=== PATIENT | female | born 1945 | race Caucasian/White ===

== ENCOUNTER → 2017-06-25 | Outpatient (CLI) | payer MEDICARE, OTHER | LOC: CARD 11:43 | PROVIDERS: ATTEND Internal Medicine Cardiovascular Disease | DX: I25.10 Atherosclerotic heart disease of native coronary artery without angina pectoris (principal); I65.29 Occlusion and stenosis of unspecified carotid artery; R07.89 Other chest pain; E13.9 Other specified diabetes mellitus without complications; I51.7 Cardiomegaly; G47.33 Obstructive sleep apnea (adult) (pediatric); I34.0 Nonrheumatic mitral (valve) insufficiency | CPT/HCPCS: 93306 ==

== ENCOUNTER → 2017-06-28 | Outpatient (CLI) | payer MEDICARE, OTHER ==
[2017-06-25 12:56] LABS: ALANINE AMINOTRANSFERASE 15 U/L (0-55); ALBUMIN 4.1 GM/DL (3.2-4.5); ALKALINE PHOSPHATASE 96 U/L (40-136); BILIRUBIN,TOTAL 0.4 MG/DL (0.1-1.0); BUN/CREATININE RATIO 24; CALCIUM 10.2 MG/DL (8.5-10.1); CARBON DIOXIDE 25 MMOL/L (21-32); CHLORIDE 104 MMOL/L (98-107); CHOLESTEROL 203 MG/DL (< 200); CREATININE SERUM 0.85 MG/DL (0.60-1.30); GFR ESTIMATED > 60; GLUCOSE 136 MG/DL (70-105); HDL CHOLESTEROL 58 MG/DL (40-60); POTASSIUM 4.6 MMOL/L (3.6-5.0); SODIUM 137 MMOL/L (135-145); TOTAL PROTEIN 7.3 GM/DL (6.4-8.2); TRIGLYCERIDES 81 MG/DL (<150); VLDL CHOLESTEROL 16 MG/DL (5-40)
[~2017-06-28] VITALS: Ht 172.7 cm; Wt 147.9 kg
[~2017-06-28] MED LIST: AMIT100T2 PO; ASPI-983 PO; ATEN25TA PO; ATOR10TA PO; CATHETER FLUSH 10 ML SYR IV PRN; CELE100C84 PO; FLUT1AER IH; METF500T4 PO; REGADENOSON 0.4 MG/5 ML SYR (LEXISCAN) IV ONE; RT-ALBUINH IH; VALS160T28 PO; ZOLP12.546 PO
[2017-06-28 08:56] VITALS: BP 182/96
[2017-06-28 09:05] VITALS: BP 191/83
--- NOTE | 2017-06-28 13:58 | STRESS TEST ---
DATE OF SERVICE: 06/28/2017 LEXISCAN STRESS TEST REPORT REFERRING PHYSICIAN: Cyrus Corado M.D. Baseline heart rate is 90. Baseline blood pressure 170/80. Baseline EKG is sinus rhythm with no ischemic changes. In summary, the patient was injected with 10.58 mCi of technetium-99 Myoview and the resting images were obtained. Then, the patient received 0.4 mg of Lexiscan followed by 31.2 mCi of technetium-99 Myoview. Throughout the test, there were no EKG changes. The resting and stress images were reviewed and compared in the short axis, horizontal long axis, and vertical long axis views. Review of the images showed breast attenuation, there is decreased uptake involving the mid to apical anterior wall and anterolateral wall and anterior septum with mild reversibility. SSS is 6, SDS 4, TID value 0.91. On the gated images, the left ventricle appeared to be normal size with normal contractility. Calculated ejection fraction 54%. CONCLUSION: 1. The patient tolerated Lexiscan well. 2. Breast attenuation with mild reversible ischemia involving the anterior wall , anterior septum and anterolateral wall. 3. Normal left ventricular size with normal contractility, calculated ejection fraction 54%. Job ID: [id number] DocumentID: [id number] Dictated Date: 06/28/2017 11:12:02 Loader Operator Date: 06/28/2017 13:57:42 Dictated By: EFRAIN HARRINGTON MD [facility]
== END ==
LOC: CARD 07:11
PROVIDERS: ATTEND Internal Medicine Cardiovascular Disease
DX: I25.10 Atherosclerotic heart disease of native coronary artery without angina pectoris (principal); R07.9 Chest pain, unspecified; I51.7 Cardiomegaly; E11.9 Type 2 diabetes mellitus without complications; G47.33 Obstructive sleep apnea (adult) (pediatric)
CPT/HCPCS: 36415; 78452; 80053; 80061; 83036; 93017

== ENCOUNTER 2017-06-30 09:14 | Day surgery (SDC) | payer MEDICARE, OTHER ==
[~2017-06-30] VITALS: Ht 172.7 cm; Wt 147.9 kg
[2017-06-30] VITALS (9 sets, daily range): BP systolic 133–165; BP diastolic 65–93
--- OUTSIDE RECORDS SUMMARY | 2017-06-30 09:18 | XMS REPORT | Continuity of Care Document ---
Author Author [facility] Organization [facility] Address Unknown Phone Unavailable Allergies Active Description Code Type Severity Reaction Onset Reported/Identified Relationship to Patient Clinical Status Yes Penicillins [id number] Drug Allergy Unknown N/A 09/24/2006 Medications There is no data. Problems Date Dx Coded Attending Type Code Diagnosis Diagnosed By 01/27/2015 KAUR KOCH DO Ot 327.23 OBSTRUCTIVE SLEEP APNEA (ADULT) (PEDIATR 02/13/2015 KAUR KOHC DO Ot 278.01 02/13/2015 KAUR KOCH DO Ot 493.90 02/21/2015 ANNELISE ZAVALA, JOHNNY Rutledge Ot Z12.31 02/26/2015 KAUR KOCH DO Ot 278.01 02/26/2015 KAUR KOCH DO Ot 493.90 02/28/2015 WILFRID WILSON SQL DATA ARCHITECT Ot E66.01 02/28/2015 WILFRID WILSON SQL DATA ARCHITECT Ot G47.33 02/28/2015 WILFRID WILSON SQL DATA ARCHITECT Ot J45.909 03/13/2015 WILFRID WILSON SQL DATA ARCHITECT Ot G47.33 OBSTRUCTIVE SLEEP APNEA (ADULT) (PEDIATR 03/13/2015 WILFRID WILSON SQL DATA ARCHITECT Ot E66.01 03/13/2015 WILFRID WILSON SQL DATA ARCHITECT Ot G47.33 03/13/2015 WILFRID WILSON SQL DATA ARCHITECT Ot J45.909 05/02/2015 WILFRID WILSON SQL DATA ARCHITECT Ot E66.01 05/02/2015 WILFRID WILSON SQL DATA ARCHITECT Ot J18.9 05/02/2015 WILFRID WILSON SQL DATA ARCHITECT Ot J45.909 05/02/2015 WILFRID WILSON SQL DATA ARCHITECT Ot R06.81 05/02/2015 WILFRID WILSON SQL DATA ARCHITECT Ot Z12.31 05/02/2015 WILFRID WILSON SQL DATA ARCHITECT Ot E66.01 05/02/2015 ABHINAV WILSONINE E SQL DATA ARCHITECT Ot J18.9 05/02/2015 ABHINAV WILSONINE E SQL DATA ARCHITECT Ot J45.909 05/02/2015 ABHINAV WILSONINE E SQL DATA ARCHITECT Ot R06.81 05/02/2015 ABHINAV WILSONINE E SQL DATA ARCHITECT Ot Z12.31 07/05/2015 ABHINAV WILSONINE Senait SQL DATA ARCHITECT Ot J45.909 07/11/2015 ABHINAV WILSONINE E SQL DATA ARCHITECT Ot J45.909 08/13/2015 Ot V76.12 08/13/2015 Ot 496 08/13/2015 Ot 782.3 08/13/2015 Ot 786.05 08/13/2015 Ot V76.12 08/13/2015 Ot 496 08/13/2015 Ot 782.3 08/13/2015 Ot 786.50 08/13/2015 ANNELISE ZAVALA, JOHNNY Rutledge Ot V76.12 08/13/2015 KAUR KOCH DO Ot 278.01 08/13/2015 KAUR KOCH DO Ot 493.90 08/13/2015 ANNELISE ZAVALA, JOHNNY Rutledge Ot Z12.31 08/13/2015 ABHINAV WILSONINE Senait SQL DATA ARCHITECT Ot E66.01 08/13/2015 WILFRID WILSON SQL DATA ARCHITECT Ot G47.33 08/13/2015 WILFRID WILSON SQL DATA ARCHITECT Ot J45.909 08/13/2015 ABHINAV WILSONINE E SQL DATA ARCHITECT Ot E66.01 08/13/2015 ABHINAV WILSONINE Senait SQL DATA ARCHITECT Ot J18.9 08/13/2015 ABHINAV WILSONINE Senait SQL DATA ARCHITECT Ot J45.909 08/13/2015 ABHINAV WILSONINE Senait SQL DATA ARCHITECT Ot R06.81 08/13/2015 ABHINAV WILSONINE E SQL DATA ARCHITECT Ot Z12.31 08/13/2015 WILFRID WILSON SQL DATA ARCHITECT Ot J45.909 08/13/2015 ABHINAV WILSONINE Senait SQL DATA ARCHITECT Ot J45.909 09/04/2015 ABHINAV WILSONINE E SQL DATA ARCHITECT Ot J45.909 UNSPECIFIED ASTHMA, UNCOMPLICATED 09/11/2015 WILFRID WILSON E SQL DATA ARCHITECT Ot J45.909 UNSPECIFIED ASTHMA, UNCOMPLICATED 06/23/2017 ANNELISE ZAVALA, JOHNNY Rutledge Ot V76.12 OTH SCREEN MAMMO-MALIGN NEOPLASM OF RICHARD 06/23/2017 KAUR KOCH DO Ot 278.01 MORBID OBESITY 06/23/2017 KAUR KOCH DO Ot 493.90 ASTHMA, UNSPECIFIED 06/23/2017 ANNELISE ZAVALA, JOHNNY Rutledge Ot Z12.31 ENCNTR SCREEN MAMMOGRAM FOR MALIGNANT NE 06/23/2017 ABHINAV WILSONINE Senait SQL DATA ARCHITECT Ot E66.01 MORBID (SEVERE) OBESITY DUE TO EXCESS CA 06/23/2017 KATIEABHINAV HARDENINE E SQL DATA ARCHITECT Ot G47.33 OBSTRUCTIVE SLEEP APNEA (ADULT) (PEDIATR 06/23/2017 KATIEABHINAV HARDENINE E SQL DATA ARCHITECT Ot J45.909 UNSPECIFIED ASTHMA, UNCOMPLICATED 06/23/2017 ABHINAV WILSONINE Senait SQL DATA ARCHITECT Ot E66.01 MORBID (SEVERE) OBESITY DUE TO EXCESS CA 06/23/2017 ABHINAV WILSONINE E SQL DATA ARCHITECT Ot J18.9 PNEUMONIA, UNSPECIFIED ORGANISM 06/23/2017 WILFRID WILSON SQL DATA ARCHITECT Ot J45.909 UNSPECIFIED ASTHMA, UNCOMPLICATED 06/23/2017 ABHINAV WILSONINE Senait SQL DATA ARCHITECT Ot R06.81 APNEA, NOT ELSEWHERE CLASSIFIED 06/23/2017 KATIEABHINAV HARDENINE E SQL DATA ARCHITECT Ot Z12.31 ENCNTR SCREEN MAMMOGRAM FOR MALIGNANT NE 06/23/2017 ABHINAV WILSONINE Senait SQL DATA ARCHITECT Ot J45.909 UNSPECIFIED ASTHMA, UNCOMPLICATED 06/23/2017 KATIEABHINAV HARDENINE E SQL DATA ARCHITECT Ot J45.909 UNSPECIFIED ASTHMA, UNCOMPLICATED Procedures There is no data. Results There is no data. Encounters ACCT No. Visit Date/Time Discharge Status Pt. Type Provider Facility Loc./Unit Complaint [id number] 06/25/2017 11:43:00 06/25/2017 23:59:59 CLS Outpatient JUANY ZAVALA, EFRAIN Nieto [facility] CARD I25.10 [id number] 08/13/2015 08:14:00 08/13/2015 23:59:59 CLS Outpatient WILFRID WILSON SQL DATA ARCHITECT [facility] RAD BRONCHITIS,ASTHMA [id number] 06/14/2015 10:45:00 06/14/2015 23:59:59 CLS Outpatient WILFRID WILSON SQL DATA ARCHITECT [facility] RAD PNEUMONIA SYMPTOMS, BRONCHITIS,ASTHMA [id number] 03/12/2015 19:49:00 03/13/2015 06:15:00 DIS Outpatient WILFRID WILSON APRN [facility] SLEEP SNORING,HTN, MOOD DISORDER [id number] 02/18/2015 11:21:00 02/18/2015 23:59:59 CLS Outpatient WILFRID WILSON APRN [facility] RAD PNEUMONIA,ASTHMA, DYSPNEA [id number] 02/18/2015 09:57:00 02/18/2015 23:59:59 CLS Outpatient JOHNNY CASTELAN MD [facility] RAD SCREENING [id number] 02/08/2015 10:41:00 02/08/2015 23:59:59 CLS Outpatient WILFRID WILSON APRN [facility] RAD OBSTRUCTIVE SLEEP APNA,MORBID OBESITY,BRONCHITIS,A [id number] 01/26/2015 20:49:00 01/27/2015 06:50:00 DIS Outpatient KAUR KOCH DO [facility] SLEEP SNORING,CHOKING [id number] 01/23/2015 08:02:00 01/23/2015 23:59:59 CLS Outpatient KAUR KOCH DO [facility] RT BRONCHITIS ASTHMA [id number] 02/15/2014 13:23:00 02/15/2014 23:59:59 CLS Outpatient JOHNNY CASTELAN MD [facility] RAD SCREENING [id number] 06/28/2017 07:45:00 PEN Preadmit EFRAIN HARRINGTON MD [facility] CARD CAD [id number] 10/07/2011 13:01:00 Document Registration [id number] 10/06/2011 11:13:00 Document Registration [id number] 08/11/2010 10:26:00 Document Registration
[2017-06-30] MEDS ORDERED: NS IV 1000 ML 1,000 ML IV SCH ×3 (10:30→14:34)
[2017-06-30] MEDS ORDERED: HEParin (CATH LAB) 2,000 ML IV ONE (11:07)
[2017-06-30] MEDS ORDERED: LIDOCAINE 1% INJ 50 ML (XYLOCAINE) VIAL ONE (11:07)
[2017-06-30] MEDS ORDERED: NS IV 1000 ML 1,000 ML ONE (11:07)
[2017-06-30 11:37] LABS: HEMOGLOBIN 13.8 G/DL (11.5-16.0); MEAN PLATELET VOLUME 9.8 FL (7.4-10.4); RED BLOOD COUNT 4.83 10^6/uL (4.35-5.85); RED CELL DISTRIBUTION WIDTH 13.9 % (10.0-14.5); WHITE BLOOD COUNT 9.9 10^3/uL (4.3-11.0)
[2017-06-30 11:37] LABS: BILIRUBIN,URINE NEGATIVE (NEGATIVE); CLARITY,URINE CLEAR; COLOR,URINE YELLOW; GLUCOSE, URINE (UA) NEGATIVE (NEGATIVE); KETONES,URINE NEGATIVE (NEGATIVE); LEUKOCYTE ESTERASE ,URINE 1+ (NEGATIVE); NITRITE,URINE NEGATIVE (NEGATIVE); PH,URINE 6.5 (5-9); PROTEIN,URINE 1+ (NEGATIVE); UROBILINOGEN,URINE NORMAL (NORMAL)
[2017-06-30 11:48] LABS: INR 0.9 (0.8-1.4); PROTHROMBIN TIME PATIENT 12.2 SEC (12.2-14.7)
[2017-06-30 11:48] LABS: BACTERIA,URINE TRACE /HPF; WBC,URINE 0-2 /HPF
--- NOTE | 2017-06-30 11:54 | Diagnostic Imaging Report ---
INDICATION: Preop for heart catheterization. TIME OF EXAM: 11:40 a.m. Correlation is made with prior study from 06/14/2015. FINDINGS: The heart size is stable. The lungs are clear. The pulmonary vascularity is normal. No infiltrate, effusion, or pneumothorax is seen. IMPRESSION: No acute cardiopulmonary process is detected. Dictated by: Dictated on workstation # [id number]
[2017-06-30 11:56] LABS: ALANINE AMINOTRANSFERASE 15 U/L (0-55); ALBUMIN 4.2 GM/DL (3.2-4.5); ALKALINE PHOSPHATASE 88 U/L (40-136); BILIRUBIN,TOTAL 0.4 MG/DL (0.1-1.0); BUN/CREATININE RATIO 31; CALCIUM 9.5 MG/DL (8.5-10.1); CARBON DIOXIDE 21 MMOL/L (21-32); CHLORIDE 104 MMOL/L (98-107); CHOLESTEROL 227 MG/DL (< 200); CREATININE SERUM 0.85 MG/DL (0.60-1.30); GFR ESTIMATED > 60; GLUCOSE 141 MG/DL (70-105); HDL CHOLESTEROL 61 MG/DL (40-60); POTASSIUM 4.4 MMOL/L (3.6-5.0); SODIUM 136 MMOL/L (135-145); TOTAL PROTEIN 7.6 GM/DL (6.4-8.2); TRIGLYCERIDES 104 MG/DL (<150); VLDL CHOLESTEROL 21 MG/DL (5-40)
[2017-06-30] MEDS ORDERED: AMIT100T2 PO (12:00)
[2017-06-30] MEDS ORDERED: CELE100C84 PO (12:00)
[2017-06-30] MEDS ORDERED: ZOLP12.546 PO (12:00)
[2017-06-30] MEDS ORDERED: FLUT1AER IH (12:00)
[2017-06-30] MEDS ORDERED: ATEN25TA PO (12:00)
[2017-06-30] MEDS ORDERED: RT-ALBUINH IH (12:00)
[2017-06-30] MEDS ORDERED: VALS160T28 PO (12:00)
[2017-06-30] MEDS ORDERED: METF500T4 PO (12:00)
[2017-06-30] MEDS ORDERED: MIDAZOLAM 5 MG/5 ML (VERSED) VIAL ONE (13:44)
[2017-06-30] MEDS ORDERED: HEParin 1000 UNIT/ML (10ML VIAL) FOR BOLUS ONE (13:45)
[2017-06-30] MEDS ORDERED: VERAPAMIL 5 MG/2 ML (CALAN) VIAL IV ONE (13:45)
[2017-06-30] MEDS ORDERED: NITRO DRIP 25000 MCG/D5W 250 ML IV ONE (13:45)
[2017-06-30] MEDS ORDERED: fentaNYL INJECTION 100 MCG/2 ML AMP ONE (13:45)
--- NOTE | 2017-06-30 13:49 | Cardiac Procedure Note-CS/ASA ---
Pre-Procedure Note Pre-Op Procedure Note H&P Reviewed The H&P was reviewed, patient examined and no changes noted. Date H&P Reviewed: Jun 30, 2017 Time H&P Reviewed: 13:49 Conscious Sedation Pre-Proced Time Reviewed: 13:49 ASA Class: 3 Airway Mallampati Classification: (marshall appropriate class) I. II. III, IV Lungs Heart ASA score ASA 1: a normal healthy patient ASA 2: a patient with a mild systemic disease (mid diabetes, controlled hypertension, obesity x ASA 3: a patient with a severe systemic disease that limits activity (angina , COPD, prior Myocardial infarction) ASA 4: a patient with an incapacitating disease that is a constant threat to life (CHF, renal failure) ASA 5: a moribund patient not expected to survive 24 hrs. (ruptured aneurysm) ASA 6: a declared brain patient whose organs are being harvested. For emergent operations, add the letter E after the classification Grade 3 Sedation Plan: Analgesia, Amnesia, Plan communicated to team members, Discussed options with patient/fam, Discussed risks with patient/fam Note The patient is an appropriate candidate to undergo the planned procedure, sedation, and anesthesia. The patient immediately re-assessed prior to indication. EFRAIN HARRINGTON MD Jun 30, 2017 13:49
--- NOTE | 2017-06-30 14:38 | Cardiac Cath Report ---
Cardiac Cath Report Physician (s)/Recording Clerk (s) Physician EFRAIN HARRINGTON MD Pre-Procedure Diagnosis Pre-Procedure Diagnosis: Coronary artery disease Post-Procedure Note Procedure Start Date: Jun 30, 2017 Name of Procedure: Left heart catheterization Findings/Procedure Note PROCEDURE NOTE: After explaining the procedure to the patient, all pros and cons were explained, all questions were answered. The patient signed the consent and then she was placed on the cardiac catheterization laboratory. The patient was placed on the cardiac catheterization laboratory. Groin was prepped SL fashion local anesthesia was used. Sheath placed in the right radial artery Titer catheter was used to access the left ventricular cavity, left ventricular gram was done The lesion of the right and left carotid system was done At the end of the procedure the sheath was removed. Closure device was used FINDINGS: Hemodynamics LV 114/11, end-diastolic pressure of 11 Aorta 100/55 mean of 73 ANATOMY: Left Main has 60-70 percent stenosis distally, 30 percent stenosis at the ostium Left Anterior Descending has mild disease nonobstructive disease Left Circumflex has severe disease at the ostium extending from the left main Right Coronory Artery is dominant with mild disease at the midportion nonobstructive disease LV Gram was done showing normal left ventricle size and systolic function estimated ejection fraction 60 percent CONCLUSION: 1. Severe left main coronary artery stenosis extending to the left circumflex artery 2. Mild disease in the LAD and right coronary artery 3. Normal left ventricular size and systolic function estimated ejection fraction 60 percent DISCUSSION AND RECOMMENDATION: I will refer the patient for evaluation for possible CABG Anesthesia Type: Conscious Sedation Estimated blood loss (mL): 10 ml Contrast Amount: 80 ml Total Radiation Dose: 917 mGy Post-Procedure Diagnosis Post-operative diagnosis: Coronary artery disease Hypertension Hyperlipidemia Family history of heart disease EFRAIN HARRINGTON MD Jun 30, 2017 14:38
[2017-06-30] MEDS ORDERED: ATOR10TA PO (14:40)
[2017-06-30] MEDS ORDERED: ASPI-983 PO (14:40)
--- NOTE | 2017-06-30 14:54 | Discharge Inst-Post CATH ---
Discharge Inst-CATH Post Cardiac Cath D/C Inst Follow Up/Plan Hold metformin for [address] Aranda next week Appointment with Dr. Lovell's office in 4 weeks CARDIAC CATH DISCHARGE INSTRUCTIONS *Hold Metformin for 48 hours post heart cath. ACTIVITY * Go Home directly and rest. * Limit activity of the leg (or wrist if it was used) for 7 days including aerobics, swimming, jogging, bicycling, etc. * Restrict stair-climbing for 7 days if possible, if not, climb up with your non -cath leg, then bring together on the same step. * Avoid lifting, pushing, pulling or excessive movement of the affected extremity for 7 days. * Customary sexual activity may be resumed after 2 days-use caution not to use a position that strains or causes pain to the affected extremity. * No driving for 24 hours. * NO SMOKING. * Avoid straining for bowel movements for 7 days. * Gentle walking on level ground is allowed. * Returning to work will depend on the type of procedure and the results. Your doctor will discuss this with you. CALL YOUR DOCTOR FOR ANY OF THE FOLLOWING: *If bleeding from the puncture site occurs- Apply gentle pressure to site with clean cloth and call your doctor or EMS. * If a knot or lump forms under the skin, increases in size, or causes pain. * If bruising appears to be worsening or moving further down your leg instead of disappearing. * Temperature above 101 F. CARE OF YOUR GROIN INCISION; * Bruising or purple discoloration of the skin near the puncture site is common. * You may shower only, no bathtub bathing for 5 days. Be careful to avoid slipping as your leg may feel stiff. * If a closure device was used on your femoral artery, please see the attached guide regarding care of the device and your leg. * REMOVE the dressing from your groin the next day after your procedure in the shower. CARE OF YOUR WRIST INCISION; * Bruising or purple discoloration of the skin near the puncture site is common. * You may shower. * DO NOT submerge wrist. * Remove dressing in 24 hours. EFRAIN LOVELL MD Jun 30, 2017 14:54
== END 2017-06-30 17:15 | disposition home or self-care (01) ==
LOC: CATH 09:14
PROVIDERS: ATTEND Internal Medicine Cardiovascular Disease
DX: I25.10 Atherosclerotic heart disease of native coronary artery without angina pectoris (principal); I10 Essential (primary) hypertension; E78.5 Hyperlipidemia, unspecified; E11.9 Type 2 diabetes mellitus without complications; I65.29 Occlusion and stenosis of unspecified carotid artery; Z82.49 Family history of ischemic heart disease and other diseases of the circulatory system; Z88.0 Allergy status to penicillin; Z79.84 Long term (current) use of oral hypoglycemic drugs; Z79.899 Other long term (current) drug therapy
CPT/HCPCS: 36415; 71045; 80053; 80061; 81000; 85027; 85610; 85730; 87081; 93458

== ENCOUNTER 2017-09-28 15:46 | Inpatient (IN) | payer MEDICARE, OTHER ==
[~2017-09-28] VITALS: Ht 170.2 cm; Wt 143.3 kg
[~2017-09-28 15:46] MED LIST changes: -CATHETER FLUSH 10 ML SYR IV PRN; -METF500T4 PO; +METF500T5 PO; -REGADENOSON 0.4 MG/5 ML SYR (LEXISCAN) IV ONE
[2017-09-28 19:29] VITALS: BP 107/58
--- OUTSIDE RECORDS SUMMARY | 2017-09-28 20:48 | XMS REPORT | Continuity of Care Document ---
Author Author [facility] Organization [facility] Address Unknown Phone Unavailable Allergies Active Description Code Type Severity Reaction Onset Reported/Identified Relationship to Patient Clinical Status Yes Penicillins [id number] Drug Allergy Unknown N/A 09/24/2006 Medications There is no data. Problems Date Dx Coded Attending Type Code Diagnosis Diagnosed By 01/27/2015 KAUR KOCH DO Ot 327.23 OBSTRUCTIVE SLEEP APNEA (ADULT) (PEDIATR 02/13/2015 KAUR KOCH DO Ot 278.01 02/13/2015 KAUR KOCH DO Ot 493.90 02/21/2015 ANNELISE ZAVALA, JOHNNY Rutledge Ot Z12.31 02/26/2015 KAUR KOCH DO Ot 278.01 02/26/2015 KAUR KOCH DO Ot 493.90 02/28/2015 WILFRID WILSON CHIEF DESIGN DRAFTER Ot E66.01 02/28/2015 WILFRID WILSON CHIEF DESIGN DRAFTER Ot G47.33 02/28/2015 WILFRID WILSON CHIEF DESIGN DRAFTER Ot J45.909 03/13/2015 WILFRID WILSON CHIEF DESIGN DRAFTER Ot G47.33 OBSTRUCTIVE SLEEP APNEA (ADULT) (PEDIATR 03/13/2015 WILFRID WILSON CHIEF DESIGN DRAFTER Ot E66.01 03/13/2015 WILFRID WILSON CHIEF DESIGN DRAFTER Ot G47.33 03/13/2015 WILFRID WILSON CHIEF DESIGN DRAFTER Ot J45.909 05/02/2015 WILFRID WILSON CHIEF DESIGN DRAFTER Ot E66.01 05/02/2015 WILFRID WILSON CHIEF DESIGN DRAFTER Ot J18.9 05/02/2015 WILFRID WILSON CHIEF DESIGN DRAFTER Ot J45.909 05/02/2015 WILFRID WILSON CHIEF DESIGN DRAFTER Ot R06.81 05/02/2015 WILFRID WILSON CHIEF DESIGN DRAFTER Ot Z12.31 05/02/2015 WILFRID WILSON CHIEF DESIGN DRAFTER Ot E66.01 05/02/2015 ABHINAV WILSONINE E CHIEF DESIGN DRAFTER Ot J18.9 05/02/2015 ABHINAV WILSONINE E CHIEF DESIGN DRAFTER Ot J45.909 05/02/2015 ABHINAV WILSONINE E CHIEF DESIGN DRAFTER Ot R06.81 05/02/2015 ABHINAV WILSONINE E CHIEF DESIGN DRAFTER Ot Z12.31 07/05/2015 ABHINAV WILSONINE Senait CHIEF DESIGN DRAFTER Ot J45.909 07/11/2015 ABHINAV WILSONINE E CHIEF DESIGN DRAFTER Ot J45.909 08/13/2015 Ot V76.12 08/13/2015 Ot 496 08/13/2015 Ot 782.3 08/13/2015 Ot 786.05 08/13/2015 Ot V76.12 08/13/2015 Ot 496 08/13/2015 Ot 782.3 08/13/2015 Ot 786.50 08/13/2015 ANNELISE ZAVALA, JOHNNY Rutledge Ot V76.12 08/13/2015 KAUR KOCH DO Ot 278.01 08/13/2015 KAUR KOCH DO Ot 493.90 08/13/2015 ANNELISE ZAVALA, JOHNNY Rutledge Ot Z12.31 08/13/2015 ABHINAV WILSONINE Senait CHIEF DESIGN DRAFTER Ot E66.01 08/13/2015 WILFRID WILSON CHIEF DESIGN DRAFTER Ot G47.33 08/13/2015 WILFRID WILSON CHIEF DESIGN DRAFTER Ot J45.909 08/13/2015 ABHINAV WILSONINE E CHIEF DESIGN DRAFTER Ot E66.01 08/13/2015 ABHINAV WILSONINE Senait CHIEF DESIGN DRAFTER Ot J18.9 08/13/2015 ABHINAV WILSONINE Senait CHIEF DESIGN DRAFTER Ot J45.909 08/13/2015 ABHINAV WILSONINE Senait CHIEF DESIGN DRAFTER Ot R06.81 08/13/2015 ABHINAV WILSONINE E CHIEF DESIGN DRAFTER Ot Z12.31 08/13/2015 WILFRID WILSON CHIEF DESIGN DRAFTER Ot J45.909 08/13/2015 ABHINAV WILSONINE Senait CHIEF DESIGN DRAFTER Ot J45.909 09/04/2015 ABHINAV WILSONINE E CHIEF DESIGN DRAFTER Ot J45.909 UNSPECIFIED ASTHMA, UNCOMPLICATED 09/11/2015 WILFRID WILSON E CHIEF DESIGN DRAFTER Ot J45.909 UNSPECIFIED ASTHMA, UNCOMPLICATED 06/23/2017 ANNELISE ZAVALA, JOHNNY Rutledge Ot V76.12 OT SCREEN MAMMO-MALIGN NEOPLASM OF [place] 06/23/2017 KAUR KOCH DO Ot 278.01 MORBID OBESITY 06/23/2017 KAUR KOCH DO Ot 493.90 ASTHMA, UNSPECIFIED 06/23/2017 ANNELISE ZAVALA, JOHNNY Rutledge Ot Z12.31 ENCNTR SCREEN MAMMOGRAM FOR MALIGNANT NE 06/23/2017 KATIEWILFRID HARDEN E CHIEF DESIGN DRAFTER Ot E66.01 MORBID (SEVERE) OBESITY DUE TO EXCESS CA 06/23/2017 KATIEABHINAV HARDENINE E CHIEF DESIGN DRAFTER Ot G47.33 OBSTRUCTIVE SLEEP APNEA (ADULT) (PEDIATR 06/23/2017 KATIE, WILFRID E CHIEF DESIGN DRAFTER Ot J45.909 UNSPECIFIED ASTHMA, UNCOMPLICATED 06/23/2017 ABHINAV WILSONINE Senait CHIEF DESIGN DRAFTER Ot E66.01 MORBID (SEVERE) OBESITY DUE TO EXCESS CA 06/23/2017 ABHINAV WILSONINE E CHIEF DESIGN DRAFTER Ot J18.9 PNEUMONIA, UNSPECIFIED ORGANISM 06/23/2017 WILFRID WILSON CHIEF DESIGN DRAFTER Ot J45.909 UNSPECIFIED ASTHMA, UNCOMPLICATED 06/23/2017 WILFRID WILSON E CHIEF DESIGN DRAFTER Ot R06.81 APNEA, NOT ELSEWHERE CLASSIFIED 06/23/2017 KATIEABHINAV HARDENINE E CHIEF DESIGN DRAFTER Ot Z12.31 ENCNTR SCREEN MAMMOGRAM FOR MALIGNANT NE 06/23/2017 WILFRID WILSON CHIEF DESIGN DRAFTER Ot J45.909 UNSPECIFIED ASTHMA, UNCOMPLICATED 06/23/2017 WILFRID WILSON CHIEF DESIGN DRAFTER Ot J45.909 UNSPECIFIED ASTHMA, UNCOMPLICATED 06/28/2017 EFRAIN HARRINGTON MD Ot E13.9 OTHER SPECIFIED DIABETES MELLITUS WITHOU 06/28/2017 EFRAIN HARRINGTON MD Ot I25.10 ATHSCL HEART DISEASE OF [place] CORONARY 06/28/2017 EFRAIN HARRINGTON MD Ot E13.9 OTHER SPECIFIED DIABETES MELLITUS WITHOU 06/28/2017 EFRAIN HARRINGTON MD Ot G47.33 OBSTRUCTIVE SLEEP APNEA (ADULT) (PEDIATR 06/28/2017 EFRAIN HARRINGTON MD Ot I25.10 ATHSCL HEART DISEASE OF [place] CORONARY 06/28/2017 EFRAIN HARRINGTON MD Ot I34.0 NONRHEUMATIC MITRAL (VALVE) INSUFFICIENC 06/28/2017 EFRAIN HARRINGTON MD Ot I51.7 CARDIOMEGALY 06/28/2017 EFRAIN HARRINGTON MD Ot I65.29 OCCLUSION AND STENOSIS OF UNSPECIFIED CA 06/28/2017 EFRAIN HARRINGTON MD Ot R07.89 OTHER CHEST PAIN 06/29/2017 EFRAIN HARRINGTON MD Ot E11.9 TYPE 2 DIABETES MELLITUS WITHOUT COMPLIC 06/29/2017 EFRAIN HARRINGTON MD Ot G47.33 OBSTRUCTIVE SLEEP APNEA (ADULT) (PEDIATR 06/29/2017 EFRAIN HARRINGTON MD Ot I25.10 ATHSCL HEART DISEASE OF [place] CORONARY 06/29/2017 EFRAIN HARRINGTON MD Ot I51.7 CARDIOMEGALY 06/29/2017 EFRAIN HARRINGTON MD Ot R07.9 CHEST PAIN, UNSPECIFIED 06/30/2017 ANNELISE ZAVALA, JOHNNY Rutledge Ot V76.12 OTH SCREEN MAMMO-MALIGN NEOPLASM OF [place] 06/30/2017 KAUR KOCH DO Ot 278.01 MORBID OBESITY 06/30/2017 KAUR KOCH DO Ot 493.90 ASTHMA, UNSPECIFIED 06/30/2017 JOHNNY CASTELAN MD Ot Z12.31 ENCNTR SCREEN MAMMOGRAM FOR MALIGNANT NE 06/30/2017 WILFRID WILSON CHIEF DESIGN DRAFTER Ot E66.01 MORBID (SEVERE) OBESITY DUE TO EXCESS CA 06/30/2017 WILFRID WILSON CHIEF DESIGN DRAFTER Ot G47.33 OBSTRUCTIVE SLEEP APNEA (ADULT) (PEDIATR 06/30/2017 WILFRID WILSON CHIEF DESIGN DRAFTER Ot J45.909 UNSPECIFIED ASTHMA, UNCOMPLICATED 06/30/2017 WILFRID WILSON CHIEF DESIGN DRAFTER Ot E66.01 MORBID (SEVERE) OBESITY DUE TO EXCESS CA 06/30/2017 WILFRID WILSON CHIEF DESIGN DRAFTER Ot J18.9 PNEUMONIA, UNSPECIFIED ORGANISM 06/30/2017 WILFRID WILSON CHIEF DESIGN DRAFTER Ot J45.909 UNSPECIFIED ASTHMA, UNCOMPLICATED 06/30/2017 WILFRID WILSON CHIEF DESIGN DRAFTER Ot R06.81 APNEA, NOT ELSEWHERE CLASSIFIED 06/30/2017 WILFRID WILSON CHIEF DESIGN DRAFTER Ot Z12.31 ENCNTR SCREEN MAMMOGRAM FOR MALIGNANT NE 06/30/2017 WILFRID WILSON CHIEF DESIGN DRAFTER Ot J45.909 UNSPECIFIED ASTHMA, UNCOMPLICATED 06/30/2017 WILFRID WILSON CHIEF DESIGN DRAFTER Ot J45.909 UNSPECIFIED ASTHMA, UNCOMPLICATED 06/30/2017 EFRAIN HARRINGTON MD Ot E13.9 OTHER SPECIFIED DIABETES MELLITUS WITHOU 06/30/2017 EFRAIN HARRINGTON MD Ot G47.33 OBSTRUCTIVE SLEEP APNEA (ADULT) (PEDIATR 06/30/2017 EFRAIN HARRINGTON MD Ot I25.10 ATHSCL HEART DISEASE OF [place] CORONARY 06/30/2017 EFRAIN HARRINGTON MD Ot I34.0 NONRHEUMATIC MITRAL (VALVE) INSUFFICIENC 06/30/2017 EFRAIN HARRINGTON MD Ot I51.7 CARDIOMEGALY 06/30/2017 EFRAIN HARRINGTON MD Ot I65.29 OCCLUSION AND STENOSIS OF UNSPECIFIED CA 06/30/2017 EFRAIN HARRINGTON MD Ot R07.89 OTHER CHEST PAIN 06/30/2017 EFRAIN HARRINGTON MD Ot E11.9 TYPE 2 DIABETES MELLITUS WITHOUT COMPLIC 06/30/2017 EFRAIN HARRINGTON MD Ot G47.33 OBSTRUCTIVE SLEEP APNEA (ADULT) (PEDIATR 06/30/2017 EFRAIN HARRINGTON MD Ot I25.10 ATHSCL HEART DISEASE OF [place] CORONARY 06/30/2017 EFRAIN HARRINGTON MD Ot I51.7 CARDIOMEGALY 06/30/2017 EFRAIN HARRINGTON MD Ot R07.9 CHEST PAIN, UNSPECIFIED 06/30/2017 EFRAIN HARRINGTON MD Ot E11.9 TYPE 2 DIABETES MELLITUS WITHOUT COMPLIC 06/30/2017 EFRAIN HARRINGTON MD Ot E78.5 HYPERLIPIDEMIA, UNSPECIFIED 06/30/2017 EFRAIN HARRINGTON MD Ot I10 ESSENTIAL (PRIMARY) HYPERTENSION 06/30/2017 EFRAIN HARRINGTON MD Ot I25.10 ATHSCL HEART DISEASE OF [place] CORONARY 06/30/2017 EFRAIN HARRINGTON MD Ot I65.29 OCCLUSION AND STENOSIS OF UNSPECIFIED CA 06/30/2017 EFRAIN HARRINGTON MD Ot Z79.84 CUSTODIAL (CURRENT) USE OF ORAL HYPOGLYC 06/30/2017 EFRAIN HARRINGTON MD Ot Z79.899 OTHER CUSTODIAL (CURRENT) DRUG THERAPY 06/30/2017 EFRAIN HARRINGTON MD Ot Z82.49 FAMILY HX OF I[place]HE[place] HEART DIS AND OTH DI 06/30/2017 EFRAIN HARRINGTON MD Ot Z88.0 ALLERGY STATUS TO PENICILLIN 07/02/2017 EFRAIN HARRINGTON MD Ot E11.9 TYPE 2 DIABETES MELLITUS WITHOUT COMPLIC 07/02/2017 EFRAIN HARRINGTON MD Ot E78.5 HYPERLIPIDEMIA, UNSPECIFIED 07/02/2017 EFRAIN HARRINGTON MD Ot I10 ESSENTIAL (PRIMARY) HYPERTENSION 07/02/2017 EFRAIN HARRINGTON MD Ot I25.10 ATHSCL HEART DISEASE OF [place] CORONARY 07/02/2017 EFRAIN HARRINGTON MD Ot I65.29 OCCLUSION AND STENOSIS OF UNSPECIFIED CA 07/02/2017 EFRAIN HARRINGTON MD Ot Z79.84 CUSTODIAL (CURRENT) USE OF ORAL HYPOGLYC 07/02/2017 EFRAIN HARRINGTON MD Ot Z79.899 OTHER CUSTODIAL (CURRENT) DRUG THERAPY 07/02/2017 EFRAIN HARRINGTON MD Ot Z82.49 FAMILY HX OF ISCHE[place] HEART DIS AND OTH DI 07/02/2017 EFRAIN HARRINGTON MD Ot Z88.0 ALLERGY STATUS TO PENICILLIN 07/02/2017 EFRAIN HARRINGTON MD Ot E11.9 TYPE 2 DIABETES MELLITUS WITHOUT COMPLIC 07/02/2017 EFRAIN HARRINGTON MD Ot E78.5 HYPERLIPIDEMIA, UNSPECIFIED 07/02/2017 EFRAIN HARRINGTON MD Ot I10 ESSENTIAL (PRIMARY) HYPERTENSION 07/02/2017 EFRAIN HARRINGTON MD Ot I25.10 ATHSCL HEART DISEASE OF [place] CORONARY 07/02/2017 EFRAIN HARRINGTON MD Ot I65.29 OCCLUSION AND STENOSIS OF UNSPECIFIED CA 07/02/2017 EFRAIN HARRINGTON MD Ot Z79.84 METAL WELDER (CURRENT) USE OF ORAL HYPOGLYC 07/02/2017 EFRAIN HARRINGTON MD Ot Z79.899 OTHER CUSTODIAL (CURRENT) DRUG THERAPY 07/02/2017 EFRAIN HARRINGTON MD Ot Z82.49 FAMILY HX OF I[place]HE[place] HEART DIS AND OTH DI 07/02/2017 EFRAIN HARRINGTON MD Ot Z88.0 ALLERGY STATUS TO PENICILLIN 07/04/2017 EFRAIN HARRINGTON MD Ot E11.9 TYPE 2 DIABETES MELLITUS WITHOUT COMPLIC 07/04/2017 EFRAIN HARRINGTON MD Ot G47.33 OBSTRUCTIVE SLEEP APNEA (ADULT) (PEDIATR 07/04/2017 EFRAIN HARRINGTON MD Ot I25.10 ATHSCL HEART DISEASE OF [place] CORONARY 07/04/2017 EFRAIN HARRINGTON MD Ot I51.7 CARDIOMEGALY 07/04/2017 EFRAIN HARRINGTON MD Ot R07.9 CHEST PAIN, UNSPECIFIED 07/23/2017 EFRAIN HARRINGTON MD Ot E13.9 OTHER SPECIFIED DIABETES MELLITUS WITHOU 07/23/2017 EFRAIN HARRINGTON MD Ot G47.33 OBSTRUCTIVE SLEEP APNEA (ADULT) (PEDIATR 07/23/2017 EFRAIN HARRINGTON MD Ot I25.10 ATHSCL HEART DISEASE OF [place] CORONARY 07/23/2017 EFRAIN HARRINGTON MD Ot I34.0 NONRHEUMATIC MITRAL (VALVE) INSUFFICIENC 07/23/2017 EFRAIN HARRINGTON MD Ot I51.7 CARDIOMEGALY 07/23/2017 EFRAIN HARRINGTON MD Ot I65.29 OCCLUSION AND STENOSIS OF UNSPECIFIED CA 07/23/2017 EFRAIN HARRINGTON MD Ot R07.89 OTHER CHEST PAIN 08/09/2017 EFRAIN HARRINGTON MD Ot E11.9 TYPE 2 DIABETES MELLITUS WITHOUT COMPLIC 08/09/2017 EFRAIN HARRINGTON MD Ot G47.33 OBSTRUCTIVE SLEEP APNEA (ADULT) (PEDIATR 08/09/2017 EFRAIN HARRINGTON MD Ot I51.7 CARDIOMEGALY 08/09/2017 EFRAIN HARRINGTON MD Ot R07.9 CHEST PAIN, UNSPECIFIED Procedures There is no data. Results Test Result Range Complete urinalysis with reflex to culture - 06/30/17 11:15 Urine color determination YELLOW NRG Urine clarity determination CLEAR NRG Urine pH measurement by test strip 6.5 5-9 Specific gravity of urine by test strip 1.015 1.016- 1.022 Urine protein assay by test strip, semi-quantitative 1+ NEGATIVE Urine glucose detection by automated test strip NEGATIVE NEGATIVE Erythrocytes detection in urine sediment by light microscopy NEGATIVE NEGATIVE Urine ketones detection by automated test strip NEGATIVE NEGATIVE Urine nitrite detection by test strip NEGATIVE NEGATIVE Urine total bilirubin detection by test strip NEGATIVE NEGATIVE Urine urobilinogen measurement by automated test strip (mass/volume) NORMAL NORMAL Urine leukocyte esterase detection by dipstick 1+ NEGATIVE Automated urine sediment erythrocyte count by microscopy (number/high power field) NONE NRG Automated urine sediment leukocyte count by microscopy (number/high power field ) [HPF] NRG Bacteria detection in urine sediment by light microscopy TRACE NRG Squamous epithelial cells detection in urine sediment by light microscopy 5-10 NRG Crystals detection in urine sediment by light microscopy NONE NRG Casts detection in urine sediment by light microscopy NONE NRG Mucus detection in urine sediment by light microscopy NEGATIVE NRG Complete urinalysis with reflex to culture NO NRG Automated blood complete blood count (hemogram) panel - 06/30/17 11:30 Blood leukocytes automated count (number/volume) 9.9 10*3/uL 4.3-11.0 Blood erythrocytes automated count (number/volume) 4.83 10*6/uL 4.35-5.85 Venous blood hemoglobin measurement (mass/volume) 13.8 g/dL 11.5-16.0 Blood hematocrit (volume fraction) 42 % 35-52 Automated erythrocyte mean corpuscular volume 86 [foz_us] 80-99 Automated erythrocyte mean corpuscular hemoglobin (mass per erythrocyte) 29 pg 25-34 Automated erythrocyte mean corpuscular hemoglobin concentration measurement ( mass/volume) 33 g/dL 32-36 Automated erythrocyte distribution width ratio 13.9 % 10.0-14.5 Automated blood platelet count (count/volume) 317 10*3/uL 130-400 Automated blood platelet mean volume measurement 9.8 [foz_us] 7.4-10.4 PT panel in platelet poor plasma by coagulation assay - 06/30/17 11:30 Prothrombin time (PT) in platelet poor plasma by coagulation assay 12.2 s 12.2-14.7 INR in platelet poor plasma or blood by coagulation assay 0.9 0.8-1.4 Activated partial thromboplastin time (aPTT) in platelet poor plasma bycoagulation assay - 06/30/17 11:30 Activated partial thromboplastin time (aPTT) in platelet poor plasma bycoagulation assay 29 s 24-35 Comprehensive metabolic panel - 06/30/17 11:30 Serum or plasma sodium measurement (moles/volume) 136 mmol/L 135-145 Serum or plasma potassium measurement (moles/volume) 4.4 mmol/L 3.6-5.0 Serum or plasma chloride measurement (moles/volume) 104 mmol/L 98-107 Carbon dioxide 21 mmol/L 21-32 Serum or plasma anion gap determination (moles/volume) 11 mmol/L 5-14 Serum or plasma urea nitrogen measurement (mass/volume) 26 mg/dL 7-18 Serum or plasma creatinine measurement (mass/volume) 0.85 mg/dL 0.60-1.30 Serum or plasma urea nitrogen/creatinine mass ratio 31 NRG Serum or plasma creatinine measurement with calculation of estimated glomerular filtration rate > NRG Serum or plasma glucose measurement (mass/volume) 141 mg/dL 70-105 Serum or plasma calcium measurement (mass/volume) 9.5 mg/dL 8.5-10.1 Serum or plasma total bilirubin measurement (mass/volume) 0.4 mg/dL 0.1-1.0 Serum or plasma alkaline phosphatase measurement (enzymatic activity/volume) 88 U/L 40-136 Serum or plasma aspartate aminotransferase measurement (enzymatic activity/ volume) 16 U/L 5-34 Serum or plasma alanine aminotransferase measurement (enzymatic activity/volume ) 15 U/L 0-55 Serum or plasma protein measurement (mass/volume) 7.6 g/dL 6.4-8.2 Serum or plasma albumin measurement (mass/volume) 4.2 g/dL 3.2-4.5 Lipid 1996 panel - 06/30/17 11:30 Serum or plasma triglyceride measurement (mass/volume) 104 mg/dL <150 Serum or plasma cholesterol measurement (mass/volume) 227 mg/dL < 200 Serum or plasma cholesterol in HDL measurement (mass/volume) 61 mg/ dL 40-60 Cholesterol in LDL [mass/volume] in serum or plasma by direct assay 151 mg/dL 1-129 Serum or plasma cholesterol in VLDL measurement (mass/volume) 21 mg/ dL 5-40 Methicillin resistant Staphylococcus aureus (MRSA) screening culture - 11:31 Methicillin resistant Staphylococcus aureus (MRSA) screening culture NEG NRG Encounters ACCT No. Visit Date/Time Discharge Status Pt. Type Provider Facility Loc./Unit Complaint [id number] 06/30/2017 09:14:00 06/30/2017 17:15:00 DIS Outpatient EFRAIN HARRINGTON MD [facility] CATH LEFT HEART CATH [id number] 06/28/2017 07:11:00 06/28/2017 23:59:59 CLS Outpatient EFRAIN HARRINGTON MD [facility] CARD CAD [id number] 06/25/2017 11:43:00 06/25/2017 23:59:59 CLS Outpatient EFRAIN HARRINGTON MD [facility] CARD I25.10 [id number] 08/13/2015 08:14:00 08/13/2015 23:59:59 CLS Outpatient WILFRID WILSON CHIEF DESIGN DRAFTER [facility] RAD BRONCHITIS,ASTHMA [id number] 06/14/2015 10:45:00 06/14/2015 23:59:59 CLS Outpatient WILFRID WILSON E CHIEF DESIGN DRAFTER [facility] RAD PNEUMONIA SYMPTOMS, BRONCHITIS,ASTHMA [id number] 03/12/2015 19:49:00 03/13/2015 06:15:00 DIS Outpatient WILFRID WILSON CHIEF DESIGN DRAFTER [facility] SLEEP SNORING,HTN, MOOD DISORDER [id number] 02/18/2015 11:21:00 02/18/2015 23:59:59 CLS Outpatient WILFRID WILSON CHIEF DESIGN DRAFTER [facility] RAD PNEUMONIA,ASTHMA, DYSPNEA [id number] 02/18/2015 09:57:00 02/18/2015 23:59:59 CLS Outpatient JOHNNY CASTELAN MD [facility] RAD SCREENING [id number] 02/08/2015 10:41:00 02/08/2015 23:59:59 CLS Outpatient WILFRID WILSON CHIEF DESIGN DRAFTER [facility] RAD OBSTRUCTIVE SLEEP APNA,MORBID OBESITY,BRONCHITIS,A [id number] 01/26/2015 20:49:00 01/27/2015 06:50:00 DIS Outpatient KAUR KOCH DO [facility] SLEEP SNORING,CHOKING [id number] 01/23/2015 08:02:00 01/23/2015 23:59:59 CLS Outpatient KAUR KOCH DO [facility] RT BRONCHITIS ASTHMA [id number] 02/15/2014 13:23:00 02/15/2014 23:59:59 CLS Outpatient JOHNNY CASTELAN MD [facility] RAD SCREENING [id number] 10/07/2011 13:01:00 Document Registration [id number] 10/06/2011 11:13:00 Document Registration [id number] 08/11/2010 10:26:00 Document Registration [email or web address] 02/08/2015 10:43:33 ACT Document Registration
[2017-09-28] MEDS ORDERED: HYDROcodone/APAP 5 MG/325 MG (LORTAB) TAB ONE (21:31)
[2017-09-28] MEDS: HYDROcodone/APAP 5 MG/325 MG (LORTAB) TAB PO PRN (21:41)
[2017-09-28] MEDS ORDERED: ENOXAPARIN 60 MG/0.6 ML (LOVENOX) SYR SC SCH (21:45)
--- NOTE | 2017-09-28 21:51 | History & Physical ---
History of Present Illness History of Present Illness Reason for visit/HPI 72 yo Female admitted on 09/28/17 to [facility] inpatient rehab from [facility] [place] status post CABG on 09/13/17. She had a 2 vessel bypass those being: a SILVA (in situ) to LAD and a left saphenous vein graft from aorta to OMB. Patient prior to this medical situation was living alone and was completely independent-- she wants to return home and continue to live alone. She will use this to motivate herself. She reports she met all goals that were set for her at [facility] in regards to therapies. Her stay at [facility] spanned from 09/13/17 to 09/28/17 due to respiratory issues and a repeat heart cath for abnormal EKGs that revealed patent grafts- No new cardiac findings. Of note is her morbid obesity which was attributed to prolonging her stay at [facility]- She requires 2-4L oxygen supplemental with her CPAP. Her weight also will making other tasks bigger barriers as well as prolong healing process of her incisions. -Patient's pain is controlled on hydrocodone 5/325mg. Patient reports she is doing well overall and is ready to start rehab. She also will be enrolling in 12 weeks of cardiac rehab after she is discharged from inpatient rehab. Given patient's motivation she is a good candidate for inpatient rehab- she is expected to tolerate 3hours of therapy per rehab guidelines. Date of Admission September 28, 2017 at 18:59 Date Seen by Provider: September 28, 2017 Time Seen by Provider: 21:00 I consulted on this patient on 09/28/17 21:46 Attending Physician Vladimir Carmona MD Admitting Physician Garrison Guevara MD Consult Allergies and Home Medications Allergies Coded Allergies: Penicillins (Verified Allergy, Unknown, 09/24/06) Home Medications Albuterol Sulfate 1 Puff Puff, 2 PUFF IH Q4H, (Reported) 1 PUFF = 90 MCG Amitriptyline HCl 100 Mg Tablet, 100 MG PO HS, (Reported) Aspirin 81 Mg Tablet.dr, 81 MG PO DAILY Prescribed by: EFRAIN HARRINGTON on 06/30/17 1440 Atenolol 25 Mg Tablet, 25 MG PO HS, (Reported) Atorvastatin Calcium 10 Mg Tablet, 10 MG PO DAILY Prescribed by: EFRAIN HARRINGTON on 06/30/17 1440 Celecoxib 100 Mg Capsule, 100 MG PO DAILY, (Reported) Fluticasone/Vilanterol 1 Each Blst.w.dev, 1 EACH IH DAILY, (Reported) Valsartan 160 Mg Tablet, 160 MG PO DAILY, (Reported) Zolpidem Tartrate 12.5 Mg Tab.mphase, 12.5 MG PO HS, (Reported) Patient Home Medication List Home Medication List Reviewed: Yes Past Ugjaria-Wtfaeo-Refhxm Hx Patient Social History Alcohol Use: Denies Use Recreational Drug Use: No Smoking Status: Never a Smoker Physical Abuse Screen: No Sexual Abuse: No Recent Foreign Travel: No Contact w/other who traveled: No Recent Hopitalizations: Yes Immunizations Up To Date Date of Pneumonia Vaccine: Jan 01, 2015 Date of Influenza Vaccine: Jan 06, 2017 Seasonal Allergies Seasonal Allergies: Yes Surgeries Yes (carpel tunnel) Respiratory Yes (CPAP) COPD Currently Using CPAP: Yes Currently Using BIPAP: No Cardiovascular Yes Coronary Artery Disease, High Cholesterol, Hypertension Neurological No Genitourinary No Gastrointestinal No Musculoskeletal Yes Arthritis, Fibromyalgia, Rheumatoid Arthritis, Chronic Back Pain HEENT History of HEENT Disorders: No Cancer No Psychosocial History of Psychiatric Problem: No Integumentary History of Skin or Integumenta: No Blood Transfusions History of Blood Disorders: No Family Medical History Significant Family History: Cancer Family Hx: Colon cancer G8 SISTER (leaking bowel, from choking on piece of food & never regained conscuiosness) Fibrocystic disease of breast 19 MOTHER (breast ca) Kidney disease G8 BROTHER (bladder ca) Myocardial infarction 19 FATHER Neoplasm Review of Systems Review of Systems General: No Chills, No Night Sweats HEENT: No Head Aches Pulmonary: No Dyspnea, No Cough Cardiovascular: No: Chest Pain (only where her incision is.) Gastrointestinal: No: Nausea, Vomiting Genitourinary: No Dysuria Musculoskeletal: No: neck pain Neurological: Weakness Physical Exam Vital Signs Vital Signs - First Documented 09/28/17 19:29 Temp 98.8 Pulse 95 Resp 20 B/P (MAP) 107/58 (74) Pulse Ox 95 O2 Delivery Room Air Capillary Refill : General Appearance: No Apparent Distress, WD/WN HEENT: PERRL/EOMI Neck: Non Tender, Supple Respiratory: Chest Non Tender, Lungs Clear, Normal Breath Sounds, No Accessory Muscle Use Cardiovascular: Regular Rate, Rhythm Gastrointestinal: Normal Bowel Sounds, No Organomegaly, Non Tender, Soft Rectal: Deferred Extremity: Normal Capillary Refill, Normal Inspection, Non Tender Neurologic/Psychiatric: Alert, Oriented x3, No Motor/Sensory Deficits Skin: Normal Color, Warm/Dry, Other (redness left lower leg at saphenous vein harvest and chest-) Assessment/Plan Assessment/Plan Admission Dx disuse myopathy/debility morbid obesity Diabetes mellitus II coronary artery disease. Admission Status: Inpatient Order (span 2 midnights) Reason for Inpatient Admission: debility disuse myopathy status post CABG CAD Assessment and Plan debility/disuse myopathy- rehab therapy- rigorous intervention 3hours of participating in therapies atherosclerosis of [place] coronary artery of [place] heart s/p CABG 09/13/17- doing well. Diabetes melllitus II - continue metformin, SSI morbid obesity-BMI 50 lifestyle modifications. Hypertension- continue current regimens Hyperlipidemia- continue statin Obstructive sleep apnea- CPAP [id number] with 4L oxygen- RT to titrate down to 2L oxygen. Pt is highly motivated to participate in therapy- She has the goal of returning home from [facility]; she lives alone so she is aware she will have to become independent again. Risks for this patient include: 1. Fall 2. Fracture 3. DVT 4. Pulmonary embolism 5. Wound infection specifically her chest and left saphenous vein region. 6. Skin breakdown 7. Contractures 8. Poorly controlled pain 9. Urinary retention 10. UTI 11. Respiratory infection 12. Aspiration Clinical Quality Measures DVT/VTE Risk/Contraindication: Risk Factor Score Per Nursin RFS Level Per Nursing on Admit: 4+=Very High GARRISON GUEVARA MD September 28, 2017 21:51
[2017-09-28] MEDS ORDERED: PANTOPRAZOLE 40 MG (PROTONIX) TAB PO PRN (22:00)
[2017-09-28] MEDS ORDERED: RT-ALBUTEROL/IPRATROPIUM 3 ML (DUONEB) VIAL INH PRN (22:00)
[2017-09-28] MEDS ORDERED: PATIENT MAY USE OWN MED,SINGLE MED PO SCH (22:15)
[2017-09-28] MEDS ORDERED: ENOXAPARIN 60 MG/0.6 ML (LOVENOX) SYR ONE (23:12)
[2017-09-29] MEDS ORDERED: metFORMIN 500 MG (GLUCOPHAGE) TAB ONE (04:38)
[2017-09-29 06:00] VITALS: BP 127/72
[2017-09-29] MEDS: inSUlin ASPART (NovoLOG) 1 UNIT/0.01 ML (CHARGE PER UNIT) SC SCH ×4 (06:00→21:00)
[2017-09-29] MEDS: metFORMIN 500 MG (GLUCOPHAGE) TAB PO SCH (07:11)
[2017-09-29 07:26] LABS: BASOPHILS % (AUTO) 0 % (0-10); EOSINOPHILS # (AUTO) 0.6 10^3/uL (0.0-0.3); EOSINOPHILS % (AUTO) 7 % (0-10); HEMATOCRIT 27 % (35-52); HEMOGLOBIN 8.4 G/DL (11.5-16.0); LYMPHOCYTES # (AUTO) 1.8 X 10^3 (1.0-4.0); LYMPHOCYTES % (AUTO) 22 % (12-44); MEAN CORPUSCULAR HEMOGLOBIN 28 PG (25-34); MEAN CORPUSCULAR HGB CONC 32 G/DL (32-36); MEAN CORPUSCULAR VOLUME 90 FL (80-99); MEAN PLATELET VOLUME 8.9 FL (7.4-10.4); MONOCYTES % (AUTO) 12 % (0-12); NEUTROPHILS # (AUTO) 4.9 X 10^3 (1.8-7.8); NEUTROPHILS % (AUTO) 59 % (42-75); PLATELET COUNT 472 10^3/uL (130-400); RED BLOOD COUNT 2.97 10^6/uL (4.35-5.85); RED CELL DISTRIBUTION WIDTH 14.8 % (10.0-14.5); WHITE BLOOD COUNT 8.2 10^3/uL (4.3-11.0)
[2017-09-29 07:47] LABS: ALBUMIN 3.1 GM/DL (3.2-4.5); BUN/CREATININE RATIO 15; CALCIUM 8.7 MG/DL (8.5-10.1); CARBON DIOXIDE 23 MMOL/L (21-32); CHLORIDE 104 MMOL/L (98-107); CREATININE SERUM 0.72 MG/DL (0.60-1.30); GFR ESTIMATED > 60; GLUCOSE 129 MG/DL (70-105); POTASSIUM 3.9 MMOL/L (3.6-5.0); SODIUM 137 MMOL/L (135-145)
--- NOTE | 2017-09-29 08:54 | Physical Therapy Evaluation ---
PT Evaluation-General Medical Diagnosis Admission Date September 28, 2017 at 18:59 Medical Diagnosis: CABG x2 Onset Date: September 13, 2017 Therapy Diagnosis Therapy Diagnosis: impaired mobility, strength, endurance Height/Weight Height (Feet): 5 Height (Inches): 7.00 Weight (Pounds): 329 Weight (Ounces): 8.0 Precautions Precautions/Isolations: Fall Prevention, Standard Precautions Referral Physician: Mathew Reason for Referral: Evaluation/Treatment Medical History Pertinent Medical History: Arthritis, CABG, CAD, COPD, DM, HTN, Rheumatoid Arthritis Additional Medical History asthma, bronchitis, fibromyalgia, hyperlipidemia, obstructive sleep apnea, pneumonia Reviewed History: Yes Social History Home: Single Level Current Living Status: Alone Entry Into Home: Stairs Without Railing PT Steps Into Home: 3 Patient states she will have people dropping by to check on her. Prior/Core FIM Prior Level of Function Functional [place] Measure 0=Not Assessed/NA 4=Minimal Assistance 1=Total Assistance 5=Supervision or Setup 2=Maximal Assistance 6=Modified [place] 3=Moderate Assistance 7=Complete [place] Bed Mobility: 7 Transfers (B,C,W/C) (FIM): 7 Gait: 7 Patient states she used a walking stick when ambulating in her yard. PT Evaluation-Current Subjective Patient in bathroom pre tx, agrees to PT, has 3/10 pain in her chest and back. Pt/Family Goals to be independent at home Objective Patient Orientation: Person, Place, Situation Patient has a heart pillow and has sternal precautions. ROM/Strength ROM Lower Extremities limited generally in lower extremities due to obesity and left TKA Strenght Lower Extremities NT in left due to incision/surgery, right lower extremity 4/5 gross Neuromuscular (Tone, Coordination, Reflexes) NT Sensory Vision: Functional Hearing: Functional Sensation Right Lower Extremit: Intact Sensation Left Lower Extremity: Intact Sensation Lower Extremities Patient has intact light touch sensation in bilateral lower extremities but states that she has some numbness/tingling in her toes left side. Transfers Functional [place] Measure 0=Not Assessed/NA 4=Minimal Assistance 1=Total Assistance 5=Supervision or Setup 2=Maximal Assistance 6=Modified [place] 3=Moderate Assistance 7=Complete IndependenceIRFPAI Quality Coding Scale 6 Independent with activity with or without an assistive device 5 Patient requires set up or clean up by helper. Patient completes activity by themselves 4 Supervision or touching assist (CGA). [place] provide cues , steadying assist 3 The helper provides less than half the effort to complete the activity 2 The helper provides more than half the effort to complete the activity 1 Dependent. The helper does all the effort to complete an activity 7 Patient refused to complete or attempt activity 9 The patient did not perform the activity before the current illness or injury 88 Not attempted due to Medical conditions or safety concerns Transfers (B, C, W/C) (FIM): 2 Scootin Rollin Roll Left to Right (QC): 4 Supine to/from Sit: 3 Sit to/from Stand: 4 bed t/f WC(FIM only if WC use): 4 Sit to Lying (QC): 2 Lying to Sitting/Side of Bed(Q: 2 Sit to Stand (QC): 4 Chair/Mje-zt-Ghhpn Xfer(QC): 4 Car Transfer (QC): 3 Patient needs mod assist for supine <-> sit, CGA for sit to stand and stand pivot transfers, min assist for car transfer. Gait Does the Patient Walk?: Yes Mode of Locomotion: Walk Anticipated Mode of Locomotion: Walk Gait (FIM): 2 Walk 10 feet (QC): 4 Walk 50 ft with 2 Turns(QC): 4 Walk 150 ft (QC): 88 Walking 10ft/uneven surface-QC: 4 Distance: 50'x2 Gait Level of Assist: 4 Gait Persons Needed: 1 Gait Assistive Device: FWW Comments/Gait Description Patient can ambulate 50' with a rolling walker with CGA, including 50' with at least 2 turns of 90 degrees and 10' over an uneven surface. Patient ambulates slowly and gets very SOB very easily. Patient's O2 sat was 91% after first walk and 88% after second. Patient is not wearing any O2 at this time. She needs long recovery periods to catch her breath. Wheelchair Training Does the Pt Use a Wheelchair?: No Stairs Stairs (FIM): 1 #of Steps: 1 Level of Assist: 4 1 Step (curb) (QC): 4 4 Steps (QC): 88 Assistive Device: Walker 12 Steps (QC): 88 Patient can go up and down 1 step using a rolling walker with CGA. Balance Sitting Static: Normal Sitting Dynamic: Normal Standing Static: Good Standing Dynamic: Good Picking up an Object (QC): 88 Treatment supine LE exercises x15 (AP, QS, GS, HS) Assessment/Needs Patient has impaired mobility, strength, endurance post CABGx2. She gets SOB easily and needs long recovery periods. Rehab Potential: Fair PT Short Term Goals Short Term Goals Time Frame: Oct 06, 2017 Transfers (B,C,W/C) (FIM): 4 Gait (FIM): 4 Gait Distance Comment: 150' Gait Level of Assist: 4 Gait Assistive Device: FWW PT Hammer Operator Goals Fpc Goals PT Hammer Operator Goals Time Frame: Oct 20, 2017 Transfers (B,C,W/C) (FIM): 5 Sit to Lying (QC): 4 Lying-Sitting on Side/Bed(QC): 4 Sit to Stand (QC): 4 Rollin Roll Left to Right (QC): 4 Chair/Sll-ga-Pppmd Xfer(QC): 4 Car Transfer (QC): 4 Gait (FIM): 5 Distance: 200' Walk 10 feet (QC): 4 Walk 10ft-Uneven Surface(QC): 4 Walk 50ft with 2 Turns (QC): 4 Walk 150 ft (QC): 4 Gait Level of Assist: 5 Gait Assistive Device: FWW Stairs (FIM): 2 # of Steps: 4 1 Step (curb) (QC): 4 4 Steps (QC): 4 Stairs Level Of Assist: 4 PT Plan Problem List Problem List: Activity Tolerance, Functional Strength, Safety, Balance, Gait, Transfer, Bed Mobility, ROM Treatment/Plan Treatment Plan: Continue Plan of Care Treatment Plan: Bed Mobility, Education, Functional Activity Alice, Functional Strength, Group Therapy, Gait, Safety, Therapeutic Exercise, Transfers Treatment Duration: Oct 20, 2017 Frequency: At least 5 of 7 days/Wk (IRF) Estimated Hrs Per Day: 1.5 hours per day Patient and/or Family Agrees t: Yes Safety Risks/Education Patient Education: Gait Training, Transfer Techniques, Steps, Reviewed Precautions, Correct Positioning, Safety Issues Teaching Recipient: Patient Teaching Methods: Demonstration, Discussion Response to Teaching: Reinforcement Needed Discharge Recommendations Plan Patient will perform bed mobility and transfer training, balance and endurance training, functional strengthening, stair training, gait training, and education , to improve functional moblility and independence at home. Therapy D/C Recommendations: Home w/ Family Support Time/GCodes Time In: 0800 Time Out: 0900 Total Billed Treatment Time: 60 Total Billed Treatment 1 visit EVM 30' EX 10' GT 20' KRTEK,FLORECITA PT September 29, 2017 08:54
[2017-09-29] MEDS ORDERED: VALSARTAN 80 MG (DIOVAN) TAB PO SCH (09:00)
[2017-09-29] MEDS ORDERED: CELECOXIB 100 MG (CeleBREX) CAP PO ONE (09:00)
[2017-09-29] MEDS ORDERED: ENOXAPARIN 40 MG/0.4 ML (LOVENOX) SYR SC SCH (09:00)
[2017-09-29 09:08] VITALS: BP 132/72
[2017-09-29] MEDS: VALSARTAN 160 MG (DIOVAN) TABLET PO SCH (09:12)
[2017-09-29] MEDS: ENOXAPARIN 60 MG/0.6 ML (LOVENOX) SYR SC SCH ×2 (09:14→21:08)
[2017-09-29] MEDS: AMIODARONE 200 MG (CORDARONE) TAB PO SCH (10:04)
[2017-09-29] MEDS: HYDROcodone/APAP 5 MG/325 MG (LORTAB) TAB PO PRN ×3 (10:05→21:08)
[2017-09-29] MEDS: ASPIRIN 81 MG CHEW (CHILDREN'S ASA) PO SCH (10:05)
[2017-09-29] MEDS: CLOPIDOGREL 75 MG (PLAVIX) TABLET PO SCH (10:05)
[2017-09-29] MEDS: DILTIAZEM 120 MG (CARDIZEM CD) CAP PO SCH (10:05)
--- NOTE | 2017-09-29 10:28 | Occupational Therapy Eval ---
OT Evaluation-General/PLF Medical Diagnosis Admission Date September 28, 2017 at 18:59 Medical Diagnosis: CABG x2 Onset Date: September 13, 2017 Therapy Diagnosis Therapy Diagnosis: decr act tolerance, decr self care, weakness, decr funct mob Height/Weight Height (Feet): 5 Height (Inches): 7.00 Weight (Pounds): 329 Weight (Ounces): 8.0 Precautions Precautions/Isolations: Fall Prevention, Standard Precautions Safety Interventions: Reorient-PRN Comments Sternal precautions - no push, pull, lift Referral Physician: Garrison Ring Referral Reason: Evaluation/Treatment Medical History Pertinent Medical History: Arthritis, CABG, CAD, COPD, DM, HTN, Rheumatoid Arthritis Additional Medical History Asthma. Morbid obesity. CPAP for STEVEN. Bronchitis. Fibromyalgia. Carpal tunnel release. L TKA Current History Admitted on 09-13-17 for CABG x 2, then with acute respiratory failure with hypoxia. Reviewed History: Yes Social History Home: Single Level Current Living Status: Alone Entry Into Home: Stairs Without Railing Steps Into Home: 3 Family live nearby ADL-Prior Level of Function ADL PLOF Comments Pt reported that she has been able to manage her basic self care skills and care for her home. 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 She cares for her 2.5 year old great grandson. DME/Equipment: Shower Hose Tomography Technologist OT Current Status Subjective Pt seen in room, up in bed, agreeable to OT. Pain reported 0/10 Appearance Alert, cooperative Mental Status/Objective Patient Orientation: Person, Place, Time, Situation Current Glasses/Contacts: No Hearing Aids: No Dentures/Partials: No Hand Dominance: Right Upper Extremity ROM Grossly WFL by observation during ADLs Upper Extremity Sensation No problems, per patient report Upper Extremity Strength Grossly WFL by observation during ADLs. No tested due to sternal precautions. ADL-Treatment ADL-Current Pt moved from supine to sit with min assist and sit to stand with min assist, with bed raised up. Followed sternal precautions during transfers although did use grab bars during shower. Pt walked with CGA, FWW to bathroom, toileted, completed shower, returned to toilet to dress, stood at sink to brush teeth and hair and returned to room to recliner with CGA, FWW. Pt education modified techniques for ADLs, use of equipment, following sternal precautions. Pt left up in recliner, all needs met. May benefit from electric recliner to maintain sternal precautions when elevating and lowering legs Functional [place] Measure 0=Not Assessed/NA 4=Minimal Assistance 1=Total Assistance 5=Supervision or Setup 2=Maximal Assistance 6=Modified [place] 3=Moderate Assistance 7=Complete IndependenceIRFPAI Quality Coding Scale 6 Independent with activity with or without an assistive device 5 Patient requires set up or clean up by helper. Patient completes activity by themselves 4 Supervision or touching assist (CGA). [place] provide cues , steadying assist 3 The helper provides less than half the effort to complete the activity 2 The helper provides more than half the effort to complete the activity 1 Dependent. The helper does all the effort to complete an activity 7 Patient refused to complete or attempt activity 9 The patient did not perform the activity before the current illness or injury 88 Not attempted due to Medical conditions or safety concerns Eating (FIM): 7 (Pt report, No dentures) Eating (QC): 6 Grooming (FIM): 5 (SBA, standing at sink to brush teeth and comb hair. Washed face and hands in shower) Oral Hygiene (QC): 4 (SBA) Bathing (FIM): 5 (SBA when standing. Washed and dried all parts, leaning over to wash bottom. Shower bench, grab bars, hand held shower) Bathing Location: L Arm, R Arm, L Upper Leg, R Upper Leg, L Lower Leg ( including foot), R Lower Leg (including foot), Chest, Abdomen, Buttocks, Perineal Area Shower/Bathe Self (QC): 4 Upper Body Dressing (FIM): 5 (setup for top, no bra) Upper Body Dressing (QC): 5 Lower Body Dressing (FIM): 4 (SBA. Help to get socks on but not off and takes much effort for socks and putting pants on over feet) Lower Body Dressing (QC): 5 (SBA Difficulty bending over) On/Off Footwear (QC): 3 Toileting (FIM): 5 (SBA to manage clothing and hygiene. Tall toilet, FWW) Toileting Hygiene (QC): 4 (SBA) Toilet/Commode Transfer (FIM): 5 (SBA, tall toilet, FWW) Toilet Transfer (QC): 4 (SBA) Shower Transfer (FIM): 4 (CGA, shower bench, grab bars, FWW) Education OT Patient Education: Energy conservation, Modified ADL techniques, Purpose of tx/functional activities, Rehab process, Transfer techniques, Use of adapted equipment Teaching Recipient: Patient Teaching Methods: Demonstration, Discussion Response to Teaching: Verbalize Understanding, Return Demonstration, Reinforcement Needed OT Short Term Goals Short Term Goals Time Frame: Oct 08, 2017 Lower Body Dressing(FIM): 5 Additional Short Term Goals: 1-Demonstrate ADL Tasks, 2-Verbalize Understanding , 3-ImproveStrength/Alice 1=Demonstrate adherence to instructed precautions during ADL tasks. 2=Patient will verbalize/demonstrate understanding of assistive devices/ modifications for ADL. 3=Patient will improve strength/tolerance for activity to enable patient to perform ADL's. OT Care Home Goals Technician Automated Equipment Goals Time Frame: Oct 20, 2017 Eating (FIM): 7 Eating (QC): 6 Groomin Oral Hygiene (QC): 6 Bathing(FIM): 6 Shower/Bathe Self (QC): 6 Upper Body Dressing(FIM): 6 Upper Body Dressing (QC): 6 Lower Body Dressing(FIM): 6 Lower Body Dressing (QC): 6 On/Off Footwear (QC): 6 Toileting(FIM): 6 Toileting Hygiene (QC): 6 Toilet/Commode Transfer(FIM): 6 Toilet/Commode Transfer (QC): 6 Shower Transfer(FIM): 6 Additional Goals: 1-Demonstrate ADL Tasks, 2-Verbalize Understanding, 3- ImproveStrength/Alice 1=Demonstrate adherence to instructed precautions during ADL tasks. 2=Patient will verbalize/demonstrate understanding of assistive devices/ modifications for ADL. 3=Patient will improve strength/tolerance for activity to enable patient to perform ADL's. OT Education/Plan Problem List/Assessment Assessment: Decreased Activ Tolerance, Decreased UE Strength, Dependent Transfers, Impaired Self-Care Skills, Restricted Funct UE ROM Pt would benefit from skilled OT to increase her independence in basic self care to allow her to safely return to her home to live independently with family support. Discharge Recommendations Plan/Recommendations: Continue POC Treatment Plan/Plan of Care Treatment,Training & Education: Yes Patient would benefit from OT for education, treatment and training to promote independence in ADL's, mobility, safety and/or upper extremity function for ADL' s. Plan of Care: ADL Retraining, Functional Mobility, Group Exercise/Act as Ind ( education, exercise, activity tolerance, socialization, funct activities), UE Funct Exercise/Act, UE Neuromus Re-Ed/Coord, OTHER (energy conservation educaiton) Treatment Duration: Oct 20, 2017 Frequency: At least 5 of 7 days/Wk (IRF) Estimated Hrs Per Day: 1.5 hours per day Agreement: Yes Rehab Potential: Fair Time/GCodes Start Time: 10:30 Stop Time: 11:30 Total Time Billed (hr/min): 60 Billed Treatment Time visit, 15 minutes evaluation moderate intensity, 45 minutes ADL RODRI JASSO OT September 29, 2017 10:28
[2017-09-29] MEDS ORDERED: ATOR10TA66 PO (10:30)
[2017-09-29] MEDS ORDERED: CELE-63 PO (10:30)
[2017-09-29] MEDS ORDERED: ASPI-999 PO (10:30)
[2017-09-29] MEDS ORDERED: METF500T5 PO (10:30)
[2017-09-29] MEDS ORDERED: IPRA3AMP NEB (10:30)
[2017-09-29] MEDS ORDERED: PANT40TA2 PO (10:33)
--- NOTE | 2017-09-29 11:17 | PM & R (SOAP) Progress Note ---
Subjective This was a face to face visit with the patient. Date Seen by Provider: September 29, 2017 Time Seen by Provider: 11:30 Subjective/Events-last exam Patient was seen in her exam room She reports she worked hard earlier in the AM with PT/OT No complaints right now except she is still working on catching her breath Pain is controlled. Review of Systems General: No Chills, No Night Sweats HEENT: No Head Aches Pulmonary: No Dyspnea Cardiovascular: Chest Pain (incision site) Gastrointestinal: No: Nausea, Vomiting, Abdominal Pain Genitourinary: No Dysuria Neurological: Weakness Objective Physician Exam Last Set of Vital Signs Vital Signs Date Time Temp Pulse Resp B/P (MAP) Pulse Ox O2 Delivery O2 Flow Rate FiO2 09/29/17 09:08 99.1 99 20 132/72 (92) Room Air 09/29/17 06:00 97 4.00 Capillary Refill : I&O Intake and Output 09/29/17 00:00 Daily Weight Change No General: Alert, Oriented X3, Mild Distress (breathing heavy) Neck: Supple Lungs: Clear to Auscultation Heart: Regular Rate Abdomen: Normal Bowel Sounds Neuro: Normal Speech Psych/Mental Status: Mental Status NL Results Lab Data Laboratory Tests 09/29/17 05:56: Glucometer 115H 09/29/17 07:09: White Blood Count 8.2, Red Blood Count 2.97L, Hemoglobin 8.4L, Hematocrit 27L, Mean Corpuscular Volume 90, Mean Corpuscular Hemoglobin 28, Mean Corpuscular Hemoglobin Concent 32, Red Cell Distribution Width 14.8H, Platelet Count 472H, Mean Platelet Volume 8.9, Neutrophils (%) (Auto) 59, Lymphocytes (%) (Auto) 22, Monocytes (%) (Auto) 12, Eosinophils (%) (Auto) 7, Basophils (%) (Auto) 0, Neutrophils # (Auto) 4.9, Lymphocytes # (Auto) 1.8, Monocytes # (Auto) 1.0, Eosinophils # (Auto) 0.6H, Basophils # (Auto) 0.0, Sodium Level 137, Potassium Level 3.9, Chloride Level 104, Carbon Dioxide Level 23, Anion Gap 10, Blood Urea Nitrogen 11, Creatinine 0.72, Estimat Glomerular Filtration Rate > 60, BUN/ Creatinine Ratio 15, Glucose Level 129H, Calcium Level 8.7, Phosphorus Level 3.0 , Albumin 3.1L Current Funtional Status Ambulates with a walker- see PT/OT reports Progress Toward Rehab Goals to return to home independent. rehab potential: fair Assessment/Plan Assessment and Plan debility/disuse myopathy- rehab therapy- participating in therapies atherosclerosis of [place] coronary artery of [place] heart s/p CABG 09/13/17- doing well. Diabetes melllitus II - continue metformin, SSI morbid obesity-BMI 50 lifestyle modifications. Hypertension- continue current regimens Hyperlipidemia- continue statin Obstructive sleep apnea- CPAP [id number] with 4L oxygen- RT to titrate down to 2L oxygen. Pt is highly motivated to participate in therapy- She has the goal of returning home from [facility]; she lives alone so she is aware she will have to become independent again. Dispo: lovenox dvt ppx -reviewed labs from [facility] and pt hgb was 14 on September 13. She has been 8.6 for the last couple days and I spoke with Dr. Aranda who advised not to transfuse for hgb less than 7. I am Considering transfusing 1unit pRBC given her CAD, weakness- I suspect her energy and work of breathing would improve as well. Co-Morbidities that are continuing to impact the rehab process: obesity, anemia. KATHARINA GUEVARA MD September 29, 2017 11:17
--- NOTE | 2017-09-29 11:26 | ST Cognitive Linguistic Eval ---
Speech Evaluation-General Medical Diagnosis CABG x2 Onset Date: September 13, 2017 Therapy Diagnosis Therapy Diagnosis: Cognitive Linguistic Skills WNL Precautions Precautions/Isolations: Fall Prevention, Standard Precautions Referral Referring Physician: Dr. Vladimir Carmona Reason for Referral: Evaluation/Treatment Cognitive Evaluation Medical History Pertinent Medical History: Arthritis, CABG, CAD, COPD, DM, HTN, Rheumatoid Arthritis Current History The patient was recently admitted to [facility] following a CABG x2. Reviewed History: Yes Social History Current Living Status: Alone Speech PLF-Current Status Prior Level of Function The patient denied prior challenges with speech, language, or cognition. Subjective The patient was laying in bed upon entrance. The patient greeted the clinician appropriately and was agreeable to participation in the cognitive evaluation. Language Eval: Auditory Comprehends Simple Yes/No Ques: Functional Indent/Objects Multiple [place]: Functional Ident/Pics in Multiple [place]: Functional Follows 1-Step Commands: Functional Follows Complex Directions: Functional Follows General Conversations: Functional Language Eval: Verbal Language Completes Spontaneous Greeting: Functional Produces Auto, Serial Info: Functional Imitates Simple Words/Phrases: Functional Word Finding: Functional Requests Basic Needs: Functional States Basic Personal Info: Functional Expresses Complex Ideas: Functional Cognitive Patient Orientation The patient was oriented to self, location, month, day of week, date, and year. Objective Cognitive Domain Attention: WNL Memory: WNL Problem Solving: Functional Executive Functions: WNL Visuospatial Skills: WNL Objective Impression The patient demonstrated cognitive linguistic skills within normal limits. Communication/Social Cognition Comprehension: 6 Expression: 7 Social Interaction: 6 (Anti-depressants.) Problem Solvin Memory: 7 Speech Patient Assess Expression of Ideas/Wants: Expression (4) Understanding Verbal Content: Understands (4) Brief Interview-Mental Status: Yes Repetition of Three Words: Three (3) Temporal Orientation: Year: Correct (3) Temporal Orientation: Month: Accurate within 5 days(2) Temporal Orientation: Day: Correct (1) Recall : Wear to say "Sock": Yes,after cueing (1) Recall : Color: Yes, no cue required (2) Recall : Bed: Yes, no cue required (2) Speech-Plan Treatment Plan Speech Therapy Treatment Plan: Discontinue ST Evaluation, only. Frequency: Modified Program (IRF) (No ST warranted.) Estimated Hrs Per Day: Other (No ST warranted.) Rehab Potential: Fair Safety Risks/Education Teaching Recipient: Patient Teaching Methods: Discussion Response to Teaching: Verbalize Understanding Education Topics Provided: Results, Recommendations, Plan of Care Time Speech Therapy Time In: 09:45 Speech Therapy Time Out: 10:00 Total Billed Time: 15 Billed Treatment Time 1, MAAME KAUR September 29, 2017 11:26
--- NOTE | 2017-09-29 15:17 | Therapy Group Daily Note ---
Therapy Daily Group Note Exercises LE Seated Exercise, UE Exercise Other/Notes Pt ambulated using FWW to OT/PT group in [facility]. Group consisted of introductions (name, place, pt to pt questions), socialization, UE/LE seated exercises (pt led), education on car transfers and walker safety. Pt was able to introduce self appropriately and rolled dice for a question to ask peer. Pt able to chose and ask peer question. Pt was able to lead a seated exercises and complete others without difficulty. Pt was attentive through education. Pt contributed to conversations throughout group. Pt ambulated back to room using FWW and sat in recliner after group. Call light/phone in reach. All needs met in room. Start Time: 13:00 Stop Time: 14:15 Total Billed Treatment Time: 75 Total Billed Treatment 1-GRP CAMILA MARRUFO September 29, 2017 15:17
[2017-09-29 16:52] VITALS: BP 106/81
[2017-09-29] MEDS: ATORVASTATIN 40 MG (LIPITOR) TABLET PO SCH (21:07)
[2017-09-29] MEDS: AMITRIPTYLINE 50 MG (ELAVIL) TAB PO SCH (21:07)
[2017-09-29] MEDS: ATENOLOL 25 MG (TENORMIN) TAB PO SCH (21:07)
[2017-09-30 06:00] VITALS: BP 127/57
[2017-09-30] MEDS: inSUlin ASPART (NovoLOG) 1 UNIT/0.01 ML (CHARGE PER UNIT) SC SCH ×4 (06:00→20:47)
[2017-09-30] MEDS: metFORMIN 500 MG (GLUCOPHAGE) TAB PO SCH (06:54)
--- NOTE | 2017-09-30 09:55 | Physical Therapy Daily Note ---
PT Daily Note-Current Subjective Patient in bathroom pre tx, agrees to PT, no complaints of pain. Appearance Patient in recliner post tx with nurse call, phone, tray, all needs met. Mental Status Patient Orientation: Normal For Age Transfers Functional [place] Measure 0=Not Assessed/NA 4=Minimal Assistance 1=Total Assistance 5=Supervision or Setup 2=Maximal Assistance 6=Modified [place] 3=Moderate Assistance 7=Complete IndependenceIRFPAI Quality Coding Scale 6 Independent with activity with or without an assistive device 5 Patient requires set up or clean up by helper. Patient completes activity by themselves 4 Supervision or touching assist (CGA). [place] provide cues , steadying assist 3 The helper provides less than half the effort to complete the activity 2 The helper provides more than half the effort to complete the activity 1 Dependent. The helper does all the effort to complete an activity 7 Patient refused to complete or attempt activity 9 The patient did not perform the activity before the current illness or injury 88 Not attempted due to Medical conditions or safety concerns Transfers (B, C, W/C) (FIM): 5 Sit to/from Stand: 5 Bed to/from Chair: 5 Patient has much improved with sit to stand, she can stand without even using her arms and she does it smoothly and safely. Gait Training Gait (FIM): 2 Distance: 50'x4, 25'x2 Gait Level of Assist: 5 Gait Persons Needed: 1 Gait Assistive Device: FWW Patient ambulates well, she is limited by SOB. However, her O2 stayed at 93% after ambulation. Exercises Seated Therapy Exercises: Ankle pumps, Long arc quads, Hip flexion Seated Reps: 20 NuStep Minutes: 15 NuStep Workload: 4 (Patient wanted to use her arms on the last few minutes so she did it without resistance during that time.) Treatments transfers, ambulation, functional strengthening Assessment Current Status: Fair Progress improving transfers, gets SOB very easily and needs frequent rest breaks PT Short Term Goals Short Term Goals Time Frame: Oct 06, 2017 Gait (FIM): 4 Gait Distance Comment: 150' Gait Level of Assist: 4 Gait Assistive Device: FWW PT Piece Hand Goals Piece Hand Goals PT Piece Hand Goals Time Frame: Oct 20, 2017 Transfers (B,C,W/C) (FIM): 5 Sit to Lying (QC): 4 Lying-Sitting on Side/Bed(QC): 4 Sit to Stand (QC): 4 Rollin Roll Left to Right (QC): 4 Chair/Jly-az-Uqiog Xfer(QC): 4 Car Transfer (QC): 4 Gait (FIM): 5 Distance: 200' Walk 10 feet (QC): 4 Walk 10ft-Uneven Surface(QC): 4 Walk 50ft with 2 Turns (QC): 4 Walk 150 ft (QC): 4 Gait Level of Assist: 5 Gait Assistive Device: FWW Stairs (FIM): 2 # of Steps: 4 1 Step (curb) (QC): 4 4 Steps (QC): 4 Stairs Level Of Assist: 4 PT Plan Problem List Problem List: Activity Tolerance, Functional Strength, Safety, Balance, Gait, Transfer Treatment/Plan Treatment Plan: Continue Plan of Care Treatment Plan: Bed Mobility, Education, Functional Activity Alice, Functional Strength, Group Therapy, Gait, Safety, Therapeutic Exercise, Transfers Treatment Duration: Oct 20, 2017 Frequency: At least 5 of 7 days/Wk (IRF) Estimated Hrs Per Day: 1.5 hours per day Patient and/or Family Agrees t: Yes Safety Risks/Education Patient Education: Gait Training, Transfer Techniques, Reviewed Precautions, Correct Positioning, Safety Issues Teaching Recipient: Patient Teaching Methods: Demonstration, Discussion Response to Teaching: Reinforcement Needed Time/GCodes Time In: 0900 Time Out: 1000 Total Billed Treatment Time: 60 Total Billed Treatment 1 visit EX 25' GT 35' FLORECITA COKER PT September 30, 2017 09:55
[2017-09-30] MEDS: DILTIAZEM 120 MG (CARDIZEM CD) CAP PO SCH (09:59)
[2017-09-30] MEDS: CLOPIDOGREL 75 MG (PLAVIX) TABLET PO SCH (09:59)
[2017-09-30] MEDS: ASPIRIN 81 MG CHEW (CHILDREN'S ASA) PO SCH (09:59)
[2017-09-30] MEDS: AMIODARONE 200 MG (CORDARONE) TAB PO SCH (09:59)
[2017-09-30] MEDS: VALSARTAN 160 MG (DIOVAN) TABLET PO SCH (09:59)
[2017-09-30] MEDS: ENOXAPARIN 60 MG/0.6 ML (LOVENOX) SYR SC SCH ×2 (10:01→21:00)
--- NOTE | 2017-09-30 10:56 | Occupational Ther Daily Note ---
OT Current Status-Daily Note Subjective Pt awake and agreeable to OT services this date. Pt with no complaints of pain , however pt reports feeling fatigue and shortness of breath. Mental Status/Objective Functional [place] Measure 0=Not Assessed/NA 4=Minimal Assistance 1=Total Assistance 5=Supervision or Setup 2=Maximal Assistance 6=Modified [place] 3=Moderate Assistance 7=Complete [place] ADL-Treatment Functional [place] Measure 0=Not Assessed/NA 4=Minimal Assistance 1=Total Assistance 5=Supervision or Setup 2=Maximal Assistance 6=Modified [place] 3=Moderate Assistance 7=Complete IndependenceIRFPAI Quality Coding Scale 6 Independent with activity with or without an assistive device 5 Patient requires set up or clean up by helper. Patient completes activity by themselves 4 Supervision or touching assist (CGA). [place] provide cues , steadying assist 3 The helper provides less than half the effort to complete the activity 2 The helper provides more than half the effort to complete the activity 1 Dependent. The helper does all the effort to complete an activity 7 Patient refused to complete or attempt activity 9 The patient did not perform the activity before the current illness or injury 88 Not attempted due to Medical conditions or safety concerns Grooming (FIM): 4 (Pt completes grooming/hygiene while standing at FWW with CGA. Pt presents with shortness of breath and quickly fatigues. ) Bathing (FIM): 4 (Pt completed bathing tasks with CGA for showering transfer and CGA while standing to wash perineal region. ) Bathing Location: L Arm, R Arm, L Upper Leg, R Upper Leg, L Lower Leg ( including foot), R Lower Leg (including foot), Chest, Abdomen, Buttocks, Perineal Area Upper Body (FIM): 5 (Pt completed UBD with setup and verbal cues for maintaining sternal precautions.) Lower Body Dressing (FIM): 4 (Pt completed LBD with CGA and verbal cues for compensatory techniques for sternal precautions. ) Toileting (FIM): 4 (Pt required CGA for toileting tasks due to sternal precautions. ) Transfers (B, C, W/C) (FIM): 4 (Pt requires CGA for all functional transfers. ) Shower Transfer(FIM): 4 (Pt received CGA for shower transfer. ) Education OT Patient Education: Modified ADL techniques, Reviewed precautions, Rehab process, Safety issues, Transfer techniques Teaching Recipient: Patient Teaching Methods: Demonstration OT Short Term Goals Short Term Goals Time Frame: Oct 08, 2017 Lower Body Dressing(FIM): 5 Additional Short Term Goals: 1-Demonstrate ADL Tasks, 2-Verbalize Understanding , 3-ImproveStrength/[place] 1=Demonstrate adherence to instructed precautions during ADL tasks. 2=Patient will verbalize/demonstrate understanding of assistive devices/ modifications for ADL. 3=Patient will improve strength/tolerance for activity to enable patient to perform ADL's. OT Correction Goals Enrollment Nurse Goals Time Frame: Oct 20, 2017 Eating (FIM): 7 Eating (QC): 6 Groomin Oral Hygiene (QC): 6 Bathing(FIM): 6 Shower/Bathe Self (QC): 6 Upper Body Dressing(FIM): 6 Upper Body Dressing (QC): 6 Lower Body Dressing(FIM): 6 Lower Body Dressing (QC): 6 On/Off Footwear (QC): 6 Toileting(FIM): 6 Toileting Hygiene (QC): 6 Toilet/Commode Transfer(FIM): 6 Toilet/Commode Transfer (QC): 6 Shower Transfer(FIM): 6 Additional Goals: 1-Demonstrate ADL Tasks, 2-Verbalize Understanding, 3- ImproveStrength/[place] 1=Demonstrate adherence to instructed precautions during ADL tasks. 2=Patient will verbalize/demonstrate understanding of assistive devices/ modifications for ADL. 3=Patient will improve strength/tolerance for activity to enable patient to perform ADL's. OT Education/Plan Problem List/Assessment Assessment: Decreased Activ Tolerance, Decreased UE Strength, Impaired Funct Balance, Impaired Self-Care Skills Pt would benefit from skilled OT to increase her independence in basic self care to allow her to safely return to her home to live independently with family support. Discharge Recommendations Plan/Recommendations: Continue POC Treatment Plan/Plan of Care Patient would benefit from OT for education, treatment and training to promote independence in ADL's, mobility, safety and/or upper extremity function for ADL' s. Plan of Care: ADL Retraining, Functional Mobility, Group Exercise/Act as Ind ( education, exercise, activity tolerance, socialization, funct activities), UE Funct Exercise/Act, UE Neuromus Re-Ed/Coord, OTHER (energy conservation educaiton) Treatment Duration: Oct 20, 2017 Frequency: At least 5 of 7 days/Wk (IRF) Estimated Hrs Per Day: 1.5 hours per day Agreement: Yes Rehab Potential: Fair Time/GCodes Start Time: 10:00 Stop Time: 11:00 Total Time Billed (hr/min): 60 Billed Treatment Time visit, ADL4 COLLETTE GLEZ OT September 30, 2017 10:56
--- NOTE | 2017-09-30 14:01 | Occupational Ther Daily Note ---
OT Current Status-Daily Note Subjective Pt asleep in chair upon therapist arrival. Pt able to rouse easily, and was agreeable to therapy. Pain Numeric Pain Scale: 0-No Pain Mental Status/Objective Functional [place] Measure 0=Not Assessed/NA 4=Minimal Assistance 1=Total Assistance 5=Supervision or Setup 2=Maximal Assistance 6=Modified [place] 3=Moderate Assistance 7=Complete [place] ADL-Treatment Pt performed toileting and grooming with FWW with CGA and verbal cues for sternal precautions. Functional [place] Measure 0=Not Assessed/NA 4=Minimal Assistance 1=Total Assistance 5=Supervision or Setup 2=Maximal Assistance 6=Modified [place] 3=Moderate Assistance 7=Complete IndependenceIRFPAI Quality Coding Scale 6 Independent with activity with or without an assistive device 5 Patient requires set up or clean up by helper. Patient completes activity by themselves 4 Supervision or touching assist (CGA). [place] provide cues , steadying assist 3 The helper provides less than half the effort to complete the activity 2 The helper provides more than half the effort to complete the activity 1 Dependent. The helper does all the effort to complete an activity 7 Patient refused to complete or attempt activity 9 The patient did not perform the activity before the current illness or injury 88 Not attempted due to Medical conditions or safety concerns Other Treatment Pt participated in functional activity tolerance training with use of FWW and verbal cues for diaphragmatic breathing techniques. Pt required frequent seated rest breaks due to fatigue and shortness of breath. Pt able to maintain standing balance with Fair balance and required rest breaks following 45 seconds of dynamic standing activities. Education OT Patient Education: Energy conservation, Transfer techniques OT Short Term Goals Short Term Goals Time Frame: Oct 08, 2017 Lower Body Dressing(FIM): 5 Additional Short Term Goals: 1-Demonstrate ADL Tasks, 2-Verbalize Understanding , 3-ImproveStrength/[place] 1=Demonstrate adherence to instructed precautions during ADL tasks. 2=Patient will verbalize/demonstrate understanding of assistive devices/ modifications for ADL. 3=Patient will improve strength/tolerance for activity to enable patient to perform ADL's. OT Otolaryngologist Goals Otolaryngologist Goals Time Frame: Oct 20, 2017 Eating (FIM): 7 Eating (QC): 6 Groomin Oral Hygiene (QC): 6 Bathing(FIM): 6 Shower/Bathe Self (QC): 6 Upper Body Dressing(FIM): 6 Upper Body Dressing (QC): 6 Lower Body Dressing(FIM): 6 Lower Body Dressing (QC): 6 On/Off Footwear (QC): 6 Toileting(FIM): 6 Toileting Hygiene (QC): 6 Toilet/Commode Transfer(FIM): 6 Toilet/Commode Transfer (QC): 6 Shower Transfer(FIM): 6 Additional Goals: 1-Demonstrate ADL Tasks, 2-Verbalize Understanding, 3- ImproveStrength/[place] 1=Demonstrate adherence to instructed precautions during ADL tasks. 2=Patient will verbalize/demonstrate understanding of assistive devices/ modifications for ADL. 3=Patient will improve strength/tolerance for activity to enable patient to perform ADL's. OT Education/Plan Problem List/Assessment Pt would benefit from skilled OT to increase her independence in basic self care to allow her to safely return to her home to live independently with family support. Discharge Recommendations Plan/Recommendations: Continue POC Treatment Plan/Plan of Care Patient would benefit from OT for education, treatment and training to promote independence in ADL's, mobility, safety and/or upper extremity function for ADL' s. Plan of Care: ADL Retraining, Functional Mobility, Group Exercise/Act as Ind ( education, exercise, activity tolerance, socialization, funct activities), UE Funct Exercise/Act, UE Neuromus Re-Ed/Coord, OTHER (energy conservation educaiton) Treatment Duration: Oct 20, 2017 Frequency: At least 5 of 7 days/Wk (IRF) Estimated Hrs Per Day: 1.5 hours per day Agreement: Yes Rehab Potential: Fair Time/GCodes Start Time: 13:30 Stop Time: 14:05 Total Time Billed (hr/min): 35 Billed Treatment Time visit, FA2 35 minutes COLLETTE GLEZ OT September 30, 2017 14:01
--- NOTE | 2017-09-30 14:58 | Physical Therapy Daily Note ---
PT Daily Note-Current Subjective Agreeable to PT. Post treatment, pt reported that she felt walking short bouts was beneficial. Transfers Functional [place] Measure 0=Not Assessed/NA 4=Minimal Assistance 1=Total Assistance 5=Supervision or Setup 2=Maximal Assistance 6=Modified [place] 3=Moderate Assistance 7=Complete IndependenceIRFPAI Quality Coding Scale 6 Independent with activity with or without an assistive device 5 Patient requires set up or clean up by helper. Patient completes activity by themselves 4 Supervision or touching assist (CGA). [place] provide cues , steadying assist 3 The helper provides less than half the effort to complete the activity 2 The helper provides more than half the effort to complete the activity 1 Dependent. The helper does all the effort to complete an activity 7 Patient refused to complete or attempt activity 9 The patient did not perform the activity before the current illness or injury 88 Not attempted due to Medical conditions or safety concerns Sit to/from Stand: 5 sit to stand multiple attempts throughout treatment Toilet transfer with SBA. Gait Training Does the Patient Walk?: Yes Gait (FIM): 2 Distance (FIM): 7=653-13 ft Distance: 50 ft x 5 reps Gait Assistive Device: FWW O2sats remained >90% throughout treatment. Assessment Current Status: Good Progress Tolerated walking well. Oxygen sats stayed up. PT Short Term Goals Short Term Goals Time Frame: Oct 06, 2017 Gait (FIM): 4 Gait Distance Comment: 150' Gait Level of Assist: 4 Gait Assistive Device: FWW PT Mcc Goals Boiler Shop Mechanic Goals PT Mcc Goals Time Frame: Oct 20, 2017 Transfers (B,C,W/C) (FIM): 5 Sit to Lying (QC): 4 Lying-Sitting on Side/Bed(QC): 4 Sit to Stand (QC): 4 Rollin Roll Left to Right (QC): 4 Chair/Mkg-gp-Wvehr Xfer(QC): 4 Car Transfer (QC): 4 Gait (FIM): 5 Distance: 200' Walk 10 feet (QC): 4 Walk 10ft-Uneven Surface(QC): 4 Walk 50ft with 2 Turns (QC): 4 Walk 150 ft (QC): 4 Gait Level of Assist: 5 Gait Assistive Device: FWW Stairs (FIM): 2 # of Steps: 4 1 Step (curb) (QC): 4 4 Steps (QC): 4 Stairs Level Of Assist: 4 PT Plan Problem List Problem List: Activity Tolerance, Functional Strength, Safety Treatment/Plan Treatment Plan: Continue Plan of Care Treatment Plan: Bed Mobility, Education, Functional Activity [place], Functional Strength, Group Therapy, Gait, Safety, Therapeutic Exercise, Transfers Treatment Duration: Oct 20, 2017 Frequency: At least 5 of 7 days/Wk (IRF) Estimated Hrs Per Day: 1.5 hours per day Patient and/or Family Agrees t: Yes Safety Risks/Education Patient Education: Safety Issues Teaching Recipient: Patient Teaching Methods: Discussion Response to Teaching: Reinforcement Needed Time/GCodes Time In: 1425 Time Out: 1456 Total Billed Treatment Time: 31 Total Billed Treatment visit GT 31 CAMILA ROGER PT September 30, 2017 14:58
[2017-09-30 16:37] VITALS: BP 132/73
[2017-09-30] MEDS: HYDROcodone/APAP 5 MG/325 MG (LORTAB) TAB PO PRN (19:44)
[2017-09-30] MEDS: ATORVASTATIN 40 MG (LIPITOR) TABLET PO SCH (21:00)
[2017-09-30] MEDS: ATENOLOL 25 MG (TENORMIN) TAB PO SCH (21:00)
[2017-09-30] MEDS: AMITRIPTYLINE 50 MG (ELAVIL) TAB PO SCH (21:01)
[2017-10-01] MEDS: inSUlin ASPART (NovoLOG) 1 UNIT/0.01 ML (CHARGE PER UNIT) SC SCH ×4 (05:41→20:24)
[2017-10-01] MEDS: metFORMIN 500 MG (GLUCOPHAGE) TAB PO SCH (06:11)
[2017-10-01 06:30] VITALS: BP 101/68
[2017-10-01] MEDS: CLOPIDOGREL 75 MG (PLAVIX) TABLET PO SCH (09:16)
[2017-10-01] MEDS: VALSARTAN 160 MG (DIOVAN) TABLET PO SCH (09:16)
[2017-10-01] MEDS: AMIODARONE 200 MG (CORDARONE) TAB PO SCH (09:16)
[2017-10-01] MEDS: ASPIRIN 81 MG CHEW (CHILDREN'S ASA) PO SCH (09:16)
[2017-10-01] MEDS: DILTIAZEM 120 MG (CARDIZEM CD) CAP PO SCH (09:16)
[2017-10-01] MEDS: ENOXAPARIN 40 MG/0.4 ML (LOVENOX) SYR SC SCH ×2 (09:20→20:21)
--- NOTE | 2017-10-01 11:06 | Physical Therapy Daily Note ---
PT Daily Note-Current Subjective Pt sitting in recliner upon arrival. Pt reports discomfrot in R inner calf along incision, Nurse aware. Pt agrees to PT. Pain Numeric Pain Scale: 5-Moderate Pain Location: Right, Medial Location Body Site: Calf Pain Description: Ache, Tightness Comment: Pt reports pain at 3/10 with occasional increases to 5/10. Mental Status Patient Orientation: Person, Place, Time, Situation Transfers Functional [place] Measure 0=Not Assessed/NA 4=Minimal Assistance 1=Total Assistance 5=Supervision or Setup 2=Maximal Assistance 6=Modified [place] 3=Moderate Assistance 7=Complete IndependenceIRFPAI Quality Coding Scale 6 Independent with activity with or without an assistive device 5 Patient requires set up or clean up by helper. Patient completes activity by themselves 4 Supervision or touching assist (CGA). [place] provide cues , steadying assist 3 The helper provides less than half the effort to complete the activity 2 The helper provides more than half the effort to complete the activity 1 Dependent. The helper does all the effort to complete an activity 7 Patient refused to complete or attempt activity 9 The patient did not perform the activity before the current illness or injury 88 Not attempted due to Medical conditions or safety concerns [place] Sit to/from Stand: 5 Sit to Stand (QC): 5 Weight Bearing Right Lower Extremity: Right Full Weight Bearing Full Weight Bearing Gait Training Does the Patient Walk?: Yes Distance (FIM): 3=150 ft Distance: 50', 75', 50', 75', 100' Walk 10 feet (QC): 5 Walk 50 ft with 2 Turns(QC): 5 Walk 150 ft (QC): 5 Gait Level of Assist: 5 Gait Persons Needed: 1 Gait Assistive Device: FWW Pt walks with slow antalgic sarah. Pt fatigues/SOA quickly so needs short rest breaks. Wheelchair Training Does the Pt Use a Wheelchair?: No Exercises Seated Therapy Exercises: Ankle pumps, Long arc quads, Hip flexion, Kicking activity Seated Reps: 15 Treatments Pt transfers from recliner to standing at SBA using FWW. Pt ambulates to restroom before walking. Pt ambulates in [facility] using FWW at SBA,with short rests breaks every 50-75'. Pt completes Seated Ex in chair. Pt returns to new room (226) to use restroom at end of tx. Pt returns to rest in recliner in room with all needs met, including call light in hand. Assessment Current Status: Good Progress Pt fatigues & gets SOA during ambulation. Pt has noticed that if she takes short distance walks followed by short rest break, she has better endurance/ activity tolerance than if she walks whole distance at once. PT Short Term Goals Short Term Goals Time Frame: Oct 06, 2017 Gait (FIM): 4 Gait Distance Comment: 150' Gait Level of Assist: 4 Gait Assistive Device: FWW PT Ceramic Capacitor Processor Goals Residential Goals PT Ceramic Capacitor Processor Goals Time Frame: Oct 20, 2017 Transfers (B,C,W/C) (FIM): 5 Sit to Lying (QC): 4 Lying-Sitting on Side/Bed(QC): 4 Sit to Stand (QC): 4 Rollin Roll Left to Right (QC): 4 Chair/Lmf-bb-[place] Xfer(QC): 4 Car Transfer (QC): 4 Gait (FIM): 5 Distance: 200' Walk 10 feet (QC): 4 Walk 10ft-Uneven Surface(QC): 4 Walk 50ft with 2 Turns (QC): 4 Walk 150 ft (QC): 4 Gait Level of Assist: 5 Gait Assistive Device: FWW Stairs (FIM): 2 # of Steps: 4 1 Step (curb) (QC): 4 4 Steps (QC): 4 Stairs Level Of Assist: 4 PT Plan Problem List Problem List: Activity Tolerance, Functional Strength, Gait Treatment/Plan Treatment Plan: Continue Plan of Care Treatment Plan: Bed Mobility, Education, Functional Activity [place], Functional Strength, Group Therapy, Gait, Safety, Therapeutic Exercise, Transfers Treatment Duration: Oct 20, 2017 Frequency: At least 5 of 7 days/Wk (IRF) Estimated Hrs Per Day: 1.5 hours per day Patient and/or Family Agrees t: Yes Safety Risks/Education Patient Education: Gait Training, Transfer Techniques, Correct Positioning, Disease Process, Safety Issues Teaching Recipient: Patient Teaching Methods: Discussion Response to Teaching: Verbalize Understanding Time/GCodes Time In: 900 Time Out: 1000 Total Billed Treatment Time: 60 Total Billed Treatment 1, FA x2 (30m), EX (10m) & GT (20m) G Codes Necessary: TYRESE Camacho EXCHANGE CLERK Oct 01, 2017 11:06
--- NOTE | 2017-10-01 11:51 | PM & R (SOAP) Progress Note ---
Subjective This was a face to face visit with the patient. Date Seen by Provider: Oct 01, 2017 Time Seen by Provider: 11:45 Subjective/Events-last exam Patient was seen in her room this AM Patient moved to Apartment today as she is progressing well Asked about pain left leg Incision sites healing welll vania in place no drainage noted.Patient SBA for transfers Review of Systems Musculoskeletal: leg pain Objective Physician Exam Last Set of Vital Signs Vital Signs Date Time Temp Pulse Resp B/P (MAP) Pulse Ox O2 Delivery O2 Flow Rate FiO2 10/01/17 07:22 98 Room Air 10/01/17 06:30 97.9 82 18 101/68 (79) 09/29/17 06:00 4.00 Capillary Refill : I&O Intake and Output 10/01/17 00:00 Intake Total 1420 ml Balance 1420 ml Intake Oral 1420 ml # Voids 7 # Bowel Movements 1 General: Alert, Oriented X3, Mild Distress (breathing heavy) Neck: Supple Lungs: Clear to Auscultation Heart: Regular Rate Abdomen: Normal Bowel Sounds Neuro: Normal Speech Psych/Mental Status: Mental Status NL Results Lab Data Laboratory Tests 09/29/17 05:56: Glucometer 115H 09/29/17 07:09: White Blood Count 8.2, Red Blood Count 2.97L, Hemoglobin 8.4L, Hematocrit 27L, Mean Corpuscular Volume 90, Mean Corpuscular Hemoglobin 28, Mean Corpuscular Hemoglobin Concent 32, Red Cell Distribution Width 14.8H, Platelet Count 472H, Mean Platelet Volume 8.9, Neutrophils (%) (Auto) 59, Lymphocytes (%) (Auto) 22, Monocytes (%) (Auto) 12, Eosinophils (%) (Auto) 7, Basophils (%) (Auto) 0, Neutrophils # (Auto) 4.9, Lymphocytes # (Auto) 1.8, Monocytes # (Auto) 1.0, Eosinophils # (Auto) 0.6H, Basophils # (Auto) 0.0, Sodium Level 137, Potassium Level 3.9, Chloride Level 104, Carbon Dioxide Level 23, Anion Gap 10, Blood Urea Nitrogen 11, Creatinine 0.72, Estimat Glomerular Filtration Rate > 60, BUN/ Creatinine Ratio 15, Glucose Level 129H, Mean Blood Glucose 143H, Hemoglobin A1c 6.6H, Calcium Level 8.7, Phosphorus Level 3.0, Albumin 3.1L 09/29/17 12:07: Glucometer 142H 09/29/17 16:45: Glucometer 121H 09/29/17 20:33: Glucometer 158H 09/30/17 05:45: Glucometer 126H 09/30/17 08:02: Glucometer 150H 09/30/17 11:10: Glucometer 123H 09/30/17 16:34: Glucometer 128H 09/30/17 20:36: Glucometer 143H 10/01/17 05:39: Glucometer 145H 10/01/17 11:13: Glucometer 126H Assessment/Plan Assessment and Plan dDisuse myopaty s/p Cabg improving Morbid obesity DM2 CAD Plan Continue PT/OT/Pain management Discharge tentatively set for next Wednesday10/06/17 Co-Morbidities that are continuing to impact the rehab process: (include details ) TONY GAN MD Oct 01, 2017 11:51
--- NOTE | 2017-10-01 11:57 | Individualized Plan of Care ---
Individualized Plan of Care Rehab Nursing IPOC Order Admission Date September 28, 2017 at 18:59 Current Orders Orders Admission Order(Inpt,Obs,Sdc) (09/28/17 19:22) Code/Resuscitation (09/28/17 19:22) Initiate Admission Nursing Pro .admission (09/28/17 19:22) Isolation Central Supply Req (09/28/17 19:22) Cho 60g/M 0snack (16-2000 Kyaw) (09/28/17 Dinner) Ambulate TID (09/28/17 20:56) Sequential Compression Device 08,20 (09/28/17 20:56) Dvt/Vte Risk - Notifiy Physici 08 (09/28/17 20:56) Hydrocodone/Apap 5/325 Tablet (Lortab 5 (09/28/17 21:45) Cpap (Set Up) (09/28/17 21:34) Hydrocodone/Apap 5/325 Tablet (Lortab 5 (09/28/17 21:31) Enoxaparin Injection (Lovenox Injection) (09/28/17 21:45) Amiodarone Tablet (Cordarone Tablet) (09/29/17 09:00) Amitriptyline Tablet (Elavil Tablet) (09/29/17 21:00) Aspirin Chewable Tablet (Baby Aspirin Ch (09/29/17 09:00) Atenolol Tablet (Tenormin Tablet) (09/29/17 21:00) Atorvastatin Tablet (Lipitor) (09/29/17 21:00) Celecoxib Capsule (Celebrex Capsule) (09/29/17 09:00) Clopidogrel Tablet (Plavix Tablet) (09/29/17 09:00) Diltiazem Cd 24 Hr Capsule (Cardizem Cd (09/29/17 09:00) Metformin Tablet (Glucophage Tablet) (09/29/17 07:00) Albuterol/Ipra Inhalation Soln (Duoneb I (09/28/17 22:00) Svn Small Volume Nebulizer (09/28/17 21:52) Pantoprazole Tablet (Protonix Tablet) (09/28/17 22:00) Valsartan Tablet (Diovan Tablet) (09/29/17 09:00) Zolpidem Tablet (Ambien Tablet) (09/28/17 22:00) Patient May Use Own Med,Single (Patient (09/28/17 22:15) Physical Therapy Rehab Orders (09/28/17 22:02) Speech Therapy Rehab Orders (09/28/17 22:02) Occupational Therapy Rehab Ord (09/28/17 22:02) Hemoglobin A1c (09/28/17 22:02) Renal Profile (09/29/17 05:00) Cbc With Automated Diff (09/29/17 05:00) Accucheck Achs ACHS (09/28/17 23:21) Insulin Aspart (Novolog) (Novolog (Charg (09/29/17 06:00) Metformin Tablet (Glucophage Tablet) (09/29/17 04:38) Enoxaparin Injection (Lovenox Injection) (09/28/17 23:12) Enoxaparin Injection (Lovenox Injection) (09/29/17 09:00) Valsartan Tablet (Diovan Tablet) (09/29/17 09:00) Patient Visit (09/29/17 ) Speech Sound Lang Comp (09/29/17 ) Patient Visit (09/29/17 ) Pt Eval Moderate Complexity (09/29/17 ) Gait Training, Ea 15 Min (09/29/17 ) Exercise Therap, Ea 15 Min (09/29/17 ) Patient Visit (09/29/17 ) Patient Visit (09/30/17 ) Exercise Therap, Ea 15 Min (09/30/17 ) Gait Training, Ea 15 Min (09/30/17 ) Patient Visit (09/30/17 ) Gait Training, Ea 15 Min (09/30/17 ) Enoxaparin Injection (Lovenox Injection) (10/01/17 09:00) Rehab Nursing Orders: Ongoing Assess. of Function Status, Disease Management & Educaiton, DVT Prophylaxis, Fall Prevention, Infection Prevention, Medication Management & Education, Management of Skin Intergrity, Nutrition Management, Pain Management, Patient/Family Support, Wound Management Other Nursing Orders: Monitor for postop constipation and urinary retention PT IPOC Problem List: Activity Tolerance, Functional Strength, Safety Treatment Plan: Continue Plan of Care Bed Mobility, Education, Functional Activity Alice, Functional Strength, Group Therapy, Gait, Safety, Therapeutic Exercise, Transfers Treatment Duration: Oct 20, 2017 Frequency: At least 5 of 7 days/Wk (IRF) Estimated Hrs Per Day: 1.5 hours per day OT IPOC Problems: Decreased Activ Tolerance, Decreased UE Strength, Impaired Funct Balance, Impaired Self-Care Skills OT Treatment, Training and Edu: Yes OT Problems Pt would benefit from skilled OT to increase her independence in basic self care to allow her to safely return to her home to live independently with family support. Plan of Care: ADL Retraining, Functional Mobility, Group Exercise/Act as Ind ( education, exercise, activity tolerance, socialization, funct activities), UE Funct Exercise/Act, UE Neuromus Re-Ed/Coord, OTHER (energy conservation educaiton) Treatment Duration: Oct 20, 2017 Frequency: At least 5 of 7 days/Wk (IRF) Estimated Hrs Per Day: 1.[address] IPOC Speech Therapy Treatment Plan: Discontinue ST Treatment Duration: Oct 01, 2017 Frequency: Modified Program (IRF) (No ST warranted.) Estimated Hrs Per Day: Other (No ST warranted.) Blood Tester Fowl/Case Mgmt Blood Tester Fowl/Case Managemen: Discharge Planning, Patient/Family Counseling Dietitian/Air Moving Technician Dietitian/Air Moving Technician to monitor nutritional status and make changes and/or recommendations as needed and work with speech pathology on dietary upgrades as the occur. Physician IPOC Medical Issues being managed closely and that require the 24 hour availability of a physician: Wound care Pain management DM Morbid obesity STEVEN on cpap Medical Issues: Bowel/Bladder Function, DVT Prophylaxis, Falls Precautions, Infection Protection, Pain Management, Wound Care, Other (List) (as per above) Brief Synthesis of Preadmission Screen, Post-Admission Evaluation, and Therapy Evaluations: 72 yo female who had been Independent and living alone who Underwent CABG at OSH for CAD referred here for ongoing care and therapies Has supprotive family nearby.Lives in [facility].PCP DR Corado.H STEVEN on CPAP Morbid obesity Type 2 DM Medical Prognosis: Good Anticipated Length of Stay: 6-6-18 Modified Independent for adls and mobility skills Anticipated d/c Destination: Home with [facility] TONY GAN MD Oct 01, 2017 11:57
--- NOTE | 2017-10-01 11:57 | Occupational Ther Daily Note ---
OT Current Status-Daily Note Subjective Pt alert and willing to participate in OT services this date. Pt does not report any pain, just fatigue from not resting well the previous night. Mental Status/Objective Functional [place] Measure 0=Not Assessed/NA 4=Minimal Assistance 1=Total Assistance 5=Supervision or Setup 2=Maximal Assistance 6=Modified [place] 3=Moderate Assistance 7=Complete [place] ADL-Treatment Functional [place] Measure 0=Not Assessed/NA 4=Minimal Assistance 1=Total Assistance 5=Supervision or Setup 2=Maximal Assistance 6=Modified [place] 3=Moderate Assistance 7=Complete IndependenceIRFPAI Quality Coding Scale 6 Independent with activity with or without an assistive device 5 Patient requires set up or clean up by helper. Patient completes activity by themselves 4 Supervision or touching assist (CGA). [place] provide cues , steadying assist 3 The helper provides less than half the effort to complete the activity 2 The helper provides more than half the effort to complete the activity 1 Dependent. The helper does all the effort to complete an activity 7 Patient refused to complete or attempt activity 9 The patient did not perform the activity before the current illness or injury 88 Not attempted due to Medical conditions or safety concerns Grooming (FIM): 4 (Pt required CGA to perform grooming/hygiene while standing at sink with FWW) Bathing (FIM): 4 (Pt performed bathing tasks in tub this date with use of transfer tub bench. Pt required CGA when standing to bathe perineal region. ) Bathing Location: L Arm, R Arm, L Upper Leg, R Upper Leg, L Lower Leg ( including foot), R Lower Leg (including foot), Chest, Abdomen, Buttocks, Perineal Area Upper Body (FIM): 5 (UBD with setup) Lower Body Dressing (FIM): 4 (LBD with CGA with FWW) Toileting (FIM): 4 (clothing management with CGA with FWW) Transfers (B, C, W/C) (FIM): 4 (CGA for all transfers) Toilet/Commode Transfer (FIM): 4 (CGA for transfer) Tub Transfer(FIM): 4 (CGA and verbal cues for tub transfer utilizing transfer tub bench. Pt able to use transfer tub bench and reported that she will benefit from one when she returns home. ) Other Treatment Pt educated on diaphragmatic breathing techniques as she becomes very short of breath with activity. Pt educated on use of transfer tub bench, and fall precautions while in bathtub with bench. Pt required increased time and frequent rest breaks for self cares due to shortness of breath and fatigue. Education OT Patient Education: Correct positioning, Energy conservation, Modified ADL techniques, Reviewed precautions, Safety issues, Transfer techniques, Use of adapted equipment Teaching Recipient: Patient Teaching Methods: Demonstration, Discussion Response to Teaching: Verbalize Understanding, Return Demonstration OT Short Term Goals Short Term Goals Time Frame: Oct 08, 2017 Lower Body Dressing(FIM): 5 Additional Short Term Goals: 1-Demonstrate ADL Tasks, 2-Verbalize Understanding , 3-ImproveStrength/Alice 1=Demonstrate adherence to instructed precautions during ADL tasks. 2=Patient will verbalize/demonstrate understanding of assistive devices/ modifications for ADL. 3=Patient will improve strength/tolerance for activity to enable patient to perform ADL's. OT Chcf Goals Chcf Goals Time Frame: Oct 20, 2017 Eating (FIM): 7 Eating (QC): 6 Groomin Oral Hygiene (QC): 6 Bathing(FIM): 6 Shower/Bathe Self (QC): 6 Upper Body Dressing(FIM): 6 Upper Body Dressing (QC): 6 Lower Body Dressing(FIM): 6 Lower Body Dressing (QC): 6 On/Off Footwear (QC): 6 Toileting(FIM): 6 Toileting Hygiene (QC): 6 Toilet/Commode Transfer(FIM): 6 Toilet/Commode Transfer (QC): 6 Shower Transfer(FIM): 6 Additional Goals: 1-Demonstrate ADL Tasks, 2-Verbalize Understanding, 3- ImproveStrength/Alice 1=Demonstrate adherence to instructed precautions during ADL tasks. 2=Patient will verbalize/demonstrate understanding of assistive devices/ modifications for ADL. 3=Patient will improve strength/tolerance for activity to enable patient to perform ADL's. OT Education/Plan Problem List/Assessment Pt would benefit from skilled OT to increase her independence in basic self care to allow her to safely return to her home to live independently with family support. Discharge Recommendations Plan/Recommendations: Continue POC Treatment Plan/Plan of Care Patient would benefit from OT for education, treatment and training to promote independence in ADL's, mobility, safety and/or upper extremity function for ADL' s. Plan of Care: ADL Retraining, Functional Mobility, Group Exercise/Act as Ind ( education, exercise, activity tolerance, socialization, funct activities), UE Funct Exercise/Act, UE Neuromus Re-Ed/Coord, OTHER (energy conservation educaiton) Treatment Duration: Oct 20, 2017 Frequency: At least 5 of 7 days/Wk (IRF) Estimated Hrs Per Day: 1.5 hours per day Agreement: Yes Rehab Potential: Fair Time/GCodes Start Time: 10:00 Stop Time: 11:00 Total Time Billed (hr/min): 60 Billed Treatment Time visit, ADL4 60 min COLLETTE GLEZ OT Oct 01, 2017 11:57
[2017-10-01] MEDS: HYDROcodone/APAP 5 MG/325 MG (LORTAB) TAB PO PRN ×2 (12:13→20:20)
--- NOTE | 2017-10-01 14:39 | Therapy Group Daily Note ---
Therapy Daily Group Note Patient Education Topic Home Safety, Fall Prevention, Exercises, ADL Exercises Balance, ROM, Fine Motor, UE Exercise Other/Notes Pt participated in group therapy session with focus on functional reaching, UE ther ex, social skills, safety awareness, fall prevention, problem solving, sitting balance/sitting tolerance, and fine motor dexterity tasks with focus on improving pt's overall safety and independence with ADLs and IADLs Start Time: 13:00 Stop Time: 14:15 Total Billed Treatment Time: 75 Total Billed Treatment 1, GRP COLLETTE GLEZ OT Oct 01, 2017 14:39
[2017-10-01 18:29] VITALS: BP 139/82
[2017-10-01] MEDS: ATENOLOL 25 MG (TENORMIN) TAB PO SCH (20:20)
[2017-10-01] MEDS: AMITRIPTYLINE 50 MG (ELAVIL) TAB PO SCH (20:20)
[2017-10-01] MEDS: ATORVASTATIN 40 MG (LIPITOR) TABLET PO SCH (20:21)
[2017-10-01] MEDS: ZOLPIDEM 5 MG (AMBIEN) TAB PO PRN (20:23)
[2017-10-02 06:07] VITALS: BP 112/62
[2017-10-02] MEDS: inSUlin ASPART (NovoLOG) 1 UNIT/0.01 ML (CHARGE PER UNIT) SC SCH ×4 (06:26→21:05)
[2017-10-02] MEDS: metFORMIN 500 MG (GLUCOPHAGE) TAB PO SCH (06:28)
[2017-10-02] MEDS: ASPIRIN 81 MG CHEW (CHILDREN'S ASA) PO SCH (08:24)
[2017-10-02] MEDS: DILTIAZEM 120 MG (CARDIZEM CD) CAP PO SCH (08:24)
[2017-10-02] MEDS: CLOPIDOGREL 75 MG (PLAVIX) TABLET PO SCH (08:24)
[2017-10-02] MEDS: AMIODARONE 200 MG (CORDARONE) TAB PO SCH (08:24)
[2017-10-02] MEDS: ENOXAPARIN 40 MG/0.4 ML (LOVENOX) SYR SC SCH ×2 (08:25→20:59)
[2017-10-02] MEDS: VALSARTAN 160 MG (DIOVAN) TABLET PO SCH (08:25)
--- NOTE | 2017-10-02 09:27 | Physical Therapy Daily Note ---
PT Daily Note-Current Subjective Patient agrees to PT. No c/o. Pain Numeric Pain Scale: 0-No Pain Location: No Pain Reported Mental Status Patient Orientation: Normal For Age Transfers Functional [place] Measure 0=Not Assessed/NA 4=Minimal Assistance 1=Total Assistance 5=Supervision or Setup 2=Maximal Assistance 6=Modified [place] 3=Moderate Assistance 7=Complete IndependenceIRFPAI Quality Coding Scale 6 Independent with activity with or without an assistive device 5 Patient requires set up or clean up by helper. Patient completes activity by themselves 4 Supervision or touching assist (CGA). [place] provide cues , steadying assist 3 The helper provides less than half the effort to complete the activity 2 The helper provides more than half the effort to complete the activity 1 Dependent. The helper does all the effort to complete an activity 7 Patient refused to complete or attempt activity 9 The patient did not perform the activity before the current illness or injury 88 Not attempted due to Medical conditions or safety concerns Transfers (B, C, W/C) (FIM): 6 Scootin Sit to/from Stand: 6 Sit to Stand (QC): 6 Patient has been instructed to be up ad theodore in room and lobby during day. RN notified. Weight Bearing Right Lower Extremity: Right Full Weight Bearing Full Weight Bearing Gait Training Does the Patient Walk?: Yes Gait (FIM): 6 Distance (FIM): 3=150 ft Distance: 150' x 6 Walk 10 feet (QC): 5 Walk 50 ft with 2 Turns(QC): 5 Walk 150 ft (QC): 5 Gait Level of Assist: 6 Gait Assistive Device: FWW Increasing mobility to improve cardiopulmonary function. Patient demonstrated increase SOA with increase in activity. Exercises Seated Therapy Exercises: Ankle pumps, Long arc quads, Hip flexion Seated Reps: 15 (4 sets with recovery periods due to SOA) Standing: Marching Standing Reps: 15 (2 sets) NuStep Minutes: 15 NuStep Workload: 5 (to improve cardiopulmonary function) Assessment Patient improving with cardiopulmonary function with increase in tolerance in activity. PT Short Term Goals Short Term Goals Time Frame: Oct 06, 2017 Gait (FIM): 4 Gait Distance Comment: 150' Gait Level of Assist: 4 Gait Assistive Device: FWW PT Assistant Customer Service Manager Goals Assistant Customer Service Manager Goals PT Residential Goals Time Frame: Oct 20, 2017 Transfers (B,C,W/C) (FIM): 5 Sit to Lying (QC): 4 Lying-Sitting on Side/Bed(QC): 4 Sit to Stand (QC): 4 Rollin Roll Left to Right (QC): 4 Chair/Bzr-aa-Itsew Xfer(QC): 4 Car Transfer (QC): 4 Gait (FIM): 5 Distance: 200' Walk 10 feet (QC): 4 Walk 10ft-Uneven Surface(QC): 4 Walk 50ft with 2 Turns (QC): 4 Walk 150 ft (QC): 4 Gait Level of Assist: 5 Gait Assistive Device: FWW Stairs (FIM): 2 # of Steps: 4 1 Step (curb) (QC): 4 4 Steps (QC): 4 Stairs Level Of Assist: 4 PT Plan Treatment/Plan Treatment Plan: Continue Plan of Care Treatment Plan: Bed Mobility, Education, Functional Activity Alice, Functional Strength, Group Therapy, Gait, Safety, Therapeutic Exercise, Transfers Treatment Duration: Oct 20, 2017 Frequency: At least 5 of 7 days/Wk (IRF) Estimated Hrs Per Day: 1.5 hours per day Patient and/or Family Agrees t: Yes Time/GCodes Time In: 650 Time Out: 820 Total Billed Treatment Time: 90 Total Billed Treatment 1 visit EX x 3 45 min FA x 2 45 min TUNG ORR PT Oct 02, 2017 09:27
--- NOTE | 2017-10-02 09:51 | Occupational Ther Daily Note ---
OT Current Status-Daily Note Subjective Pt alert, sitting in recliner. Nrsg present in room. Agrees to therapy. Mental Status/Objective Patient Orientation: Person, Place, Time, Situation Functional [place] Measure 0=Not Assessed/NA 4=Minimal Assistance 1=Total Assistance 5=Supervision or Setup 2=Maximal Assistance 6=Modified [place] 3=Moderate Assistance 7=Complete [place] ADL-Treatment Functional [place] Measure 0=Not Assessed/NA 4=Minimal Assistance 1=Total Assistance 5=Supervision or Setup 2=Maximal Assistance 6=Modified [place] 3=Moderate Assistance 7=Complete IndependenceIRFPAI Quality Coding Scale 6 Independent with activity with or without an assistive device 5 Patient requires set up or clean up by helper. Patient completes activity by themselves 4 Supervision or touching assist (CGA). [place] provide cues , steadying assist 3 The helper provides less than half the effort to complete the activity 2 The helper provides more than half the effort to complete the activity 1 Dependent. The helper does all the effort to complete an activity 7 Patient refused to complete or attempt activity 9 The patient did not perform the activity before the current illness or injury 88 Not attempted due to Medical conditions or safety concerns Bathing (FIM): 6 (Using grabbar, hand held shower and tub transfer bench pt is able to complete own shower.) Bathing Location: L Arm, R Arm, L Upper Leg, R Upper Leg, L Lower Leg ( including foot), R Lower Leg (including foot), Chest, Abdomen, Buttocks, Perineal Area Shower/Bathe Self (QC): 6 Upper Body (FIM): 6 (Using FWW, pt is able to retrieve own clothing and dons/ doffs by self.) Upper Body Dressing (QC): 6 Lower Body Dressing (FIM): 6 (Using FWW, pt is able to retrieve own clothing and dons/doffs by self.) Lower Body Dressing (QC): 6 On/Off Footwear (QC): 6 Toileting (FIM): 6 (Using FWW and grabbar pt is able to manipulate clothing and cleanse self.) Toileting Hygiene (QC): 6 Toilet/Commode Transfer (FIM): 6 (Using grabbar and FWW, pt is able to complete by self.) Toilet Transfer (QC): 6 Tub Transfer(FIM): 5 (Supervision for safety, pt is able to complete transfer using grabbar, FWW and tub transfer bench by self.) Pt takes increased time to complete ADLs and transfers due to decreased activity tolerance and SOA, requires lengthy recovery breaks throughout session. Other Treatment Pt ambulated to therapy gym with FWW and required recovery breaks going and coming to room. Pt complete arm bike 12 min duration without resistance at a slow rotation pace with 1 recovery break to increase activity tolerance for daily functional tasks. Pt took recovery break after completing arm bike prior to ambulating back to room. After therapy, pt sitting in recliner with LE's elevated. Call light/phone in reach. All needs met in room. OT Short Term Goals Short Term Goals Time Frame: Oct 08, 2017 Lower Body Dressing(FIM): 5 Additional Short Term Goals: 1-Demonstrate ADL Tasks, 2-Verbalize Understanding , 3-ImproveStrength/Alice 1=Demonstrate adherence to instructed precautions during ADL tasks. 2=Patient will verbalize/demonstrate understanding of assistive devices/ modifications for ADL. 3=Patient will improve strength/tolerance for activity to enable patient to perform ADL's. OT Senior Marketing Associate Goals Senior Marketing Associate Goals Time Frame: Oct 20, 2017 Eating (FIM): 7 Eating (QC): 6 Groomin Oral Hygiene (QC): 6 Bathing(FIM): 6 Shower/Bathe Self (QC): 6 Upper Body Dressing(FIM): 6 Upper Body Dressing (QC): 6 Lower Body Dressing(FIM): 6 Lower Body Dressing (QC): 6 On/Off Footwear (QC): 6 Toileting(FIM): 6 Toileting Hygiene (QC): 6 Toilet/Commode Transfer(FIM): 6 Toilet/Commode Transfer (QC): 6 Shower Transfer(FIM): 6 Additional Goals: 1-Demonstrate ADL Tasks, 2-Verbalize Understanding, 3- ImproveStrength/Alice 1=Demonstrate adherence to instructed precautions during ADL tasks. 2=Patient will verbalize/demonstrate understanding of assistive devices/ modifications for ADL. 3=Patient will improve strength/tolerance for activity to enable patient to perform ADL's. OT Education/Plan Problem List/Assessment Pt would benefit from skilled OT to increase her independence in basic self care to allow her to safely return to her home to live independently with family support. Discharge Recommendations Plan/Recommendations: Continue POC Treatment Plan/Plan of Care Patient would benefit from OT for education, treatment and training to promote independence in ADL's, mobility, safety and/or upper extremity function for ADL' s. Plan of Care: ADL Retraining, Functional Mobility, Group Exercise/Act as Ind ( education, exercise, activity tolerance, socialization, funct activities), UE Funct Exercise/Act, UE Neuromus Re-Ed/Coord, OTHER (energy conservation educaiton) Treatment Duration: Oct 20, 2017 Frequency: At least 5 of 7 days/Wk (IRF) Estimated Hrs Per Day: 1.5 hours per day Agreement: Yes Rehab Potential: Fair Time/GCodes Start Time: 08:30 Stop Time: 10:00 Total Time Billed (hr/min): 90 Billed Treatment Time 1 visit-FA 2 (30 min), EX 1 (20 min) ADL 3 (40 min) CAMILA MARRUFO Oct 02, 2017 09:51
[2017-10-02 17:01] VITALS: BP 113/61
[2017-10-02] MEDS: ATORVASTATIN 40 MG (LIPITOR) TABLET PO SCH (20:58)
[2017-10-02] MEDS: AMITRIPTYLINE 50 MG (ELAVIL) TAB PO SCH (20:58)
[2017-10-02] MEDS: ATENOLOL 25 MG (TENORMIN) TAB PO SCH (20:58)
[2017-10-02] MEDS: ZOLPIDEM 5 MG (AMBIEN) TAB PO PRN (21:00)
[2017-10-03] MEDS: HYDROcodone/APAP 5 MG/325 MG (LORTAB) TAB PO PRN (01:58)
[2017-10-03 05:41] VITALS: BP 137/70
[2017-10-03] MEDS: metFORMIN 500 MG (GLUCOPHAGE) TAB PO SCH (06:20)
[2017-10-03] MEDS: inSUlin ASPART (NovoLOG) 1 UNIT/0.01 ML (CHARGE PER UNIT) SC SCH ×4 (06:24→21:00)
[2017-10-03] MEDS: CLOPIDOGREL 75 MG (PLAVIX) TABLET PO SCH (08:29)
[2017-10-03] MEDS: ASPIRIN 81 MG CHEW (CHILDREN'S ASA) PO SCH (08:30)
[2017-10-03] MEDS: VALSARTAN 160 MG (DIOVAN) TABLET PO SCH (08:30)
[2017-10-03] MEDS: ENOXAPARIN 40 MG/0.4 ML (LOVENOX) SYR SC SCH ×2 (08:30→21:24)
[2017-10-03] MEDS: DILTIAZEM 120 MG (CARDIZEM CD) CAP PO SCH (08:30)
[2017-10-03] MEDS: AMIODARONE 200 MG (CORDARONE) TAB PO SCH (08:30)
[2017-10-03 17:11] VITALS: BP 133/82
[2017-10-03] MEDS: ATENOLOL 25 MG (TENORMIN) TAB PO SCH (21:24)
[2017-10-03] MEDS: ATORVASTATIN 40 MG (LIPITOR) TABLET PO SCH (21:24)
[2017-10-03] MEDS: ZOLPIDEM 5 MG (AMBIEN) TAB PO PRN (21:24)
[2017-10-03] MEDS: AMITRIPTYLINE 50 MG (ELAVIL) TAB PO SCH (21:24)
[2017-10-04 05:52] VITALS: BP 132/60
[2017-10-04] MEDS: inSUlin ASPART (NovoLOG) 1 UNIT/0.01 ML (CHARGE PER UNIT) SC SCH ×4 (06:00→21:06)
[2017-10-04] MEDS: metFORMIN 500 MG (GLUCOPHAGE) TAB PO SCH (06:51)
[2017-10-04] MEDS: AMIODARONE 200 MG (CORDARONE) TAB PO SCH (08:29)
[2017-10-04] MEDS: CLOPIDOGREL 75 MG (PLAVIX) TABLET PO SCH (08:29)
[2017-10-04] MEDS: VALSARTAN 160 MG (DIOVAN) TABLET PO SCH (08:29)
[2017-10-04] MEDS: DILTIAZEM 120 MG (CARDIZEM CD) CAP PO SCH (08:29)
[2017-10-04] MEDS: ASPIRIN 81 MG CHEW (CHILDREN'S ASA) PO SCH (08:29)
[2017-10-04] MEDS: ENOXAPARIN 40 MG/0.4 ML (LOVENOX) SYR SC SCH ×2 (08:30→20:56)
[2017-10-04] MEDS: HYDROcodone/APAP 5 MG/325 MG (LORTAB) TAB PO PRN ×2 (08:30→16:57)
--- NOTE | 2017-10-04 09:39 | Physical Therapy Daily Note ---
PT Daily Note-Current Subjective Agreeable to PT. Reports she walked to and from [facility] a few times this weekend. Reports she feels she will probably be ready to go by the end of the week. Reports she would like to see where Cardiac Rehab is tomorrow. Pain Numeric Pain Scale: 3 Location: Posterior Location Body Site: Back (mid back) Pain Description: Ache (dull) Comment: Pt took pain meds during treatment Mental Status Patient Orientation: Person, Place, Time, Situation Transfers Functional [place] Measure 0=Not Assessed/NA 4=Minimal Assistance 1=Total Assistance 5=Supervision or Setup 2=Maximal Assistance 6=Modified [place] 3=Moderate Assistance 7=Complete IndependenceIRFPAI Quality Coding Scale 6 Independent with activity with or without an assistive device 5 Patient requires set up or clean up by helper. Patient completes activity by themselves 4 Supervision or touching assist (CGA). [place] provide cues , steadying assist 3 The helper provides less than half the effort to complete the activity 2 The helper provides more than half the effort to complete the activity 1 Dependent. The helper does all the effort to complete an activity 7 Patient refused to complete or attempt activity 9 The patient did not perform the activity before the current illness or injury 88 Not attempted due to Medical conditions or safety concerns Supine to/from Sit: 6 sit to stand mulitple reps throughout treatment ; pt able to perform without assist. Toilet transfer mod indep as well; toileted twice. Weight Bearing Right Lower Extremity: Right Full Weight Bearing Full Weight Bearing Gait Training Does the Patient Walk?: Yes Distance (FIM): 6=832-89 ft Distance: 50 ft x 8; 125 ft x 1 Walk 10 feet (QC): 6 Walk 50 ft with 2 Turns(QC): 6 Gait Assistive Device: FWW MOd indep with gait; limited due to SOA; oxygen sats >90% throughout treatment; needs frequent rest breaks. Exercises NuStep Minutes: 15 (to work on increasing functional actitivy tolerance. ) NuStep Workload: 2 Assessment Current Status: Good Progress Safe steady gait and transfers; primary limitation is SOA. PT Short Term Goals Short Term Goals Time Frame: Oct 06, 2017 Gait (FIM): 4 (met) Gait Distance Comment: 150' Gait Level of Assist: 4 (met) Gait Assistive Device: FWW PT Poultry Inseminator Goals Poultry Inseminator Goals PT Care Home Goals Time Frame: Oct 20, 2017 Transfers (B,C,W/C) (FIM): 5 Sit to Lying (QC): 4 Lying-Sitting on Side/Bed(QC): 4 Sit to Stand (QC): 4 Rollin Roll Left to Right (QC): 4 Chair/Zsj-li-Hnynp Xfer(QC): 4 Car Transfer (QC): 4 Gait (FIM): 5 Distance: 200' Walk 10 feet (QC): 4 Walk 10ft-Uneven Surface(QC): 4 Walk 50ft with 2 Turns (QC): 4 Walk 150 ft (QC): 4 Gait Level of Assist: 5 Gait Assistive Device: FWW Stairs (FIM): 2 # of Steps: 4 1 Step (curb) (QC): 4 4 Steps (QC): 4 Stairs Level Of Assist: 4 PT Plan Problem List Problem List: Activity Tolerance, Functional Strength, Safety, Balance, Gait, Transfer Treatment/Plan Treatment Plan: Continue Plan of Care Treatment Plan: Bed Mobility, Education, Functional Activity [place], Functional Strength, Group Therapy, Gait, Safety, Therapeutic Exercise, Transfers Treatment Duration: Oct 20, 2017 Frequency: At least 5 of 7 days/Wk (IRF) Estimated Hrs Per Day: 1.5 hours per day Patient and/or Family Agrees t: Yes Safety Risks/Education Patient Education: Transfer Techniques, Safety Issues Teaching Recipient: Patient Teaching Methods: Discussion Response to Teaching: Verbalize Understanding Time/GCodes Time In: 820 Time Out: 928 Total Billed Treatment Time: 68 Total Billed Treatment visit EX 15 GT 53 CAMILA ROGER PT Oct 04, 2017 09:39
--- NOTE | 2017-10-04 10:53 | Occupational Ther Daily Note ---
OT Current Status-Daily Note Subjective Pt alert, sitting in recliner. Pt agrees to therapy. No c/o pain at this time. Mental Status/Objective Patient Orientation: Person, Place, Time, Situation Functional [place] Measure 0=Not Assessed/NA 4=Minimal Assistance 1=Total Assistance 5=Supervision or Setup 2=Maximal Assistance 6=Modified [place] 3=Moderate Assistance 7=Complete [place] ADL-Treatment Using FWW pt is able to retrieve clothing by self. Ambulated to bathroom, mod I. Transferred to toilet using FWW and grabbar. Completed toileting mod I. Transferred to shower using FWW, tub transfer bench and grabbar by self. Completed bathing, mod I. Completed dressing mod I. Grooming holding onto counter, independent. Pt did take multiple recovery breaks throughout ADLs, decreased recovery time. Functional [place] Measure 0=Not Assessed/NA 4=Minimal Assistance 1=Total Assistance 5=Supervision or Setup 2=Maximal Assistance 6=Modified [place] 3=Moderate Assistance 7=Complete IndependenceIRFPAI Quality Coding Scale 6 Independent with activity with or without an assistive device 5 Patient requires set up or clean up by helper. Patient completes activity by themselves 4 Supervision or touching assist (CGA). [place] provide cues , steadying assist 3 The helper provides less than half the effort to complete the activity 2 The helper provides more than half the effort to complete the activity 1 Dependent. The helper does all the effort to complete an activity 7 Patient refused to complete or attempt activity 9 The patient did not perform the activity before the current illness or injury 88 Not attempted due to Medical conditions or safety concerns Grooming (FIM): 6 Oral Hygiene (QC): 6 Bathing (FIM): 6 Shower/Bathe Self (QC): 6 Upper Body (FIM): 6 Upper Body Dressing (QC): 6 Lower Body Dressing (FIM): 6 Lower Body Dressing (QC): 6 On/Off Footwear (QC): 6 Toileting (FIM): 6 Toileting Hygiene (QC): 6 Toilet/Commode Transfer (FIM): 6 Toilet Transfer (QC): 6 Tub Transfer(FIM): 6 Other Treatment Pt completed UE strengthening isometric exercises against gravity. Pt was able to complete 2 exercises for shldrs 2 sets 10 reps with recovery breaks between each set. After therapy, pt sitting in recliner with call light/phone in reach. All needs met in room. OT Short Term Goals Short Term Goals Time Frame: Oct 08, 2017 Lower Body Dressing(FIM): 5 Additional Short Term Goals: 1-Demonstrate ADL Tasks, 2-Verbalize Understanding , 3-ImproveStrength/Alice 1=Demonstrate adherence to instructed precautions during ADL tasks. 2=Patient will verbalize/demonstrate understanding of assistive devices/ modifications for ADL. 3=Patient will improve strength/tolerance for activity to enable patient to perform ADL's. OT Longterm Goals Sand Screener Goals Time Frame: Oct 20, 2017 Eating (FIM): 7 Eating (QC): 6 Groomin Oral Hygiene (QC): 6 Bathing(FIM): 6 Shower/Bathe Self (QC): 6 Upper Body Dressing(FIM): 6 Upper Body Dressing (QC): 6 Lower Body Dressing(FIM): 6 Lower Body Dressing (QC): 6 On/Off Footwear (QC): 6 Toileting(FIM): 6 Toileting Hygiene (QC): 6 Toilet/Commode Transfer(FIM): 6 Toilet/Commode Transfer (QC): 6 Shower Transfer(FIM): 6 Additional Goals: 1-Demonstrate ADL Tasks, 2-Verbalize Understanding, 3- ImproveStrength/Alice 1=Demonstrate adherence to instructed precautions during ADL tasks. 2=Patient will verbalize/demonstrate understanding of assistive devices/ modifications for ADL. 3=Patient will improve strength/tolerance for activity to enable patient to perform ADL's. OT Education/Plan Problem List/Assessment Pt would benefit from skilled OT to increase her independence in basic self care to allow her to safely return to her home to live independently with family support. Discharge Recommendations Plan/Recommendations: Continue POC Treatment Plan/Plan of Care Patient would benefit from OT for education, treatment and training to promote independence in ADL's, mobility, safety and/or upper extremity function for ADL' s. Plan of Care: ADL Retraining, Functional Mobility, Group Exercise/Act as Ind ( education, exercise, activity tolerance, socialization, funct activities), UE Funct Exercise/Act, UE Neuromus Re-Ed/Coord, OTHER (energy conservation educaiton) Treatment Duration: Oct 20, 2017 Frequency: At least 5 of 7 days/Wk (IRF) Estimated Hrs Per Day: 1.5 hours per day Agreement: Yes Rehab Potential: Fair Time/GCodes Start Time: 09:55 Stop Time: 10:55 Total Time Billed (hr/min): 60 Billed Treatment Time 1 visit-ADL 3 (50 min) EX 1 (10 min) CAMILA MARRUFO Oct 04, 2017 10:53
--- NOTE | 2017-10-04 14:45 | Therapy Group Daily Note ---
Therapy Daily Group Note Patient Education Topic Other List Below (definition of , signs and symptoms of CVA and ID) Exercises UE Exercise (balloon volley ball) Other/Notes Pt. participated in group PT session. Pt. came went ambulating with FWW SBA. Pts introduced themselves and shared their familial heritage and background. Pts were educated in definition of ID and CVA as well as the signs and symptoms etc. Pts all shared their personal experiences and knowledge. Pts played balloon volley ball assisting each other as a team and commented on how they enjoyed this activity. Pt. in bed after Rx with call javed at hand Start Time: 13:00 Stop Time: 14:15 Total Billed Treatment Time: 75 Total Billed Treatment 1,GRP NOLBERTO MIRAMONTES TRANSONIC ENGINEER Oct 04, 2017 14:45
[2017-10-04 16:57] VITALS: BP 134/74
--- NOTE | 2017-10-04 18:09 | PM & R (SOAP) Progress Note ---
Subjective This was a face to face visit with the patient. Date Seen by Provider: Oct 04, 2017 Time Seen by Provider: 17:40 Subjective/Events-last exam Patient was seen in her room this Afternoon.Patient Modified Independent for transfers.Called earlier by RN re Dark tarry stools Stool for OB ordered Will recheck CBC see orders. Current labs reviewed Will consult DR Grissom to see this Out of town patient.as well. Objective Physician Exam Last Set of Vital Signs Vital Signs Date Time Temp Pulse Resp B/P (MAP) Pulse Ox O2 Delivery O2 Flow Rate FiO2 10/04/17 16:57 97.2 88 20 134/74 (94) 98 Room Air 10/04/17 05:52 4.00 Capillary Refill : I&O Intake and Output 10/03/17 23:59 Intake Total 1872 ml Balance 1872 ml Intake Oral 1872 ml # Voids 11 # Bowel Movements 3 General: Alert, Oriented X3, Mild Distress (breathing heavy) Neck: Supple Lungs: Clear to Auscultation Heart: Regular Rate Abdomen: Normal Bowel Sounds Neuro: Normal Speech Psych/Mental Status: Mental Status NL Results Lab Data Laboratory Tests 10/01/17 20:19: Glucometer 137H 10/02/17 05:53: Glucometer 137H 10/02/17 11:23: Glucometer 126H 10/02/17 16:21: Glucometer 142H 10/02/17 21:02: Glucometer 169H 10/03/17 06:19: Glucometer 120H 10/03/17 11:25: Glucometer 105 10/03/17 15:57: Glucometer 132H 10/03/17 20:31: Glucometer 173H 10/04/17 06:13: Glucometer 131H 10/04/17 11:37: Glucometer 121H 10/04/17 16:50: Glucometer 102 Assessment/Plan Assessment and Plan Disuse myopathy s/p Cabg Morbid obesity DM2 CAD Post op anemia Black tarry stools Hypoalbuminemia Plan Continue PT/OT Recheck CBC Check stool for OB Consult Dr grissom See orders Co-Morbidities that are continuing to impact the rehab process: (include details ) TONY GAN MD Oct 04, 2017 18:09
[2017-10-04] MEDS: AMITRIPTYLINE 50 MG (ELAVIL) TAB PO SCH (20:55)
[2017-10-04] MEDS: ATORVASTATIN 40 MG (LIPITOR) TABLET PO SCH (20:55)
[2017-10-04] MEDS: ZOLPIDEM 5 MG (AMBIEN) TAB PO PRN (20:56)
[2017-10-04] MEDS: ATENOLOL 25 MG (TENORMIN) TAB PO SCH (20:56)
[2017-10-05] MEDS: metFORMIN 500 MG (GLUCOPHAGE) TAB PO SCH (06:14)
[2017-10-05] MEDS: inSUlin ASPART (NovoLOG) 1 UNIT/0.01 ML (CHARGE PER UNIT) SC SCH ×4 (06:25→20:41)
[2017-10-05 06:26] VITALS: BP 105/44
[2017-10-05 08:02] LABS: BASOPHILS % (AUTO) 1 % (0-10); EOSINOPHILS # (AUTO) 0.7 10^3/uL (0.0-0.3); EOSINOPHILS % (AUTO) 11 % (0-10); HEMATOCRIT 29 % (35-52); LYMPHOCYTES # (AUTO) 1.4 X 10^3 (1.0-4.0); LYMPHOCYTES % (AUTO) 21 % (12-44); MEAN CORPUSCULAR HEMOGLOBIN 28 PG (25-34); MEAN CORPUSCULAR HGB CONC 31 G/DL (32-36); MEAN CORPUSCULAR VOLUME 91 FL (80-99); MEAN PLATELET VOLUME 8.5 FL (7.4-10.4); MONOCYTES # (AUTO) 0.6 X 10^3 (0.0-1.0); MONOCYTES % (AUTO) 10 % (0-12); NEUTROPHILS # (AUTO) 3.7 X 10^3 (1.8-7.8); NEUTROPHILS % (AUTO) 58 % (42-75); PLATELET COUNT 441 10^3/uL (130-400); RED BLOOD COUNT 3.16 10^6/uL (4.35-5.85); RED CELL DISTRIBUTION WIDTH 15.4 % (10.0-14.5); WHITE BLOOD COUNT 6.4 10^3/uL (4.3-11.0)
[2017-10-05] MEDS: CLOPIDOGREL 75 MG (PLAVIX) TABLET PO SCH (08:02)
[2017-10-05] MEDS: ASPIRIN 81 MG CHEW (CHILDREN'S ASA) PO SCH (08:02)
[2017-10-05] MEDS: AMIODARONE 200 MG (CORDARONE) TAB PO SCH (08:05)
[2017-10-05] MEDS: DILTIAZEM 120 MG (CARDIZEM CD) CAP PO SCH (08:06)
[2017-10-05] MEDS: VALSARTAN 160 MG (DIOVAN) TABLET PO SCH (08:06)
[2017-10-05] MEDS: ENOXAPARIN 40 MG/0.4 ML (LOVENOX) SYR SC SCH ×2 (08:08→21:26)
--- NOTE | 2017-10-05 08:28 | Progress Note (SOAP) ---
Subjective Time Seen by Provider: 08:25 Subjective/Events-last exam Patient worried about blood thinness. Patient son after having a stent coronary 3 days later. Patient to consult with horticulture superintendent. Objective Exam Vital Signs Date Time Temp Pulse Resp B/P (MAP) Pulse Ox O2 Delivery O2 Flow Rate FiO2 10/05/17 06:26 98.2 91 20 105/44 (64) 98 Room Air 10/04/17 20:45 NIV CPAP 4.00 10/04/17 19:08 92 Room Air 10/04/17 16:57 97.2 88 20 134/74 (94) 98 Room Air 10/04/17 08:44 Room Air I & O 10/05/17 07:00 Intake Total 1610 ml Balance 1610 ml Capillary Refill : General Appearance: No Apparent Distress, WD/WN Results Lab Laboratory Tests 10/04/17 11:37: Glucometer 121H 10/04/17 16:50: Glucometer 102 10/04/17 20:55: Glucometer 135H 10/05/17 06:13: Glucometer 130H 10/05/17 07:49: White Blood Count 6.4, Red Blood Count 3.16L, Hemoglobin 9.0L, Hematocrit 29L, Mean Corpuscular Volume 91, Mean Corpuscular Hemoglobin 28, Mean Corpuscular Hemoglobin Concent 31L, Red Cell Distribution Width 15.4H, Platelet Count 441H, Mean Platelet Volume 8.5, Neutrophils (%) (Auto) 58, Lymphocytes (%) (Auto) 21, Monocytes (%) (Auto) 10, Eosinophils (%) (Auto) 11H, Basophils (%) (Auto) 1, Neutrophils # (Auto) 3.7, Lymphocytes # (Auto) 1.4, Monocytes # (Auto) 0.6, Eosinophils # (Auto) 0.7H, Basophils # (Auto) 0.0 Assessment/Plan Assessment/Plan Assess & Plan/Chief Complaint Disuse myopathy. Coronary artery disease. Recent CABG Clinical Quality Measures DVT/VTE Risk/Contraindication: Risk Factor Score Per Nursin RFS Level Per Nursing on Admit: 4+=Very High NEELIMA PAULINO DO Oct 05, 2017 08:28
--- NOTE | 2017-10-05 10:05 | Physical Therapy Daily Note ---
PT Daily Note-Current Subjective Pt sitting in recliner upon arrival. Pt agrees to walking for PT tx to see where Cardiac Rehab is and find out more information for after discharge. Pain Location: No Pain Reported Mental Status Patient Orientation: Person, Place, Time, Situation Transfers Functional [place] Measure 0=Not Assessed/NA 4=Minimal Assistance 1=Total Assistance 5=Supervision or Setup 2=Maximal Assistance 6=Modified [place] 3=Moderate Assistance 7=Complete IndependenceIRFPAI Quality Coding Scale 6 Independent with activity with or without an assistive device 5 Patient requires set up or clean up by helper. Patient completes activity by themselves 4 Supervision or touching assist (CGA). [place] provide cues , steadying assist 3 The helper provides less than half the effort to complete the activity 2 The helper provides more than half the effort to complete the activity 1 Dependent. The helper does all the effort to complete an activity 7 Patient refused to complete or attempt activity 9 The patient did not perform the activity before the current illness or injury 88 Not attempted due to Medical conditions or safety concerns Scootin Sit to/from Stand: 6 Sit to Stand (QC): 6 Weight Bearing Right Lower Extremity: Right Full Weight Bearing Full Weight Bearing Gait Training Does the Patient Walk?: Yes Distance (FIM): 3=150 ft Distance: 1000+' (50' each then rest break) Walk 10 feet (QC): 5 Walk 50 ft with 2 Turns(QC): 5 Walk 150 ft (QC): 5 Walking 10ft/uneven surface-QC: 5 Gait Level of Assist: 5 Gait Persons Needed: 1 Gait Assistive Device: FWW Wheelchair Training Does the Pt Use a Wheelchair?: Yes Wheelchair Distance: 5=558-53 ft Distance: 125' Wheelchair Level of Assist: 5 Wheel 50 ft with 2 turns (QC): 5 Type of Wheelchair: Manual Treatments Pt transfers from recliner to standing using FWW at Mod I. Pt ambulates in hallway using FWW at SBA. Pt takes rest breaks every approx. 50'. Pt takes short time to recover before ambulating again. Pt rests in [facility] as needed. Pt ambulating to Cardiac Rehab for more information and to see location for after discharge. Pt returns to room to use restroom and rest. Pt resting in recliner at end of tx with all needs met, including call light in hand. Assessment Current Status: Good Progress Pt is able to ambulate longer/build endurance although still only able to ambulate 50' per walk before feeling SOA and resting. Pt also has shorter recovery times before continuing ambulation. PT Short Term Goals Short Term Goals Time Frame: Oct 06, 2017 Gait (FIM): 4 (met) Gait Distance Comment: 150' Gait Level of Assist: 4 (met) Gait Assistive Device: FWW PT [facility] Goals Rubber Vulcanizing Machine Operator Goals PT Rubber Vulcanizing Machine Operator Goals Time Frame: Oct 20, 2017 Transfers (B,C,W/C) (FIM): 5 Sit to Lying (QC): 4 Lying-Sitting on Side/Bed(QC): 4 Sit to Stand (QC): 4 Rollin Roll Left to Right (QC): 4 Chair/Tso-nu-Ukmwx Xfer(QC): 4 Car Transfer (QC): 4 Gait (FIM): 5 Distance: 200' Walk 10 feet (QC): 4 Walk 10ft-Uneven Surface(QC): 4 Walk 50ft with 2 Turns (QC): 4 Walk 150 ft (QC): 4 Gait Level of Assist: 5 Gait Assistive Device: FWW Stairs (FIM): 2 # of Steps: 4 1 Step (curb) (QC): 4 4 Steps (QC): 4 Stairs Level Of Assist: 4 PT Plan Problem List Problem List: Activity Tolerance, Functional Strength, Gait Treatment/Plan Treatment Plan: Continue Plan of Care Treatment Plan: Bed Mobility, Education, Functional Activity [place], Functional Strength, Group Therapy, Gait, Safety, Therapeutic Exercise, Transfers Treatment Duration: Oct 20, 2017 Frequency: At least 5 of 7 days/Wk (IRF) Estimated Hrs Per Day: 1.5 hours per day Patient and/or Family Agrees t: Yes Safety Risks/Education Patient Education: Gait Training, Correct Positioning, Safety Issues Teaching Recipient: Patient Teaching Methods: Discussion Response to Teaching: Verbalize Understanding Time/GCodes Time In: 900 Time Out: 1000 Total Billed Treatment Time: 60 Total Billed Treatment 1, FA (15m), GT x2 (35m) & WCH (10m) G Codes Necessary: TYRESE Camacho GETTERER Oct 05, 2017 10:05
--- NOTE | 2017-10-05 10:23 | Occupational Ther Daily Note ---
OT Current Status-Daily Note Subjective Pt alert, sitting in recliner. Nrsg present in room. Agrees to therapy. No c/ o pain. Mental Status/Objective Patient Orientation: Person, Place, Time, Situation Functional [place] Measure 0=Not Assessed/NA 4=Minimal Assistance 1=Total Assistance 5=Supervision or Setup 2=Maximal Assistance 6=Modified [place] 3=Moderate Assistance 7=Complete [place] ADL-Treatment Functional [place] Measure 0=Not Assessed/NA 4=Minimal Assistance 1=Total Assistance 5=Supervision or Setup 2=Maximal Assistance 6=Modified [place] 3=Moderate Assistance 7=Complete IndependenceIRFPAI Quality Coding Scale 6 Independent with activity with or without an assistive device 5 Patient requires set up or clean up by helper. Patient completes activity by themselves 4 Supervision or touching assist (CGA). [place] provide cues , steadying assist 3 The helper provides less than half the effort to complete the activity 2 The helper provides more than half the effort to complete the activity 1 Dependent. The helper does all the effort to complete an activity 7 Patient refused to complete or attempt activity 9 The patient did not perform the activity before the current illness or injury 88 Not attempted due to Medical conditions or safety concerns Grooming (FIM): 6 (Using FWW, pt able to complete own grooming at sink.) Oral Hygiene (QC): 6 Bathing (FIM): 6 (Using grabbar, long handle sponge, tub transfer bench and hand held shower pt is able to complete by self.) Bathing Location: L Arm, R Arm, L Upper Leg, R Upper Leg, L Lower Leg ( including foot), R Lower Leg (including foot), Chest, Abdomen, Buttocks, Perineal Area Shower/Bathe Self (QC): 6 Upper Body (FIM): 6 (Pt retrieves clothing using FWW, dons/doffs by self.) Upper Body Dressing (QC): 6 Lower Body Dressing (FIM): 6 (Retrieves clothing using FWW, dons/doffs by self. Pt is able to dress without AE though fatigues pt quickly. AE demonstrated and pt able to return demonstration.) Lower Body Dressing (QC): 6 On/Off Footwear (QC): 6 Toileting (FIM): 6 (Using FWW and grabbars, pt able to complete by self.) Toileting Hygiene (QC): 6 Toilet/Commode Transfer (FIM): 6 (Using grabbar and FWW, able to complete by self.) Toilet Transfer (QC): 6 Tub Transfer(FIM): 6 (Using FWW, grabbar and tub transfer bench, completes by self.) Pt is demonstrating increased activity tolerance, shorter recovery breaks taken throughout therapy. After therapy, pt sitting in recliner with call light/ phone in reach. All needs met in room. OT Short Term Goals Short Term Goals Time Frame: Oct 08, 2017 Lower Body Dressing(FIM): 5 Additional Short Term Goals: 1-Demonstrate ADL Tasks, 2-Verbalize Understanding , 3-ImproveStrength/[place]ice 1=Demonstrate adherence to instructed precautions during ADL tasks. 2=Patient will verbalize/demonstrate understanding of assistive devices/ modifications for ADL. 3=Patient will improve strength/tolerance for activity to enable patient to perform ADL's. OT Half-Way Goals Half-Way Goals Time Frame: Oct 20, 2017 Eating (FIM): 7 Eating (QC): 6 Groomin Oral Hygiene (QC): 6 Bathing(FIM): 6 Shower/Bathe Self (QC): 6 Upper Body Dressing(FIM): 6 Upper Body Dressing (QC): 6 Lower Body Dressing(FIM): 6 Lower Body Dressing (QC): 6 On/Off Footwear (QC): 6 Toileting(FIM): 6 Toileting Hygiene (QC): 6 Toilet/Commode Transfer(FIM): 6 Toilet/Commode Transfer (QC): 6 Shower Transfer(FIM): 6 Additional Goals: 1-Demonstrate ADL Tasks, 2-Verbalize Understanding, 3- ImproveStrength/Alice 1=Demonstrate adherence to instructed precautions during ADL tasks. 2=Patient will verbalize/demonstrate understanding of assistive devices/ modifications for ADL. 3=Patient will improve strength/tolerance for activity to enable patient to perform ADL's. OT Education/Plan Problem List/Assessment Pt would benefit from skilled OT to increase her independence in basic self care to allow her to safely return to her home to live independently with family support. Discharge Recommendations Plan/Recommendations: Continue POC Treatment Plan/Plan of Care Patient would benefit from OT for education, treatment and training to promote independence in ADL's, mobility, safety and/or upper extremity function for ADL' s. Plan of Care: ADL Retraining, Functional Mobility, Group Exercise/Act as Ind ( education, exercise, activity tolerance, socialization, funct activities), UE Funct Exercise/Act, UE Neuromus Re-Ed/Coord, OTHER (energy conservation educaiton) Treatment Duration: Oct 20, 2017 Frequency: At least 5 of 7 days/Wk (IRF) Estimated Hrs Per Day: 1.5 hours per day Agreement: Yes Rehab Potential: Fair Time/GCodes Start Time: 08:00 Stop Time: 09:00 Total Time Billed (hr/min): 60 Billed Treatment Time 1 visit-ADL 4 (60 min) CAMILA MARRUFO Oct 05, 2017 10:23
--- NOTE | 2017-10-05 11:08 | PM & R (SOAP) Progress Note ---
Subjective This was a face to face visit with the patient. Date Seen by Provider: Oct 05, 2017 Time Seen by Provider: 07:55 Subjective/Events-last exam Patient was seen in her room this AM Patient SBA for transfers H&H improved Objective Physician Exam Last Set of Vital Signs Vital Signs Date Time Temp Pulse Resp B/P (MAP) Pulse Ox O2 Delivery O2 Flow Rate FiO2 10/05/17 09:53 94 Room Air 10/05/17 06:26 98.2 91 20 105/44 (64) 10/04/17 20:45 4.00 Capillary Refill : I&O Intake and Output 10/05/17 00:00 Intake Total 1553 ml Balance 1553 ml Intake Oral 1553 ml # Voids 11 # Bowel Movements 1 General: Alert, Oriented X3, Mild Distress (breathing heavy) Neck: Supple Lungs: Clear to Auscultation Heart: Regular Rate Abdomen: Normal Bowel Sounds Neuro: Normal Speech Psych/Mental Status: Mental Status NL Results Lab Data Laboratory Tests 10/02/17 11:23: Glucometer 126H 10/02/17 16:21: Glucometer 142H 10/02/17 21:02: Glucometer 169H 10/03/17 06:19: Glucometer 120H 10/03/17 11:25: Glucometer 105 10/03/17 15:57: Glucometer 132H 10/03/17 20:31: Glucometer 173H 10/04/17 06:13: Glucometer 131H 10/04/17 11:37: Glucometer 121H 10/04/17 16:50: Glucometer 102 10/04/17 20:55: Glucometer 135H 10/05/17 06:13: Glucometer 130H 10/05/17 07:49: White Blood Count 6.4, Red Blood Count 3.16L, Hemoglobin 9.0L, Hematocrit 29L, Mean Corpuscular Volume 91, Mean Corpuscular Hemoglobin 28, Mean Corpuscular Hemoglobin Concent 31L, Red Cell Distribution Width 15.4H, Platelet Count 441H, Mean Platelet Volume 8.5, Neutrophils (%) (Auto) 58, Lymphocytes (%) (Auto) 21, Monocytes (%) (Auto) 10, Eosinophils (%) (Auto) 11H, Basophils (%) (Auto) 1, Neutrophils # (Auto) 3.7, Lymphocytes # (Auto) 1.4, Monocytes # (Auto) 0.6, Eosinophils # (Auto) 0.7H, Basophils # (Auto) 0.0 Assessment/Plan Assessment and Plan Disuse myopathy s/p CABG Morbid obesity DM 2 CAD Postop anemia improving One episode of black tarry stools Stool for OB pending Hypoalbuminemia trend Plan Continue PT/OT Team Conference tomorrow Co-Morbidities that are continuing to impact the rehab process: (include details ) TONY GAN MD Oct 05, 2017 11:08
--- NOTE | 2017-10-05 11:45 | Occupational Ther Daily Note ---
OT Current Status-Daily Note Subjective Pt sitting in recliner, alert. Agrees to therapy. No c/o pain. Mental Status/Objective Patient Orientation: Person, Place, Time, Situation Functional [place] Measure 0=Not Assessed/NA 4=Minimal Assistance 1=Total Assistance 5=Supervision or Setup 2=Maximal Assistance 6=Modified [place] 3=Moderate Assistance 7=Complete [place] Attachments: Oxygen ADL-Treatment Functional [place] Measure 0=Not Assessed/NA 4=Minimal Assistance 1=Total Assistance 5=Supervision or Setup 2=Maximal Assistance 6=Modified [place] 3=Moderate Assistance 7=Complete IndependenceIRFPAI Quality Coding Scale 6 Independent with activity with or without an assistive device 5 Patient requires set up or clean up by helper. Patient completes activity by themselves 4 Supervision or touching assist (CGA). [place] provide cues , steadying assist 3 The helper provides less than half the effort to complete the activity 2 The helper provides more than half the effort to complete the activity 1 Dependent. The helper does all the effort to complete an activity 7 Patient refused to complete or attempt activity 9 The patient did not perform the activity before the current illness or injury 88 Not attempted due to Medical conditions or safety concerns Toileting (FIM): 6 (Using FWW and grabbars, pt able to complete by self.) Toileting Hygiene (QC): 6 Toilet/Commode Transfer (FIM): 6 (Pt completed transfer with FWW and grabbars.) Toilet Transfer (QC): 6 Other Treatment Pt requested to stay in room for therapy due to fatigue. 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 1# wt attached to wrists throughout activities for strengthening and activity tolerance. Pt tolerated well, completed movements slowly to conserve energy. After therapy, pt sitting in recliner with call light/phone in reach. All needs met in room. OT Short Term Goals Short Term Goals Time Frame: Oct 08, 2017 Lower Body Dressing(FIM): 5 Additional Short Term Goals: 1-Demonstrate ADL Tasks, 2-Verbalize Understanding , 3-ImproveStrength/Alice 1=Demonstrate adherence to instructed precautions during ADL tasks. 2=Patient will verbalize/demonstrate understanding of assistive devices/ modifications for ADL. 3=Patient will improve strength/tolerance for activity to enable patient to perform ADL's. OT Prison Goals Brassiere Cup Mold Cutter Goals Time Frame: Oct 20, 2017 Eating (FIM): 7 Eating (QC): 6 Groomin Oral Hygiene (QC): 6 Bathing(FIM): 6 Shower/Bathe Self (QC): 6 Upper Body Dressing(FIM): 6 Upper Body Dressing (QC): 6 Lower Body Dressing(FIM): 6 Lower Body Dressing (QC): 6 On/Off Footwear (QC): 6 Toileting(FIM): 6 Toileting Hygiene (QC): 6 Toilet/Commode Transfer(FIM): 6 Toilet/Commode Transfer (QC): 6 Shower Transfer(FIM): 6 Additional Goals: 1-Demonstrate ADL Tasks, 2-Verbalize Understanding, 3- ImproveStrength/Alice 1=Demonstrate adherence to instructed precautions during ADL tasks. 2=Patient will verbalize/demonstrate understanding of assistive devices/ modifications for ADL. 3=Patient will improve strength/tolerance for activity to enable patient to perform ADL's. OT Education/Plan Problem List/Assessment Pt would benefit from skilled OT to increase her independence in basic self care to allow her to safely return to her home to live independently with family support. Discharge Recommendations Plan/Recommendations: Continue POC Treatment Plan/Plan of Care Patient would benefit from OT for education, treatment and training to promote independence in ADL's, mobility, safety and/or upper extremity function for ADL' s. Plan of Care: ADL Retraining, Functional Mobility, Group Exercise/Act as Ind ( education, exercise, activity tolerance, socialization, funct activities), UE Funct Exercise/Act, UE Neuromus Re-Ed/Coord, OTHER (energy conservation educaiton) Treatment Duration: Oct 20, 2017 Frequency: At least 5 of 7 days/Wk (IRF) Estimated Hrs Per Day: 1.5 hours per day Agreement: Yes Rehab Potential: Fair Time/GCodes Start Time: 11:00 Stop Time: 11:30 Total Time Billed (hr/min): 30 Billed Treatment Time 1 visit-ADL 1 (10 min) EX 1 (20 min) CAMILA MARRUFO Oct 05, 2017 11:45
--- NOTE | 2017-10-05 14:56 | Physical Therapy Daily Note ---
PT Daily Note-Current Subjective Pt sitting in recliner asleep upon arrival. Pt agrees to walking with PT to work on transitioning to less restrictive AD. Pain Numeric Pain Scale: 5-Moderate Pain Location: Left Location Body Site: Knee Pain Description: Sharp Comment: Pt explains this is from knee being bone on bone & needing Steriod shot. Mental Status Patient Orientation: Person, Place, Time, Situation Transfers Functional [place] Measure 0=Not Assessed/NA 4=Minimal Assistance 1=Total Assistance 5=Supervision or Setup 2=Maximal Assistance 6=Modified [place] 3=Moderate Assistance 7=Complete IndependenceIRFPAI Quality Coding Scale 6 Independent with activity with or without an assistive device 5 Patient requires set up or clean up by helper. Patient completes activity by themselves 4 Supervision or touching assist (CGA). [place] provide cues , steadying assist 3 The helper provides less than half the effort to complete the activity 2 The helper provides more than half the effort to complete the activity 1 Dependent. The helper does all the effort to complete an activity 7 Patient refused to complete or attempt activity 9 The patient did not perform the activity before the current illness or injury 88 Not attempted due to Medical conditions or safety concerns Scootin Sit to/from Stand: 6 Sit to Stand (QC): 6 Weight Bearing Right Lower Extremity: Right Full Weight Bearing Full Weight Bearing Gait Training Does the Patient Walk?: Yes Distance (FIM): 3=150 ft Distance: 150' Walk 10 feet (QC): 5 Walk 50 ft with 2 Turns(QC): 5 Walk 150 ft (QC): 5 Gait Level of Assist: 5 Gait Persons Needed: 1 Gait Assistive Device: Cane Large Base Quad Pt attempted Small Base QC but this proved to wear the pt out quickly so switched to LG Base QC and pt ambulated better. Pt still took rest break after every approx. 50', the same as when pt used FWW. Treatments Pt transferred from recliner to standing w/o AD at [facility]. Pt ambulated in [facility]. Pt attempted Small Base QC but this proved to wear the pt out quickly so switched to LG Base QC and pt ambulated better. Pt still took rest break after every approx. 50', the same as when pt used FWW. Pt returned to room at end of walk to rest in recliner. Pt had all needs met at end of tx, including call light in hand. Assessment Current Status: Good Progress Pt is getting stronger and progressing with transfers and using a less restrictive AD. Pt still gets SOA and has pain in L knee with bone on bone ( needing a Steroid Shot). PT Short Term Goals Short Term Goals Time Frame: Oct 06, 2017 Gait (FIM): 4 (met) Gait Distance Comment: 150' Gait Level of Assist: 4 (met) Gait Assistive Device: FWW Wheelchair Distance: 125' PT Care Home Goals Care Home Goals PT Wheel Loader Operator Goals Time Frame: Oct 20, 2017 Transfers (B,C,W/C) (FIM): 5 Sit to Lying (QC): 4 Lying-Sitting on Side/Bed(QC): 4 Sit to Stand (QC): 4 Rollin Roll Left to Right (QC): 4 Chair/Vyi-fo-Iwbjr Xfer(QC): 4 Car Transfer (QC): 4 Gait (FIM): 5 Distance: 200' Walk 10 feet (QC): 4 Walk 10ft-Uneven Surface(QC): 4 Walk 50ft with 2 Turns (QC): 4 Walk 150 ft (QC): 4 Gait Level of Assist: 5 Gait Assistive Device: FWW Stairs (FIM): 2 # of Steps: 4 1 Step (curb) (QC): 4 4 Steps (QC): 4 Stairs Level Of Assist: 4 PT Plan Problem List Problem List: Activity Tolerance, Functional Strength, Safety, Balance, Gait Treatment/Plan Treatment Plan: Continue Plan of Care Treatment Plan: Bed Mobility, Education, Functional Activity [place], Functional Strength, Group Therapy, Gait, Safety, Therapeutic Exercise, Transfers Treatment Duration: Oct 20, 2017 Frequency: At least 5 of 7 days/Wk (IRF) Estimated Hrs Per Day: 1.5 hours per day Patient and/or Family Agrees t: Yes Safety Risks/Education Patient Education: Gait Training, Correct Positioning, Safety Issues Teaching Recipient: Patient Teaching Methods: Discussion Response to Teaching: Verbalize Understanding Time/GCodes Time In: 1300 Time Out: 1330 Total Billed Treatment Time: 30 Total Billed Treatment 1, GT (20m) & FA (10m) G Codes Necessary: TYRESE Camacho CUT OFF TENDER GLASS Oct 05, 2017 14:56
[2017-10-05 18:00] VITALS: BP 119/52
--- NOTE | 2017-10-05 18:02 | Consultation-Cardiology ---
HPI-Cardiology Cardiology Consultation Date of Consultation 10/05/17 Date of Admission Time Seen by Provider: 17:59 Indication: Coronary artery disease HPI 72 years old lady with history of CABG 2 done on September 13, 2017, came for physical therapy with generalized weakness. Reporting improvement. Still having pedal edema and discomfort. Chest wound is healing well. No palpitation , no syncope or near syncopal episodes. No claudications. She has multiple questions regarding the recovery from surgery and anticoagulation and exercise level. Home Medications & Allergies Allergies: Coded Allergies: Penicillins (Verified Allergy, Unknown, 09/24/06) Home Medication List Reviewed: Yes INY-Iercob-Wwvysg Hx Patient Social History Alcohol Use: Denies Use Recreational Drug Use: No Smoking Status: Never a Smoker Recent Foreign Travel: No Recent Infectious Disease Expo: No Recent Hopitalizations: Yes Physical Abuse Screen: No Sexual Abuse: No Immunizations Up To Date Date of Pneumonia Vaccine: Jan 01, 2015 Date of Influenza Vaccine: Jan 06, 2017 Past Medical History Past medical history as described below Family Medical History Significant Family History: Cancer Family History: Colon cancer G8 SISTER (leaking bowel, from choking on piece of food & never regained conscuiosness) Fibrocystic disease of breast 19 MOTHER (breast ca) Kidney disease G8 BROTHER (bladder ca) Myocardial infarction 19 FATHER Neoplasm Constitutional: see HPI, malaise EENTM: see HPI, no symptoms reported Respiratory: see HPI; No cough; dyspnea on exertion; No hemoptysis, No orthopnea, No phlegm, No short of breath, No stridor, No wheezing, No other Cardiovascular: see HPI; No chest pain; edema; No Hx of Intervention, No palpitations, No syncope, No vascular heart diseas, No other Gastrointestinal: no symptoms reported, see HPI Genitourinary: no symptoms reported, see HPI Musculoskeletal: see HPI, joint pain, muscle pain Skin: no symptoms reported, see HPI Psychiatric/Neurological: No Symptoms Reported, See HPI Reviewed Test Results Reviewed Test Results Lab Laboratory Tests Test 10/04/17 20:55 10/05/17 06:13 10/05/17 07:49 10/05/17 11:13 Range/Units Glucometer 135 H 130 H 115 H 70-110 MG/DL White Blood Count 6.4 4.3-11.0 10^3/uL Red Blood Count 3.16 L 4.35-5.85 10^6/uL Hemoglobin 9.0 L 11.5-16.0 G/DL Hematocrit 29 L 35-52 % Mean Corpuscular Volume 91 80-99 FL Mean Corpuscular Hemoglobin 28 25-34 PG Mean Corpuscular Hemoglobin Concent 31 L 32-36 G/DL Red Cell Distribution Width 15.4 H 10.0-14.5 % Platelet Count 441 H 130-400 10^3/uL Mean Platelet Volume 8.5 7.4-10.4 FL Neutrophils (%) (Auto) 58 42-75 % Lymphocytes (%) (Auto) 21 12-44 % Monocytes (%) (Auto) 10 0-12 % Eosinophils (%) (Auto) 11 H 0-10 % Basophils (%) (Auto) 1 0-10 % Neutrophils # (Auto) 3.7 1.8-7.8 X 10^3 Lymphocytes # (Auto) 1.4 1.0-4.0 X 10^3 Monocytes # (Auto) 0.6 0.0-1.0 X 10^3 Eosinophils # (Auto) 0.7 H 0.0-0.3 10^3/uL Basophils # (Auto) 0.0 0.0-0.1 10^3/uL Test 10/05/17 16:01 Range/Units Glucometer 96 70-110 MG/DL Physical Exam Vital Signs Vital Signs - First Documented 09/29/17 06:00 Temp 96.3 Pulse 97 Resp 18 B/P (MAP) 127/72 (90) Pulse Ox 97 O2 Delivery NIV CPAP O2 Flow Rate 4.00 Capillary Refill : General Appearance: No Apparent Distress, WD/WN Eyes: Bilateral Eye Normal Inspection, Bilateral Eye PERRL, Bilateral Eye EOMI HEENT: PERRL/EOMI, TMs Normal, Normal ENT Inspection, Pharynx Normal Neck: Full Range of Motion, Normal Inspection, Non Tender, Supple, Carotid Bruit Respiratory: Chest Non Tender, Lungs Clear, Normal Breath Sounds, No Accessory Muscle Use, No Respiratory Distress Cardiovascular: Regular Rate, Rhythm, No Edema, No Gallop, No JVD, No Murmur, Normal Peripheral Pulses Gastrointestinal: Normal Bowel Sounds, No Organomegaly, No Pulsatile Mass, Non Tender, Soft Back: Normal Inspection, No CVA Tenderness, No Vertebral Tenderness Extremity: Normal Capillary Refill, Normal Inspection, Normal Range of Motion, Non Tender, No Calf Tenderness, Pedal Edema Neurologic/Psychiatric: Alert, Oriented x3, No Motor/Sensory Deficits, Normal Mood/Affect Skin: Normal Color, Warm/Dry Lymphatic: No Adenopathy A/P-Cardiology Admission Diagnosis Coronary artery disease Hypertension Hyperlipidemia Diabetes mellitus Assessment/Plan Coronary artery disease status post CABG 2 using SILVA to LAD and vein graft to the obtuse marginal branch done on September 13, 2017, recovering slowly, undergoing physical therapy. Continue current medication, continue aspirin and Plavix Hypertension, controlled on current medication, continue to monitor Hyperlipidemia, continue to monitor lipids. Osteoarthritis. Generalized myopathy and generalized weakness, receiving physical therapy. Next Diabetes mellitus, followed and managed by primary care physician BMI 50, we discussed weight loss and exercise Clinical Quality Measures DVT/VTE Risk/Contraindication: Risk Factor Score Per Nursin RFS Level Per Nursing on Admit: 4+=Very High EFRAIN HARRINGTON MD Oct 05, 2017 18:02
[2017-10-05] MEDS: AMITRIPTYLINE 50 MG (ELAVIL) TAB PO SCH (21:26)
[2017-10-05] MEDS: ATENOLOL 25 MG (TENORMIN) TAB PO SCH (21:26)
[2017-10-05] MEDS: ATORVASTATIN 40 MG (LIPITOR) TABLET PO SCH (21:26)
[2017-10-05] MEDS: ZOLPIDEM 5 MG (AMBIEN) TAB PO PRN (21:26)
[2017-10-06 05:12] VITALS: BP 103/65
[2017-10-06] MEDS: inSUlin ASPART (NovoLOG) 1 UNIT/0.01 ML (CHARGE PER UNIT) SC SCH ×4 (05:14→20:02)
[2017-10-06] MEDS: metFORMIN 500 MG (GLUCOPHAGE) TAB PO SCH (05:57)
--- NOTE | 2017-10-06 08:02 | Progress Note (SOAP) ---
Subjective Time Seen by Provider: 08:00 Subjective/Events-last exam Disuse myopathy. CAD. Recent CAD. Hypertension. Hyperlipidemia. Diabetes. Patient appears nervous. Talked about cardiac rehabilitation Objective Exam Vital Signs Date Time Temp Pulse Resp B/P (MAP) Pulse Ox O2 Delivery O2 Flow Rate FiO2 10/06/17 05:12 97.4 83 18 103/65 (78) 94 Room Air 10/05/17 21:51 NIV CPAP 10/05/17 18:00 97.4 93 20 119/52 (74) 94 Room Air 10/05/17 11:34 Room Air 10/05/17 09:53 94 Room Air 10/05/17 09:00 Room Air I & O 10/06/17 07:00 Intake Total 1780 ml Balance 1780 ml Capillary Refill : General Appearance: No Apparent Distress, WD/WN HEENT: Normal ENT Inspection Neck: Full Range of Motion, Normal Inspection Respiratory: No Accessory Muscle Use, No Respiratory Distress Cardiovascular: Regular Rate, Rhythm, No Murmur Gastrointestinal: non tender, soft Results Lab Laboratory Tests 10/05/17 11:13: Glucometer 115H 10/05/17 16:01: Glucometer 96 10/05/17 18:30: Stool Occult Blood Immunoassay NEGATIVE 10/05/17 20:03: Glucometer 146H 10/06/17 04:33: Glucometer 125H Assessment/Plan Assessment/Plan Assess & Plan/Chief Complaint Disuse myopathy. Coronary artery disease. Recent CABG. . 6 L 6 L 18. Disuse myopathy. Coronary artery disease. Recent habits. Hypertension. Hyperlipidemia. Patient worried with doing okay Clinical Quality Measures DVT/VTE Risk/Contraindication: Risk Factor Score Per Nursin RFS Level Per Nursing on Admit: 4+=Very High NEELIMA PAULINO DO Oct 06, 2017 08:02
[2017-10-06] MEDS: DILTIAZEM 120 MG (CARDIZEM CD) CAP PO SCH (08:13)
[2017-10-06] MEDS: ENOXAPARIN 40 MG/0.4 ML (LOVENOX) SYR SC SCH ×2 (08:13→20:43)
[2017-10-06] MEDS: ASPIRIN 81 MG CHEW (CHILDREN'S ASA) PO SCH (08:13)
[2017-10-06] MEDS: CLOPIDOGREL 75 MG (PLAVIX) TABLET PO SCH (08:13)
[2017-10-06] MEDS: AMIODARONE 200 MG (CORDARONE) TAB PO SCH (08:13)
[2017-10-06] MEDS: VALSARTAN 160 MG (DIOVAN) TABLET PO SCH (08:13)
--- NOTE | 2017-10-06 08:20 | Occupational Ther Daily Note ---
OT Current Status-Daily Note Subjective Pt alert, sitting in recliner. Pt asking about Dr. Munoz, if nrsg had gotten a hold of him. Pt stated that her family will be with her at her home at discharge. Agrees to therapy. No c/o pain. Mental Status/Objective Patient Orientation: Person, Place, Time, Situation Functional [place] Measure 0=Not Assessed/NA 4=Minimal Assistance 1=Total Assistance 5=Supervision or Setup 2=Maximal Assistance 6=Modified [place] 3=Moderate Assistance 7=Complete [place] ADL-Treatment Functional [place] Measure 0=Not Assessed/NA 4=Minimal Assistance 1=Total Assistance 5=Supervision or Setup 2=Maximal Assistance 6=Modified [place] 3=Moderate Assistance 7=Complete IndependenceIRFPAI Quality Coding Scale 6 Independent with activity with or without an assistive device 5 Patient requires set up or clean up by helper. Patient completes activity by themselves 4 Supervision or touching assist (CGA). [place] provide cues , steadying assist 3 The helper provides less than half the effort to complete the activity 2 The helper provides more than half the effort to complete the activity 1 Dependent. The helper does all the effort to complete an activity 7 Patient refused to complete or attempt activity 9 The patient did not perform the activity before the current illness or injury 88 Not attempted due to Medical conditions or safety concerns Eating (FIM): 7 (Completes own set up and uses regular utensils to eat with.) Eating (QC): 6 Grooming (FIM): 7 (Standing at sink and holding onto counter, pt is able to complete by self.) Oral Hygiene (QC): 6 Bathing (FIM): 6 (Using tub bench, grabbar, hand held shower and long handle sponge pt is able to complete on own.) Bathing Location: L Arm, R Arm, L Upper Leg, R Upper Leg, L Lower Leg ( including foot), R Lower Leg (including foot), Chest, Abdomen, Buttocks, Perineal Area Shower/Bathe Self (QC): 6 Upper Body (FIM): 6 (Using FWW to retrieve then don/doff by self.) Upper Body Dressing (QC): 6 Lower Body Dressing (FIM): 6 (Using FWW to retrieve then don/doff by self.) Lower Body Dressing (QC): 6 On/Off Footwear (QC): 6 Toileting (FIM): 6 (Using FWW and grabbar, pt able to complete by self.) Toileting Hygiene (QC): 6 Transfers (B, C, W/C) (FIM): 6 (Using FWW pt mod I.) Toilet/Commode Transfer (FIM): 6 (Using grabbar and FWW, pt is able to complete.) Toilet Transfer (QC): 6 Tub Transfer(FIM): 6 (Using tub bench, grabbar and FWW pt able to complete. Pt has tub shower at home.) Other Treatment Pt ambulated to [facility] kitchen area and was able to retrieve cup and fill with ice with mod I using FWW. After therapy, pt sitting at [facility] table in commons area. All needs met in room. OT Short Term Goals Short Term Goals Time Frame: Oct 08, 2017 Lower Body Dressing(FIM): 5 Additional Short Term Goals: 1-Demonstrate ADL Tasks, 2-Verbalize Understanding , 3-ImproveStrength/Alice 1=Demonstrate adherence to instructed precautions during ADL tasks. 2=Patient will verbalize/demonstrate understanding of assistive devices/ modifications for ADL. 3=Patient will improve strength/tolerance for activity to enable patient to perform ADL's. OT Prison Goals Prison Goals Time Frame: Oct 20, 2017 Eating (FIM): 7 (met-10/06/2017) Eating (QC): 6 (met-10/06/2017) Groomin (met-10/06/2017) Oral Hygiene (QC): 6 (met-10/06/2017) Bathing(FIM): 6 (met-10/06/2017) Shower/Bathe Self (QC): 6 (met-10/06/2017) Upper Body Dressing(FIM): 6 (met-10/06/2017) Upper Body Dressing (QC): 6 (met-10/06/2017) Lower Body Dressing(FIM): 6 (met-10/06/2017) Lower Body Dressing (QC): 6 (met-10/06/2017) On/Off Footwear (QC): 6 (met-10/06/2017) Toileting(FIM): 6 (met-10/06/2017) Toileting Hygiene (QC): 6 (met-10/06/2017) Toilet/Commode Transfer(FIM): 6 (met-10/06/2017) Toilet/Commode Transfer (QC): 6 (met-10/06/2017) Shower Transfer(FIM): 6 (met-10/06/2017) Additional Goals: 1-Demonstrate ADL Tasks, 2-Verbalize Understanding, 3- ImproveStrength/Alice 1=Demonstrate adherence to instructed precautions during ADL tasks. 2=Patient will verbalize/demonstrate understanding of assistive devices/ modifications for ADL. 3=Patient will improve strength/tolerance for activity to enable patient to perform ADL's. OT Education/Plan Problem List/Assessment Pt would benefit from skilled OT to increase her independence in basic self care to allow her to safely return to her home to live independently with family support. Discharge Recommendations Plan/Recommendations: Continue POC Treatment Plan/Plan of Care Patient would benefit from OT for education, treatment and training to promote independence in ADL's, mobility, safety and/or upper extremity function for ADL' s. Plan of Care: ADL Retraining, Functional Mobility, Group Exercise/Act as Ind ( education, exercise, activity tolerance, socialization, funct activities), UE Funct Exercise/Act, UE Neuromus Re-Ed/Coord, OTHER (energy conservation educaiton) Treatment Duration: Oct 20, 2017 Frequency: At least 5 of 7 days/Wk (IRF) Estimated Hrs Per Day: 1.5 hours per day Agreement: Yes Rehab Potential: Fair Time/GCodes Start Time: 07:55 Stop Time: 08:55 Total Time Billed (hr/min): 60 Billed Treatment Time 1 visit-ADL 3 (50 min) FA 1 (10 min) CAMILA MARRUFO Oct 06, 2017 08:20
--- NOTE | 2017-10-06 10:00 | PM & R (SOAP) Progress Note ---
Subjective This was a face to face visit with the patient. Date Seen by Provider: Oct 06, 2017 Time Seen by Provider: 08:10 Subjective/Events-last exam Patient was seen in her room this AM Asks about Her CBC Will relay to her Patient request that her celebrex be resumed discussed with RN Will resume and make Protonix scheduled for GI prophylaxis .Stool for OB negative DR slaughter has asked cardiology to review patients home meds for discharge with respect to ASA and Plavix Loveneox should be dcd as patient mobile Patient Modified Independent for transfers and Modified Independent for Gait with Quad cane. Objective Physician Exam Last Set of Vital Signs Vital Signs Date Time Temp Pulse Resp B/P (MAP) Pulse Ox O2 Delivery O2 Flow Rate FiO2 10/06/17 09:41 Room Air 10/06/17 05:12 97.4 83 18 103/65 (78) 94 10/04/17 20:45 4.00 Capillary Refill : I&O Intake and Output 10/06/17 00:00 Intake Total 1620 ml Balance 1620 ml Intake Oral 1620 ml # Voids 8 General: Alert, Oriented X3, Mild Distress (breathing heavy) Neck: Supple Lungs: Clear to Auscultation Heart: Regular Rate Abdomen: Normal Bowel Sounds Neuro: Normal Speech Psych/Mental Status: Mental Status NL Results Lab Data Laboratory Tests 10/03/17 11:25: Glucometer 105 10/03/17 15:57: Glucometer 132H 10/03/17 20:31: Glucometer 173H 10/04/17 06:13: Glucometer 131H 10/04/17 11:37: Glucometer 121H 10/04/17 16:50: Glucometer 102 10/04/17 20:55: Glucometer 135H 10/05/17 06:13: Glucometer 130H 10/05/17 07:49: White Blood Count 6.4, Red Blood Count 3.16L, Hemoglobin 9.0L, Hematocrit 29L, Mean Corpuscular Volume 91, Mean Corpuscular Hemoglobin 28, Mean Corpuscular Hemoglobin Concent 31L, Red Cell Distribution Width 15.4H, Platelet Count 441H, Mean Platelet Volume 8.5, Neutrophils (%) (Auto) 58, Lymphocytes (%) (Auto) 21, Monocytes (%) (Auto) 10, Eosinophils (%) (Auto) 11H, Basophils (%) (Auto) 1, Neutrophils # (Auto) 3.7, Lymphocytes # (Auto) 1.4, Monocytes # (Auto) 0.6, Eosinophils # (Auto) 0.7H, Basophils # (Auto) 0.0 10/05/17 11:13: Glucometer 115H 10/05/17 16:01: Glucometer 96 10/05/17 18:30: Stool Occult Blood Immunoassay NEGATIVE 10/05/17 20:03: Glucometer 146H 10/06/17 04:33: Glucometer 125H Assessment/Plan Assessment and Plan Disuse myopathy s/p Cabg Morbid obesity DM 2 CAD Postop anemia improving One episode of black tarry stools Stool for OB negative Hypoalbuminemia OA resume home celebrex and make Protonix scheduled for GI Prophylaxis Plan Continue Pt/OT Team Conference later today see report for full functional update and POC and ELOS Cardiology to see re home meds Shouid be able to d/c Lovenox soon Co-Morbidities that are continuing to impact the rehab process: (include details ) TONY GAN MD Oct 06, 2017 10:00
--- NOTE | 2017-10-06 12:34 | Physical Therapy Daily Note ---
PT Daily Note-Current Subjective Pt sitting in chair in Therapy [facility] upon arrival. Pt agrees to PT tx for FIM scoring for anticipated upcoming discharge. Pain Numeric Pain Scale: 7 Location: Left Location Body Site: Knee Pain Description: Ache Mental Status Patient Orientation: Person, Place, Time, Situation Transfers Functional [place] Measure 0=Not Assessed/NA 4=Minimal Assistance 1=Total Assistance 5=Supervision or Setup 2=Maximal Assistance 6=Modified [place] 3=Moderate Assistance 7=Complete IndependenceIRFPAI Quality Coding Scale 6 Independent with activity with or without an assistive device 5 Patient requires set up or clean up by helper. Patient completes activity by themselves 4 Supervision or touching assist (CGA). [place] provide cues , steadying assist 3 The helper provides less than half the effort to complete the activity 2 The helper provides more than half the effort to complete the activity 1 Dependent. The helper does all the effort to complete an activity 7 Patient refused to complete or attempt activity 9 The patient did not perform the activity before the current illness or injury 88 Not attempted due to Medical conditions or safety concerns Transfers (B, C, W/C) (FIM): 6 Scootin Rollin Roll Left to Right (QC): 6 Supine to/from Sit: 6 Sit to/from Stand: 6 Sit to Lying (QC): 6 Sit to Stand (QC): 6 Chair/Xhb-kn-Cwovb Xfer(QC): 6 Bed to/from Chair: 6 Weight Bearing Right Lower Extremity: Right Full Weight Bearing Full Weight Bearing Gait Training Does the Patient Walk?: Yes Gait (FIM): 6 Distance (FIM): 3=150 ft Distance: 175' Walk 10 feet (QC): 6 Walk 50 ft with 2 Turns(QC): 6 Walk 150 ft (QC): 6 Walking 10ft/uneven surface-QC: 6 Gait Level of Assist: 6 Gait Persons Needed: 1 Gait Assistive Device: FWW Pt first attempted ambulation using [facility] although quickly used FWW instead due to quicker fatigue and pain/discomfort in back. Wheelchair Training Does the Pt Use a Wheelchair?: No Stair Training Stair Training: Handrails/: 2 handrails Stairs (FIM): 2 #of Steps: 4 1 Step (curb) (QC): 6 4 Steps (QC): 6 Stairs: Pattern: Step to Balance Picking up an Object (QC): 6 Treatments Pt transfers from chair to standing using FWW at Mod I. Pt ambulates in Therapy Commons using FWW. Pt rests after approx. 50' ambulation. Pt completes 4 steps, ambulating across varying surface for at least 10', picking up object from floor, and car transfer all at Mod I. Pt ambulates back to room with rest breaks approx. every 50' due to fatigue/SOA and pain in L knee. Pt uses restroom at Mod I. Pt completes bed mobility in room at [facility].-Mod I before transferring back to recliner at end of tx. Pt has all needs met at end of tx, including call light in hand. Assessment Current Status: Good Progress Pt has improved with strength & endurance in transfers and mobility. Pt continues to demonstrate pain in L knee that needs Steroid shot as well as SOA which will improve as pt heals. PT Short Term Goals Short Term Goals Time Frame: Oct 06, 2017 Gait (FIM): 4 (met) Gait Distance Comment: 150' Gait Level of Assist: 4 (met) Gait Assistive Device: FWW Wheelchair Distance: 125' PT [facility] Goals [facility] Goals PT [facility] Goals Time Frame: Oct 20, 2017 Transfers (B,C,W/C) (FIM): 5 Sit to Lying (QC): 4 Lying-Sitting on Side/Bed(QC): 4 Sit to Stand (QC): 4 Rollin Roll Left to Right (QC): 4 Chair/Ffs-vl-Cbugu Xfer(QC): 4 Car Transfer (QC): 4 Gait (FIM): 5 Distance: 200' Walk 10 feet (QC): 4 Walk 10ft-Uneven Surface(QC): 4 Walk 50ft with 2 Turns (QC): 4 Walk 150 ft (QC): 4 Gait Level of Assist: 5 Gait Assistive Device: FWW Stairs (FIM): 2 # of Steps: 4 1 Step (curb) (QC): 4 4 Steps (QC): 4 Stairs Level Of Assist: 4 PT Plan Problem List Problem List: Activity Tolerance, Gait Treatment/Plan Treatment Plan: Continue Plan of Care Treatment Plan: Bed Mobility, Education, Functional Activity [place], Functional Strength, Group Therapy, Gait, Safety, Therapeutic Exercise, Transfers Treatment Duration: Oct 20, 2017 Frequency: At least 5 of 7 days/Wk (IRF) Estimated Hrs Per Day: 1.5 hours per day Patient and/or Family Agrees t: Yes Safety Risks/Education Patient Education: Gait Training, Transfer Techniques, Steps, Correct Positioning, Safety Issues Teaching Recipient: Patient Teaching Methods: Discussion Response to Teaching: Verbalize Understanding Time/GCodes Time In: 900 Time Out: 1000 Total Billed Treatment Time: 60 Total Billed Treatment 1, FA x2 (30m) & GT x2 (30m) G Codes Necessary: No TYRESE COOLEY PTA Oct 06, 2017 12:34
--- NOTE | 2017-10-06 15:41 | Therapy Group Daily Note ---
Therapy Daily Group Note Patient Education Topic Other List Below (Memory Strategies & ARU Description) Exercises LE Seated Exercise, UE Exercise Other/Notes Pt ambulated to PT/OT Group in Therapy Gym using FWW at Mod I but a short rest for fatigue. Group consisted of Introductions (Name, Place Living & Riddles), Socialization, ARU Description, Memory Strategies, Visual Perception Activity and Critical Thinking Strategies as well as UE & LE Seated Exercise. Pt participated in both Exercises and vocally with personal memory strategies and answers to Visual Perception Activity. Pt returns to room to rest. Pt has all needs met at end of tx,including call light in hand. Start Time: 13:00 Stop Time: 14:20 Total Billed Treatment Time: 80 Total Billed Treatment 1, GRP (80m) TYRESE COOLEY MEAT GRADING MACHINE OPERATOR Oct 06, 2017 15:41
[2017-10-06 18:00] VITALS: BP 110/62
[2017-10-06] MEDS: AMITRIPTYLINE 50 MG (ELAVIL) TAB PO SCH (20:43)
[2017-10-06] MEDS: ATENOLOL 25 MG (TENORMIN) TAB PO SCH (20:43)
[2017-10-06] MEDS: ZOLPIDEM 5 MG (AMBIEN) TAB PO PRN (20:43)
[2017-10-06] MEDS: ATORVASTATIN 40 MG (LIPITOR) TABLET PO SCH (20:43)
[2017-10-07 05:18] VITALS: BP 117/61
[2017-10-07] MEDS: inSUlin ASPART (NovoLOG) 1 UNIT/0.01 ML (CHARGE PER UNIT) SC SCH ×4 (06:05→21:05)
[2017-10-07] MEDS: metFORMIN 500 MG (GLUCOPHAGE) TAB PO SCH (06:06)
[2017-10-07] MEDS: PANTOPRAZOLE 40 MG (PROTONIX) TAB PO SCH (06:23)
--- NOTE | 2017-10-07 07:48 | Progress Note (SOAP) ---
Subjective Time Seen by Provider: 07:45 Subjective/Events-last exam Patient feeling better and doing better. Patient be discharged tomorrow. Disuse myopathy. Coronary artery disease. Hyperlipidemia. Osteoarthritis. BMI 50. Diabetes Objective Exam Vital Signs Date Time Temp Pulse Resp B/P (MAP) Pulse Ox O2 Delivery O2 Flow Rate FiO2 10/07/17 05:18 98.0 94 20 117/61 (79) 94 Room Air 10/06/17 20:30 Room Air 10/06/17 18:00 97.4 93 20 110/62 (78) 94 Room Air 10/06/17 09:41 Room Air I & O 10/07/17 07:00 Intake Total 2080 ml Balance 2080 ml Capillary Refill : General Appearance: No Apparent Distress, WD/WN HEENT: Normal ENT Inspection Neck: Full Range of Motion Respiratory: Lungs Clear, No Accessory Muscle Use, No Respiratory Distress Cardiovascular: Regular Rate, Rhythm, No Murmur Results Lab Laboratory Tests 10/06/17 11:52: Glucometer 125H 10/06/17 17:01: Glucometer 118H 10/06/17 19:29: Glucometer 175H 10/07/17 04:25: Glucometer 123H Assessment/Plan Assessment/Plan Assess & Plan/Chief Complaint Disuse myopathy. Coronary artery disease. Recent CABG. . 6 L 6 L 18. Disuse myopathy. Coronary artery disease. Recent habits. Hypertension. Hyperlipidemia. Patient worried with doing okay. . 10/07/17. Disuse myopathy. Coronary artery disease. Hypertension. Hyperlipidemia. Patient be discharged tomorrow Clinical Quality Measures DVT/VTE Risk/Contraindication: Risk Factor Score Per Nursin RFS Level Per Nursing on Admit: 4+=Very High NEELIMA PAULINO DO Oct 07, 2017 07:48
[2017-10-07] MEDS: CELECOXIB 100 MG (CeleBREX) CAP PO SCH (08:14)
[2017-10-07] MEDS: ENOXAPARIN 40 MG/0.4 ML (LOVENOX) SYR SC SCH ×2 (08:14→21:04)
[2017-10-07] MEDS: ASPIRIN 81 MG CHEW (CHILDREN'S ASA) PO SCH (08:14)
[2017-10-07] MEDS: DILTIAZEM 120 MG (CARDIZEM CD) CAP PO SCH (08:14)
[2017-10-07] MEDS: AMIODARONE 200 MG (CORDARONE) TAB PO SCH (08:14)
[2017-10-07] MEDS: CLOPIDOGREL 75 MG (PLAVIX) TABLET PO SCH (08:14)
[2017-10-07] MEDS: VALSARTAN 160 MG (DIOVAN) TABLET PO SCH (08:14)
--- NOTE | 2017-10-07 09:44 | PM & R (SOAP) Progress Note ---
Subjective This was a face to face visit with the patient. Date Seen by Provider: Oct 07, 2017 Time Seen by Provider: 08:10 Subjective/Events-last exam Patient was seen in her room this AM Patient Modified Independent for transfers Discharge set for tomorrow to home with [facility] Current meds and labs reviewed Objective Physician Exam Last Set of Vital Signs Vital Signs Date Time Temp Pulse Resp B/P (MAP) Pulse Ox O2 Delivery O2 Flow Rate FiO2 10/07/17 05:18 98.0 94 20 117/61 (79) 94 Room Air 10/04/17 20:45 4.00 Capillary Refill : I&O Intake and Output 10/07/17 00:00 Intake Total 1740 ml Balance 1740 ml Intake Oral 1740 ml # Voids 7 General: Alert, Oriented X3, Mild Distress (breathing heavy) Neck: Supple Lungs: Clear to Auscultation Heart: Regular Rate Abdomen: Normal Bowel Sounds Neuro: Normal Speech Psych/Mental Status: Mental Status NL Results Lab Data Laboratory Tests 10/04/17 11:37: Glucometer 121H 10/04/17 16:50: Glucometer 102 10/04/17 20:55: Glucometer 135H 10/05/17 06:13: Glucometer 130H 10/05/17 07:49: White Blood Count 6.4, Red Blood Count 3.16L, Hemoglobin 9.0L, Hematocrit 29L, Mean Corpuscular Volume 91, Mean Corpuscular Hemoglobin 28, Mean Corpuscular Hemoglobin Concent 31L, Red Cell Distribution Width 15.4H, Platelet Count 441H, Mean Platelet Volume 8.5, Neutrophils (%) (Auto) 58, Lymphocytes (%) (Auto) 21, Monocytes (%) (Auto) 10, Eosinophils (%) (Auto) 11H, Basophils (%) (Auto) 1, Neutrophils # (Auto) 3.7, Lymphocytes # (Auto) 1.4, Monocytes # (Auto) 0.6, Eosinophils # (Auto) 0.7H, Basophils # (Auto) 0.0 10/05/17 11:13: Glucometer 115H 10/05/17 16:01: Glucometer 96 10/05/17 18:30: Stool Occult Blood Immunoassay NEGATIVE 10/05/17 20:03: Glucometer 146H 10/06/17 04:33: Glucometer 125H 10/06/17 11:52: Glucometer 125H 10/06/17 17:01: Glucometer 118H 10/06/17 19:29: Glucometer 175H 10/07/17 04:25: Glucometer 123H Assessment/Plan Assessment and Plan Disuse myopathy s/p Cabg Morbid obesity DM2 CAD Postop anemia improving One episode of black tarry stools Stool for OB negative Hypoalbuminemia OA Celebrex resumed GI prophylaxis protonix Plan Continue PT/OT Discharge tomorrow to home with [facility] Current meds reviewed Patient will have f/u with CTS and DR Mak Martinez PCP Co-Morbidities that are continuing to impact the rehab process: (include details ) TONY GAN MD Oct 07, 2017 09:44
[2017-10-07] MEDS ORDERED: CLOP75TA28 PO (09:52)
[2017-10-07] MEDS ORDERED: AMIO200T2 PO (09:52)
[2017-10-07] MEDS ORDERED: PANT40TA3 PO (09:52)
[2017-10-07] MEDS ORDERED: METF500T5 PO (09:52)
[2017-10-07] MEDS ORDERED: DILT120C63 PO (09:52)
--- NOTE | 2017-10-07 11:19 | Occupational Ther Daily Note ---
OT Current Status-Daily Note Subjective Pt sitting in recliner. Agrees to therapy. No c/o pain. Mental Status/Objective Functional [place] Measure 0=Not Assessed/NA 4=Minimal Assistance 1=Total Assistance 5=Supervision or Setup 2=Maximal Assistance 6=Modified [place] 3=Moderate Assistance 7=Complete [place] ADL-Treatment Pt declines shower and had already completed dressing on own. Pt completes own toileting and transfers with FWW. Functional [place] Measure 0=Not Assessed/NA 4=Minimal Assistance 1=Total Assistance 5=Supervision or Setup 2=Maximal Assistance 6=Modified [place] 3=Moderate Assistance 7=Complete IndependenceIRFPAI Quality Coding Scale 6 Independent with activity with or without an assistive device 5 Patient requires set up or clean up by helper. Patient completes activity by themselves 4 Supervision or touching assist (CGA). [place] provide cues , steadying assist 3 The helper provides less than half the effort to complete the activity 2 The helper provides more than half the effort to complete the activity 1 Dependent. The helper does all the effort to complete an activity 7 Patient refused to complete or attempt activity 9 The patient did not perform the activity before the current illness or injury 88 Not attempted due to Medical conditions or safety concerns Other Treatment Ambulated to therapy gym with 1 long recovery break prison to gym. At gym, pt completed 5 UE exercises, wrists 2#-bicep/tricep 3#, 3 sets 10 reps to increase strength for daily functional tasks. Resistive clothes pins completed to increase pinch and child adolescent psychiatrist strength for dressing and fine motor tasks. Pt ambulated back to room with 1 short recovery break then ambulated into bathroom. After therapy, pt sitting in recliner with call light/phone in reach. All needs met in room. OT Short Term Goals Short Term Goals Time Frame: Oct 08, 2017 Lower Body Dressing(FIM): 5 Additional Short Term Goals: 1-Demonstrate ADL Tasks, 2-Verbalize Understanding , 3-ImproveStrength/[place] 1=Demonstrate adherence to instructed precautions during ADL tasks. 2=Patient will verbalize/demonstrate understanding of assistive devices/ modifications for ADL. 3=Patient will improve strength/tolerance for activity to enable patient to perform ADL's. OT Correction Goals Correction Goals Time Frame: Oct 20, 2017 Eating (FIM): 7 (met-10/06/2017) Eating (QC): 6 (met-10/06/2017) Groomin (10/06/2017) Oral Hygiene (QC): 6 (10/06/2017) Bathing(FIM): 6 (10/06/2017) Shower/Bathe Self (QC): 6 (10/06/2017) Upper Body Dressing(FIM): 6 (10/06/2017) Upper Body Dressing (QC): 6 (10/06/2017) Lower Body Dressing(FIM): 6 (10/06/2017) Lower Body Dressing (QC): 6 (10/06/2017) On/Off Footwear (QC): 6 (10/06/2017) Toileting(FIM): 6 (10/06/2017) Toileting Hygiene (QC): 6 (10/06/2017) Toilet/Commode Transfer(FIM): 6 (10/06/2017) Toilet/Commode Transfer (QC): 6 (10/06/2017) Shower Transfer(FIM): 6 (10/06/2017) Additional Goals: 1-Demonstrate ADL Tasks, 2-Verbalize Understanding, 3- ImproveStrength/[place] 1=Demonstrate adherence to instructed precautions during ADL tasks. 2=Patient will verbalize/demonstrate understanding of assistive devices/ modifications for ADL. 3=Patient will improve strength/tolerance for activity to enable patient to perform ADL's. OT Education/Plan Problem List/Assessment Pt would benefit from skilled OT to increase her independence in basic self care to allow her to safely return to her home to live independently with family support. Discharge Recommendations Plan/Recommendations: Continue POC Treatment Plan/Plan of Care Patient would benefit from OT for education, treatment and training to promote independence in ADL's, mobility, safety and/or upper extremity function for ADL' s. Plan of Care: ADL Retraining, Functional Mobility, Group Exercise/Act as Ind ( education, exercise, activity tolerance, socialization, funct activities), UE Funct Exercise/Act, UE Neuromus Re-Ed/Coord, OTHER (energy conservation educaiton) Treatment Duration: Oct 20, 2017 Frequency: At least 5 of 7 days/Wk (IRF) Estimated Hrs Per Day: 1.5 hours per day Agreement: Yes Rehab Potential: Fair Time/GCodes Start Time: 09:00 Stop Time: 10:00 Total Time Billed (hr/min): 60 Billed Treatment Time 1 visit-ADL 2 (30 min) EX 2 (30 min) CAMILA MARRUFO Oct 07, 2017 11:19
--- NOTE | 2017-10-07 11:59 | Physical Therapy Daily Note ---
PT Daily Note-Current Subjective Pt sitting in recliner upon arrival. Pt reports just used restroom. Pt agrees to PT. Pain Numeric Pain Scale: 5-Moderate Pain Location: Left Location Body Site: Knee Pain Description: Ache Mental Status Patient Orientation: Person, Place, Time, Situation Transfers Functional [place] Measure 0=Not Assessed/NA 4=Minimal Assistance 1=Total Assistance 5=Supervision or Setup 2=Maximal Assistance 6=Modified [place] 3=Moderate Assistance 7=Complete IndependenceIRFPAI Quality Coding Scale 6 Independent with activity with or without an assistive device 5 Patient requires set up or clean up by helper. Patient completes activity by themselves 4 Supervision or touching assist (CGA). [place] provide cues , steadying assist 3 The helper provides less than half the effort to complete the activity 2 The helper provides more than half the effort to complete the activity 1 Dependent. The helper does all the effort to complete an activity 7 Patient refused to complete or attempt activity 9 The patient did not perform the activity before the current illness or injury 88 Not attempted due to Medical conditions or safety concerns Scootin Sit to/from Stand: 6 Sit to Stand (QC): 6 Weight Bearing Right Lower Extremity: Right Full Weight Bearing Full Weight Bearing Gait Training Does the Patient Walk?: Yes Distance (FIM): 3=150 ft Distance: 225' Walk 10 feet (QC): 6 Walk 50 ft with 2 Turns(QC): 6 Walk 150 ft (QC): 6 Gait Level of Assist: 6 Gait Persons Needed: 1 Gait Assistive Device: FWW Pt has slow but steady gait. Takes rest breaks approx.50-75' as needed. Pt know when she needs rest. Treatments Pt transfers from recliner to standing using FWW at Mod I. Pt ambulates in hallway using FWW at Mod I. Pt needs rest breaks approx. every 50-75'. Pt completes activities focused on multiple transfers sit to stands, standing balance both static & dynamic. Pt takes rest breaks during activity as needed. Pt ambulates back to room to use restroom then rest in recliner at end of tx. Pt has all needs met, including call light in hand. Assessment Current Status: Good Progress Pt still fatiguing but not as quickly. Pt has become more independent and safe with transfers and mobility. PT Short Term Goals Short Term Goals Time Frame: Oct 06, 2017 Gait (FIM): 4 (met) Gait Distance Comment: 150' Gait Level of Assist: 4 (met) Gait Assistive Device: FWW Wheelchair Distance: 125' PT [facility]idential Goals [facility]idential Goals PT [facility] Goals Time Frame: Oct 20, 2017 Transfers (B,C,W/C) (FIM): 5 Sit to Lying (QC): 4 Lying-Sitting on Side/Bed(QC): 4 Sit to Stand (QC): 4 Rollin Roll Left to Right (QC): 4 Chair/Pew-xp-Lzwfm Xfer(QC): 4 Car Transfer (QC): 4 Gait (FIM): 5 Distance: 200' Walk 10 feet (QC): 4 Walk 10ft-Uneven Surface(QC): 4 Walk 50ft with 2 Turns (QC): 4 Walk 150 ft (QC): 4 Gait Level of Assist: 5 Gait Assistive Device: FWW Stairs (FIM): 2 # of Steps: 4 1 Step (curb) (QC): 4 4 Steps (QC): 4 Stairs Level Of Assist: 4 PT Plan Problem List Problem List: Activity Tolerance, Gait Treatment/Plan Treatment Plan: Continue Plan of Care Treatment Plan: Bed Mobility, Education, Functional Activity [place], Functional Strength, Group Therapy, Gait, Safety, Therapeutic Exercise, Transfers Treatment Duration: Oct 20, 2017 Frequency: At least 5 of 7 days/Wk (IRF) Estimated Hrs Per Day: 1.5 hours per day Patient and/or Family Agrees t: Yes Safety Risks/Education Patient Education: Gait Training, Correct Positioning, Safety Issues Teaching Recipient: Patient Teaching Methods: Discussion Response to Teaching: Verbalize Understanding Time/GCodes Time In: 1000 Time Out: 1100 Total Billed Treatment Time: 60 Total Billed Treatment 1, FA x3 (40m) & GT (20m) G Codes Necessary: TYRESE Camacho NETWORK RELATIONS CONSULTANT Oct 07, 2017 11:59
--- NOTE | 2017-10-07 13:31 | Occupational Ther Daily Note ---
OT Current Status-Daily Note Subjective Pt alert, sitting in recliner. Pt agrees to therapy. No c/o pain. Mental Status/Objective Functional [place] Measure 0=Not Assessed/NA 4=Minimal Assistance 1=Total Assistance 5=Supervision or Setup 2=Maximal Assistance 6=Modified [place] 3=Moderate Assistance 7=Complete [place] ADL-Treatment Functional [place] Measure 0=Not Assessed/NA 4=Minimal Assistance 1=Total Assistance 5=Supervision or Setup 2=Maximal Assistance 6=Modified [place] 3=Moderate Assistance 7=Complete IndependenceIRFPAI Quality Coding Scale 6 Independent with activity with or without an assistive device 5 Patient requires set up or clean up by helper. Patient completes activity by themselves 4 Supervision or touching assist (CGA). [place] provide cues , steadying assist 3 The helper provides less than half the effort to complete the activity 2 The helper provides more than half the effort to complete the activity 1 Dependent. The helper does all the effort to complete an activity 7 Patient refused to complete or attempt activity 9 The patient did not perform the activity before the current illness or injury 88 Not attempted due to Medical conditions or safety concerns Other Treatment Pt took self to toilet and back. Pt ambulated to therapy gym with 1 recovery break correction to gym. Arm bike completed duration 10 min without resistance to increase activity tolerance, 4 recovery breaks taken, for daily functional tasks. Recovery break taken prior ambulating back to room. 1 break taken 3/4 way back to room. After therapy, pt sitting with visitors. All needs met. OT Short Term Goals Short Term Goals Time Frame: Oct 08, 2017 Lower Body Dressing(FIM): 5 Additional Short Term Goals: 1-Demonstrate ADL Tasks, 2-Verbalize Understanding , 3-ImproveStrength/[place] 1=Demonstrate adherence to instructed precautions during ADL tasks. 2=Patient will verbalize/demonstrate understanding of assistive devices/ modifications for ADL. 3=Patient will improve strength/tolerance for activity to enable patient to perform ADL's. OT Fci Goals Fci Goals Time Frame: Oct 20, 2017 Eating (FIM): 7 (met-10/06/2017) Eating (QC): 6 (met-10/06/2017) Groomin (met-10/06/2017) Oral Hygiene (QC): 6 (met-10/06/2017) Bathing(FIM): 6 (met-10/06/2017) Shower/Bathe Self (QC): 6 (met-10/06/2017) Upper Body Dressing(FIM): 6 (met-10/06/2017) Upper Body Dressing (QC): 6 (met-10/06/2017) Lower Body Dressing(FIM): 6 (met-10/06/2017) Lower Body Dressing (QC): 6 (met-10/06/2017) On/Off Footwear (QC): 6 (met-10/06/2017) Toileting(FIM): 6 (met-10/06/2017) Toileting Hygiene (QC): 6 (met-10/06/2017) Toilet/Commode Transfer(FIM): 6 (met-10/06/2017) Toilet/Commode Transfer (QC): 6 (-10/06/2017) Shower Transfer(FIM): 6 (-10/06/2017) Additional Goals: 1-Demonstrate ADL Tasks, 2-Verbalize Understanding, 3- ImproveStrength/[place] 1=Demonstrate adherence to instructed precautions during ADL tasks. 2=Patient will verbalize/demonstrate understanding of assistive devices/ modifications for ADL. 3=Patient will improve strength/tolerance for activity to enable patient to perform ADL's. OT Education/Plan Problem List/Assessment Pt would benefit from skilled OT to increase her independence in basic self care to allow her to safely return to her home to live independently with family support. Discharge Recommendations Plan/Recommendations: Continue POC Treatment Plan/Plan of Care Patient would benefit from OT for education, treatment and training to promote independence in ADL's, mobility, safety and/or upper extremity function for ADL' s. Plan of Care: ADL Retraining, Functional Mobility, Group Exercise/Act as Ind ( education, exercise, activity tolerance, socialization, funct activities), UE Funct Exercise/Act, UE Neuromus Re-Ed/Coord, OTHER (energy conservation educaiton) Treatment Duration: Oct 20, 2017 Frequency: At least 5 of 7 days/Wk (IRF) Estimated Hrs Per Day: 1.5 hours per day Agreement: Yes Rehab Potential: Fair Time/GCodes Start Time: 13:00 Stop Time: 13:30 Total Time Billed (hr/min): 30 Billed Treatment Time 1 visit-FA 1 (15 min) EX 1 (15 min) CAMILA MARRUFO Oct 07, 2017 13:31
--- NOTE | 2017-10-07 15:46 | Physical Therapy Daily Note ---
PT Daily Note-Current Subjective Pt sitting in recliner upon arrival. Pt agrees to PT. Mental Status Patient Orientation: Person, Place, Time, Situation Transfers Functional [place] Measure 0=Not Assessed/NA 4=Minimal Assistance 1=Total Assistance 5=Supervision or Setup 2=Maximal Assistance 6=Modified [place] 3=Moderate Assistance 7=Complete IndependenceIRFPAI Quality Coding Scale 6 Independent with activity with or without an assistive device 5 Patient requires set up or clean up by helper. Patient completes activity by themselves 4 Supervision or touching assist (CGA). [place] provide cues , steadying assist 3 The helper provides less than half the effort to complete the activity 2 The helper provides more than half the effort to complete the activity 1 Dependent. The helper does all the effort to complete an activity 7 Patient refused to complete or attempt activity 9 The patient did not perform the activity before the current illness or injury 88 Not attempted due to Medical conditions or safety concerns Scootin Sit to/from Stand: 6 Sit to Stand (QC): 6 Weight Bearing Right Lower Extremity: Right Full Weight Bearing Full Weight Bearing Gait Training Does the Patient Walk?: Yes Distance (FIM): 3=150 ft Distance: 150' Walk 10 feet (QC): 6 Walk 50 ft with 2 Turns(QC): 6 Walk 150 ft (QC): 6 Gait Level of Assist: 6 Gait Persons Needed: 1 Gait Assistive Device: FWW Pt takes short rest breaks approx. every 50-75'. Wheelchair Training Does the Pt Use a Wheelchair?: No Treatments Pt discusses w/GAS PROCESSING PLANT OPERATOR a few last minutes items such as making sure pt will have FWW to brain picker and what pt is doing about shower chair vs shower bench for home. Pt advises what is being done for both situations so pt has equipment needed. Pt transfers from recliner to standing using FWW at Mod I then uses restroom. Pt ambulates in hallway then returns to room at end of tx to rest in recliner. Pt has all needs met, including call light in hand. Assessment Current Status: Good Progress Pt has progressed with therapy in both mobility and transfers. Pt will continue to improve with SOA and activity tolerance at home. PT Short Term Goals Short Term Goals Time Frame: Oct 06, 2017 Gait (FIM): 4 (met) Gait Distance Comment: 150' Gait Level of Assist: 4 (met) Gait Assistive Device: FWW Wheelchair Distance: 125' PT Supervisor Wool Shearing Goals Supervisor Wool Shearing Goals PT Usp Goals Time Frame: Oct 20, 2017 Transfers (B,C,W/C) (FIM): 5 Sit to Lying (QC): 4 Lying-Sitting on Side/Bed(QC): 4 Sit to Stand (QC): 4 Rollin Roll Left to Right (QC): 4 Chair/Qgy-vc-Tgrxx Xfer(QC): 4 Car Transfer (QC): 4 Gait (FIM): 5 Distance: 200' Walk 10 feet (QC): 4 Walk 10ft-Uneven Surface(QC): 4 Walk 50ft with 2 Turns (QC): 4 Walk 150 ft (QC): 4 Gait Level of Assist: 5 Gait Assistive Device: FWW Stairs (FIM): 2 # of Steps: 4 1 Step (curb) (QC): 4 4 Steps (QC): 4 Stairs Level Of Assist: 4 PT Plan Problem List Problem List: Activity Tolerance, Gait Treatment/Plan Treatment Plan: Continue Plan of Care Treatment Plan: Bed Mobility, Education, Functional Activity [place], Functional Strength, Group Therapy, Gait, Safety, Therapeutic Exercise, Transfers Treatment Duration: Oct 20, 2017 Frequency: At least 5 of 7 days/Wk (IRF) Estimated Hrs Per Day: 1.5 hours per day Patient and/or Family Agrees t: Yes Safety Risks/Education Patient Education: Gait Training, Correct Positioning, Safety Issues Teaching Recipient: Patient Teaching Methods: Discussion Response to Teaching: Verbalize Understanding Time/GCodes Time In: 1400 Time Out: 1430 Total Billed Treatment Time: 30 Total Billed Treatment 1, GT (15m) & FA (15m) G Codes Necessary: TYRESE Camacho GAS PROCESSING PLANT OPERATOR Oct 07, 2017 15:46
[2017-10-07 17:37] VITALS: BP_SYST 108; BP_SYST 130; BP_DIAS 65; BP_DIAS 70
[2017-10-07] MEDS: ATENOLOL 25 MG (TENORMIN) TAB PO SCH (21:04)
[2017-10-07] MEDS: ZOLPIDEM 5 MG (AMBIEN) TAB PO PRN (21:04)
[2017-10-07] MEDS: ATORVASTATIN 40 MG (LIPITOR) TABLET PO SCH (21:04)
[2017-10-07] MEDS: AMITRIPTYLINE 50 MG (ELAVIL) TAB PO SCH (21:04)
[2017-10-08 04:30] VITALS: BP 132/76
[2017-10-08] MEDS: inSUlin ASPART (NovoLOG) 1 UNIT/0.01 ML (CHARGE PER UNIT) SC SCH (05:10)
[2017-10-08] MEDS: metFORMIN 500 MG (GLUCOPHAGE) TAB PO SCH (06:11)
[2017-10-08] MEDS: PANTOPRAZOLE 40 MG (PROTONIX) TAB PO SCH (06:12)
--- NOTE | 2017-10-08 08:20 | Progress Note (SOAP) ---
Subjective Time Seen by Provider: 08:15 Subjective/Events-last exam Patient excited to go home. Patient be discharged today. Disused myopathy Objective Exam Vital Signs Date Time Temp Pulse Resp B/P (MAP) Pulse Ox O2 Delivery O2 Flow Rate FiO2 10/08/17 06:31 95 Room Air 10/08/17 04:30 97.8 92 18 132/76 (94) 97 Room Air 10/07/17 20:53 Room Air 10/07/17 19:08 96 Room Air 10/07/17 17:37 98.0 88 18 130/70 (90) 97 Room Air 10/07/17 09:00 Room Air I & O 10/08/17 07:00 Intake Total 1460 ml Balance 1460 ml Capillary Refill : General Appearance: No Apparent Distress, WD/WN HEENT: Normal ENT Inspection Neck: Full Range of Motion, Normal Inspection Respiratory: Chest Non Tender, No Accessory Muscle Use, No Respiratory Distress Cardiovascular: Regular Rate, Rhythm, No Murmur Gastrointestinal: non tender, soft Results Lab Laboratory Tests 10/07/17 11:14: Glucometer 115H 10/07/17 16:54: Glucometer 105 10/07/17 19:51: Glucometer 145H 10/08/17 04:18: Glucometer 124H Assessment/Plan Assessment/Plan Assess & Plan/Chief Complaint Disuse myopathy. Coronary artery disease. Recent CABG. . 6 L 6 L 18. Disuse myopathy. Coronary artery disease. Recent habits. Hypertension. Hyperlipidemia. Patient worried with doing okay. . 10/07/17. Disuse myopathy. Coronary artery disease. Hypertension. Hyperlipidemia. Patient be discharged tomorrow. . 10/08/17. Disuse myopathy. Coronary artery disease. Hypertension. Hyperlipidemia. Patient feels she has improved. Patient ready for discharge and happy Clinical Quality Measures DVT/VTE Risk/Contraindication: Risk Factor Score Per Nursin RFS Level Per Nursing on Admit: 4+=Very High NEELIMA PAULINO DO Oct 08, 2017 08:20
--- NOTE | 2017-10-08 08:24 | PM & R (SOAP) Progress Note ---
Subjective This was a face to face visit with the patient. Date Seen by Provider: Oct 08, 2017 Time Seen by Provider: 07:50 Subjective/Events-last exam Patient was seen in her room this AM All set for discharge Objective Physician Exam Last Set of Vital Signs Vital Signs Date Time Temp Pulse Resp B/P (MAP) Pulse Ox O2 Delivery O2 Flow Rate FiO2 10/08/17 06:31 95 Room Air 10/08/17 04:30 97.8 92 18 132/76 (94) 10/04/17 20:45 4.00 Capillary Refill : I&O Intake and Output 10/08/17 00:00 Intake Total 1940 ml Balance 1940 ml Intake Oral 1940 ml # Voids 8 General: Alert, Oriented X3, Mild Distress (breathing heavy) Neck: Supple Lungs: Clear to Auscultation Heart: Regular Rate Abdomen: Normal Bowel Sounds Neuro: Normal Speech Psych/Mental Status: Mental Status NL Results Lab Data Laboratory Tests 10/05/17 11:13: Glucometer 115H 10/05/17 16:01: Glucometer 96 10/05/17 18:30: Stool Occult Blood Immunoassay NEGATIVE 10/05/17 20:03: Glucometer 146H 10/06/17 04:33: Glucometer 125H 10/06/17 11:52: Glucometer 125H 10/06/17 17:01: Glucometer 118H 10/06/17 19:29: Glucometer 175H 10/07/17 04:25: Glucometer 123H 10/07/17 11:14: Glucometer 115H 10/07/17 16:54: Glucometer 105 10/07/17 19:51: Glucometer 145H 10/08/17 04:18: Glucometer 124H Assessment/Plan Assessment and Plan Home to day with HHC F/U with PCP and her surgeon See orders Current meds reviewed Co-Morbidities that are continuing to impact the rehab process: (include details ) TONY GAN MD Oct 08, 2017 08:24
[2017-10-08] MEDS: VALSARTAN 160 MG (DIOVAN) TABLET PO SCH (09:16)
[2017-10-08] MEDS: DILTIAZEM 120 MG (CARDIZEM CD) CAP PO SCH (09:16)
[2017-10-08] MEDS: ENOXAPARIN 40 MG/0.4 ML (LOVENOX) SYR SC SCH (09:16)
[2017-10-08] MEDS: CELECOXIB 100 MG (CeleBREX) CAP PO SCH (09:16)
[2017-10-08] MEDS: CLOPIDOGREL 75 MG (PLAVIX) TABLET PO SCH (09:16)
[2017-10-08] MEDS: AMIODARONE 200 MG (CORDARONE) TAB PO SCH (09:16)
[2017-10-08] MEDS: ASPIRIN 81 MG CHEW (CHILDREN'S ASA) PO SCH (09:16)
--- NOTE | 2017-10-08 11:09 | Therapy Team Discharge Summary ---
Therapy Discharge Summary Discharge Recommendations Date of Discharge Therapy D/C Recommendations: Home w/ Family Support Physical Therapy Patient came to rehab following CABGx2. Upon evaluation patient needed mod assist for supine <-> sit, CGA for sit to stand and stand pivot transfers, min assist for car transfer, ambulated 50' with a rolling walker with CGA, including 50' with at least 2 turns of 90 degrees and 10' over an uneven surface , and could go up and down 1 step using a rolling walker with CGA. Patient has been performing bed mobility and transfer training, balance and endurance training, functional strengthening, stair training, gait training, and education. Patient has made good progress and has met all of her salvage determiner goals. Now, patient performs bed mobility and transfers with mod I, ambulates 150'-225' with a rolling walker with mod I (including 50' with at least 2 turns of 90 degrees and 10' over an uneven surface), car transfer mod I, and she can go up and down 4 steps using 2 handrails with mod I. Patient is discharging from this facility today and will be discharged from PT at this time. Occupational Therapy Decreased Activ Tolerance, Decreased UE Strength, Impaired Funct Balance, Impaired Self-Care Skills PT Fdc Goals Retail Gift Card Merchandising Goals PT Retail Gift Card Merchandising Goals Time Frame: Oct 20, 2017 Transfers (B,C,W/C) (FIM): 5 Roll Left to Right (QC): 4 Sit to Lying (QC): 4 Lying-Sitting on Side/Bed(QC): 4 Sit to Stand (QC): 4 Chair/Myp-cc-Atmjd Xfer(QC): 4 Car Transfer (QC): 4 Gait (FIM): 5 Distance: 200' Walk 10 feet (QC): 4 Walk 10ft-Uneven Surface(QC): 4 Walk 50ft with 2 Turns (QC): 4 Walk 150 ft (QC): 4 Gait Level of Assist: 5 Gait Assistive Device: FWW Stairs (FIM): 2 # of Steps: 4 1 Step (curb) (QC): 4 4 Steps (QC): 4 Stairs Level Of Assist: 4 OT Fdc Goals Retail Gift Card Merchandising Goals Time Frame: Oct 20, 2017 Eating (FIM): 7 (met-10/06/2017) Eating (QC): 6 (met-10/06/2017) Oral Hygiene (QC): 6 (met-10/06/2017) Grooming(FIM): 6 (10/06/2017) Bathing(FIM): 6 (10/06/2017) Shower/Bathe Self (QC): 6 (10/06/2017) Upper Body Dressing(FIM): 6 (10/06/2017) Upper Body Dressing (QC): 6 (10/06/2017) Lower Body Dressing(FIM): 6 (10/06/2017) Lower Body Dressing (QC): 6 (10/06/2017) On/Off Footwear (QC): 6 (10/06/2017) Toileting(FIM): 6 (10/06/2017) Toileting Hygiene (QC): 6 (10/06/2017) Toilet/Commode Transfer(FIM): 6 (10/06/2017) Toilet/Commode Transfer (QC): 6 (10/06/2017) Shower Transfer(FIM): 6 (10/06/2017) Additional Goals: 1-Demonstrate ADL Tasks, 2-Verbalize Understanding, 3- ImproveStrength/[place] 1=Demonstrate adherence to instructed precautions during ADL tasks. 2=Patient will verbalize/demonstrate understanding of assistive devices/ modifications for ADL. 3=Patient will improve strength/tolerance for activity to enable patient to perform ADL's. FLORECITA COKER PT Oct 08, 2017 11:09
[2017-10-08 13:05] VITALS: BP 132/76
--- NOTE | 2017-10-08 15:09 | Therapy Team Discharge Summary ---
Therapy Discharge Summary Discharge Recommendations Date of Discharge Oct 08, 2017 at 13:20 Therapy D/C Recommendations: Home w/ Family Support Occupational Therapy Pt was seen for skilled OT to increase her independence in basic self care to allow her to safely return home to live alone after CABG. On admission she was able to feed herself independently, groom with SBA, bath with SBA, dress upper body with setup, dress lower body with min assist, toilet and toilet transfer with SBA and CGA shower transfer. By discharge she was independent with eating and modified independent with all other basic ADLs. Equipment used included FWW , long handled sponge, transfer tub bench, grab bars, hand held shower, tall toilet. See tx plan for goals met. No continued OT recommended. DC OT. Decreased Activ Tolerance, Decreased UE Strength, Impaired Funct Balance, Impaired Self-Care Skills PT Snf Goals Asphalt Blender Goals PT Snf Goals Time Frame: Oct 20, 2017 Transfers (B,C,W/C) (FIM): 5 Roll Left to Right (QC): 4 Sit to Lying (QC): 4 Lying-Sitting on Side/Bed(QC): 4 Sit to Stand (QC): 4 Chair/Ijh-kg-Ramui Xfer(QC): 4 Car Transfer (QC): 4 Gait (FIM): 5 Distance: 200' Walk 10 feet (QC): 4 Walk 10ft-Uneven Surface(QC): 4 Walk 50ft with 2 Turns (QC): 4 Walk 150 ft (QC): 4 Gait Level of Assist: 5 Gait Assistive Device: FWW Stairs (FIM): 2 # of Steps: 4 1 Step (curb) (QC): 4 4 Steps (QC): 4 Stairs Level Of Assist: 4 OT Asphalt Blender Goals Asphalt Blender Goals Time Frame: Oct 20, 2017 Eating (FIM): 7 (met-10/06/2017) Eating (QC): 6 (met-10/06/2017) Oral Hygiene (QC): 6 (met-10/06/2017) Grooming(FIM): 6 (met-10/06/2017) Bathing(FIM): 6 (met-10/06/2017) Shower/Bathe Self (QC): 6 (met-10/06/2017) Upper Body Dressing(FIM): 6 (met-10/06/2017) Upper Body Dressing (QC): 6 (-10/06/2017) Lower Body Dressing(FIM): 6 (-10/06/2017) Lower Body Dressing (QC): 6 (-10/06/2017) On/Off Footwear (QC): 6 (-10/06/2017) Toileting(FIM): 6 (-10/06/2017) Toileting Hygiene (QC): 6 (-10/06/2017) Toilet/Commode Transfer(FIM): 6 (-10/06/2017) Toilet/Commode Transfer (QC): 6 (-10/06/2017) Shower Transfer(FIM): 6 (-10/06/2017) Additional Goals: 1-Demonstrate ADL Tasks, 2-Verbalize Understanding, 3- ImproveStrength/[place] 1=Demonstrate adherence to instructed precautions during ADL tasks. 2=Patient will verbalize/demonstrate understanding of assistive devices/ modifications for ADL. 3=Patient will improve strength/tolerance for activity to enable patient to perform ADL's. RODRI JASSO OT Oct 08, 2017 15:09
== END 2017-10-08 13:20 | disposition home or self-care (01) | DRG 92 ==
PROVIDERS: ADMIT Family Medicine; ATTEND Physical Medicine & Rehabilitation
DX: G72.89 Other specified myopathies (principal); Z68.43 Body mass index [BMI] 50.0-59.9, adult; I25.10 Atherosclerotic heart disease of native coronary artery without angina pectoris; Z95.1 Presence of aortocoronary bypass graft; E66.01 Morbid (severe) obesity due to excess calories; E11.9 Type 2 diabetes mellitus without complications; I10 Essential (primary) hypertension; E78.5 Hyperlipidemia, unspecified; G47.33 Obstructive sleep apnea (adult) (pediatric); Z99.81 Dependence on supplemental oxygen; Z79.84 Long term (current) use of oral hypoglycemic drugs; D64.9 Anemia, unspecified; E88.09 Other disorders of plasma-protein metabolism, not elsewhere classified
CPT/HCPCS: 36415; 80069; 82274; 82962; 83036; 85025; 94640; 94664; 94760

== ENCOUNTER 2018-02-21 10:32 | Outpatient (RCR) | payer MEDICARE, OTHER ==
[~2018-02-21 10:32] MED LIST changes: +AMIO200T4 PO; +ASPI-999 PO; +ATOR10TA66 PO; +CELE-63 PO; +CLOP75TA28 PO; +DILT120C63 PO; +IPRA3AMP31 NEB; +METF-397 PO; -METF500T5 PO; +PANT40TA2 PO; +PANT40TA3 PO; -VALS160T28 PO; +VALS160T29 PO
== END 2018-03-06 | disposition home or self-care (01) ==
LOC: CR 10:32
PROVIDERS: ATTEND Thoracic Surgery (Cardiothoracic Vascular Surgery)
DX: Z48.812 Encounter for surgical aftercare following surgery on the circulatory system (principal); Z95.1 Presence of aortocoronary bypass graft
CPT/HCPCS: 93798

== ENCOUNTER → 2018-05-09 | Outpatient (CLI) | payer MEDICARE, OTHER | LOC: CARD 14:03 | PROVIDERS: ATTEND Internal Medicine Cardiovascular Disease | DX: I25.10 Atherosclerotic heart disease of native coronary artery without angina pectoris (principal); I10 Essential (primary) hypertension; E11.9 Type 2 diabetes mellitus without complications; I07.1 Rheumatic tricuspid insufficiency | CPT/HCPCS: 93306 ==

== ENCOUNTER → 2018-05-11 | Outpatient (CLI) | payer MEDICARE, OTHER ==
[~2018-05-11] VITALS: Ht 172.7 cm; Wt 140.6 kg
[~2018-05-11] MED LIST changes: +CATHETER FLUSH 10 ML SYR IV PRN; +REGADENOSON 0.4 MG/5 ML SYR (LEXISCAN) IV ONE
[2018-05-11 09:15] VITALS: BP 136/62
[2018-05-11 09:18] VITALS: BP 137/64
--- NOTE | 2018-05-11 17:57 | STRESS TEST ---
DATE OF SERVICE: 05/11/2018 LEXISCAN MYOVIEW STRESS TEST REPORT Baseline heart rate is 102. Baseline blood pressure 168/51. Baseline EKG is sinus rhythm with occasional APCs. In summary, the patient was injected with 10.65 mCi of technetium-99 Myoview and the resting images were obtained. Then, the patient received 0.4 mg of Lexiscan followed by 32.0 mCi of technetium-99 Myoview. Throughout the test, there were no EKG changes. The resting and stress images were reviewed and compared in the short axis, horizontal long axis, and vertical long axis views. Review of the images showed good radiotracer uptake with no significant ischemia or infarction. SSS is 4, SDS 0. TID value 1.07. On the gated images, the left ventricle appeared to be in normal size with normal contractility. Calculated ejection fraction 50%. CONCLUSION: 1. The patient tolerated Lexiscan well. 2. No significant ischemia or infarction on SPECT images. 3. Normal left ventricular size with normal contractility. Calculated ejection fraction 50%. Job ID: [id number] DocumentID: [id number] Dictated Date: 05/11/2018 14:14:17 Ticket Broker Date: 05/11/2018 17:56:18 Dictated By: EFRAIN HARRINGTON MD
== END ==
LOC: CARD 07:37
PROVIDERS: ATTEND Internal Medicine Cardiovascular Disease
DX: I25.10 Atherosclerotic heart disease of native coronary artery without angina pectoris (principal); I10 Essential (primary) hypertension; I34.0 Nonrheumatic mitral (valve) insufficiency; E11.9 Type 2 diabetes mellitus without complications
CPT/HCPCS: 78452; 93017

== ENCOUNTER → 2018-06-16 | Outpatient (CLI) | payer MEDICARE, OTHER ==
[~2018-06-16] MED LIST changes: -CATHETER FLUSH 10 ML SYR IV PRN; -DILT120C63 PO; +DILT120C94 PO; -REGADENOSON 0.4 MG/5 ML SYR (LEXISCAN) IV ONE
== END ==
LOC: LAB 11:59
PROVIDERS: ATTEND Family Medicine
DX: E11.9 Type 2 diabetes mellitus without complications (principal)
CPT/HCPCS: 36415; 83036

== ENCOUNTER → 2018-06-16 | Outpatient (CLI) | payer MEDICARE, OTHER ==
[2018-06-16 12:30] LABS: BILIRUBIN,TOTAL 0.4 MG/DL (0.1-1.0); CALCIUM 9.7 MG/DL (8.5-10.1); CREATININE SERUM 0.95 MG/DL (0.60-1.30); POTASSIUM 4.7 MMOL/L (3.6-5.0); TOTAL PROTEIN 7.2 GM/DL (6.4-8.2)
== END ==
LOC: LAB 11:50
PROVIDERS: ATTEND Family Medicine
DX: I65.29 Occlusion and stenosis of unspecified carotid artery (principal); I25.10 Atherosclerotic heart disease of native coronary artery without angina pectoris; E13.9 Other specified diabetes mellitus without complications; I10 Essential (primary) hypertension; I34.0 Nonrheumatic mitral (valve) insufficiency; E66.01 Morbid (severe) obesity due to excess calories
CPT/HCPCS: 36415; 80053; 80061

== ENCOUNTER → 2018-07-19 | Outpatient (CLI) | payer MEDICARE, OTHER ==
[2018-07-19 11:28] LABS: CARBON DIOXIDE 20 MMOL/L (21-32); CHLORIDE 105 MMOL/L (98-107); POTASSIUM 4.6 MMOL/L (3.6-5.0); SODIUM 143 MMOL/L (135-145)
[2018-07-19 11:29] LABS: ALANINE AMINOTRANSFERASE 11 U/L (0-55); ALBUMIN 4.3 GM/DL (3.2-4.5); ALKALINE PHOSPHATASE 99 U/L (40-136); BILIRUBIN,TOTAL 0.5 MG/DL (0.1-1.0); BUN/CREATININE RATIO 25; CALCIUM 9.8 MG/DL (8.5-10.1); CREATININE SERUM 0.88 MG/DL (0.60-1.30); GFR ESTIMATED > 60; GLUCOSE 143 MG/DL (70-105); TOTAL PROTEIN 7.4 GM/DL (6.4-8.2)
[2018-07-19 15:21] LABS: CHOLESTEROL 156 MG/DL (< 200); HDL CHOLESTEROL 58 MG/DL (40-60); TRIGLYCERIDES 73 MG/DL (<150); VLDL CHOLESTEROL 15 MG/DL (5-40)
== END ==
LOC: LAB FS 10:44
PROVIDERS: ATTEND Internal Medicine Cardiovascular Disease
DX: I25.10 Atherosclerotic heart disease of native coronary artery without angina pectoris (principal); I10 Essential (primary) hypertension; E78.2 Mixed hyperlipidemia
CPT/HCPCS: 36415; 80053; 80061

== ENCOUNTER → 2019-03-21 | Outpatient (CLI) | payer MEDICARE, OTHER ==
--- NOTE | 2019-03-21 14:59 | Diagnostic Imaging Report ---
INDICATION: Low back pain radiating into the right hip and thigh. FINDINGS: Rightward convexity lumbar scoliotic curvature with mild rightward rotation. There is grade 1 anterolisthesis of L4 on L5 and L3 on L4 with retrolisthesis of L2 on L3 and L1 on L2. There is degenerative disc space narrowing, endplate sclerosis, osteophytes, and hypertrophic facet arthrosis throughout the lumbar spine. There is atherosclerotic aortic disease with at least mild aneurysmal dilatation. Calcifications are separable by 3.1 cm maximal in the lateral view. IMPRESSION: Rightward degenerative rotoscoliotic curvature of the lumbar spine with advanced rush lumbar spondylosis and facet arthrosis with atherosclerotic aortic ectasia. No acute bony pathology. Multilevel grade 1 degenerative listheses noted. Dictated by: Dictated on workstation # [id number]
== END ==
LOC: RAD FS 13:31
PROVIDERS: ATTEND Nurse Practitioner
DX: M47.816 Spondylosis without myelopathy or radiculopathy, lumbar region (principal); M41.86 Other forms of scoliosis, lumbar region; I77.819 Aortic ectasia, unspecified site; M43.16 Spondylolisthesis, lumbar region
CPT/HCPCS: 72100

== ENCOUNTER → 2019-04-20 | Outpatient (CLI) | payer MEDICARE, OTHER ==
--- NOTE | 2019-04-20 13:59 | Diagnostic Imaging Report ---
INDICATION: Fracture. Four views were obtained. FINDINGS: The right hand is encased within the cast material. This limits the sensitivity of the exam. There appears to be a minimally displaced fracture of the right fourth metacarpal. There is no other fracture or dislocation. IMPRESSION: Minimally displaced right fourth metacarpal otherwise unremarkable. Again, the examination is limited due to overlying cast material. Dictated by: Dictated on workstation # [id number]
== END ==
LOC: RAD FS 13:37
PROVIDERS: ATTEND Nurse Practitioner
DX: S62.324A Displaced fracture of shaft of fourth metacarpal bone, right hand, initial encounter for closed fracture (principal); X58.XXXA Exposure to other specified factors, initial encounter
CPT/HCPCS: 73130

== ENCOUNTER → 2019-05-09 | Outpatient (CLI) | payer MEDICARE, OTHER ==
--- NOTE | 2019-05-09 09:49 | Diagnostic Imaging Report ---
EXAMINATION: Right wrist radiographs, 3 views. COMPARISON: April 20, 2019. HISTORY: 74-year-old female, history of fourth metacarpal fracture. FINDINGS: There is overlying cast material which does obscure bone and trabecular detail. There is a mildly displaced fracture involving at least the mid diaphysis of the fourth metacarpal. There is a well visualized fracture line. There is no complete bony callus bridging. 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 IMPRESSION: 1. Mildly displaced fracture involving at least the mid diaphysis of the fourth metacarpal without pronounced interval healing response. There is a well visualized fracture line without complete bony callus bridging. 2. Overlying cast material obscures bone and trabecular detail. Dictated by: Dictated on workstation # [id number]
== END ==
LOC: RAD FS 08:57
PROVIDERS: ATTEND Nurse Practitioner
DX: S62.324D Displaced fracture of shaft of fourth metacarpal bone, right hand, subsequent encounter for fracture with routine healing (principal)
CPT/HCPCS: 73110

== ENCOUNTER → 2019-10-30 | Outpatient (CLI) | payer MEDICARE, OTHER ==
[~2019-10-30] MED LIST changes: +DILT120C88 PO; -DILT120C94 PO; +NF-ZOL12.5 PO; -ZOLP12.546 PO
--- NOTE | 2019-10-30 15:55 | Diagnostic Imaging Report ---
INDICATION: Pain at the base of the thumb. TIME OF EXAM: 3:06 PM FINDINGS: Three views of the left hand were obtained. Severe degenerative changes at the 1st CMC joint are noted with joint space narrowing and sclerosis. There are triscaphe joint degenerative changes, as well. The distal radius and ulna are intact. Metacarpals are intact. Phalanges are unremarkable. No fractures are seen. IMPRESSION: 1. Severe degenerative changes at the 1st CMC joint. No acute fracture is detected. Dictated by: Dictated on workstation # [id number]
== END ==
LOC: RAD FS 14:15
PROVIDERS: ATTEND Nurse Practitioner
DX: S62.324D Displaced fracture of shaft of fourth metacarpal bone, right hand, subsequent encounter for fracture with routine healing (principal); M19.042 Primary osteoarthritis, left hand; X58.XXXD Exposure to other specified factors, subsequent encounter
CPT/HCPCS: 73130

== ENCOUNTER 2019-11-17 16:21 | Emergency (ER) | payer MEDICARE, OTHER ==
[~2019-11-17] VITALS: Ht 172 cm; Wt 150.0 kg
[~2019-11-17 16:21] MED LIST changes: -IPRA4AER IH; -PRD50T PO
[2019-11-17] MEDS ORDERED: RT-ALBUTEROL/IPRATROPIUM 3 ML (DUONEB) VIAL INH ONE (16:45)
[2019-11-17] MEDS ORDERED: methylPREDNISolone 125 MG (Solu-MEDROL) VIAL IVP ONE (16:45)
--- NOTE | 2019-11-17 16:51 | ED Cough/URI ---
General Chief Complaint: Respiratory Problems Stated Complaint: OXYGEN LEVELS LOW Source: patient Exam Limitations: no limitations History of Present Illness Date Seen by Provider: Nov 17, 2019 Time Seen by Provider: 16:45 Initial Comments patient presents with shortness of air for 3 days, history of COPD. saw her primary care today and had labs as well as chest x-ray ordered. Was given a prescription for an antibiotic and prednisone which she took 20 mg initially and then an additional 20 mg afternoon with no relief of her symptoms. States she has been using her albuterol nebulizer with minimal relief of her symptoms. Denies chest pain at rest, she does have moderate wheezing and increasing shortness of air with exertion. History of similar symptoms in the past. States that her symptoms began 3 days ago with a runny nose and some postnasal drainage, she denies fever, chills or body aches. Denies known exposure to COVID-19 Allergies and Home Medications Allergies Coded Allergies: Penicillins (Verified Allergy, Unknown, 09/24/06) Home Medications Albuterol Sulfate 1 Puff Puff, 2 PUFF IH Q6H PRN for SHORTNESS OF BREATH, (Reported) 1 PUFF = 90 MCG Albuterol/Ipratropium 4 Gm Aero, 2 PUFF IH QID Prescribed by: JC MARIN on 11/17/19 1717 Amiodarone HCl 200 Mg Tablet, 200 MG PO DAILY Prescribed by: TONY GAN on 10/07/17951 Amitriptyline HCl 100 Mg Tablet, 100 MG PO HS, (Reported) Aspirin 81 Mg Tab.chew, 81 MG PO DAILY, (Reported) Atenolol 25 Mg Tablet, 25 MG PO HS, (Reported) Atorvastatin Calcium 10 Mg Tablet, 10 MG PO HS, (Reported) Celecoxib 200 Mg Capsule, 200 MG PO DAILY, (Reported) Clopidogrel Bisulfate 75 Mg Tablet, 75 MG PO DAILY Prescribed by: TONY GAN on 10/07/17951 Diltiazem HCl 120 Mg Cap.er.24h, 120 MG PO DAILY Prescribed by: TONY GAN on 10/07/17951 Fluticasone/Vilanterol 1 Each Blst.w.dev, 1 PUFF IH DAILY, (Reported) Metformin HCl 500 Mg Tablet, 500 MG PO DAILY@07 Prescribed by: TONY GAN on 6/7/18 0952 Pantoprazole Sodium 40 Mg Tablet.dr, 40 MG PO DAILY@0700 Prescribed by: TONY GAN on 10/07/17 0952 Prednisone 50 Mg Tab, 50 MG PO DAILY Prescribed by: JC MARIN on 11/17/19 1717 Valsartan 160 Mg Tablet, 160 MG PO DAILY, (Reported) Zolpidem Tartrate 12.5 Mg Tab.mphase, 12.5 MG PO HS PRN for SLEEP, (Reported) Patient Home Medication List Home Medication List Reviewed: Yes Review of Systems Review of Systems Constitutional: No fever, No malaise, No weakness EENTM: nose congestion; No ear discharge, No ear pain, No throat pain, No throat swelling Respiratory: dyspnea on exertion; No hemoptysis, No orthopnea; short of breath, wheezing Cardiovascular: No chest pain, No edema, No palpitations, No syncope, No vascular heart diseas Gastrointestinal: No abdominal pain, No nausea, No vomiting Musculoskeletal: No back pain, No neck pain Past Yjgltln-Txataz-Dqzxmn Hx Past Med/Social Hx: Reviewed Nursing Past Med/Soc Hx Patient Social History Alcohol Use: Denies Use Recreational Drug Use: No Smoking Status: Former Smoker 2nd Hand Smoke Exposure: No Recent Foreign Travel: No Contact w/Someone Who Travel: No Recent Hopitalizations: Yes Physical Abuse: No Sexual Abuse: No Mistreated: No Fear: No Immunizations Up To Date Date of Pneumonia Vaccine: Jan 01, 2015 Date of Influenza Vaccine: Jan 06, 2017 Seasonal Allergies Seasonal Allergies: No Past Medical History Gallbladder, Hysterectomy, Orthopedic Respiratory: Yes COPD Currently Using CPAP: Yes Currently Using BIPAP: No Cardiac: Yes Coronary Artery Disease, High Cholesterol, Hypertension Neurological: No Genitourinary: No Gastrointestinal: No Musculoskeletal: No Arthritis, Fibromyalgia, Rheumatoid Arthritis, Chronic Back Pain Endocrine: No HEENT: No Cancer: No Psychosocial: No Integumentary: No Blood Disorders: No Family Medical History Colon cancer G8 SISTER (leaking bowel, from choking on piece of food & never regained conscuiosness) Fibrocystic disease of breast 19 MOTHER (breast ca) Kidney disease G8 BROTHER (bladder ca) Myocardial infarction 19 FATHER Neoplasm Cancer Physical Exam Vital Signs - First Documented 11/17/19 16:45 Temp 37.1 Pulse 104 Resp 18 B/P (MAP) 141/97 (112) Pulse Ox 96 O2 Delivery Room Air Capillary Refill : Height: 5'8.00" Weight: 310lbs. 0.0oz. 140.658569vj; 47.1 BMI Method: General Appearance: WD/WN, no apparent distress HEENT: PERRL/EOMI, normal ENT inspection Neck: supple, normal inspection Respiratory: chest non-tender, no respiratory distress, decreased breath sounds; No rales; rhonchi, wheezing, expiration Cardiovascular: regular rate, rhythm, no edema, no JVD Gastrointestinal: non tender, soft; No distended, No guarding, No rebound, No t enderness Extremities: normal range of motion, non-tender, no pedal edema, no calf tenderness Progress/Results/Core Measures Suspected Sepsis SIRS Temperature: Pulse: Respiratory Rate: Laboratory Tests 11/17/19 16:50: White Blood Count 6.7 Blood Pressure / Mean: Laboratory Tests 11/17/19 16:50: Creatinine 0.78, Platelet Count 256, Total Bilirubin 0.4 Results/Orders Lab Results Laboratory Tests Test 11/17/19 16:50 Range/Units White Blood Count 6.7 4.3-11.0 10^3/uL Red Blood Count 4.24 L 4.35-5.85 10^6/uL Hemoglobin 12.2 11.5-16.0 G/DL Hematocrit 38 35-52 % Mean Corpuscular Volume 90 80-99 FL Mean Corpuscular Hemoglobin 29 25-34 PG Mean Corpuscular Hemoglobin Concent 32 32-36 G/DL Red Cell Distribution Width 13.8 10.0-14.5 % Platelet Count 256 130-400 10^3/uL Mean Platelet Volume 9.7 7.4-10.4 FL Neutrophils (%) (Auto) 84 H 42-75 % Lymphocytes (%) (Auto) 11 L 12-44 % Monocytes (%) (Auto) 4 0-12 % Eosinophils (%) (Auto) 1 0-10 % Basophils (%) (Auto) 0 0-10 % Neutrophils # (Auto) 5.6 1.8-7.8 X 10^3 Lymphocytes # (Auto) 0.7 L 1.0-4.0 X 10^3 Monocytes # (Auto) 0.3 0.0-1.0 X 10^3 Eosinophils # (Auto) 0.1 0.0-0.3 10^3/uL Basophils # (Auto) 0.0 0.0-0.1 10^3/uL Sodium Level 137 135-145 MMOL/L Potassium Level 4.5 3.6-5.0 MMOL/L Chloride Level 101 98-107 MMOL/L Carbon Dioxide Level 21 21-32 MMOL/L Anion Gap 15 H 5-14 MMOL/L Blood Urea Nitrogen 21 H 7-18 MG/DL Creatinine 0.78 0.60-1.30 MG/DL Estimat Glomerular Filtration Rate > 60 BUN/Creatinine Ratio 27 Glucose Level 193 H 70-105 MG/DL Calcium Level 10.0 8.5-10.1 MG/DL Corrected Calcium 9.7 8.5-10.1 MG/DL Total Bilirubin 0.4 0.1-1.0 MG/DL Aspartate Amino Transf (AST/SGOT) 19 5-34 U/L Alanine Aminotransferase (ALT/SGPT) 15 0-55 U/L Alkaline Phosphatase 103 40-136 U/L Troponin I < 0.30 <0.30 NG/ML Total Protein 7.5 6.4-8.2 GM/DL Albumin 4.4 3.2-4.5 GM/DL My Orders Orders - ROVENSTJC LOMBARDO DO Cbc With Automated Diff (11/17/19 16:39) Comprehensive Metabolic Panel (11/17/19 16:39) Troponin I Fs (11/17/19 16:39) Ekg Tracing (11/17/19 16:39) Ed Iv/Invasive Line Start (11/17/19 16:39) Methylprednisolone Sod Succ (Solu-Medrol (11/17/19 16:45) Albuterol/Ipra Inhalation Soln (Duoneb I (11/17/19 16:45) Svn Small Volume Nebulizer (11/17/19 16:45) Medications Given in ED Current Medications Medications Dose Ordered Sig/Breann Route Start Time Stop Time Status Last Admin Dose Admin Albuterol/ Ipratropium 3 ml ONCE ONCE INH 11/17/19 16:45 11/17/19 16:46 DC 11/17/19 16:54 3 ML Methylprednisolone Sodium Succinate 125 mg ONCE ONCE IVP 11/17/19 16:45 11/17/19 16:46 DC 11/17/19 16:54 125 MG Vital Signs/I&O 11/17/19 11/17/19 16:45 17:48 Temp 37.1 37.1 Pulse 104 89 Resp 18 18 B/P (MAP) 141/97 (112) 127/86 (112) Pulse Ox 96 99 O2 Delivery Room Air Capillary Refill : Progress Note : Progress Note Patient feeling much better after IV Solu-Medrol and DuoNeb 2. Did still have some expiratory wheezes and rhonchi without any respiratory distress. Oxygen sats 95-100%. Discussed prescriptions, need for follow-up with PCP in one week and follow-up the ER if symptoms progress or not improving. ECG Initial ECG Impression Time: 16:34 Initial ECG Rate: 102 Initial ECG Rhythm: Normal Sinus Initial ECG Intervals: Normal Initial ECG Impression: Normal, Nonspecific Changes Initial ECG Comparisson: No Previous ECG Available Departure Impression Primary Impression: COPD exacerbation Disposition: 01 HOME, SELF-CARE Condition: Improved Departure-Patient Inst. Decision time for Depature: 17:16 Referrals: JOHNNY CASTELAN MD (PCP/Family) Primary Care Physician Patient Instructions: Chronic Obstructive Pulmonary Disease (COPD) (DC) Add. Discharge Instructions: see Dr Castelan in 1 wk, return to the ER sooner if worse. Use your nebulizer medication (sent to [facility]) as directed. Take your prednisone 50mg every morning All discharge instructions reviewed with patient and/or family. Voiced u nderstanding. Scripts Prednisone (Prednisone) 50 Mg Tab 50 MG PO DAILY, #7 TAB Prov: JC MARIN DO 11/17/19 Albuterol/Ipratropium (Combivent Respimat Inhal [place]) 4 Gm Aero 2 PUFF IH QID, #1 INH Prov: JC MARIN DO 11/17/19 JC MARIN DO Nov 17, 2019 16:50
[2019-11-17 16:52] LABS: HEMATOCRIT 38 % (35-52); HEMOGLOBIN 12.2 G/DL (11.5-16.0); MEAN CORPUSCULAR HEMOGLOBIN 29 PG (25-34); MEAN CORPUSCULAR VOLUME 90 FL (80-99); WHITE BLOOD COUNT 6.7 10^3/uL (4.3-11.0)
[2019-11-17 16:53] LABS: BASOPHILS % (AUTO) 0 % (0-10); EOSINOPHILS # (AUTO) 0.1 10^3/uL (0.0-0.3); EOSINOPHILS % (AUTO) 1 % (0-10); LYMPHOCYTES # (AUTO) 0.7 X 10^3 (1.0-4.0); LYMPHOCYTES % (AUTO) 11 % (12-44); MEAN CORPUSCULAR HGB CONC 32 G/DL (32-36); MEAN PLATELET VOLUME 9.7 FL (7.4-10.4); MONOCYTES # (AUTO) 0.3 X 10^3 (0.0-1.0); MONOCYTES % (AUTO) 4 % (0-12); NEUTROPHILS # (AUTO) 5.6 X 10^3 (1.8-7.8); NEUTROPHILS % (AUTO) 84 % (42-75); PLATELET COUNT 256 10^3/uL (130-400); RED CELL DISTRIBUTION WIDTH 13.8 % (10.0-14.5)
[2019-11-17 17:12] LABS: BUN/CREATININE RATIO 27; CARBON DIOXIDE 21 MMOL/L (21-32); CHLORIDE 101 MMOL/L (98-107); CREATININE SERUM 0.78 MG/DL (0.60-1.30); GFR ESTIMATED > 60; GLUCOSE 193 MG/DL (70-105); POTASSIUM 4.5 MMOL/L (3.6-5.0); SODIUM 137 MMOL/L (135-145)
[2019-11-17 17:13] LABS: ALANINE AMINOTRANSFERASE 15 U/L (0-55); ALBUMIN 4.4 GM/DL (3.2-4.5); ALKALINE PHOSPHATASE 103 U/L (40-136); BILIRUBIN,TOTAL 0.4 MG/DL (0.1-1.0); TOTAL PROTEIN 7.5 GM/DL (6.4-8.2)
[2019-11-17] MEDS ORDERED: PRD50T PO (17:17)
[2019-11-17] MEDS ORDERED: IPRA4AER IH (17:17)
[2019-11-17 17:48] VITALS: BP 127/86
--- OUTSIDE RECORDS SUMMARY | 2019-11-17 21:39 | XMS REPORT | Encounter Summary ---
Author Author [facility] Organization [facility] Address Unknown Phone Unavailable Care Team Providers Care Filler Feeder Name Role Phone PCP Unavailable Encounter Details Care Team Description [place] [address] [facility] [address] [place] [address] [phone] 04/24/2008 [facility] Encounter [address] [place] [address] Social History Date Tobacco Use Types Packs/Day Years Used Never Assessed Sex Assigned at Date Recorded Not on file Industry Job Start Date Occupation Not on file Not on file Not on file Travel End Travel History Travel Start No recent travel history available. documented as of this encounter Medications at Time of Discharge Start Date End Date Medication Sig Dispensed Refills 04/23/2008 amitriptyline (ELAVIL) Take one 0 0 100 MG tablet tablet by mouth before bedtime 04/23/2008 metFORMIN (GLUCOPHAGE) Take one 0 0 500 MG tablet capsule by mouth daily 04/23/2008 pregabalin (LYRICA) 75 MG Take one 0 0 capsule capsule by mouth twice per day 04/23/2008 valsartan-hydrochlorothia Take one 0 0 zide (DIOVAN HCT) tablet by 320-12.5 mg per tablet mouth daily 04/23/2008 12/05/2014 celecoxib (CELEBREX) 200 Take one 0 0 MG capsule tablet by mouth daily documented as of this encounter Plan of Treatment Not on filedocumented as of this encounter Procedures Comments Procedure Name Priority Date/Time Associated Diag nosis DIFFERENTIAL Routine 04/24/2008 11:30 AM DAYCARE WORKER TOTAL THYROXINE Routine 04/24/2008 11:30 AM DAYCARE WORKER PROTHROMBIN TIME/INR Routine 04/24/2008 11:30 AM DAYCARE WORKER LIPID PANEL Routine 04/24/2008 11:30 AM DAYCARE WORKER HEMOGLOBIN A1C Routine 04/24/2008 11:30 AM DAYCARE WORKER COMPREHENSIVE METABOLIC Routine 04/24/2008 PANEL 11:30 AM DAYCARE WORKER CBC AND DIFF (MANUAL DIFF Routine 04/24/2008 IF NECESSARY) 11:30 AM DAYCARE WORKER documented in this encounter Results * Prothrombin Time/INR (04/24/2008 11:30 AM DAYCARE WORKER) Protime 12.4 11.9 - 14.3 SEC SUNQUEST INR 0.9 SUNQUEST Specimen Performing Organization Address [facility] Ph one Number RL [phone] [place] [address] 11 SUNQUEST * CBC and Diff (manual diff if necessary) (04/24/2008 11:30 AM DAYCARE WORKER) WBC 5.7 4.0 - 11.0 TH/UL SUNQUEST RBC 4.61 4.00 - 5.00 MIL/UL SUNQUEST Hemoglobin 13.2 12.0 - 15.0 G/DL SUNQUEST Hematocrit 40 36 - 45 % SUNQUEST MCV 86 80 - 99 FL SUNQUEST MCH 29 27 - 34 PG SUNQUEST MCHC 33 32 - 36 % SUNQUEST RDW 14.2 <14.5 % SUNQUEST Platelet Count 300 140 - 400 TH/UL SUNQUEST MPV 10.5 9.4 - 12.3 FL SUNQUEST Specimen Performing Organization Address [facility] Ph one Number R [id number] [place] [address] 11 SUNQUEST * DIFFERENTIAL (04/24/2008 11:30 AM DAYCARE WORKER) % Neutrophils 56 45 - 78 % SUNQUEST %Lymphocytes 33 15 - 47 % SUNQUEST %Monocytes 9 0 - 12 % SUNQUEST %Eosinophils 2 0 - 7 % SUNQUEST %Basophils 0 0 - 2 % SUNQUEST # Granulocytes 3.2 1.7 - 6.8 TH/UL SUNQUEST # Lymphocytes 1.9 1.0 - 3.3 TH/UL SUNQUEST # Monocytes 0.5 0.2 - 0.9 TH/UL SUNQUEST # Eosinophils 0.1 0.0 - 0.4 TH/UL SUNQUEST # Basophils 0.0 0.0 - 0.2 TH/UL SUNQUEST Specimen Performing Organization Address [facility] Ph one Number [id number] [phone] [place] [address] 11 SUNQUEST * Comprehensive Metabolic Panel (04/24/2008 11:30 AM DAYCARE WORKER) Albumin 4.0 3.5 - 5.0 G/DL SUNQUEST Aspartate 19 15 - 41 IU/L SUNQUEST Aminotransferas e Bilirubin Total 0.7 0.3 - 1.4 MG/DL SUNQUEST Protein Total 7.1 6.0 - 8.0 G/DL SUNQUEST Serum Calcium 9.4 8.8 - 10.5 MG/DL SUNQUEST Creatinine 0.7 0.4 - 1.1 MG/DL SUNQUEST Glucose 109 (H) 65 - 100 MG/DL SUNQUEST Alkaline 81 42 - 128 IU/L SUNQUEST Phosphatase Sodium 137 134 - 144 MEQ/L SUNQUEST Potassium 4.4 3.5 - 5.1 MEQ/L SUNQUEST Chloride 106 101 - 111 MEQ/L SUNQUEST Carbon Dioxide 26 23 - 32 MEQ/L SUNQUEST Blood Urea 25 8 - 26 MG/DL SUNQUEST Nitrogen Anion Gap 5 3 - 15 SUNQUEST Alanine 16 14 - 63 IU/L SUNQUEST Aminotransferas e Specimen Performing Organization Address [facility] one Number SLRL [id number] [place] [address] SUNQUEST * Lipid Panel (04/24/2008 11:30 AM DAYCARE WORKER) Cholesterol 227 (H) <200 MG/DL SUNQUEST Triglycerides 46 <150 MG/DL SUNQUEST HDL Cholesterol 58 >41 MG/DL SUNQUEST LDL Cholesterol 160 (H) 0 - 99 MG/DL SUNQUEST Cholesterol/HDL 3.9 <4.5 SUNQUEST Ratio LDL NOT REPORTED SUNQUEST INTERPRETATION Hours 16 HRS SUNQUEST Postprandial Specimen Performing Organization Address [facility] Ph one Number [facility]RL [id number] [place] [address] SUNQUEST * Total Thyroxine (04/24/2008 11:30 AM DAYCARE WORKER) Total Thyroxine 8.0 4.5 - 11.0 UG/DL SUNQUEST Specimen Performing Organization Address [facility] Ph one Number SLRL [id number] [place] [address] SUNQUEST * Hemoglobin A1C (04/24/2008 11:30 AM DAYCARE WORKER) HEMOGLOBIN A1C 5.9 % SUNQUEST Comment: NONDIABETIC: 4.4-6.0% VERY GOOD CONTROL: <7.0% SUBOPTIMAL CONTROL: 7.1-8.0% POOR CONTROL: >8.0% Specimen Performing Organization Address City/State/Zipcode Ph one Number SLRL [address] [place] [address] SUNQUEST documented in this encounter Visit Diagnoses Not on filedocumented in this encounter
--- OUTSIDE RECORDS SUMMARY | 2019-11-17 21:39 | XMS REPORT | Encounter Summary ---
Author Author [facility] Address Unknown Phone Unavailable Care Team Providers Care Senior Compliance Analyst Name Role Phone PCP Unavailable Encounter Details Care Team Description Date [place] [address] [facility] [address] [place] [address] [phone] 05/01/2008 [facility] Visit Social History Date Tobacco Use Types Packs/Day Years Used Never Assessed Sex Assigned at Date Recorded Not on file Industry Job Start Date Occupation Not on file Not on file Not on file Travel End Travel History Travel Start No recent travel history available. documented as of this encounter Plan of Treatment Not on filedocumented as of this encounter Visit Diagnoses Not on filedocumented in this encounter
--- OUTSIDE RECORDS SUMMARY | 2019-11-17 21:39 | XMS REPORT | Encounter Summary ---
Author Author [facility] Organization [facility] Address Unknown Phone Unavailable Care Team Providers Care Rn Imaging Name Role Phone PCP Unavailable Encounter Details Care Team Description [place] [address] [facility] [address] [place] [address] [phone] 06/25/2008 [facility] Visit Social History Date [...]
--- OUTSIDE RECORDS SUMMARY | 2019-11-17 21:39 | XMS REPORT | Encounter Summary ---
Author Author [facility] Address Unknown Phone Unavailable Care Team Providers Care Steam Table Associate Name Role Phone PCP Unavailable Encounter Details Care Team Description [place] [address] [place] [address] [phone] 04/24/2008 [facility] Visit Social History Date Tobacco Use Types Packs/Day Years Used Never Assessed Sex Assigned at Date Recorded Not on file Industry Job Start Date Occupation Not on file Not on file Not on file Travel End Travel History Travel Start No recent travel history available. documented as of this encounter Last Filed Vital Signs Reading Time Taken Comments Vital Sign 142/92 04/24/2008 9:43 AM CATALOGUE COMPILER Blood Pressure 100 04/24/2008 9:43 AM CATALOGUE COMPILER Pulse - - Temperature - - Respiratory Rate - - Oxygen Saturation - - Inhaled Oxygen Concentration 134 kg (295 lb 6.4 oz) 04/24/2008 9:43 AM CATALOGUE COMPILER morbidly obes e Weight 172.7 cm (5' 8") 04/24/2008 9:43 AM CATALOGUE COMPILER Height 44.92 04/24/2008 9:43 AM CATALOGUE COMPILER Body Mass Index documented in this encounter Progress Notes * Suraj Li MD - 04/24/2008 9:30 AM CATALOGUE COMPILER [facility] [address] [place] [address] April 24, 2008 LESTER HUGGINS MD [address] [place] [id number] RE: MARIA M MEJIA : 1945 Chart #: [id number] Visit Provider: Suraj Li M.D. Dear Dr. HUGGINS: I had the pleasure of seeing MARIA M MEJIA in the office today at your reques t. She is 63 years of age and presents with the following chief complaints: Pre op cardiac risk assessment. HPI: I had the pleasure of seeing Maria M Mejia in cardiovascular consultation for her upcoming total knee replacement to be performed by Dr. Burt Cadet here on 05/07/08. She underwent an EKG in your office with left axis deviation. An EKG was repeated in our office today and it again demonstrates low voltage in t he limb leads, left axis deviation and very poor R wave progression. This is co nsistent with her body habitus but is certainly not normal. She does not have any chest discomfort. She has been getting a little bit more short of breath in the recent past but has not been able to be very active. 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 She also walks up and down the stairs at home as her most vigorous activity and does this three or four times per day. She does note that it has gotten a little harder for her as her weight has mildly increased. She denies any tachypalpitations, presyncope or syncopal episodes. She denies a ny PND, orthopnea, edema or signs or symptoms of volume overload and otherwise f eels reasonably well except for the marked limitations due to her left knee disc omfort and arthritis. Problem List: DM Type 2 04/24/2008 Dyslipidemia Past Surgical History: Surgery for Carpal Tunnel - Right Hand Surgery for Benign Breast Lump - Left Vaginal Hysterectomy Cholecystectomy Current Medications: Lyrica 75mg Take one capsule by mouth twice per day Diovan HCT 320/12.5mg Take one tablet by mouth daily Celebrex 200mg Take one tablet by mouth daily Amitriptyline HCl 100mg Take one tablet by mouth before bedtime Glucophage 500mg Take one capsule by mouth daily Allergies: Penicillins Family History: Father Cause of was GA at age 66. Mother Cause of was breast cancer at age 88. 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 The BMI is 44.90 . Blood pressure taken in the right arm is 142/92 mmHg in the sitting position. The pulse is 10 0. The rhythm is regular. Const The patient is a morbidly obese female. HEENT The pupils are equal and round. The patient's neck veins are flat. Pulm Lungs are clear to auscultation. Cardiac S1 is normal. S2 is normal. The point of maximal impulse is not palpab le. Abd The patient has no abdominal tenderness to palpation. Vasc Distal pulses 2+ throughout with no carotid bruits noted EXT The extremities are warm to touch. There is no edema noted. Neuro/Psych The patient is alert and oriented to time, person and place. The pa tient's mood is normal. No aphasia is apparent by exam. EKG: Rhythm: Sinus Rate: 90 AV Conduction: Normal QRS [place] and Voltage: left axis deviation (-30 to -90) Impression and Plan: Multiple risk factors for coronary artery disease including her hypertension, ob esity, non-insulin diabetes mellitus and mild dyslipidemia, which has not been f ormally addressed but discussed several times. Also most concerning is her bloo d pressure has been increasing lately and I suspect this is probably due to her increased Celebrex and nonsteroidal use due to her knee pain. To that end I have asked her to undergo a nuclear perfusion imaging study to be done in the near future for further risk stratification. If she does have just minor increased abnormalities I would certainly consider starting Coreg prior to her surgery. Unfortunately, she had had some issues with reactive airways dise ase and uses an inhaler on an infrequent basis but I suspect that she will be ab le to tolerate low-dose Coreg, which may also help control her blood pressure a little better. I have also asked her to undergo preoperative laboratory studies today including a fasting lipid profile and hemoglobin A1c for further risk stratification. Wi th he diabetes, obesity as well as an inactive lifestyle, her goal LDL would be less than 70 with an HDL greater than 45 and she would seem to warrant aggressiv e management to achieve those goals. Thank you for allowing me to participate in MARIA M MEJIA's care. If I can b e of any further assistance, please do not hesitate to contact me. Sincerely, Suraj ANDUJAR/consuelo , 10:08 a.m. , 11:14 a.m. F: 04/24/2008 LOGUE COMPILER documented in this encounter Plan of Treatment Not on filedocumented as of this encounter Visit Diagnoses Not on filedocumented in this encounter
--- OUTSIDE RECORDS SUMMARY | 2019-11-17 21:39 | XMS REPORT | Clinical Summary ---
Author Author [facility] Organization [facility] Address Unknown Phone Unavailable Care Team Providers Care Operating Room Rn Name Role Phone PCP Unavailable Allergies Not on File Medications End Date Status Medication Sig Dispensed Refills Start Date Active acetaminophen (TYLENOL As needed 0 0 EXTRA STRENGTH) 500 MG 9 tablet Active pregabalin (LYRICA) 75 MG Take one 0 0 capsule capsule by 8 mouth twice per day Active amitriptyline (ELAVIL) Take one 0 0 200 100 MG tablet tablet by 8 mouth before bedtime Active metFORMIN (GLUCOPHAGE) Take one 0 0 200 500 MG tablet capsule by 8 mouth daily Active valsartan-hydrochlorothia Take one 0 0 200 zide (DIOVAN HCT) tablet by 8 320-12.5 mg per tablet mouth daily Active Problems Not on file Family History Medical History Relation Name Comments Other Father Diagnosed with HTN, Relation Name Status Comments Father Cause of was NE at age 66. (Age 66) Mother Cause of was breast cancer at age 88. (Age 88) Social History Date Tobacco Use Types Packs/Day Years Used Never Assessed Sex Assigned at Date Recorded Not on file Industry Job Start Date Occupation Not on file Not on file Not on file Travel End Travel History Travel Start No recent travel history available. Last Filed Vital Signs Reading Time Taken Comments Vital Sign 140/94 05/14/2008 11:07 AM ART THERAPIST Blood Pressure 92 05/14/2008 11:07 AM ART THERAPIST Pulse - - Temperature - - Respiratory Rate - - Oxygen Saturation - - Inhaled Oxygen Concentration 133.8 kg (295 lb) 05/14/2008 11:07 AM ART THERAPIST morbidly obese Weight 172.7 cm (5' 8") 05/14/2008 11:07 AM ART THERAPIST Height 44.85 05/14/2008 11:07 AM ART THERAPIST Body Mass Index Plan of Treatment Health Maintenance Due Date Last Done Comments Td # 1945 Zoster Vaccine# (1 of 2) 1997 Fall Risk Assessment # 02/03/2012 Osteoporosis Screening 02/03/2012 Influenza Vaccine (#1) 2020 Results Not on filefrom Last 3 Months
--- OUTSIDE RECORDS SUMMARY | 2019-11-17 21:39 | XMS REPORT | Encounter Summary ---
Author Author [facility] Address Unknown Phone Unavailable Care Team Providers Care Bus Info Consultant Name Role Phone PCP Unavailable Encounter Details Care Team Description [place] [address] [facility] [address] [place] [address] [phone] 04/25/2008 [facility] [...]
--- OUTSIDE RECORDS SUMMARY | 2019-11-17 21:39 | XMS REPORT | Encounter Summary ---
Author Author [facility] Address Unknown Phone Unavailable Care Team Providers Care Senior Care Manager Name Role Phone PCP Unavailable Encounter Details Care Team Description [place] [address] [facility] [address] [place] [address] [phone] 05/01/2008 [facility] [...]
--- OUTSIDE RECORDS SUMMARY | 2019-11-17 21:39 | XMS REPORT | Encounter Summary ---
Author Author [facility] Organization [facility] Address Unknown Phone Unavailable Care Team Providers Care Waterproof Bag Cutting Machine Operator Name Role Phone PCP Unavailable Encounter Details Care Team Description Date Type Department [facility] Provider, MD Makeda 05/02/2008 [facility] Result Social History Date Tobacco Use Types Packs/Day [...] Procedure Name Priority Date/Time Associated Diag nosis CV MPI PET CT HISTORICAL Routine 05/02/2008 documented in this encounter Results * CV MPI PET CT historical (05/02/2008) Specimen Narrative Performed At Procedure Category: PET-CT NEXTGEN Procedure: Rest/Dipyridamole Stress Rb- 82 PET with Coronary Calcium Score Procedure Summary: Ischemia in the dist ribution of the right coronary artery, and possibly a portion of the circumfle x territory as well.Normal left ventricular systolic function, LVEF 64% .Below-average image quality related to the patient s body habitus (BMI = 45).No prior study is av ailable for comparison. Procedure Note Interface, Rad Conversion - 11/21/2014 6:55 AM CDT Procedure Category: PET-CT Procedure: Rest/Dipyridamole Stress Rb-82 PET with Coronary Calcium Score Procedure Summary: Ischemia in the distribution of the right coronary artery, and possibly a portion of the circumflex territory as well.Normal left ventricular systolic function, LVEF 64%.Below-average image quality related to the patient s body habitus (BMI = 45).No prior study is available for comparison. Performing Organization Address City/State/Zipcode Ph one Number NEXTGEN documented in this encounter Visit Diagnoses Not on filedocumented in this encounter
--- OUTSIDE RECORDS SUMMARY | 2019-11-17 21:39 | XMS REPORT | Encounter Summary ---
Author Author [facility] Organization [facility] Address Unknown Phone Unavailable Care Team Providers Care Gear Technician Name Role Phone PCP Unavailable Encounter Details Care Team Description Date Type Department [facility] Provider, MD Makeda 05/02/2008 [facility] C Social History Date Tobacco Use Types Packs/Day [...] Procedure Name Priority Date/Time Associated Diag nosis NUC EJECTION FRACTION Routine 05/02/2008 HISTORICAL 12:00 AM SAFETY ENGINEER PRESSURE VESSELS documented in this encounter Results * Nuc Ejection Fraction historical (05/02/2008 12:00 AM SAFETY ENGINEER PRESSURE VESSELS) Ejection 54Comment: PET/CT (Sestamibi NUCMED Fraction Dobutamine s/r) Specimen Performing Organization Address City/State/Zipcode Ph one Number NUCMED documented in this encounter Visit Diagnoses Not on filedocumented in this encounter
--- OUTSIDE RECORDS SUMMARY | 2019-11-17 21:39 | XMS REPORT | Encounter Summary ---
Author Author [facility] Address Unknown Phone Unavailable Care Team Providers Care Technology Engineer Name Role Phone PCP Unavailable Encounter Details Care Team Description Date Type Department Clement Cadet MD [address] [place] [address] [phone] Loc Osteoarth NOS-L/Leg 06/21/2008 [facility] 06/24/[id number] [place] [id number] Social History Date Tobacco Use Types Packs/Day Years Used Never Assessed Sex Assigned at Date Recorded Not on file Industry Job Start Date Occupation Not on file Not on file Not on file Travel End Travel History Travel Start No recent travel history available. documented as of this encounter Discharge Summaries * Clement Cadet MD - 07/01/2013 9:02 AM SOIL FERTILITY EXTENSION SPECIALIST REPORT Name: MARIA M MEJIA MRN/Unit #: [id number] Date of : 1945 Attending Physician: CLEMENT CADET DATE OF ADMISSION: 06/21/2008 DATE OF DISCHARGE: 06/24/2008 ADMISSION DIAGNOSES: Degenerative arthritis of left knee. DISCHARGE DIAGNOSES: Degenerative arthritis of left knee. PROCEDURE PERFORMED: Left total knee arthroplasty on 06/21/2008. SUMMARY OF HOSPITAL COURSE: The patient was admitted on 06/21 and taken to the operating room where she underwent successful left total knee arthroplasty. Postoperatively her hemoglobin stabilized at 10. She was anticoagulated with Coumadin, progressed nicely with physical therapy and met all goals. She was thus discharged home. DISPOSITION: Home. FOLLOW UP: Two weeks. DISCHARGE INSTRUCTIONS: Outpatient physical therapy. Diet regular. DISCHARGE MEDICATIONS: Percocet and aspirin. Clement Cadet MD Dictated by: cc: Clement Cadet MD, [facility] Attending physician FERTILITY EXTENSION SPECIALIST documented in this encounter Medications at Time of Discharge Start Date End Date Medication Sig Dispensed Refills 05/13/2008 acetaminophen (TYLENOL As needed 0 0 EXTRA STRENGTH) 500 MG tablet 04/23/2008 amitriptyline (ELAVIL) Take one 0 0 [...] mouth daily documented as of this encounter H&P Notes * Clement Cadet MD - 07/01/2013 9:06 AM SOIL FERTILITY EXTENSION SPECIALIST REPORT [id number]/Unit #[facility] [id number] Date of : 1945 Attending Physician: CLEMENT CADET DATE OF SURGERY: 06/21/2008 CHIEF COMPLAINT: Left knee pain. HISTORY OF PRESENT ILLNESS: Ms. Mejia is a 63-year-old white female who has left knee pain. It is progressive, severe and intolerable. She has a less than 2-block walking tolerance. She has difficulty going up and down stairs, getting into and out of cars. She has failed conservative therapy of antiinflammatories and injections. She is here for left total knee arthroplasty. PAST MEDICAL HISTORY: Significant for diabetes, rheumatoid arthritis, hypertension and asthma. PAST SURGICAL HISTORY: Significant for hysterectomy in 1986, cholecystectomy in 1987, carpal tunnel release 2005. ALLERGIES: PENICILLIN. CURRENT MEDICATIONS: Glucophage 500 mg daily, Lyrica 75 mg daily, Diovan/hydrochlorothiazide 80/12.5 mg daily, Celebrex 200 mg daily, and amitriptyline 100 mg daily. PHYSICAL EXAMINATION: HEENT: Negative. CHEST: Clear. HEART: Regular rate and rhythm without murmur. ABDOMEN: Positive bowel sounds, soft, no masses. EXTREMITIES: Without clubbing, cyanosis or edema. Exam of the left knee reveals zero to 120 degrees of flexion. There is 1-cm medial joint line laxity. RADIOGRAPHS: X-rays show medial bone on bone. ASSESSMENT: Degenerative joint disease of the left knee. PLAN: She is here for left total knee arthroplasty. I have discussed with her the risks, benefits and alternatives of this to include, but not limited to, , infection, nerve damage, failure of surgery, need for further surgery, DVT, AIDS, hepatitis and transfusion reaction. She understands these and wishes to proceed. Clement Cadet MD Dictated by: cc: Clement Cadet MD, [facility] Attending physician If updating History and Physical report, please complete below. Patient re-examined this date History & Physical reviewed Interval Changes Noted Below: Physician Signature Date: Time: FERTILITY EXTENSION SPECIALIST documented in this encounter Miscellaneous Notes * Operative Note - Clement Cadet MD - 07/01/2013 9:04 AM SOIL FERTILITY EXTENSION SPECIALIST REPORT Name: MARIA M MEJIA MRN/Unit #: [id number] Date of : 1945 Attending Physician: CLEMENT CADET DATE OF OPERATION: 06/21/2008 PREOPERATIVE DIAGNOSIS: Degenerative arthritis of the left knee. POSTOPERATIVE DIAGNOSIS: Degenerative arthritis of the left knee. PROCEDURE: Left total knee arthroplasty using Vanguard 65-mm femoral component, 71-mm tibial base tray, 12-mm posterior stabilized plus tibial polyethylene, and a 31-mm patellar button. SURGEON: Clement Cadet MD LEASING SPECIALIST: Virgil Dale PA-C ANESTHESIA: Spinal. ESTIMATED BLOOD LOSS: Minimal. FLUIDS: 1500 mL of crystalloid. SPECIMEN: Bone. DRAINS: None. COMPLICATIONS: None. TOURNIQUET TIME: 60 minutes. INDICATIONS FOR PROCEDURE: Patient is a 63-year-old white female with severe degenerative arthritis of her left knee. She has failed conservative therapy. She is here for left total knee arthroplasty. DESCRIPTION OF PROCEDURE: With the patient in the supine position, after sterile preparation and draping of the left lower extremity and under tourniquet control, a straight midline incision based over the distal femur, patella, and tibial tubercle was made down through skin and subcutaneous tissues using a sharp knife. Hemostasis was obtained using Bovie cautery. The parapatellar joint arthrotomy was performed. Medial and lateral fat pads were excised. Proximal medial tibia was subperiosteally elevated using a Flood elevator. The patella was everted, the knee flexed up revealing severe 3-compartment degenerative change. The marginal osteophytes were then removed from the femur using a rongeur. Notch osteophytes were removed from the femur using an osteotome and a mallet. The anterior and posterior cruciates were then removed using a Alexis and a Bovie. The knee was dislocated anteriorly and the remnant of the medial and lateral meniscus was removed using a Alexis and a Bovie, care being taken to coagulate the lateral inferior geniculate artery. Proximal tibia was then cut using an extramedullary cutting guide. Cut was deemed appropriate using a spacer and a milan and was sized for a 71-mm tibial base tray. Attention was then turned to the knee in flexion where the tensor was placed and tensed to 60 pounds. Drill holes were made for the anterior-posterior femoral cutting block. Anterior-posterior femoral cutting block was placed and the anterior and posterior femoral cuts were made using an oscillating saw. Flexion gap was measured for 12, excellent alignment and stability. Tensor was then placed in the knee, knee extended and tensed to 60 pounds. Drill holes were made for the distal femoral cutting block. Distal femoral cutting block was placed and the distal femoral cut was made using an oscillating saw. The extension gap was measured for 12, excellent alignment and stability. The box and chamfer cutting guides were then placed and the box and chamfer cuts were made using an oscillating saw. The trial 65-mm femoral component was noted to fit nicely. A 71 x 12 posterior-stabilized plus floating tibial trial was placed. The knee was reduced, full range of motion, excellent alignment and stability. Rotation was marked using the Bovie. Proximal tibial base plate was then pinned in appropriate rotation and the posted hole was made using the punches and curette. Posted tibial trial with trial tibial polyethylene was placed. Knee was reduced, full range of motion, and excellent alignment and stability. Patella was everted and freehand cut. Pre- and post- cut thicknesses were 24 mm respectively. A 31-mm patellar button was noted to track nicely, therefore, a lateral release was not performed. Provisionals were removed. Bur was used to make cement anchoring holes. The knee was copiously irrigated with sterile normal saline solution via Pulsavac lavage and thoroughly dried. Final components were then cemented in using [place] G cement. The excess cement was removed using a Kingston elevator., The knee was reduced, held in extension while cement hardened. After the cement had hardened, the excess cement was removed using an osteotome and a mallet. Wound was copiously irrigated with sterile normal saline solution via Pulsavac lavage and thoroughly dried. GPS platelet gel was then sprayed in the wound. The median parapatellar arthrotomy was then closed using #1 Vicryl interrupted [id number] fashion with a running #1 Vicryl in the superior two-thirds of the wound. Subcutaneous tissues were closed using 2-0 Vicryl in simple interrupted fashion and the skin was closed using vania. Sterile dressing was applied. All sponge and needle counts were correct the first time. There were no complications. Patient tolerated the procedure well and was taken to the recovery room in stable condition. Clement Cadet MD Dictated by: cc: FERTILITY EXTENSION SPECIALIST documented in this encounter Plan of Treatment Not on filedocumented as of this encounter Procedures Comments Procedure Name Priority Date/Time Associated Diag nosis PROTHROMBIN TIME/INR Routine 06/24/2008 4:35 AM SOIL FERTILITY EXTENSION SPECIALIST PROTHROMBIN TIME/INR Routine 06/23/2008 4:30 AM SOIL FERTILITY EXTENSION SPECIALIST ELECTROLYTES Routine 06/23/2008 4:30 AM SOIL FERTILITY EXTENSION SPECIALIST COMPLETE BLOOD COUNT Routine 06/23/2008 4:30 AM SOIL FERTILITY EXTENSION SPECIALIST PROTHROMBIN TIME/INR Routine 06/22/2008 5:00 AM SOIL FERTILITY EXTENSION SPECIALIST ELECTROLYTES Routine 06/22/2008 5:00 AM SOIL FERTILITY EXTENSION SPECIALIST COMPLETE BLOOD COUNT Routine 06/22/2008 5:00 AM SOIL FERTILITY EXTENSION SPECIALIST XR KNEE 1 OR 2 VIEWS LEFT Routine 06/21/2008 2:10 PM SOIL FERTILITY EXTENSION SPECIALIST GLUCOSE POINT OF CARE Routine 06/21/2008 2:05 PM SOIL FERTILITY EXTENSION SPECIALIST [place] HISTOLOGY Routine 06/21/2008 1:35 PM SOIL FERTILITY EXTENSION SPECIALIST GLUCOSE POINT OF CARE Routine 06/21/2008 9:44 AM SOIL FERTILITY EXTENSION SPECIALIST GFR NON-. Routine 06/15/2008 3:25 PM SOIL FERTILITY EXTENSION SPECIALIST GFR . Routine 06/15/2008 3:25 PM SOIL FERTILITY EXTENSION SPECIALIST RENAL PANEL Routine 06/15/2008 3:25 PM SOIL FERTILITY EXTENSION SPECIALIST ERYTHROCYTE SEDIMENTATION Routine 06/15/2008 RATE 3:25 PM SOIL FERTILITY EXTENSION SPECIALIST COMPLETE BLOOD COUNT Routine 06/15/2008 3:25 PM SOIL FERTILITY EXTENSION SPECIALIST documented in this encounter Results * Prothrombin Time/INR (06/24/2008 4:35 AM SOIL FERTILITY EXTENSION SPECIALIST) Only the most recent of 3 results within the time period is included. Protime 15.0 (H) 11.9 - 14.3 SEC SUNQUEST INR 1.2 SUNQUEST Specimen Performing Organization Address [facility] one Number SLRL [address] [place] [phone] SUNQUEST * Complete Blood Count (06/23/2008 4:30 AM SOIL FERTILITY EXTENSION SPECIALIST) Only the most recent of 3 results within the time period is included. WBC 7.0 4.0 - 11.0 TH/UL SUNQUEST RBC 3.29 (L) 4.00 - 5.00 MIL/UL SUNQUEST Hemoglobin 9.4 (L) 12.0 - 15.0 G/DL SUNQUEST Hematocrit 29 (L) 36 - 45 % SUNQUEST MCV 87 80 - 99 FL SUNQUEST MCH 29 27 - 34 PG SUNQUEST MCHC 33 32 - 36 % SUNQUEST RDW 14.1 <14.5 % SUNQUEST Platelet Count 194 140 - 400 TH/UL SUNQUEST MPV 10.3 9.4 - 12.3 FL SUNQUEST Specimen Performing Organization Address [facility] one Number [facility]RL [address] [place] [phone] SUNQUEST * Electrolytes (06/23/2008 4:30 AM SOIL FERTILITY EXTENSION SPECIALIST) Only the most recent of 2 results within the time period is included. Sodium 135 134 - 144 MEQ/L SUNQUEST Potassium 4.1 3.5 - 5.1 MEQ/L SUNQUEST Chloride 103 101 - 111 MEQ/L SUNQUEST Carbon Dioxide 27 23 - 32 MEQ/L SUNQUEST Anion Gap 5 3 - 15 SUNQUEST Specimen Performing Organization Address [facility] one Number RL [address] [phone] SUNQUEST * XR Knee 1 or 2 views left (06/21/2008 2:10 PM SOIL FERTILITY EXTENSION SPECIALIST) Specimen Narrative [facility] Patient: MARIA M MEJIA [facility] Rec#: [id number] Sex: F : 1945 [place]#: [id number] Location: Check-in#: [id number] Procedure Requested: 11056 DX KNEE 1 OR 2 VIEWS LEFT Reason For Exam: POST OP Exam Ordered: 06/21/2008 135 4 Exam Date/Time: 06/21/2008 1420 Check-in Date/Time: 06/21/2008 1354 AttendinCLEMENT ASHER "" Requestin CLEMENT CADET "" Referrin ALLY, REFERRING Primary Care: [id number] SUBHA HUGGINS "" DO Provided Clinical History: Postop lef t knee replacement Left Knee portable, 2 views : The components of the total knee replac ement appear in satisfactory position and alignment. No problems det ected. Signed (Authenticated, Released) Date-T raina: 06/21/2008 142 Merchandise Handler- WILIAM PINEDA M.D. , Staff Radiologist Dictated By- WILIAM PINEDA M.D., [place] Radiologist Staff Physician- WILIAM PINEDA M.D., Staff Radiologist Authenticated ByJacoby PINEDA M.D. , Staff Radiologist Procedure Note Interface, Rad Conversion - 07/02/2013 10:06 AM SOIL FERTILITY EXTENSION SPECIALIST REPORT Patient: MARIA M MEJIA [facility] Rec#: [id number] Sex: F : 1945 [place]#: [id number] Location: Check-in#: [id number] Procedure Requested: 53427 DX KNEE 1 OR 2 VIEWS LEFT Reason For Exam: POST OP Exam Ordered: 06/21/2008 1354 Exam Date/Time: 06/21/2008 1420 Check-in Date/Time: 06/21/2008 1354 AttendinCLEMENT ASHER "" Requestin CLEMENT CADET "" Referrin ALLY, REFERRING Primary Care: [id number] MARKO HUGGINS "" DO Provided Clinical History: Postop left knee replacement Left Knee portable, 2 views : The components of the total knee replacement appear in satisfactory position and alignment. No problems detected. Signed (Authenticated, Released) Date-Time: 06/21/20081426 Merchandise Handler- WILIAM PINEDA M.D., Staff Radiologist Dictated By- WILIAM PINEDA M.D., Staff Radiologist Staff Physician- WILIAM PINEDA M.D., Staff Radiologist Authenticated By- WILIAM PINEDA M.D., Staff Radiologist Performing Organization Address City/[facility] Ph one Number MCKESSON * Glucose Point of Care (06/21/2008 2:05 PM SOIL FERTILITY EXTENSION SPECIALIST) Only the most recent of 2 results within the time period is included. Glucose 100 65 - 100 MG/DL SUNQUEST Specimen Performing Organization Address [facility] Ph one Number [facility]RL [address] [place], [place] [address] SUNQUEST * Pathology (06/21/2008 1:35 PM SOIL FERTILITY EXTENSION SPECIALIST) [place] N[place] [id number] F 63 YRS JS SUNQUEST 339 01 S U R G I C A L P A T H O L O G Y [id number] LABORATORY NO: [id number] SPECIMEN Left knee bone and tissue CLINICAL HISTORY Left knee pain GROSS PATHOLOGY Received in formalin in a properly labe led container is a 10.1 x 7.5 x 4.2 cm aggregate of multip le, irregularly shaped bone segments. The articular alona face is pale yellow-deleon with a degenerative appearan ce. Soft tissue is not grossly appreciated within the cont ainer. Certified Technician Specialist sections are submitted in one cassette following DECAL. CECILIA/shama [facility] [phone] Performing Laboratory Location: [facility], Dept of Pathology , [address] [place] [address] [address] [facility] FINAL PATHOLOGIC DIAGNOSIS: Bone and cartilage, left knee - Changes consistent with degenerative joint disease. Signed Electronically by: Clement malave M.D. 06/25/2008 [id number], [id number], [id number], [id number], [id number] @ = & Performed at [facility]PATH Raquel Performing Organization Address City/[facility] Ph one Number SLRL [phone] [place], [place] [address] SUNQUEST * Renal Panel (06/15/2008 3:25 PM SOIL FERTILITY EXTENSION SPECIALIST) Sodium 138 134 - 144 MEQ/L SUNQUEST Potassium 4.1 3.5 - 5.1 MEQ/L SUNQUEST Chloride 105 101 - 111 MEQ/L SUNQUEST Carbon Dioxide 24 23 - 32 MEQ/L SUNQUEST Creatinine 0.8 0.4 - 1.1 MG/DL SUNQUEST Blood Urea 31 (H) 8 - 26 MG/DL SUNQUEST Nitrogen Glucose 135 (H) 65 - 100 MG/DL SUNQUEST Anion Gap 9 3 - 15 SUNQUEST Phosphorus 4.0 2.5 - 4.5 MG/DL SUNQUEST Albumin 3.9 3.5 - 5.0 G/DL SUNQUEST Calcium 9.4 8.8 - 10.5 MG/DL SUNQUEST Specimen Performing Organization Address [facility] Ph one Number [facility] [address] [phone] SUNQUEST * GFR NON-. (06/15/2008 3:25 PM SOIL FERTILITY EXTENSION SPECIALIST) eGFR Female 73 SUNQUEST Non-AA Comment: Chronic Kidney Disease less than 60 ml/min/1.73 sq.m Kidney failure less than 15 ml/min/1.73 sq.m Specimen Performing Organization Address [facility] Ph one Number [facility]RL [address] [phone] SUNQUEST * GFR . (06/15/2008 3:25 PM SOIL FERTILITY EXTENSION SPECIALIST) eGFR Female AA 88 SUNQUEST Comment: Chronic Kidney Disease less than 60 ml/min/1.73 sq.m Kidney failure less than 15 ml/min/1.73 sq.m Specimen Performing Organization Address [facility] Ph one Number [facility]RL [address] [phone] SUNQUEST * Erythrocyte Sedimentation Rate (06/15/2008 3:25 PM SOIL FERTILITY EXTENSION SPECIALIST) Sed Rate 23 (H) 0 - 17 MM/HR SUNQUEST Specimen Performing Organization Address City/State/Zipcode Ph one Number [facility]RL [address] [place], [place] [address] SUNQUEST documented in this encounter Visit Diagnoses Diagnosis Localized osteoarthrosis not specified whether primary or secondary, lower leg documented in this encounter
--- OUTSIDE RECORDS SUMMARY | 2019-11-17 21:39 | XMS REPORT | Encounter Summary ---
Author Author [facility] Organization [facility] Address Unknown Phone Unavailable Care Team Providers Care Roll Scale Worker Name Role Phone PCP Unavailable Encounter Details Care Team Description [place] [address] [place] [address] [phone] 06/25/2008 [facility] [address] [place] [address] Social History Date Tobacco Use Types Packs/Day [...] Procedure Name Priority Date/Time Associated Diag nosis EVENT RECORDER - Routine 06/25/2008 HISTORICAL documented in this encounter Results * Outpatient Heart Monitor - 30 days (06/25/2008) Specimen Narrative Performed At Procedure Category: EP NEXTGEN Procedure: Event recorder Procedure Summary: One transmission is available for review at baseline and demonstrates normal sinus rhythm at 82 bpm. Procedure Note Interface, Rad Conversion - 11/21/2014 6:35 AM CDT Procedure Category: EP Procedure: Event recorder Procedure Summary: One transmission is available for review at baseline and demonstrates normal sinus rhythm at 82 bpm. Performing Organization Address City/State/Zipcode Ph one Number NEXTGEN documented in this encounter Visit Diagnoses Not on filedocumented in this encounter
--- OUTSIDE RECORDS SUMMARY | 2019-11-17 21:39 | XMS REPORT | Encounter Summary ---
Author Author [facility] Organization [facility] Address Unknown Phone Unavailable Care Team Providers Care Sociology Teacher Name Role Phone PCP Unavailable Encounter Details Care Team Description Date Type Department Burt Cadet MD [address] [place] [address] [phone] Loc Osteoarth NOS-L/Leg 04/24/2008 [place] [address] Social History Date Tobacco Use Types Packs/Day [...] as of this encounter H&P Notes * Burt Cadet MD - 07/01/2013 9:25 AM BED AND BREAKFAST INNKEEPER REPORT Name: MARIA M SUÁREZ MRN/Unit #: [id number] Date of : 1945 Attending Physician: BURT CADET DATE OF SCHEDULED SURGERY: 05/07/2008 CHIEF COMPLAINT: Left knee pain. HISTORY OF PRESENT ILLNESS: Ms. Suárez is a 63-year-old white female who has left knee pain. It is progressive, severe, and intolerable. She has a less than 2 block walking tolerance. She has difficulty going up and down stairs and getting into and out of cars. She has failed conservative therapy, antiinflammatories, and injections. She is here for left total knee arthroplasty. PAST MEDICAL HISTORY: 1. Type 2 diabetes. 2. Rheumatoid arthritis. 3. Hypertension. 4. Asthma. PAST SURGICAL HISTORY: 1. Hysterectomy in 1986. 2. Cholecystectomy in 1987. 3. Carpal tunnel 2006. ALLERGIES: PENICILLIN. CURRENT MEDICATIONS: 1. Glucophage 500 mg daily. 2. Lyrica 75 mg daily. 3. Diovan/hydrochlorothiazide 80/12.5 mg daily. 4. Celebrex 200 mg daily. 5. Amitriptyline 100 mg daily. PHYSICAL EXAMINATION: HEENT: Negative. CHEST: Clear. HEART: Regular rate and rhythm without murmur. ABDOMEN: Positive bowel sounds, soft, and no masses. EXTREMITIES: Without clubbing, cyanosis, or edema. LEFT KNEE: Examination of the knee reveals zero to 120 degrees of flexion and 1 cm of medial joint line laxity. LABORATORY STUDIES, RADIOLOGY FINDINGS, AND OTHER DATA: X-rays show medial bone on bone with large osteophytes. ASSESSMENT: Degenerative joint disease of the left knee. PLANS/RECOMMENDATIONS: She is here for left total knee arthroplasty. I have discussed with her the risks, benefits, and alternatives of this to include but not be limited to , infection, nerve damage, failure of surgery, need for further surgery, deep venous thrombosis, AIDS, hepatitis, and transfusion reaction. She understands these and wishes to proceed. Burt Cadet MD Dictated by: cc: Burt Cadet MD, [facility] Attending physician If updating History and Physical report, please complete below. Patient re-examined this date History & Physical reviewed Interval Changes Noted Below: Physician Signature Date: Time: AND BREAKFAST INNKEEPER documented in this encounter Plan of Treatment Not on filedocumented as of this encounter Procedures Comments Procedure Name Priority Date/Time Associated Diag nosis ERYTHROCYTE SEDIMENTATION Routine 04/24/2008 RATE 11:30 AM BED AND BREAKFAST INNKEEPER documented in this encounter Results * Erythrocyte Sedimentation Rate (04/24/2008 11:30 AM BED AND BREAKFAST INNKEEPER) Sed Rate 29 (H) 0 - 17 MM/HR SUNQUEST Specimen Performing Organization Address City/State/[facility] Ph one Number [facility] [address] [place], [place] [address] SUNQUEST documented in this encounter Visit Diagnoses Diagnosis Localized osteoarthrosis not specified whether primary or secondary, lower leg documented in this encounter
--- OUTSIDE RECORDS SUMMARY | 2019-11-17 21:39 | XMS REPORT | Encounter Summary ---
Author Author [facility] Organization [facility] Address Unknown Phone Unavailable Care Team Providers Care Commissioning Manager Name Role Phone PCP Unavailable Encounter Details Care Team Description [place] [address] [place] [address] [phone] 05/14/2008 [facility] [...] Comments Vital Sign 140/94 05/14/2008 11:07 AM SOCIAL INSURANCE ADVISER Blood Pressure 92 05/14/2008 11:07 AM SOCIAL INSURANCE ADVISER Pulse - - Temperature - - Respiratory Rate - - Oxygen Saturation - - Inhaled Oxygen Concentration 133.8 kg (295 lb) 05/14/2008 11:07 AM SOCIAL INSURANCE ADVISER morbidly obese Weight 172.7 cm (5' 8") 05/14/2008 11:07 AM SOCIAL INSURANCE ADVISER Height 44.85 05/14/2008 11:07 AM SOCIAL INSURANCE ADVISER Body Mass Index documented in this encounter Progress Notes * Suraj Li MD - 05/14/2008 11:15 AM SOCIAL INSURANCE ADVISER On License Of [facility] [address] [place] [address] May 14, 2008 LESTER HUGGINS MD [address] [facility] [address] [place] [address] RE: MARIA M MEJIA : 1945 Chart #: [id number] Visit Provider: Suraj Li M.D. Dear Dr. HUGGINS: I had the pleasure of seeing MARIA M MEJIA in the office today. She is 63 yea rs of age and presents with the following chief complaints: rapid heart beat, h ypertension, and fatigue. HPI: I had the pleasure of seeing Maria M, at her request, after an episode of palpi tations prompted a visit to the [facility] there in [place] on 2008. She had been in her usual state of health and had recently had a st ress test for preoperative purposes. We had not had the opportunity to call her back with the results. She awoke in the middle of the night and felt of panicked. She took her heart r ate and found it to be about 140 and going faster than what she remembers. Due to this, she presented to the emergency room and by the time she arrived there h er heart rate had slowed down back to normal. She was admitted and underwent a rule-out myocardial infarction protocol with negative enzymes and normal EKGs an d was discharged conservatively to follow-up here. Since that time she has not had any further episodes and this is the first episo de of palpitations she has every experienced. She does not describe her heart a s irregular, but describes it as quite regular and again she had a heart rate of about 140 beats per minute that slowly slowed down, suggesting a possible anxie ty or night terror type effect. She has not had any further episodes. She denies any PND or orthopnea, edema or syncopal episodes. Overall she feels quite well. I had first seen her on April 24, 2008 for clearance of an upcoming total kne e replacement. Problem List: 05/02/2008 CAD MPI Ischemia in the distribution of the right coronary artery, an d possibly a portion of the circumflex territory as well. Normal left ventricul ar systolic function, LVEF 64%. Below-average image quality related to the patie nts body habitus (BMI = 45). No prior study is available for comparison. DM Type 2 04/24/2008 Dyslipidemia 05/02/2008 EF MPI Rest EF: 54, Stress EF: 63 Hypertension Past Medical History: Past medical history was reviewed today. Current Medications: Tylenol Extra Strength 500mg As needed Amitriptyline HCl 100mg Take one tablet by mouth before bedtime Lyrica 75mg Take one capsule by mouth twice per day Diovan HCT 320/12.5mg Take one tablet by mouth daily Glucophage 500mg Take one capsule by mouth daily Allergies: Penicillins Family History: Family history was reviewed today. 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 The BMI is 44.80. B lood pressure taken in the left arm is 140/94 mmHg in the sitting position. The pul se is 92. The rhythm is regular. Const The patient is an morbidly obese female. HEENT The pupils are equal and round. The patient's neck veins are flat. Pulm Lungs are clear to auscultation. Cardiac The point of maximal impulse is not palpable. S1 is normal. S2 is norm al. Abd The patient has no abdominal tenderness to palpation. Vasc Distal pulses are 2+ throughout with no carotid bruits noted. EXT The extremities are warm to touch. There is no edema noted. Neuro/Psych The patient is alert and oriented to time, person and place. The pa tient's mood is normal. No aphasia is apparent by exam. Most Recent Lipids Available for Review: Date Collected Fasting Chol HDL LDL Trig Ratio Glucose 04/24/2008 yes 227 58 160 46 3.91 109 Impressions: 1. Palpitations with a self reported heart rate of 140 beats per minute with no objective dysrhythmia or tachycardia seen. 2. Normal nuclear perfusion imaging study, placing her in a low-risk category fo r her upcoming knee replacement. 3. Noninsulin dependent diabetes. 4. Obesity. 5. History of breast lump. Recommendations: I have asked her to undergo a loop recording event monitor so should she have an y further episodes of these palpitations she is certainly at risk for atrial fib rillation, given her size, diabetes and mild hypertension. Otherwise, I have not may any medication changes. Again, she will be low-risk f or surgery. I have recommended that she continue to plan her surgery. If she does have atrial fibrillation, certainly considering Coumadin would seem quite reasonable given her CHADS score of 2. Thank you for allowing me to participate in MARIA M MEJIA's care. If I can b e of any further assistance, please do not hesitate to contact me. Sincerely, Suraj Li M.D. MHZ:flc a.m. p.m. F: 05/16/2008 AL INSURANCE ADVISER documented in this encounter Plan of Treatment Not on filedocumented as of this encounter Visit Diagnoses Not on filedocumented in this encounter
--- OUTSIDE RECORDS SUMMARY | 2019-11-17 21:40 | XMS REPORT ---
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 [facility] [employer] Address [address] [address] Care Team Providers Care Pipe And Test Supervisor Name Role Phone SIRISHA CASTELANJ Maty Unavailable Unavailable Unavailable JAMES NOONAN Unavailable Unavailable JAMES BAZAN Unavailable Unavailable Unavailable Unavailable O'DELL MANAGER DELI, JAZMIN Rutledge Unavailable Unavailable ROVENSTINE JC SERNA Unavailable Unavailable Unavailable Unavailable Unavailable Unavailable Unavailable Unavailable Unavailable Unavailable Unavailable Unavailable Allergies No Information Encounters Encounter Date Encounter Type Encounter Diagnosis Care Provider Facility Start: Emergency department JC MANNSTGRUPO [facility] Via 11-17-[address] [facility] End: 11-17-2019 Start: Patient encounter JAZMIN Rutledge O'DELL MANAGER DELI [facility] Via 11-17-2019 procedure [facility] Start: Patient encounter JAMES MIRANDA [facility] Vi a 10-30-2019 [facility] Start: Patient encounter NA NA [facility] 10-12-2019 procedure [facility] Start: Patient encounter NA NA [facility] 09-28-2019 procedure [facility] Start: Patient encounter NA NA [facility] 07-14-2019 procedure [facility] Start: Patient encounter NA NA [facility] 06-20-2019 procedure [facility] Start: Patient encounter NA NA [facility] 06-12-2019 procedure [facility] Start: Patient encounter NA NA [facility] 05-26-2019 procedure [facility] ([id number]) Start: Patient encounter JAMES MIRANDA [facility] Via Leidy 05-09-2019 [facility] ([id number]) Start: Patient encounter NA NA [facility] 05-02-2019 procedure [facility] ([id number]) Start: Patient encounter JAMES Gerson NOONAN [facility] Vi beau Leidy 04-20-2019 procedure [facility] Start: Patient encounter NA NA [facility] 04-20-2019 procedure [facility] ([id number]) Start: Patient encounter NA NA [facility] 03-22-2019 procedure [facility] ([id number]) Start: Patient encounter NA NA [facility] 03-21-2019 procedure [facility] ([id number]) Start: Patient encounter NA NA [facility] 03-08-2019 procedure [facility] ([id number]) Start: Patient encounter NA NA [facility] 02-09-2019 procedure [facility] ([id number]) Start: Patient encounter NA [facility] 02-09-2019 procedure [facility] ([id number]) Start: Patient encounter NA NA [facility] 12-05-2018 procedure [facility] ([id number]) Start: Patient encounter NA NA [facility] 11-28-2018 procedure [facility] ([id number]) Start: Patient encounter NA NA [facility] 11-28-2018 procedure [facility] ([id number]) Start: Patient encounter NA NA [facility] 11-23-2018 procedure [facility] ([id number]) Start: Patient encounter NA NA [facility] 11-23-2018 procedure [facility] ([id number]) Start: Patient encounter NA NA [facility] 10-13-2018 procedure [facility] ([id number]) Start: Patient encounter NA NA [facility] 10-11-2018 procedure [facility] ([id number]) Start: Patient encounter NA NA [facility] 10-11-2018 procedure [facility] ([id number]) Start: Patient encounter NA NA [facility] 10-10-2018 procedure [facility] ([id number]) Start: Patient encounter NA NA [facility] 09-05-2018 procedure [facility] ([id number]) Start: Patient encounter EFRAIN HARRINGTON MD Not Availa ble ([id number]) 07-19-2018 procedure Start: Patient encounter JOHNNY CASTELAN MD Not Avai lable ([id number]) 06-16-2018 procedure Start: Patient encounter NA NA [facility] 06-06-2018 procedure [facility] (29414) Start: Patient encounter EFRAIN HARRINGTON MD Not Availa ble ([id number]) 05-11-2018 procedure Start: Patient encounter EFRAIN HARRINGTON MD Not Availa ble ([id number]) 05-09-2018 procedure Start: Patient encounter PAO ROJAS MD Not Avail able ([id number]) 03-07-2018 procedure Start: Discharged Recurring PAO ROJAS Via [facility] 02-21-2018 Work Phone: [facility] ([id number]) End: 03-07-2018 Start: Patient encounter PAO ROJAS MD Not Avail able ([id number]) 02-21-2018 procedure End: 03-06-2018 Start: Patient encounter PAO ROJAS MD Not Avail able ([id number]) 02-18-2018 procedure Start: Patient encounter PAO ROJAS MD Not Avail able ([id number]) 02-16-2018 procedure Start: Patient encounter PAO ROJAS MD Not Avail able ([id number]) 02-14-2018 procedure Start: Patient encounter PAO ROJAS MD Not Avail able ([id number]) 02-09-2018 procedure Start: Patient encounter PAO ROJAS MD Not Avail able ([id number]) 02-07-2018 procedure Start: Patient encounter PAO ROJAS MD Not Avail able ([id number]) 02-04-2018 procedure Start: Patient encounter PAO ROJAS MD Not Avail able ([id number]) 2018 procedure Start: Patient encounter PAO ROJAS MD Not Avail able ([id number]) 01-31-2018 procedure Start: Patient encounter PAO ROJAS MD Not Avail able ([id number]) 01-28-2018 procedure Start: Patient encounter PAO ROJAS MD Not Avail able ([id number]) 01-26-2018 procedure Start: Patient encounter 01-24-2018 procedure Start: Patient encounter PAO ROJAS MD Not Avail able ([id number]) 01-21-2018 procedure Start: Patient encounter PAO ROJAS MD Not Avail able ([id number]) 01-19-2018 procedure Start: Patient encounter PAO ROJAS MD Not Avail able ([id number]) 01-17-2018 procedure Start: Patient encounter PAO ROJAS MD Not Avail able ([id number]) 01-14-2018 procedure Start: Patient encounter PAO ROJAS MD Not Avail able ([id number]) 01-12-2018 procedure Start: Patient encounter PAO ROJAS MD Not Avail able ([id number]) 01-10-2018 procedure Start: Patient encounter PAO ROJAS MD Not Avail able ([id number]) 01-07-2018 procedure Start: Patient encounter PAO ROJAS MD Not Avail able ([id number]) 01-05-2018 procedure Start: Patient encounter PAO ROJAS MD Not Avail able ([id number]) 12-31-2017 procedure Start: Patient encounter PAO ROJAS MD Not Avail able ([id number]) 12-29-2017 procedure Start: Patient encounter PAO ROJAS MD Not Avail able ([id number]) 12-24-2017 procedure Start: Patient encounter PAO ROJAS MD Not Avail able ([id number]) 12-22-2017 procedure Start: Patient encounter NA NA Not Availab le ([id number]) 12-20-2017 procedure Start: Patient encounter NA NA Not [facility]ailab le ([id number]) 12-17-2017 procedure Start: Patient encounter NA NA Not [facility]ailab le ([id number]) 12-15-2017 procedure Start: Patient encounter NA NA Not [facility]ailab le ([id number]) 12-13-2017 procedure Start: Patient encounter NA NA Not [facility] ([id number]) 12-10-2017 procedure Start: Patient encounter NA NA Not [facility]ail[facility] ([id number]) 12-08-2017 procedure Start: Patient encounter NA NA Not [facility]ail[facility] ([id number]) 12-06-2017 procedure Start: Patient encounter 09-28-2017 procedure End: 10-08-2017 Start: Patient encounter NA NA Not [facility]ailab le ([id number]) 06-30-2017 procedure End: 06-30-2017 Start: Patient encounter NA NA Not [facility]ailab le ([id number]) 06-28-2017 procedure Start: Patient encounter NA NA Not Availab le ([id number]) 06-25-2017 procedure Start: Patient encounter NA NA [facility] 11-17-2016 procedure [facility] ([id number]) Start: Patient encounter NA NA [facility] 11-17-2016 procedure [facility] ([id number]) Start: Patient encounter NA NA [facility] 11-17-2016 procedure [facility] ([id number]) Start: Patient encounter NA NA Not Availab le ([id number]) 08-13-2015 procedure Start: Patient encounter NA NA Not Availab le ([id number]) 06-14-2015 procedure Start: Patient encounter NA NA Not Availab le ([id number]) 02-08-2015 procedure Start: Patient encounter NA NA Not Availab le ([id number]) 02-15-2014 procedure Start: Patient encounter NA NA [facility] 01-02-2005 procedure [facility] Medical Equipment No Information Goals No Information Immunizations Immunizatio Immunization Notes Care Provider Facility n Date 05-02-2019 influenza, high dose NA NA [facility] seasonal, [facility] - preservative-free [facility] ([id number]) 10-20-2016 pneumococcal NA NA [facility] polysaccharide [facility] - vaccine, 23 valent [facility] ([id number]) 05-20-2014 pneumococcal conjugate NA [facility] vaccine, 13 valent [facility] ([id number]) Interventions No Information Medications The data below is from unstructured sourcesNo medication information available.No medication information available.No medication information available. Payers Date Payer Normalized Payer [id number] Plan of Treatment The data below is from unstructured sources Discharge Date 03/13/15 6:15am Prescriptions See Medication Section Discharge Date 01/27/15 6:50am Prescriptions See Medication Section Discharge Date 10/08/17 1:20pm Disposition 09 ADMITTED INPATIENT Instructions/Education Provided Prev enting Falls in the Older Adult Forms Provided Rehab Team Conference Summary Prescriptions See Medication Section Referrals (Unspecified) Order Date: Today Entered Date: 10/07/2017 2:41pm Reason(s) for Referral: S/P CABG x 2 LIMITATION OF ACTIVITIES DUE TO DISABILITY Note: Patient has mobility limitations that significantly impair her ability to complete MRADLs in a timely manner. Patient has a heightened risk of morbidity and can functionally and safely utilize walker. Additional Instructions/Education Pa tient in need of a heavy duty walker to safetly complete MRADL's in a reasonable time frame. Patient has demonstrated the ability to safely use the walker and her functional mobility deficit can be sufficiently resolved with the use of a walker. 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 ; Translati ons: other heart [PRESENCE OF AORTOCORONARY BYPASS disease GRAFT] (20 sources) Coronary Presence of aortocoronary bypass Episodic NA NA atherosclero graft ; Translations: [ATHS CL HEART sis and DISEASE OF [place] CORONARY ] other heart disease (20 sources) Deficiency Anemia, unspecified Episodic NA NA and other anemia (3 sources) Diabetes Type 2 diabetes mellitus without Chronic NA NA mellitus complications ; Translation s: without [Other specified diabetes m ellitus complication without complications] (24 sources) Disorders of Hyperlipidemia, unspecified ; Chronic NA NA lipid Translations: [Mixed metabolism hyperlipidemia] (22 sources) E Codes: Exposure to other specified 11-01-2019 Episodic JAMES NOONAN Natural/envi factors, initial encounter ; PLANT TECHNICIAN ronment Translations: [Exposure to other (3 sources) specified factors, subseque nt encounter] Essential Essential (primary) hypertension Chronic NA NA hypertension (22 sources) Fracture of Displaced fracture of shaft of 11-01-2019 Episodic JAMES NOONAN upper limb fourth metacarpal bone, right hand, PLANT TECHNICIAN (5 sources) initial encounter for close d fracture ; Translations: [Displaced fracture of shaft of fourth metacarpal bone, right hand, subsequent encounter for fracture with routine healing] Heart 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 ; Translation s: (11 sources) [Rheumatic tricuspid insuff iciency] Nonspecific Chest pain, unspecified ; Episodic NA NA chest pain Translations: [Other chest pain] (11 sources) Occlusion or Occlusion and stenosis of Chronic 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 arteries (13 sources) Osteoarthrit Primary osteoarthritis, left hand 11-01-2019 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 NOONAN is PLANT 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 (1 source) Other Other forms of scoliosis, lumbar Chronic JAMES NOONAN acquired region PLANT TECHNICIAN deformities (1 source) 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 Episodic NA NA aftercare hypoglycemic drugs (22 sources) Other Other ocean transportation intermediary (current) drug Episodic NA NA aftercare therapy (6 sources) Other Encounter for surgical aftercare Episodic NA NA aftercare following surgery on the (20 sources) circulatory system Other and Cardiomegaly Chronic NA NA ill-defined heart disease (11 sources) Other lower Apnea, not elsewhere classified Episodic NA NA respiratory disease (4 sources) Other Other specified myopathies Chronic N A NA nervous system disorders (16 sources) Other Morbid obesity Chronic NA NA nutritional; endocrine; and metabolic disorders (4 sources) Other Other disorders of plasma-protein Chronic NA NA nutritional; metabolism, not elsewhere endocrine; classified ; Translations: [MORBID and (SEVERE) OBESITY DUE TO EXC ESS CA] metabolic disorders (3 sources) Other Morbid (severe) obesity due to Chronic NA NA nutritional; excess calories endocrine; and metabolic disorders (23 sources) Other Body mass index (BMI) 50.0-59.9, Chronic NA NA nutritional; adult ; Translations: [OBST RUCTIVE endocrine; SLEEP APNEA (ADULT) (PEDIAT R] and metabolic disorders (15 sources) Other Other screening mammogram ; Episodic NA NA screening Translations: [Encounter fo r for screening mammogram for mal ignant suspected neoplasm of breast] conditions (not mental disorders or infectious disease) (12 sources) Pneumonia Pneumonia, unspecified organism Episodic NA NA (except that caused by tuberculosis or sexually transmitted disease) (4 sources) Residual Obstructive sleep apnea (adult) Chronic NA NA codes; (pediatric) unclassified (20 sources) Residual Obstructive sleep apnea Chronic NA N A codes; (adult)(pediatric) unclassified (4 sources) Residual Family history of ischemic heart Episodic NA NA codes; disease and other diseases of the unclassified circulatory system (6 sources) Respiratory Dependence on supplemental oxygen Chronic NA NA failure; insufficienc y; arrest (adult) (16 sources) Spondylosis; 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 JAMES NOONAN intervertebr radiculopathy, lumbar region PLANT TECHNICIAN al disc disorders; other back problems (1 source) Past or Other Problems Problem Problem Date Last Documented Episodic/Chr Provider Classificati Recorded Date onic on Other Spondylolisthesis, lumbar region Episodic JAMES SHAISTA acquired PLANT TECHNICIAN deformities (1 source) Procedures The data below is from unstructured sourcesNo known history of procedures.No known history of procedures.No known history of procedures.No procedure information available.No procedure information availab le.No procedure information available.No procedure information available. Results Test Name Value Interpreta Reference Facilit Date tion Range y Time laboratory on 2019-11-17 Albumin [Mass/Vol] 4.2 g/dL Negative 3.2-4.5 PENDING 07-1 7-2 g/dL [address] 06:15-0 ([id number]) 400 Albumin [Mass/Vol] 4.4 g/dL Negative 3.2-4.5 PENDING 07-1 7-2 g/dL [address] 12:50-0 ([id number]) 400 ALP [Catalytic 98 U/L Negative 40-136 U/L PENDING -17-2 activity/Vol] [address] 06:15-0 ([id number]) 400 ALP [Catalytic 103 U/L Negative 40-136 U/L PENDING -17-2 activity/Vol] [address] 12:50-0 ([id number]) 400 ALT [Catalytic 13 U/L Negative 0-55 U/L PENDING -17-2 activity/Vol] [facility] [address] [place] [address] 06:15-0 ([id number]) 400 ALT [Catalytic 15 U/L Negative 0-55 U/L PENDING 07-17-2 activity/Vol] [facility] [address] [place] [address] 12:50-0 ([id number]) 400 Anion gap 13 mmol/L Negative 5-14 PENDING 07-17-2 [Moles/Vol] mmol/L [facility] [address] [place] [address] 06:15-0 ([id number]) 400 Anion gap 15 mmol/L High 5-14 PENDING 07-17-2 [Moles/Vol] mmol/L [facility] [address] [place] [address] 12:50-0 ([id number]) 400 AST [Catalytic 17 U/L Negative 5-34 U/L PENDING 07-17-2 activity/Vol] [facility] 06:15-0 ([id number]) 400 AST [Catalytic 19 U/L Negative 5-34 U/L PENDING 07-17-2 activity/Vol] [facility] [address] [place] [address] 12:50-0 ([id number]) 400 Basophils (Bld) 0.0 10*3/uL Negative 0.0-0.1 PENDING 07-17 -2 [#/Vol] 10*3/uL [facility] [address] [place] [address] 12:50-0 ([id number]) 400 Basophils/100 WBC 0 % Negative 0-10 % PENDING 07-17 -2 (Bld) [address] 12:50-0 ([id number]) 400 Bilirubin [Mass/Vol] 0.6 mg/dL Negative 0.1-1.0 PENDING 07 -17-2 mg/dL [address] 06:15-0 ([id number]) 400 Bilirubin [Mass/Vol] 0.4 mg/dL Negative 0.1-1.0 PENDING 07 -17-2 mg/dL [facility] [address] [place] [address] 12:50-0 ([id number]) 400 Calcium [Mass/Vol] 9.6 mg/dL Negative 8.5-10.1 PENDING 07-1 7-2 mg/dL [facility] [address] [place] [address] 06:15-0 ([id number]) 400 Calcium [Mass/Vol] 9.4 mg/dL Negative 8.5-10.1 PENDING 07-1 7-2 mg/dL [facility] [address] [place] [address] 06:15-0 ([id number]) 400 Calcium [Mass/Vol] 10.0 mg/dL Negative 8.5-10.1 PENDING 07- 17-2 mg/dL [facility] [address] [place] [address] 12:50-0 ([id number]) 400 Calcium [Mass/Vol] 9.7 mg/dL Negative 8.5-10.1 PENDING 07-1 7-2 mg/dL [facility] [address] [place] [address] 12:50-0 ([id number]) 400 Chloride [Moles/Vol] 103 mmol/L Negative 98-107 PENDING 0 7-17-2 mmol/L [facility] [address] [place] [address] 06:15-0 ([id number]) 400 Chloride [Moles/Vol] 101 mmol/L Negative 98-107 PENDING 0 7-17-2 mmol/L [facility] 12:50-0 ([id number]) 400 CO2 [Moles/Vol] 23 mmol/L Negative 21-32 PENDING 07-17-2 mmol/L [facility] 06:15-0 ([id number]) 400 CO2 [Moles/Vol] 21 mmol/L Negative 21-32 PENDING 07-17-2 mmol/L [facility] 12:50-0 ([id number]) 400 Creatinine 0.82 mg/dL Negative 0.60-1.30 PENDING -17-2 [Mass/Vol] mg/dL [facility] 06:15-0 ([id number]) 400 Creatinine 0.78 mg/dL Negative 0.60-1.30 PENDING -17-2 [Mass/Vol] mg/dL [facility] 12:50-0 ([id number]) 400 Creatinine and > Invalid PENDING Glomerular Interpreta [facility] 020 filtration tion Code N [facility] 06:15-0 rate.predicted panel ([id number]) 400 - Serum, Plasma or Blood Creatinine and > Invalid PENDING Glomerular Interpreta [facility] 020 filtration tion Code N [facility] 12:50-0 rate.predicted panel ([id number]) 400 - Serum, Plasma or Blood Eosinophils (Bld) 0.1 10*3/uL Negative 0.0-0.3 PENDING [#/Vol] 10*3/uL [facility] 12:50-0 ([id number]) 400 Eosinophils/100 WBC 1 % Negative 0-10 % PENDING (Bld) [facility] 12:50-0 ([id number]) 400 Erythrocyte 13.8 % Negative 10.0-14.5 PENDING distribution width % [facility] 020 (RBC) [Ratio] [facility] 12:50-0 ([id number]) 400 Glucose [Mass/Vol] 157 mg/dL High 70-105 PENDING 07-1 7-2 mg/dL [facility] 06:15-0 ([id number]) 400 Glucose [Mass/Vol] 193 mg/dL High 70-105 PENDING 07- 7-2 mg/dL [address] 12:50-0 ([id number]) 400 Hematocrit (Bld) 38 % Negative 35-52 % PENDING [Volume fraction] [address] 12:50-0 ([id number]) 400 Hemoglobin (Bld) 12.2 g/dL Negative 11.5-16.0 PENDING [Mass/Vol] g/dL [address] 12:50-0 ([id number]) 400 Lymphocytes (Bld) 0.7 10*3/uL Low 1.0-4.0 PENDING [#/Vol] 10*[address] 12:50-0 ([id number]) 400 Lymphocytes/100 WBC 11 % Low 12-44 % PENDING (Bld) [address] 12:50-0 ([id number]) 400 MCH (RBC) [Entitic 29 pg Negative 25-34 pg PENDING 10-31 7-2 mass] [address] 12:50-0 ([id number]) 400 MCHC (RBC) 32 g/dL Negative 32-36 g/dL PENDING [Mass/Vol] [address] 12:50-0 ([id number]) 400 MCV (RBC) [Entitic 90 Negative 80-99 PENDING 10-31 7-2 vol] [foz_us] [address] 12:50-0 ([id number]) 400 Monocytes (Bld) 0.3 10*3/uL Negative 0.0-1.0 PENDING 11-16 [#/Vol] 10*[address] 12:50-0 (30906) 400 Monocytes/100 WBC 4 % Negative 0-12 % PENDING 11-16 (Bld) [address] 12:50-0 ([id number]) 400 Neutrophils (Bld) 5.6 10*3/uL Negative 1.8-7.8 PENDING [#/Vol] 10*[address] 12:50-0 ([id number]) 400 Neutrophils/100 WBC 84 % High 42-75 % PENDING -2 (Bld) [facility] 12:50-0 ([id number]) 400 Platelet mean volume 9.7 Negative 7.4-10.4 PENDING -2 (Bld) [Entitic vol] [foz_us] [facility] 12:50-0 ([id number]) 400 Platelets (Bld) 256 10*3/uL Negative 130-400 PENDING 11-16 -2 [#/Vol] 10*3/uL [facility] 12:50-0 ([id number]) 400 Potassium 4.4 mmol/L Negative 3.6-5.0 PENDING 17-2 [Moles/Vol] mmol/L [facility] 06:15-0 ([id number]) 400 Potassium 4.5 mmol/L Negative 3.6-5.0 PENDING 11-16-2 [Moles/Vol] mmol/L [facility] 12:50-0 ([id number]) 400 Protein [Mass/Vol] 6.9 g/dL Negative 6.4-8.2 PENDING 07-1 7-2 g/dL [facility] 06:15-0 ([id number]) 400 Protein [Mass/Vol] 7.5 g/dL Negative 6.4-8.2 PENDING 07-1 7-2 g/dL [facility] 12:50-0 ([id number]) 400 RBC (Bld) [#/Vol] 4.24 10*6/uL Low 4.35-5.85 PENDING -2 10*6/uL [facility] 12:50-0 ([id number]) 400 Sodium [Moles/Vol] 139 mmol/L Negative 135-145 PENDING 07- 17-2 mmol/L [facility] 06:15-0 ([id number]) 400 Sodium [Moles/Vol] 137 mmol/L Negative 135-145 PENDING 07- 17-2 mmol/L [facility] 12:50-0 ([id number]) 400 Troponin I.cardiac ng/mL Negative <0.30 PENDING 07-1 7-2 [Mass/Vol] [facility] 12:50-0 ([id number]) 400 Urea nitrogen 20 mg/dL High 7-18 mg/dL PENDING [Mass/Vol] [facility] 06:15-0 ([id number]) 400 Urea nitrogen 21 mg/dL High 7-18 mg/dL PENDING [Mass/Vol] [facility] 12:50-0 ([id number]) 400 Urea 24 mg/mg Invalid PENDING nitrogen/Creatinine Interpreta [facility] 020 [Mass ratio] tion Code N [facility] 06:15-0 ([id number]) 400 Urea 27 mg/mg Invalid PENDING nitrogen/Creatinine Interpreta [facility] 020 [Mass ratio] tion Code N [facility] 12:50-0 ([id number]) 400 WBC (Bld) [#/Vol] 6.7 10*3/uL Negative 4.3-11.0 PENDING 10*3/uL [facility] 12:50-0 ([id number]) 400 laboratory on 2019-11-16 Basophils (Bld) 0.0 10*3/uL Negative 0.0-0.1 PENDING 11-15 [#/Vol] 10*3/uL [facility] 23:03-0 ([id number]) 400 Basophils/100 WBC 0 % Negative 0-10 % PENDING 11-15 (Bld) [facility] 23:03-0 ([id number]) 400 Eosinophils (Bld) 0.4 10*3/uL High 0.0-0.3 PENDING [#/Vol] 10*3/uL [facility] 23:03-0 ([id number]) 400 Eosinophils/100 WBC 6 % Negative 0-10 % PENDING (Bld) [facility] 0[facility] 23:03-0 ([id number]) 400 Erythrocyte 13.7 % Negative 10.0-14.5 PENDING distribution width % [facility] 020 (RBC) [Ratio] N [facility] 23:03-0 ([id number]) 400 Hematocrit (Bld) 37 % Negative 35-52 % PENDING [Volume fraction] [facility] 23:03-0 ([id number]) 400 Hemoglobin (Bld) 12.0 g/dL Negative 11.5-16.0 PENDING 16- 2 [Mass/Vol] g/dL [address] 23:03-0 (15353) 400 Lactate [Moles/Vol] 2.28 mmol/L Critically 0.50-2.00 PENDING 11-15-2 high mmol/L [address] 23:03-0 ([id number]) 400 Lymphocytes (Bld) 1.1 10*3/uL Negative 1.0-4.0 PENDING [#/Vol] 10*[address] 23:03-0 ([id number]) 400 Lymphocytes/100 WBC 16 % Negative 12-44 % PENDING (Bld) [address] 23:03-0 ([id number]) 400 MCH (RBC) [Entitic 29 pg Negative 25-34 pg PENDING 10-31 6-2 mass] [address] 23:03-0 (54486) 400 MCHC (RBC) 32 g/dL Negative 32-36 g/dL PENDING 11-15- [Mass/Vol] [address] 23:03-0 (33622) 400 MCV (RBC) [Entitic 91 Negative 80-99 PENDING 10-31 6-2 vol] [foz_us] [address] 23:03-0 (41365) 400 Monocytes (Bld) 0.9 10*3/uL Negative 0.0-1.0 PENDING 11-15 [#/Vol] 10*[address] 23:03-0 (81006) 400 Monocytes/100 WBC 13 % High 0-12 % PENDING 11-15 (Bld) [address] 23:03-0 (84525) 400 Neutrophils (Bld) 4.5 10*3/uL Negative 1.8-7.8 PENDING 2 [#/Vol] 10*[address] 23:03-0 (61216) 400 Neutrophils/100 WBC 64 % Negative 42-75 % PENDING 07- 16-2 (Bld) [facility] 23:03-0 (15808) 400 Platelet mean volume 9.7 Negative 7.4-10.4 PENDING (Bld) [Entitic vol] [foz_us] [facility] [address] 23:03-0 (97113) 400 Platelets (Bld) 256 10*3/uL Negative 130-400 PENDING 11-15 [#/Vol] 10*3/uL [facility] [address] [facility] 23:03-0 (38721) 400 RBC (Bld) [#/Vol] 4.10 10*6/uL Low 4.35-5.85 PENDING 10*6/uL [facility] [address] [facility] 23:03-0 (11851) 400 WBC (Bld) [#/Vol] 6.9 10*3/uL Negative 4.3-11.0 PENDING 10*3/uL [facility] [address] [facility] 23:03-0 (05951) 400 laboratory on 2019-09-28 Albumin [Mass/Vol] 4.0 g/dL Normal 3.6-5.1 Communi g/dL [facility] (47348) Albumin DL <= 20 1.3 mg/dL Normal See Note: Communi mg/L (U) [Mass/Vol] mg/dL [facility] (52192) Albumin/Creatinine 9 Normal <30 mcg/mg Communi (U) [Mass ratio] creat [facility] (98948) Albumin/Globulin 1.6 {ratio} Normal 1.0-2.5 Communi [Mass ratio] (calc) [facility] (09329) ALP [Catalytic 95 U/L Normal 37-153 U/L Communi activity/Vol] [facility] (57983) ALT [Catalytic 14 U/L Normal 6-29 U/L Communi activity/Vol] [facility] (40289) AST [Catalytic 14 U/L Normal 10-35 U/L Communi activity/Vol] [facility] (03493) Basophils (Bld) 0.019 10*3/uL Normal 0-200 Communi [#/Vol] cells/uL [facility] (07722) Basophils/100 WBC 0.2 % Normal % Communi (Bld) [facility] (95338) Bilirubin [Mass/Vol] 0.4 mg/dL Normal 0.2-1.2 Commu ni mg/dL [facility] (86735) Calcium [Mass/Vol] 9.8 mg/dL Normal 8.6-10.4 Communi mg/dL [facility] (05212) Chloride [Moles/Vol] 102 mmol/L Normal 98-110 Commu ni mmol/L [facility] (46254) Cholesterol 159 mg/dL Normal <200 mg/dL Communi [Mass/Vol] [facility] (48453) Cholesterol in HDL 69 mg/dL Normal > OR = 50 Communi [Mass/Vol] mg/dL [facility] (73708) Cholesterol in LDL 74 mg/dL Normal mg/dL Communi [Mass/Vol] (calc) [facility] (18753) Cholesterol non HDL 90 mg/dL Normal <130 mg/dL Commun i [Mass/Vol] (calc) [facility] (34141) Cholesterol.total/Ch 2.3 {ratio} Normal <5.0 Commu ni olesterol in HDL (calc) ty [Mass ratio] [facility] (68475) CO2 [Moles/Vol] 25 mmol/L Normal 20-32 Communi mmol/L [facility] (16771) Creatinine (U) 147 mg/dL Normal 20-275 Communi [Mass/Vol] mg/dL [facility] (52800) Creatinine 0.92 mg/dL Normal 0.60-0.93 Communi [Mass/Vol] mg/dL [facility] (74938) Eosinophils (Bld) 0.219 10*3/uL Normal 15-500 Commun i [#/Vol] cells/uL [facility] (50920) Eosinophils/100 WBC 2.3 % Normal % Commun i (Bld) ty [facility] (81722) Erythrocyte 13.5 % Normal 11.0-15.0 Communi distribution width % ty (RBC) [Ratio] [facility] (97289) GFR/1.73 sq 72 mL/min/{1.73_m2} Normal > OR = 60 Commun i M.predicted among mL/min/1.7 ty blacks MDRD 3m2 Health (S/P/Bld) [Vol Center rate/Area] [facility] (51433) GFR/1.73 sq 62 mL/min/{1.73_m2} Normal > OR = 60 Commun i M.predicted MDRD mL/min/1.7 ty (S/P/Bld) [Vol 3m2 Health rate/Area] [facility] (76149) Globulin (S) 2.5 g/dL Normal 1.9-3.7 Communi [Mass/Vol] g/dL ty (calc) [facility] (56439) Glucose [Mass/Vol] 142 mg/dL High 65-99 Communi mg/dL [facility] (69229) Hematocrit (Bld) 38.3 % Normal 35.0-45.0 Communi [Volume fraction] % [facility] (66225) Hemoglobin (Bld) 12.8 g/dL Normal 11.7-15.5 Communi [Mass/Vol] g/dL [facility] (59733) Lymphocytes (Bld) 2.138 10*3/uL Normal 850-3900 Commun i [#/Vol] cells/uL ty [facility] (17488) Lymphocytes/100 WBC 22.5 % Normal % Commun i (Bld) [facility] (97948) MCH (RBC) [Entitic 29.2 pg Normal 27.0-33.0 Communi mass] pg [facility] (03461) MCHC (RBC) 33.4 g/dL Normal 32.0-36.0 Communi [Mass/Vol] g/dL [facility] (52458) MCV (RBC) [Entitic 87.2 fL Normal 80.0-100.0 Communi vol] fL [facility] (75619) Monocytes (Bld) 0.732 10*3/uL Normal 200-950 Communi [#/Vol] cells/uL [facility] (10801) Monocytes/100 WBC 7.7 % Normal % Communi (Bld) [facility] (99131) Neutrophils (Bld) 6.394 10*3/uL Normal 6426-6083 Commun i [#/Vol] cells/uL [facility] (96675) Neutrophils/100 WBC 67.3 % Normal % Commun i (Bld) [facility] (88987) Platelet mean volume 9.9 fL Normal 7.5-12.5 Commu ni (Bld) [Entitic vol] fL [facility] (09397) Platelets (Bld) 306 10*3/uL Normal 140-400 Communi [#/Vol] Thousand/u ty L [facility] (73884) Potassium 4.6 mmol/L Normal 3.5-5.3 Communi [Moles/Vol] mmol/L [facility] (88126) Protein [Mass/Vol] 6.5 g/dL Normal 6.1-8.1 Communi g/dL [facility] (44766) RBC (Bld) [#/Vol] 4.39 10*6/uL Normal 3.80-5.10 Communi Million/uL [facility] (41378) Sodium [Moles/Vol] 142 mmol/L Normal 135-146 Communi mmol/L [facility] (00454) Triglyceride 84 mg/dL Normal <150 mg/dL Communi [Mass/Vol] [facility] (75789) TSH Qn 1.75 m[IU]/L Normal 0.40-4.50 Communi mIU/L [facility] (85744) Urea nitrogen 25 mg/dL Normal 7-25 mg/dL Communi [Mass/Vol] ty [facility] (65141) Urea NOT APPLICABLE Invalid 10-22 Communi nitrogen/Creatinine Interpreta (calc) ty [Mass ratio] tion Code [facility] (40656) WBC (Bld) [#/Vol] 9.5 10*3/uL Normal 3.8-10.8 Communi Thousand/u ty L [facility] (24118) not yet categorized on 2019-07-14 Control Positive Invalid Communi Interpreta ty tion Code [facility] (62352) Control neg~+ Invalid Communi Interpreta ty tion Code [facility] (86930) Exp date 01/25/2021 Invalid Communi Interpreta ty tion Code [facility] (46175) Exp date 11/08/2021 Invalid Communi Interpreta ty tion Code [facility] (67443) Lot # [id number] Invalid Communi Interpreta ty tion Code [facility] (46903) Lot # [id number] Invalid Communi Interpreta ty tion Code [facility] (38405) laboratory on 2019-06-12 Albumin [Mass/Vol] 4.1 g/dL Normal 3.6-5.1 Communi g/dL [facility] (72246) Albumin DL <= 20 4.3 mg/dL Normal See Note: Communi mg/L (U) [Mass/Vol] mg/dL ty [facility] (30743) Albumin/Creatinine 25 Normal <30 mcg/mg Communi (U) [Mass ratio] creat ty [facility] (64296) Albumin/Globulin 1.8 {ratio} Normal 1.0-2.5 Communi [Mass ratio] (calc) ty [facility] (92825) ALP [Catalytic 83 U/L Normal 37-153 U/L Communi activity/Vol] [facility] (08344) ALT [Catalytic 18 U/L Normal 6-29 U/L Communi activity/Vol] [facility] (61354) AST [Catalytic 18 U/L Normal 10-35 U/L Communi activity/Vol] [facility] (94052) Basophils (Bld) 0.017 10*3/uL Normal 0-200 Communi [#/Vol] cells/uL [facility] (93939) Basophils/100 WBC 0.2 % Normal % Communi (Bld) [facility] (70781) Bilirubin [Mass/Vol] 0.4 mg/dL Normal 0.2-1.2 Commu ni mg/dL [facility] (67474) Calcium [Mass/Vol] 9.3 mg/dL Normal 8.6-10.4 Communi mg/dL [facility] (83459) Chloride [Moles/Vol] 105 mmol/L Normal 98-110 Commu ni mmol/L [facility] (86194) Cholesterol 146 mg/dL Normal <200 mg/dL Communi [Mass/Vol] [facility] (81642) Cholesterol in HDL 59 mg/dL Normal > OR = 50 Communi [Mass/Vol] mg/dL [facility] (83988) Cholesterol in LDL 70 mg/dL Normal mg/dL Communi [Mass/Vol] (calc) [facility] (13277) Cholesterol non HDL 87 mg/dL Normal <130 mg/dL Commun i [Mass/Vol] (calc) [facility] (55230) Cholesterol.total/Ch 2.5 {ratio} Normal <5.0 Commu ni olesterol in HDL (calc) ty [Mass ratio] [facility] (20213) CO2 [Moles/Vol] 24 mmol/L Normal 20-32 Communi mmol/L [facility] (91754) Creatinine (U) 174 mg/dL Normal 20-275 Communi [Mass/Vol] mg/dL [facility] (09707) Creatinine 0.79 mg/dL Normal 0.60-0.93 Communi [Mass/Vol] mg/dL [facility] (53539) Eosinophils (Bld) 0.009 10*3/uL Low 15-500 Commun i [#/Vol] cells/uL ty [facility] (92718) Eosinophils/100 WBC 0.1 % Normal % Commun i (Bld) ty [facility] (49488) Erythrocyte 12.5 % Normal 11.0-15.0 Communi distribution width % ty (RBC) [Ratio] [facility] (63161) GFR/1.73 sq 87 mL/min/{1.73_m2} Normal > OR = 60 Commun i M.predicted among mL/min/1.7 ty blacks MDRD 3m2 Health (S/P/Bld) [Vol Center rate/Area] [facility] (39956) GFR/1.73 sq 75 mL/min/{1.73_m2} Normal > OR = 60 Commun i M.predicted MDRD mL/min/1.7 ty (S/P/Bld) [Vol 3m2 Health rate/Area] [facility] (39598) Globulin (S) 2.3 g/dL Normal 1.9-3.7 Communi [Mass/Vol] g/dL ty (calc) [facility] (30988) Glucose [Mass/Vol] 100 mg/dL High 65-99 Communi mg/dL ty [facility] (19517) HbA1c (Bld) [Mass 7.2 High <5.7 % of Communi fraction] total Hgb [facility] (57263) Hematocrit (Bld) 38.6 % Normal 35.0-45.0 Communi [Volume fraction] % ty [facility] (97736) Hemoglobin (Bld) 12.5 g/dL Normal 11.7-15.5 Communi [Mass/Vol] g/dL ty [facility] (33909) Lymphocytes (Bld) 2.537 10*3/uL Normal 850-3900 Commun i [#/Vol] cells/uL ty [facility] (65631) Lymphocytes/100 WBC 29.5 % Normal % Commun i (Bld) ty [facility] (80057) MCH (RBC) [Entitic 28.0 pg Normal 27.0-33.0 Communi mass] pg [facility] (68311) MCHC (RBC) 32.4 g/dL Normal 32.0-36.0 Communi [Mass/Vol] g/dL [facility] (14562) MCV (RBC) [Entitic 86.5 fL Normal 80.0-100.0 Communi vol] fL [facility] (79768) Monocytes (Bld) 0.679 10*3/uL Normal 200-950 Communi [#/Vol] cells/uL [facility] (90562) Monocytes/100 WBC 7.9 % Normal % Communi (Bld) [facility] (99228) Neutrophils (Bld) 5.358 10*3/uL Normal 1807-6344 Commun i [#/Vol] cells/uL [facility] (47501) Neutrophils/100 WBC 62.3 % Normal % Commun i (Bld) [facility] (36009) Platelet mean volume 10.3 fL Normal 7.5-12.5 Commu ni (Bld) [Entitic vol] fL [facility] (80752) Platelets (Bld) 275 10*3/uL Normal 140-400 Communi [#/Vol] Thousand/u ty L [facility] (97603) Potassium 4.3 mmol/L Normal 3.5-5.3 Communi [Moles/Vol] mmol/L [facility] (36467) Protein [Mass/Vol] 6.4 g/dL Normal 6.1-8.1 Communi g/dL [facility] (39238) RBC (Bld) [#/Vol] 4.46 10*6/uL Normal 3.80-5.10 Communi Million/uL [facility] (84260) Sodium [Moles/Vol] 140 mmol/L Normal 135-146 Communi mmol/L [facility] (98205) Triglyceride 91 mg/dL Normal <150 mg/dL Communi [Mass/Vol] ty [facility] (40943) Urea nitrogen 19 mg/dL Normal 7-25 mg/dL Communi [Mass/Vol] ty [facility] (38098) Urea NOT APPLICABLE Invalid 6 Communi nitrogen/Creatinine Interpreta (calc) ty [Mass ratio] tion Code [facility] (09717) WBC (Bld) [#/Vol] 8.6 10*3/uL Normal 3.8-10.8 Communi Thousand/u ty L [facility] (91820) laboratory on 2019-02-09 Albumin [Mass/Vol] 3.9 g/dL Normal 3.6-5.1 Communi g/dL ty [facility] (53249) Albumin/Globulin 1.7 {ratio} Normal 1.0-2.5 Communi [Mass ratio] (calc) ty [facility] (04044) ALP [Catalytic 87 U/L Normal 33-130 U/L Communi activity/Vol] ty [facility] (64765) ALT [Catalytic 11 U/L Normal 6-29 U/L Communi activity/Vol] [facility] (40087) AST [Catalytic 13 U/L Normal 10-35 U/L Communi activity/Vol] [facility] (16551) Basophils (Bld) 0.028 10*3/uL Normal 0-200 Communi [#/Vol] cells/uL ty [facility] (00981) Basophils/100 WBC 0.4 % Normal % Communi (Bld) ty [facility] (55107) Bilirubin [Mass/Vol] 0.4 mg/dL Normal 0.2-1.2 Commu ni mg/dL ty [facility] (08736) Calcium [Mass/Vol] 9.7 mg/dL Normal 8.6-10.4 Communi mg/dL [facility] (42408) Chloride [Moles/Vol] 105 mmol/L Normal 98-110 Commu ni mmol/L [facility] (76057) Cholesterol 136 mg/dL Normal <200 mg/dL Communi [Mass/Vol] ty [facility] (16253) Cholesterol in HDL 56 mg/dL Normal >50 mg/dL Communi [Mass/Vol] ty [facility] (12019) Cholesterol in LDL 67 mg/dL Normal mg/dL Communi [Mass/Vol] (calc) ty [facility] (64882) Cholesterol non HDL 80 mg/dL Normal <130 mg/dL Commun i [Mass/Vol] (calc) ty [facility] (33030) Cholesterol.total/Ch 2.4 {ratio} Normal <5.0 Commu ni olesterol in HDL (calc) ty [Mass ratio] [facility] (01982) CO2 [Moles/Vol] 26 mmol/L Normal 20-32 Communi mmol/L ty [facility] (83317) Creatinine 0.91 mg/dL Normal 0.60-0.93 Communi [Mass/Vol] mg/dL ty [facility] (75985) Eosinophils (Bld) 0.168 10*3/uL Normal 15-500 Commun i [#/Vol] cells/uL ty [facility] (44918) Eosinophils/100 WBC 2.4 % Normal % Commun i (Bld) [facility] (00350) Erythrocyte 13.2 % Normal 11.0-15.0 Communi distribution width % ty (RBC) [Ratio] [facility] (49049) GFR/1.73 sq 73 mL/min/{1.73_m2} Normal > OR = 60 Commun i M.predicted among mL/min/1.7 ty blacks MDRD 3m2 Health (S/P/Bld) [Vol Center rate/Area] [facility] (86110) GFR/1.73 sq 63 mL/min/{1.73_m2} Normal > OR = 60 Commun i M.predicted MDRD mL/min/1.7 ty (S/P/Bld) [Vol 3m2 Health rate/Area] [facility] (16083) Globulin (S) 2.3 g/dL Normal 1.9-3.7 Communi [Mass/Vol] g/dL ty (calc) [facility] (64222) Glucose [Mass/Vol] 139 mg/dL High 65-99 Communi mg/dL [facility] (61273) HbA1c (Bld) [Mass 6.7 High <5.7 % of Communi fraction] total Hgb [facility] (03521) Hematocrit (Bld) 37.2 % Normal 35.0-45.0 Communi [Volume fraction] % [facility] (31329) Hemoglobin (Bld) 11.9 g/dL Normal 11.7-15.5 Communi [Mass/Vol] g/dL [facility] (84325) Lymphocytes (Bld) 1.673 10*3/uL Normal 850-3900 Commun i [#/Vol] cells/uL [facility] (94965) Lymphocytes/100 WBC 23.9 % Normal % Commun i (Bld) [facility] (72719) MCH (RBC) [Entitic 28.6 pg Normal 27.0-33.0 Communi mass] pg [facility] (36622) MCHC (RBC) 32.0 g/dL Normal 32.0-36.0 Communi [Mass/Vol] g/dL [facility] (98754) MCV (RBC) [Entitic 89.4 fL Normal 80.0-100.0 Communi vol] fL [facility] (28211) Monocytes (Bld) 0.658 10*3/uL Normal 200-950 Communi [#/Vol] cells/uL [facility] (26463) Monocytes/100 WBC 9.4 % Normal % Communi (Bld) [facility] (36817) Neutrophils (Bld) 4.473 10*3/uL Normal 4916-3207 Commun i [#/Vol] cells/uL [facility] (02547) Neutrophils/100 WBC 63.9 % Normal % Commun i (Bld) [facility] (10297) Platelet mean volume 10.2 fL Normal 7.5-12.5 Commu ni (Bld) [Entitic vol] fL ty [facility] (86141) Platelets (Bld) 265 10*3/uL Normal 140-400 Communi [#/Vol] Thousand/u ty L [facility] (67808) Potassium 4.6 mmol/L Normal 3.5-5.3 Communi [Moles/Vol] mmol/L ty [facility] (67908) Protein [Mass/Vol] 6.2 g/dL Normal 6.1-8.1 Communi g/dL [facility] (35408) RBC (Bld) [#/Vol] 4.16 10*6/uL Normal 3.80-5.10 Communi Million/uL [facility] (02195) Sodium [Moles/Vol] 140 mmol/L Normal 135-146 Communi mmol/L ty [facility] (73725) Triglyceride 58 mg/dL Normal <150 mg/dL Communi [Mass/Vol] ty [facility] (29493) Urea nitrogen 17 mg/dL Normal 7-25 mg/dL Communi [Mass/Vol] [facility] (19464) Urea NOT APPLICABLE Invalid 6-22 Communi nitrogen/Creatinine Interpreta (calc) ty [Mass ratio] tion Code [facility] (18110) WBC (Bld) [#/Vol] 7.0 10*3/uL Normal 3.8-10.8 Communi Thousand/u ty L [facility] (47959) laboratory on 2018-10-11 Albumin [Mass/Vol] 4.0 g/dL Normal 3.6-5.1 Communi g/dL [facility] (46634) Albumin DL <= 20 0.9 mg/dL Normal See Note: Communi mg/L (U) [Mass/Vol] mg/dL [facility] (92469) Albumin/Creatinine 10 Normal <30 mcg/mg Communi (U) [Mass ratio] creat ty [facility] (56079) Albumin/Globulin 1.7 {ratio} Normal 1.0-2.5 Communi [Mass ratio] (calc) [facility] (72937) ALP [Catalytic 73 U/L Normal 33-130 U/L Communi activity/Vol] [facility] (83958) ALT [Catalytic 12 U/L Normal 6-29 U/L Communi activity/Vol] [facility] (77086) AST [Catalytic 14 U/L Normal 10-35 U/L Communi activity/Vol] [facility] (95778) Basophils (Bld) 0.032 10*3/uL Normal 0-200 Communi [#/Vol] cells/uL [facility] (74614) Basophils/100 WBC 0.4 % Normal % Communi (Bld) [facility] (76446) Bilirubin [Mass/Vol] 0.3 mg/dL Normal 0.2-1.2 Commu ni mg/dL [facility] (22782) Calcium [Mass/Vol] 9.4 mg/dL Normal 8.6-10.4 Communi mg/dL [facility] (08746) Chloride [Moles/Vol] 106 mmol/L Normal 98-110 Commu ni mmol/L [facility] (93419) Cholesterol 130 mg/dL Normal <200 mg/dL Communi [Mass/Vol] [facility] (47337) Cholesterol in HDL 53 mg/dL Normal >50 mg/dL Communi [Mass/Vol] [facility] (21651) Cholesterol in LDL 61 mg/dL Normal mg/dL Communi [Mass/Vol] (calc) [facility] (08890) Cholesterol non HDL 77 mg/dL Normal <130 mg/dL Commun i [Mass/Vol] (calc) [facility] (44396) Cholesterol.total/Ch 2.5 {ratio} Normal <5.0 Commu ni olesterol in HDL (calc) ty [Mass ratio] [facility] (53631) CO2 [Moles/Vol] 26 mmol/L Normal 20-32 Communi mmol/L ty [facility] (49452) Creatinine (U) 91 mg/dL Normal 20-275 Communi [Mass/Vol] mg/dL ty [facility] (73425) Creatinine 0.87 mg/dL Normal 0.60-0.93 Communi [Mass/Vol] mg/dL ty [facility] (21110) Eosinophils (Bld) 0.28 10*3/uL Normal 15-500 Communi [#/Vol] cells/uL ty [facility] (08249) Eosinophils/100 WBC 3.5 % Normal % Commun i (Bld) ty [facility] (52141) Erythrocyte 13.2 % Normal 11.0-15.0 Communi distribution width % ty (RBC) [Ratio] [facility] (99481) GFR/1.73 sq 78 mL/min/{1.73_m2} Normal > OR = 60 Commun i M.predicted among mL/min/1.7 ty blacks MDRD 3m2 Health (S/P/Bld) [Vol Center rate/Area] [facility] (91733) GFR/1.73 sq 67 mL/min/{1.73_m2} Normal > OR = 60 Commun i M.predicted MDRD mL/min/1.7 ty (S/P/Bld) [Vol 3m2 Health rate/Area] [facility] (14527) Globulin (S) 2.3 g/dL Normal 1.9-3.7 Communi [Mass/Vol] g/dL ty (calc) [facility] (80224) Glucose [Mass/Vol] 148 mg/dL High 65-99 Communi mg/dL ty [facility] (54698) HbA1c (Bld) [Mass 6.9 High <5.7 % of Communi fraction] total Hgb ty [facility] (67259) Hematocrit (Bld) 38.3 % Normal 35.0-45.0 Communi [Volume fraction] % ty [facility] (78124) Hemoglobin (Bld) 12.6 g/dL Normal 11.7-15.5 Communi [Mass/Vol] g/dL [facility] (30361) Lymphocytes (Bld) 1.984 10*3/uL Normal 850-3900 Commun i [#/Vol] cells/uL [facility] (76754) Lymphocytes/100 WBC 24.8 % Normal % Commun i (Bld) [facility] (68614) MCH (RBC) [Entitic 28.6 pg Normal 27.0-33.0 Communi mass] pg [facility] (99381) MCHC (RBC) 32.9 g/dL Normal 32.0-36.0 Communi [Mass/Vol] g/dL [facility] (22337) MCV (RBC) [Entitic 86.8 fL Normal 80.0-100.0 Communi vol] fL [facility] (63050) Monocytes (Bld) 0.584 10*3/uL Normal 200-950 Communi [#/Vol] cells/uL [facility] (60341) Monocytes/100 WBC 7.3 % Normal % Communi (Bld) [facility] (13598) Neutrophils (Bld) 5.12 10*3/uL Normal 2597-8910 Communi [#/Vol] cells/uL [facility] (26352) Neutrophils/100 WBC 64 % Normal % Commun i (Bld) [facility] (55726) Platelet mean volume 9.9 fL Normal 7.5-12.5 Commu ni (Bld) [Entitic vol] fL [facility] (92119) Platelets (Bld) 277 10*3/uL Normal 140-400 Communi [#/Vol] Thousand/u ty L [facility] (23719) Potassium 5.1 mmol/L Normal 3.5-5.3 Communi [Moles/Vol] mmol/L [facility] (46255) Protein [Mass/Vol] 6.3 g/dL Normal 6.1-8.1 Communi g/dL ty [facility] (34192) RBC (Bld) [#/Vol] 4.41 10*6/uL Normal 3.80-5.10 Communi Million/uL ty [facility] (95626) Sodium [Moles/Vol] 138 mmol/L Normal 135-146 Communi mmol/L ty [facility] (23687) Triglyceride 80 mg/dL Normal <150 mg/dL Communi [Mass/Vol] ty [facility] (40079) Urea nitrogen 24 mg/dL Normal 7-25 mg/dL Communi [Mass/Vol] ty [facility] (65830) Urea NOT APPLICABLE Invalid 6-22 Communi nitrogen/Creatinine Interpreta (calc) ty [Mass ratio] tion Code [facility] (08766) WBC (Bld) [#/Vol] 8.0 10*3/uL Normal 3.8-10.8 Communi Thousand/u ty L [facility] (21845) Social History No Information Vital Signs The data below is from unstructured sources Vital Response Date/Time Temperature (Fahrenheit) 97.8 degree s F (97.6 - 99.5) 10/08/2017 1:05pm Temperature (Calculated Celsius) 36. 87265 degrees C (36.4 - 37.5) 10/08/2017 4:30am Temperature Source Tympanic 10/08/2017 1:05pm Pulse Rate (adult) 92 bpm (60 - 90) 10/08/2017 1:05pm Respiratory Rate 18 bpm (12 - 24) 10/08/2017 1:05pm O2 Sat by Pulse Oximetry 95 % (88 - 100) 10/08/2017 1:05pm Blood Pressure 132/76 mm Hg 10/08/2017 1:05pm Blood Pressure Mean 94 mm Hg (65 - 110) 10/08/2017 4:30am Pain Numeric Pain Scale 0-No Pain 10/08/2017 1:05pm Height (Feet) 5 feet 7:34pm Height (Inches) 7.00 inches 09/28/2017 7:34pm Height (Calculated Centimeters) 170. [id number] cm 09/28/2017 7:34pm Weight (Pounds) 316 pounds 10/08/2017 3:23am Weight (Ounces) 0.0 oz 0 10/08/2017 3:23am Weight (Calculated Grams) 979362.190 gm 10/08/2017 3:23am Weight (Calculated Kilograms) 143.33 5190 kilograms 10/08/2017 3:23am Calculated BMI 51.6 09/01 7:34pm Weight Measurement Method Built in mytraxcal e 10/08/2017 3:23am No vital sign information available. Functional Status The data below is from unstructured sources Query Response Date Silvestre rded Patient Orientation Person Place Time Situation October 07, 2017 3:48pm Comprehension Ability Understands Co ncepts October 08, 2017 9:00am No functional status information available. Mental Status No Information Discharge Instructions No hospital discharge instructions.No hospital discharge instructions.No hospital discharge instruction information available.No hospital discharge instruction information available. Advance Directives Directive Response Recor ded Date/Time Advance Directives Yes 0 09/28/17 7:42pm Health Care Power of [place] Yes 09/28/17 7:42pm Organ Donor No 09/28/17 7:42pm Resuscitation Status Full Code 09/28/17 7:42pm Directive Response Recor ded Date/Time Advance Directives Yes 0 09/28/17 7:42pm Health Care Power of [place] Yes 09/28/17 7:42pm Organ Donor No 09/28/17 7:42pm Additional Source Comments This clinical document has been generated using [employer] software that has been certified by the Office of the National Coordinator for Health Information Technology (ONC 15.99.04.3023.Diam.31.00.0.634442) and the National Committee for [employer] (NCQA, as an eMeasure certified technology). FOR RECORDS PERTAINING TO PATIENTS WHO ARE OR HAVE BEEN ENROLLED IN A CHEMICAL D EPENDENCY/SUBSTANCE ABUSE PROGRAM, SOME INFORMATION MAY BE OMITTED. This clinica l summary was aggregated from multiple sources. Caution should be exercised in using it in the provision of clinical care. This summary normalizes information from multiple sources, and as a consequence, information in this document may ma terially change the coding, format and clinical context of patient data. In tanya tion, data may be omitted in some cases. CLINICAL DECISIONS SHOULD BE BASED ON T HE PRIMARY CLINICAL RECORDS. [facility]. provides no warranty or guara ntee of the accuracy or completeness of information in this document.The followi ng information is based on time limited clinical information
--- OUTSIDE RECORDS SUMMARY | 2019-11-17 21:41 | XMS REPORT | Continuity of Care Document ---
Author Organization Unknown Address Unknown Phone Unavailable Allergies Active Description Code Type Severity Reaction Onset Reported/Identified Relationship to Patient Clinical Status Yes Penicillins [id number] Drug Aller gy Unknown N/A 09/24/2006 Medications There is no data. Problems Date Dx Coded Attending Type Code Diagnosis Diagnosed By 01/27/2015 KAUR KOCH DO Ot 327. 23 OBSTRUCTIVE SLEEP APNEA (ADULT) (PEDIATR 02/13/2015 KAUR KOCH DO Ot 278. 01 02/13/2015 KAUR KOCH DO Ot 493. 90 02/21/2015 ANNELISE ZAVALA, JOHNNY Rutledge Ot Z12.31 02/26/2015 KAUR KOCH DO Ot 278. 01 02/26/2015 KAUR KOCH DO Ot 493. 90 02/28/2015 ABHINAV WILSONINE Senait DOCUMENT PREPARER MICROFILMING Ot E66.01 02/28/2015 ABHINAV WILSONINE Senait DOCUMENT PREPARER MICROFILMING Ot G47.33 02/28/2015 ABHINAV WILSONINE Senait DOCUMENT PREPARER MICROFILMING Ot J45.909 03/13/2015 ABHINAV WILSONINE Senait DOCUMENT PREPARER MICROFILMING Ot G47.33 OBSTRUCTIVE SLEEP APNEA (ADULT) (PEDIATR 03/13/2015 ABHINAV WILSONINE E DOCUMENT PREPARER MICROFILMING Ot E66.01 03/13/2015 ABHINAV WILSONINE E DOCUMENT PREPARER MICROFILMING Ot G47.33 03/13/2015 ABHINAV WILSONINE E DOCUMENT PREPARER MICROFILMING Ot J45.909 05/02/2015 ABHINAV WILSONINE E DOCUMENT PREPARER MICROFILMING Ot E66.01 05/02/2015 ABHINAV WILSONINE Senait DOCUMENT PREPARER MICROFILMING Ot J18.9 05/02/2015 ABHINAV WILSONINE Senait DOCUMENT PREPARER MICROFILMING Ot J45.909 05/02/2015 ABHINAV WILSONINE E DOCUMENT PREPARER MICROFILMING Ot R06.81 05/02/2015 ABHINAV WILSONINE E DOCUMENT PREPARER MICROFILMING Ot Z12.31 05/02/2015 ABHINAV WILSONINE Senait DOCUMENT PREPARER MICROFILMING Ot E66.01 05/02/2015 WILFRID WILSON DOCUMENT PREPARER MICROFILMING Ot J18.9 05/02/2015 ABHINAV WILSONINE E DOCUMENT PREPARER MICROFILMING Ot J45.909 05/02/2015 ABHINAV WILSONINE Senait DOCUMENT PREPARER MICROFILMING Ot R06.81 05/02/2015 ABHINAV WILSONINE Senait DOCUMENT PREPARER MICROFILMING Ot Z12.31 07/05/2015 ABHINAV WILSONINE E DOCUMENT PREPARER MICROFILMING Ot J45.909 07/11/2015 ABHINAV WILSONINE E DOCUMENT PREPARER MICROFILMING Ot J45.909 08/13/2015 Ot V76.12 08/13/2015 Ot 496 08/13/2015 Ot 782.3 08/13/2015 Ot 786.05 08/13/2015 Ot V76.12 08/13/2015 Ot 496 08/13/2015 Ot 782.3 08/13/2015 Ot 786.50 08/13/2015 ANNELISE ZAVALA, JOHNNY Rutledge Ot V76.12 08/13/2015 KAUR KOCH DO Ot 278. 01 08/13/2015 KAUR KOCH DO Ot 493. 90 08/13/2015 ANNELISE ZAVALA, JOHNNY Rutledge Ot Z12.31 08/13/2015 WILFRID WILSON DOCUMENT PREPARER MICROFILMING Ot E66.01 08/13/2015 WILFRID WILSON DOCUMENT PREPARER MICROFILMING Ot G47.33 08/13/2015 WILFRID WILSON DOCUMENT PREPARER MICROFILMING Ot J45.909 08/13/2015 ABHINAV WILSONINE E DOCUMENT PREPARER MICROFILMING Ot E66.01 08/13/2015 WILFRID WILSON DOCUMENT PREPARER MICROFILMING Ot J18.9 08/13/2015 WILFRID WILSON DOCUMENT PREPARER MICROFILMING Ot J45.909 08/13/2015 WILFRID WILSON DOCUMENT PREPARER MICROFILMING Ot R06.81 08/13/2015 ABHINAV WILSONINE Senait DOCUMENT PREPARER MICROFILMING Ot Z12.31 08/13/2015 ABHINAV WILSONINE Senait DOCUMENT PREPARER MICROFILMING Ot J45.909 08/13/2015 ABHINAV WILSONINE Senait DOCUMENT PREPARER MICROFILMING Ot J45.909 09/04/2015 WILFRID WILSON DOCUMENT PREPARER MICROFILMING Ot J45.909 UNSPECIFIED ASTHMA, UNCOMPLICATED 09/11/2015 WILFRID WILSON DOCUMENT PREPARER MICROFILMING Ot J45.909 UNSPECIFIED ASTHMA, UNCOMPLICATED 06/23/2017 ANNELISE ZAVALA, JOHNNY Rutledge Ot V76.12 OT SCREEN MAMMO-MALIGN NEOPLASM OF [place] 06/23/2017 KAUR KOCH DO Ot 278. 01 MORBID OBESITY 06/23/2017 KAUR KOCH DO Ot 493. 90 ASTHMA, UNSPECIFIED 06/23/2017 ANNELISE ZAVALA, JOHNNY Rutledge Ot Z12.31 ENCNTR SCREEN MAMMOGRAM FOR MALIGNANT NE 06/23/2017 WILFRID WILSON DOCUMENT PREPARER MICROFILMING Ot E66.01 MORBID (SEVERE) OBESITY DUE TO EXCESS CA 06/23/2017 WILFRID WILSON E DOCUMENT PREPARER MICROFILMING Ot G47.33 OBSTRUCTIVE SLEEP APNEA (ADULT) (PEDIATR 06/23/2017 ABHINAV WILSONINE E DOCUMENT PREPARER MICROFILMING Ot J45.909 UNSPECIFIED ASTHMA, UNCOMPLICATED 06/23/2017 WILFRID WILSON DOCUMENT PREPARER MICROFILMING Ot E66.01 MORBID (SEVERE) OBESITY DUE TO EXCESS CA 06/23/2017 WILFRID WILSON DOCUMENT PREPARER MICROFILMING Ot J18.9 PNEUMONIA, UNSPECIFIED ORGANISM 06/23/2017 WILFRID WILSON DOCUMENT PREPARER MICROFILMING Ot J45.909 UNSPECIFIED ASTHMA, UNCOMPLICATED 06/23/2017 WILFRID WILSON DOCUMENT PREPARER MICROFILMING Ot R06.81 APNEA, NOT ELSEWHERE CLASSIFIED 06/23/2017 WILFRID WILSON DOCUMENT PREPARER MICROFILMING Ot Z12.31 ENCNTR SCREEN MAMMOGRAM FOR MALIGNANT NE 06/23/2017 WILFRID WILSON DOCUMENT PREPARER MICROFILMING Ot J45.909 UNSPECIFIED ASTHMA, UNCOMPLICATED 06/23/2017 WILFRID WILSON DOCUMENT PREPARER MICROFILMING Ot J45.909 UNSPECIFIED ASTHMA, UNCOMPLICATED 06/28/2017 EFRAIN HARRINGTON MD Ot E13. 9 OTHER SPECIFIED DIABETES MELLITUS WITHOU 06/28/2017 EFRAIN HARRINGTON MD Ot I25. 10 ATHSCL HEART DISEASE OF [place] CORONARY 06/28/2017 EFRAIN HARRINGTON MD Ot E13. 9 OTHER SPECIFIED DIABETES MELLITUS WITHOU 06/28/2017 EFRAIN HARRINGTON MD Ot G47. 33 OBSTRUCTIVE SLEEP APNEA (ADULT) (PEDIATR 06/28/2017 EFRAIN HARRINGTON MD Ot I25. 10 ATHSCL HEART DISEASE OF [place] CORONARY 06/28/2017 EFRAIN HARRINGTON MD Ot I34. 0 NONRHEUMATIC MITRAL (VALVE) INSUFFICIENC 06/28/2017 EFRAIN HARRINGTON MD Ot I51. 7 CARDIOMEGALY 06/28/2017 EFRAIN HARRINGTON MD Ot I65. 29 OCCLUSION AND STENOSIS OF UNSPECIFIED CA 06/28/2017 EFRAIN HARRINGTON MD Ot R07. 89 OTHER CHEST PAIN 06/29/2017 EFRAIN HARRINGTON MD Ot E11. 9 TYPE 2 DIABETES MELLITUS WITHOUT COMPLIC 06/29/2017 EFRAIN HARRINGTON MD Ot G47. 33 OBSTRUCTIVE SLEEP APNEA (ADULT) (PEDIATR 06/29/2017 EFRAIN HARRINGTON MD Ot I25. 10 ATHSCL HEART DISEASE OF [place] CORONARY 06/29/2017 EFRAIN HARRINGTON MD Ot I51. 7 CARDIOMEGALY 06/29/2017 EFRAIN HARRINGTON MD Ot R07. 9 CHEST PAIN, UNSPECIFIED 06/30/2017 ANNELISE ZAVALA, JOHNNY Rutledge Ot V76.12 OTH SCREEN MAMMO-MALIGN NEOPLASM OF [place] 06/30/2017 KAUR KOCH DO Ot 278. 01 MORBID OBESITY 06/30/2017 KAUR KOCH DO Ot 493. 90 ASTHMA, UNSPECIFIED 06/30/2017 JOHNNY CASTELAN MD Ot Z12.31 ENCNTR SCREEN MAMMOGRAM FOR MALIGNANT NE 06/30/2017 WILFRID WILSON DOCUMENT PREPARER MICROFILMING Ot E66.01 MORBID (SEVERE) OBESITY DUE TO EXCESS CA 06/30/2017 WILFRID WILSON DOCUMENT PREPARER MICROFILMING Ot G47.33 OBSTRUCTIVE SLEEP APNEA (ADULT) (PEDIATR 06/30/2017 WILFRID WILSON DOCUMENT PREPARER MICROFILMING Ot J45.909 UNSPECIFIED ASTHMA, UNCOMPLICATED 06/30/2017 WILFRID WILSON DOCUMENT PREPARER MICROFILMING Ot E66.01 MORBID (SEVERE) OBESITY DUE TO EXCESS CA 06/30/2017 WILFRID WILSON DOCUMENT PREPARER MICROFILMING Ot J18.9 PNEUMONIA, UNSPECIFIED ORGANISM 06/30/2017 WILFRID WILSON DOCUMENT PREPARER MICROFILMING Ot J45.909 UNSPECIFIED ASTHMA, UNCOMPLICATED 06/30/2017 WILFRID WILSON DOCUMENT PREPARER MICROFILMING Ot R06.81 APNEA, NOT ELSEWHERE CLASSIFIED 06/30/2017 WILFRID WILSON DOCUMENT PREPARER MICROFILMING Ot Z12.31 ENCNTR SCREEN MAMMOGRAM FOR MALIGNANT NE 06/30/2017 WILFRID WILSON DOCUMENT PREPARER MICROFILMING Ot J45.909 UNSPECIFIED ASTHMA, UNCOMPLICATED 06/30/2017 WILFRID WILSON DOCUMENT PREPARER MICROFILMING Ot J45.909 UNSPECIFIED ASTHMA, UNCOMPLICATED 06/30/2017 EFRAIN HARRINGTON MD Ot E13. 9 OTHER SPECIFIED DIABETES MELLITUS WITHOU 06/30/2017 EFRAIN HARRINGTON MD Ot G47. 33 OBSTRUCTIVE SLEEP APNEA (ADULT) (PEDIATR 06/30/2017 EFRAIN HARRNIGTON MD Ot I25. 10 ATHSCL HEART DISEASE OF [place] CORONARY 06/30/2017 EFRAIN HARRINGTON MD Ot I34. 0 NONRHEUMATIC MITRAL (VALVE) INSUFFICIENC 06/30/2017 EFRAIN HARRINGTON MD Ot I51. 7 CARDIOMEGALY 06/30/2017 EFRAIN HARRINGTON MD Ot I65. 29 OCCLUSION AND STENOSIS OF UNSPECIFIED CA 06/30/2017 EFRAIN HARRINGTON MD Ot R07. 89 OTHER CHEST PAIN 06/30/2017 EFRAIN HARRINGTON MD Ot E11. 9 TYPE 2 DIABETES MELLITUS WITHOUT COMPLIC 06/30/2017 EFRAIN AHRRINGTON MD Ot G47. 33 OBSTRUCTIVE SLEEP APNEA (ADULT) (PEDIATR 06/30/2017 EFRAIN HARRINGTON MD Ot I25. 10 ATHSCL HEART DISEASE OF [place] CORONARY 06/30/2017 EFRAIN HARRINGTON MD Ot I51. 7 CARDIOMEGALY 06/30/2017 EFRAIN HARRINGTON MD Ot R07. 9 CHEST PAIN, UNSPECIFIED 06/30/2017 EFRAIN HARRINGTON MD Ot E11. 9 TYPE 2 DIABETES MELLITUS WITHOUT COMPLIC 06/30/2017 EFRAIN HARRINGTON MD Ot E78. 5 HYPERLIPIDEMIA, UNSPECIFIED 06/30/2017 EFRAIN HARRINGTON MD Ot I10 ESSENTIAL (PRIMARY) HYPERTENSION 06/30/2017 EFRAIN HARRINGTON MD Ot I25. 10 ATHSCL HEART DISEASE OF [place] CORONARY 06/30/2017 EFRAIN HARRINGTON MD Ot I65. 29 OCCLUSION AND STENOSIS OF UNSPECIFIED CA 06/30/2017 EFRAIN HARRINGTON MD Ot Z79. 84 [facility] (CURRENT) USE OF ORAL HYPOGLYC 06/30/2017 EFRAIN HARRINGTON MD Ot Z79.899 OTHER [facility] (CURRENT) DRUG THERAPY 06/30/2017 EFRAIN HARRINGTON MD Ot Z82. 49 FAMILY HX OF [place] HEART DIS AND OTH DI 06/30/2017 EFRAIN HARRINGTON MD Ot Z88. 0 ALLERGY STATUS TO PENICILLIN 07/02/2017 EFRAIN HARRINGTON MD Ot E11. 9 TYPE 2 DIABETES MELLITUS WITHOUT COMPLIC 07/02/2017 EFARIN HARRINGTON MD Ot E78. 5 HYPERLIPIDEMIA, UNSPECIFIED 07/02/2017 EFRAIN HARRINGTON MD Ot I10 ESSENTIAL (PRIMARY) HYPERTENSION 07/02/2017 EFRAIN HARRINGTON MD Ot I25. 10 ATHSCL HEART DISEASE OF [place] CORONARY 07/02/2017 EFRAIN HARRINGTON MD Ot I65. 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 49 FAMILY HX OF [place] HEART DIS AND OTH DI 07/02/2017 EFRAIN HARRINGTON MD Ot Z88. 0 ALLERGY STATUS TO PENICILLIN 07/02/2017 EFRAIN HARRINGTON MD Ot E11. 9 TYPE 2 DIABETES MELLITUS WITHOUT COMPLIC 07/02/2017 EFRAIN HARRINGTON MD Ot E78. 5 HYPERLIPIDEMIA, UNSPECIFIED 07/02/2017 EFRAIN HARRINGTON MD Ot I10 ESSENTIAL (PRIMARY) HYPERTENSION 07/02/2017 EFRAIN HARRINGTON MD Ot I25. 10 ATHSCL HEART DISEASE OF [place] CORONARY 07/02/2017 EFRAIN HARRINGTON MD Ot I65. 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 49 FAMILY HX OF [place] HEART DIS AND OTH DI 07/02/2017 EFRAIN HARRINGTON MD Ot Z88. 0 ALLERGY STATUS TO PENICILLIN 07/04/2017 EFRAIN HARRINGTON MD Ot E11. 9 TYPE 2 DIABETES MELLITUS WITHOUT COMPLIC 07/04/2017 EFRAIN HARRINGTON MD Ot G47. 33 OBSTRUCTIVE SLEEP APNEA (ADULT) (PEDIATR 07/04/2017 EFRAIN HARRINGTON MD Ot I25. 10 ATHSCL HEART DISEASE OF [place] CORONARY 07/04/2017 EFRAIN HARRINGTON MD Ot I51. 7 CARDIOMEGALY 07/04/2017 EFRAIN HARRINGTON MD Ot R07. 9 CHEST PAIN, UNSPECIFIED 07/23/2017 EFRAIN HARRINGTON MD Ot E13. 9 OTHER SPECIFIED DIABETES MELLITUS WITHOU 07/23/2017 EFRAIN HARRINGTON MD Ot G47. 33 OBSTRUCTIVE SLEEP APNEA (ADULT) (PEDIATR 07/23/2017 EFRAIN HARRINGTON MD Ot I25. 10 ATHSCL HEART DISEASE OF [place] CORONARY 07/23/2017 EFRAIN HARRINGTON MD Ot I34. 0 NONRHEUMATIC MITRAL (VALVE) INSUFFICIENC 07/23/2017 EFRAIN HARRINGTON MD Ot I51. 7 CARDIOMEGALY 07/23/2017 EFRAIN HARRINGTON MD Ot I65. 29 OCCLUSION AND STENOSIS OF UNSPECIFIED CA 07/23/2017 EFRAIN HARRINGTON MD Ot R07. 89 OTHER CHEST PAIN 08/09/2017 EFRAIN HARRINGTON MD Ot E11. 9 TYPE 2 DIABETES MELLITUS WITHOUT COMPLIC 08/09/2017 EFRAIN HARRINGTON MD Ot G47. 33 OBSTRUCTIVE SLEEP APNEA (ADULT) (PEDIATR 08/09/2017 EFRAIN HARRINGTON MD Ot I51. 7 CARDIOMEGALY 08/09/2017 EFRAIN HARRINGTON MD Ot R07. 9 CHEST PAIN, UNSPECIFIED 09/28/2017 JOHNNY CASTELAN MD Ot V76.12 OTH SCREEN MAMMO-MALIGN NEOPLASM OF [place] 09/28/2017 KAUR KOCH DO Ot 278. 01 MORBID OBESITY 09/28/2017 KAUR KOCH DO Ot 493. 90 ASTHMA, UNSPECIFIED 09/28/2017 ANNELISE ZAVALA, JOHNNY Rutledge Ot Z12.31 ENCNTR SCREEN MAMMOGRAM FOR MALIGNANT NE 09/28/2017 WILFRID WILSON APRN Ot E66.01 MORBID (SEVERE) OBESITY DUE TO EXCESS CA 09/28/2017 WILFRID WILSON APRN Ot G47.33 OBSTRUCTIVE SLEEP APNEA (ADULT) (PEDIATR 09/28/2017 WILFRID WILSON DOCUMENT PREPARER MICROFILMING Ot J45.909 UNSPECIFIED ASTHMA, UNCOMPLICATED 09/28/2017 WILFRID WILSON DOCUMENT PREPARER MICROFILMING Ot E66.01 MORBID (SEVERE) OBESITY DUE TO EXCESS CA 09/28/2017 WILFRID WILSON DOCUMENT PREPARER MICROFILMING Ot J18.9 PNEUMONIA, UNSPECIFIED ORGANISM 09/28/2017 WILFRID WILSON DOCUMENT PREPARER MICROFILMING Ot J45.909 UNSPECIFIED ASTHMA, UNCOMPLICATED 09/28/2017 WILFRID WILSON DOCUMENT PREPARER MICROFILMING Ot R06.81 APNEA, NOT ELSEWHERE CLASSIFIED 09/28/2017 WILFRID WILSON DOCUMENT PREPARER MICROFILMING Ot Z12.31 ENCNTR SCREEN MAMMOGRAM FOR MALIGNANT NE 09/28/2017 WILFRID WILSON DOCUMENT PREPARER MICROFILMING Ot J45.909 UNSPECIFIED ASTHMA, UNCOMPLICATED 09/28/2017 WILFRID WILSON DOCUMENT PREPARER MICROFILMING Ot J45.909 UNSPECIFIED ASTHMA, UNCOMPLICATED 09/28/2017 EFRAIN HARRINGTON MD Ot E13. 9 OTHER SPECIFIED DIABETES MELLITUS WITHOU 09/28/2017 EFRAIN HARRINGTON MD Ot G47. 33 OBSTRUCTIVE SLEEP APNEA (ADULT) (PEDIATR 09/28/2017 EFRAIN HARRINGTON MD Ot I25. 10 ATHSCL HEART DISEASE OF [place] CORONARY 09/28/2017 EFRAIN HARRINGTON MD Ot I34. 0 NONRHEUMATIC MITRAL (VALVE) INSUFFICIENC 09/28/2017 EFRAIN HARRINGTON MD Ot I51. 7 CARDIOMEGALY 09/28/2017 EFRAIN HARRINGTON MD Ot I65. 29 OCCLUSION AND STENOSIS OF UNSPECIFIED CA 09/28/2017 EFRAIN HARRINGTON MD Ot R07. 89 OTHER CHEST PAIN 09/28/2017 EFRAIN HARRINGTON MD Ot E11. 9 TYPE 2 DIABETES MELLITUS WITHOUT COMPLIC 09/28/2017 EFRAIN HARRINGTON MD Ot G47. 33 OBSTRUCTIVE SLEEP APNEA (ADULT) (PEDIATR 09/28/2017 EFRAIN HARRINGTON MD Ot I51. 7 CARDIOMEGALY 09/28/2017 EFRAIN HARRINGTON MD Ot R07. 9 CHEST PAIN, UNSPECIFIED 09/29/2017 TONY GAN MD Ot E11.9 TYPE 2 DIABETES MELLITUS WITHOUT COMPLIC 09/29/2017 TONY GAN MD Ot E66.0 1 MORBID (SEVERE) OBESITY DUE TO EXCESS CA 09/29/2017 TONY GAN MD Ot E78.5 HYPERLIPIDEMIA, UNSPECIFIED 09/29/2017 TONY GAN MD Ot G47.3 3 OBSTRUCTIVE SLEEP APNEA (ADULT) (PEDIATR 09/29/2017 TONY GAN MD Ot G72.8 9 OTHER SPECIFIED MYOPATHIES 09/29/2017 TONY GAN MD E Ot I10 ESSENTIAL (PRIMARY) HYPERTENSION 09/29/2017 TONY GAN MD E Ot I25.1 0 ATHSCL HEART DISEASE OF [place] CORONARY 09/29/2017 TONY GAN MD E Ot Z68.4 3 BODY MASS INDEX (BMI) 50-59.9 , ADULT 09/29/2017 TONY GAN MD E Ot Z79.8 4 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 09/29/2017 TONY GAN MD E Ot Z95.1 PRESENCE OF AORTOCORONARY BYPASS GRAFT 09/29/2017 TONY GAN MD E Ot Z99.8 1 DEPENDENCE ON SUPPLEMENTAL OXYGEN 10/01/2017 TONY GAN MD E Ot E11.9 TYPE 2 DIABETES MELLITUS WITHOUT COMPLIC 10/01/2017 FINA GAN MDIC E Ot E66.0 1 MORBID (SEVERE) OBESITY DUE TO EXCESS CA 10/01/2017 TONY GAN MD E Ot E78.5 HYPERLIPIDEMIA, UNSPECIFIED 10/01/2017 FINA GAN MDIC E Ot G47.3 3 OBSTRUCTIVE SLEEP APNEA (ADULT) (PEDIATR 10/01/2017 TONY GAN MD E Ot G72.8 9 OTHER SPECIFIED MYOPATHIES 10/01/2017 TONY GAN MD E Ot I10 ESSENTIAL (PRIMARY) HYPERTENSION 10/01/2017 TONY GAN MD E Ot I25.1 0 ATHSCL HEART DISEASE OF [place] CORONARY 10/01/2017 TONY GAN MD E Ot Z68.4 3 BODY MASS INDEX (BMI) 50-59.9 , ADULT 10/01/2017 TONY GAN MD E Ot Z79.8 4 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 10/01/2017 FINA GAN MDIC E Ot Z95.1 PRESENCE OF AORTOCORONARY BYPASS GRAFT 10/01/2017 TONY GAN MD E Ot Z99.8 1 DEPENDENCE ON SUPPLEMENTAL OXYGEN 10/02/2017 TONY GAN MD E Ot E11.9 TYPE 2 DIABETES MELLITUS WITHOUT COMPLIC 10/02/2017 FINA GAN MDIC E Ot E66.0 1 MORBID (SEVERE) OBESITY DUE TO EXCESS CA 10/02/2017 TONY GAN MD E Ot E78.5 HYPERLIPIDEMIA, UNSPECIFIED 10/02/2017 FINA GAN MDIC E Ot G47.3 3 OBSTRUCTIVE SLEEP APNEA (ADULT) (PEDIATR 10/02/2017 FINA GAN MDIC E Ot G72.8 9 OTHER SPECIFIED MYOPATHIES 10/02/2017 TONY GAN MD E Ot I10 ESSENTIAL (PRIMARY) HYPERTENSION 10/02/2017 FINA GAN MDIC E Ot I25.1 0 ATHSCL HEART DISEASE OF [place] CORONARY 10/02/2017 TONY GAN MD E Ot Z68.4 3 BODY MASS INDEX (BMI) 50-59.9 , ADULT 10/02/2017 TONY GAN MD E Ot Z79.8 4 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 10/02/2017 TONY GAN MD E Ot Z95.1 PRESENCE OF AORTOCORONARY BYPASS GRAFT 10/02/2017 TONY GAN MD E Ot Z99.8 1 DEPENDENCE ON SUPPLEMENTAL OXYGEN 10/03/2017 TONY GAN MD E Ot E11.9 TYPE 2 DIABETES MELLITUS WITHOUT COMPLIC 10/03/2017 FINA GAN MDIC E Ot E66.0 1 MORBID (SEVERE) OBESITY DUE TO EXCESS CA 10/03/2017 TONY GAN MD E Ot E78.5 HYPERLIPIDEMIA, UNSPECIFIED 10/03/2017 FINA GAN MDIC E Ot G47.3 3 OBSTRUCTIVE SLEEP APNEA (ADULT) (PEDIATR 10/03/2017 TONY GAN MD E Ot G72.8 9 OTHER SPECIFIED MYOPATHIES 10/03/2017 TONY GAN MD E Ot I10 ESSENTIAL (PRIMARY) HYPERTENSION 10/03/2017 TONY GAN MD E Ot I25.1 0 ATHSCL HEART DISEASE OF [place] CORONARY 10/03/2017 TONY GAN MD E Ot Z68.4 3 BODY MASS INDEX (BMI) 50-59.9 , ADULT 10/03/2017 TONY GAN MD E Ot Z79.8 4 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 10/03/2017 FINA GAN MDIC E Ot Z95.1 PRESENCE OF AORTOCORONARY BYPASS GRAFT 10/03/2017 TONY GAN MD E Ot Z99.8 1 DEPENDENCE ON SUPPLEMENTAL OXYGEN 10/04/2017 TONY GAN MD E Ot E11.9 TYPE 2 DIABETES MELLITUS WITHOUT COMPLIC 10/04/2017 FINA GAN MDIC E Ot E66.0 1 MORBID (SEVERE) OBESITY DUE TO EXCESS CA 10/04/2017 TONY GAN MD E Ot E78.5 HYPERLIPIDEMIA, UNSPECIFIED 10/04/2017 TONY GAN MD E Ot G47.3 3 OBSTRUCTIVE SLEEP APNEA (ADULT) (PEDIATR 10/04/2017 TONY GAN MD E Ot G72.8 9 OTHER SPECIFIED MYOPATHIES 10/04/2017 TONY GAN MD E Ot I10 ESSENTIAL (PRIMARY) HYPERTENSION 10/04/2017 TONY GAN MD E Ot I25.1 0 ATHSCL HEART DISEASE OF [place] CORONARY 10/04/2017 TONY GAN MD E Ot Z68.4 3 BODY MASS INDEX (BMI) 50-59.9 , ADULT 10/04/2017 TONY GAN MD E Ot Z79.8 4 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 10/04/2017 TONY GAN MD E Ot Z95.1 PRESENCE OF AORTOCORONARY BYPASS GRAFT 10/04/2017 TONY GAN MD E Ot Z99.8 1 DEPENDENCE ON SUPPLEMENTAL OXYGEN 10/04/2017 TONY GAN MD E Ot E11.9 TYPE 2 DIABETES MELLITUS WITHOUT COMPLIC 10/04/2017 FINA GAN MDIC E Ot E66.0 1 MORBID (SEVERE) OBESITY DUE TO EXCESS CA 10/04/2017 TONY GAN MD E Ot E78.5 HYPERLIPIDEMIA, UNSPECIFIED 10/04/2017 TONY GAN MD E Ot G47.3 3 OBSTRUCTIVE SLEEP APNEA (ADULT) (PEDIATR 10/04/2017 TONY GAN MD E Ot G72.8 9 OTHER SPECIFIED MYOPATHIES 10/04/2017 TONY GAN MD E Ot I10 ESSENTIAL (PRIMARY) HYPERTENSION 10/04/2017 TONY GAN MD E Ot I25.1 0 ATHSCL HEART DISEASE OF [place] CORONARY 10/04/2017 TONY GAN MD E Ot Z68.4 3 BODY MASS INDEX (BMI) 50-59.9 , ADULT 10/04/2017 TONY GAN MD E Ot Z79.8 4 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 10/04/2017 FINA GAN MDIC E Ot Z95.1 PRESENCE OF AORTOCORONARY BYPASS GRAFT 10/04/2017 TONY GAN MD E Ot Z99.8 1 DEPENDENCE ON SUPPLEMENTAL OXYGEN 10/05/2017 TONY GAN MD E Ot E11.9 TYPE 2 DIABETES MELLITUS WITHOUT COMPLIC 10/05/2017 ELVIA ZAVALA TONY E Ot E66.0 1 MORBID (SEVERE) OBESITY DUE TO EXCESS CA 10/05/2017 TONY GAN MD E Ot E78.5 HYPERLIPIDEMIA, UNSPECIFIED 10/05/2017 TONY GAN MD E Ot G47.3 3 OBSTRUCTIVE SLEEP APNEA (ADULT) (PEDIATR 10/05/2017 TONY GAN MD E Ot G72.8 9 OTHER SPECIFIED MYOPATHIES 10/05/2017 TONY GAN MD E Ot I10 ESSENTIAL (PRIMARY) HYPERTENSION 10/05/2017 TONY GAN MD E Ot I25.1 0 ATHSCL HEART DISEASE OF [place] CORONARY 10/05/2017 TONY GAN MD E Ot Z68.4 3 BODY MASS INDEX (BMI) 50-59.9 , ADULT 10/05/2017 TONY GAN MD Ot Z79.8 4 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 10/05/2017 TONY GAN MD E Ot Z95.1 PRESENCE OF AORTOCORONARY BYPASS GRAFT 10/05/2017 TONY GAN MD E Ot Z99.8 1 DEPENDENCE ON SUPPLEMENTAL OXYGEN 10/05/2017 TONY GAN MD E Ot E11.9 TYPE 2 DIABETES MELLITUS WITHOUT COMPLIC 10/05/2017 TONY GAN MD E Ot E66.0 1 MORBID (SEVERE) OBESITY DUE TO EXCESS CA 10/05/2017 TONY GAN MD Ot E78.5 HYPERLIPIDEMIA, UNSPECIFIED 10/05/2017 TONY GAN MD E Ot G47.3 3 OBSTRUCTIVE SLEEP APNEA (ADULT) (PEDIATR 10/05/2017 TONY GAN MD E Ot G72.8 9 OTHER SPECIFIED MYOPATHIES 10/05/2017 TONY GAN MD E Ot I10 ESSENTIAL (PRIMARY) HYPERTENSION 10/05/2017 TONY GAN MD E Ot I25.1 0 ATHSCL HEART DISEASE OF [place] CORONARY 10/05/2017 TONY GAN MD E Ot Z68.4 3 BODY MASS INDEX (BMI) 50-59.9 , ADULT 10/05/2017 TONY GAN MD E Ot Z79.8 4 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 10/05/2017 TONY GAN MD E Ot Z95.1 PRESENCE OF AORTOCORONARY BYPASS GRAFT 10/05/2017 TONY GAN MD E Ot Z99.8 1 DEPENDENCE ON SUPPLEMENTAL OXYGEN 10/06/2017 TONY GAN MD E Ot E11.9 TYPE 2 DIABETES MELLITUS WITHOUT COMPLIC 10/06/2017 TONY GAN MD E Ot E66.0 1 MORBID (SEVERE) OBESITY DUE TO EXCESS CA 10/06/2017 TONY GAN MD Ot E78.5 HYPERLIPIDEMIA, UNSPECIFIED 10/06/2017 TONY GAN MD E Ot G47.3 3 OBSTRUCTIVE SLEEP APNEA (ADULT) (PEDIATR 10/06/2017 TONY GAN MD E Ot G72.8 9 OTHER SPECIFIED MYOPATHIES 10/06/2017 TONY GAN MD Ot I10 ESSENTIAL (PRIMARY) HYPERTENSION 10/06/2017 TONY GAN MD E Ot I25.1 0 ATHSCL HEART DISEASE OF [place] CORONARY 10/06/2017 TONY GAN MD Ot Z68.4 3 BODY MASS INDEX (BMI) 50-59.9 , ADULT 10/06/2017 TONY GAN MD Ot Z79.8 4 [facility] (CURRENT) USE OF ORAL HYPOGLYC 10/06/2017 TONY GAN MD E Ot Z95.1 PRESENCE OF AORTOCORONARY BYPASS GRAFT 10/06/2017 TONY GAN MD E Ot Z99.8 1 DEPENDENCE ON SUPPLEMENTAL OXYGEN 10/07/2017 TONY GAN MD E Ot E11.9 TYPE 2 DIABETES MELLITUS WITHOUT COMPLIC 10/07/2017 TONY GAN MD E Ot E66.0 1 MORBID (SEVERE) OBESITY DUE TO EXCESS CA 10/07/2017 TONY GAN MD Ot E78.5 HYPERLIPIDEMIA, UNSPECIFIED 10/07/2017 TONY GAN MD E Ot G47.3 3 OBSTRUCTIVE SLEEP APNEA (ADULT) (PEDIATR 10/07/2017 TONY GAN MD E Ot G72.8 9 OTHER SPECIFIED MYOPATHIES 10/07/2017 TONY GAN MD E Ot I10 ESSENTIAL (PRIMARY) HYPERTENSION 10/07/2017 TONY GAN MD E Ot I25.1 0 ATHSCL HEART DISEASE OF [place] CORONARY 10/07/2017 TONY GAN MD Ot Z68.4 3 BODY MASS INDEX (BMI) 50-59.9 , ADULT 10/07/2017 TONY GAN MD Ot Z79.8 4 [facility] (CURRENT) USE OF ORAL HYPOGLYC 10/07/2017 TONY GAN MD E Ot Z95.1 PRESENCE OF AORTOCORONARY BYPASS GRAFT 10/07/2017 TONY GAN MD E Ot Z99.8 1 DEPENDENCE ON SUPPLEMENTAL OXYGEN 10/08/2017 TONY GAN MD Ot E11.9 TYPE 2 DIABETES MELLITUS WITHOUT COMPLIC 10/08/2017 TONY GAN MD E Ot E66.0 1 MORBID (SEVERE) OBESITY DUE TO EXCESS CA 10/08/2017 TONY GAN MD Ot E78.5 HYPERLIPIDEMIA, UNSPECIFIED 10/08/2017 TONY GAN MD E Ot G47.3 3 OBSTRUCTIVE SLEEP APNEA (ADULT) (PEDIATR 10/08/2017 FINA GAN MDIC E Ot G72.8 9 OTHER SPECIFIED MYOPATHIES 10/08/2017 FINA GAN MDIC E Ot I10 ESSENTIAL (PRIMARY) HYPERTENSION 10/08/2017 TONY GAN MD E Ot I25.1 0 ATHSCL HEART DISEASE OF [place] CORONARY 10/08/2017 TONY GAN MD E Ot Z68.4 3 BODY MASS INDEX (BMI) 50-59.9 , ADULT 10/08/2017 TONY GAN MD E Ot Z79.8 4 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 10/08/2017 TONY GAN MD E Ot Z95.1 PRESENCE OF AORTOCORONARY BYPASS GRAFT 10/08/2017 TONY GAN MD E Ot Z99.8 1 DEPENDENCE ON SUPPLEMENTAL OXYGEN 10/08/2017 TONY GAN MD E Ot D64.9 ANEMIA, UNSPECIFIED 10/08/2017 TONY GAN MD E Ot E11.9 TYPE 2 DIABETES MELLITUS WITHOUT COMPLIC 10/08/2017 [place] GAN MDIC E Ot E66.0 1 MORBID (SEVERE) OBESITY DUE TO EXCESS CA 10/08/2017 TONY GAN MD Ot E78.5 HYPERLIPIDEMIA, UNSPECIFIED 10/08/2017 TONY GAN MD E Ot E88.0 9 OTH DISORDERS OF PLASMA-PROTEIN METABOLI 10/08/2017 TONY GAN MD E Ot G47.3 3 OBSTRUCTIVE SLEEP APNEA (ADULT) (PEDIATR 10/08/2017 TONY GAN MD E Ot G72.8 9 OTHER SPECIFIED MYOPATHIES 10/08/2017 TONY GAN MD E Ot I10 ESSENTIAL (PRIMARY) HYPERTENSION 10/08/2017 TONY GAN MD E Ot I25.1 0 ATHSCL HEART DISEASE OF [place] CORONARY 10/08/2017 TONY GAN MD E Ot Z68.4 3 BODY MASS INDEX (BMI) 50-59.9 , ADULT 10/08/2017 TONY GAN MD Ot Z79.8 4 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 10/08/2017 TONY GAN MD Ot Z95.1 PRESENCE OF AORTOCORONARY BYPASS GRAFT 10/08/2017 TONY GAN MD Ot Z99.8 1 DEPENDENCE ON SUPPLEMENTAL OXYGEN 01/25/2018 PAO ROJAS MD Ot Z48.812 ENCNTR FOR SURGICAL AFTCR FOLLOWING SURG 01/25/2018 PAO ROJAS MD Ot Z95 .1 PRESENCE OF AORTOCORONARY BYPASS GRAFT 02/12/2018 PAO ROJAS MD Ot Z48.812 ENCNTR FOR SURGICAL AFTCR FOLLOWING SURG 02/12/2018 PAO ROJAS MD Ot Z95 .1 PRESENCE OF AORTOCORONARY BYPASS GRAFT 03/06/2018 PAO ROJAS MD Ot Z48.812 ENCNTR FOR SURGICAL AFTCR FOLLOWING SURG 03/06/2018 PAO ROJAS MD Ot Z95 .1 PRESENCE OF AORTOCORONARY BYPASS GRAFT 03/07/2018 PAO ROJAS MD Ot Z48.812 ENCNTR FOR SURGICAL AFTCR FOLLOWING SURG 03/07/2018 PAO ROJAS MD Ot Z95 .1 PRESENCE OF AORTOCORONARY BYPASS GRAFT 03/12/2018 PAO ROJAS MD Ot Z48.812 ENCNTR FOR SURGICAL AFTCR FOLLOWING SURG 03/12/2018 PAO ROJAS MD Ot Z95 .1 PRESENCE OF AORTOCORONARY BYPASS GRAFT 05/12/2018 EFRAIN HARRINGTON MD Ot E11. 9 TYPE 2 DIABETES MELLITUS WITHOUT COMPLIC 05/12/2018 EFRAIN HARRINGTON MD Ot I07. 1 RHEUMATIC TRICUSPID INSUFFICIENCY 05/12/2018 EFRAIN HARRINGTON MD Ot I10 ESSENTIAL (PRIMARY) HYPERTENSION 05/12/2018 EFRAIN HARRINGTON MD Ot I25. 10 ATHSCL HEART DISEASE OF [place] CORONARY 05/13/2018 EFRAIN HARRINGTON MD Ot E11. 9 TYPE 2 DIABETES MELLITUS WITHOUT COMPLIC 05/13/2018 EFRAIN HARRINGTON MD Ot I10 ESSENTIAL (PRIMARY) HYPERTENSION 05/13/2018 EFRAIN HARRINGTON MD Ot I25. 10 ATHSCL HEART DISEASE OF [place] CORONARY 05/13/2018 EFRAIN HARRINGTON MD Ot I34. 0 NONRHEUMATIC MITRAL (VALVE) INSUFFICIENC 06/06/2018 EFRAIN HARRINGTON MD Ot E11. 9 TYPE 2 DIABETES MELLITUS WITHOUT COMPLIC 06/06/2018 EFRAIN HARRINGTON MD Ot I07. 1 RHEUMATIC TRICUSPID INSUFFICIENCY 06/06/2018 EFRAIN HARRINGTON MD Ot I10 ESSENTIAL (PRIMARY) HYPERTENSION 06/06/2018 EFRAIN HARRINGTON MD Ot I25. 10 ATHSCL HEART DISEASE OF [place] CORONARY 06/08/2018 EFRAIN HARRINGTON MD Ot E11. 9 TYPE 2 DIABETES MELLITUS WITHOUT COMPLIC 06/08/2018 EFRAIN HARRINGTON MD Ot I10 ESSENTIAL (PRIMARY) HYPERTENSION 06/08/2018 EFRAIN HARRINGTON MD Ot I25. 10 ATHSCL HEART DISEASE OF [place] CORONARY 06/08/2018 EFRAIN HARRINGTON MD Ot I34. 0 NONRHEUMATIC MITRAL (VALVE) INSUFFICIENC 06/16/2018 JOHNNY CASTELAN MD Ot E11.9 TYPE 2 DIABETES MELLITUS WITHOUT COMPLIC 06/17/2018 MARKO TAVAREZ MD Ot E13.9 OTHER SPECIFIED DIABETES MELLITUS WITHOU 06/17/2018 MARKO TAVAREZ MD Ot E66.0 1 MORBID (SEVERE) OBESITY DUE TO EXCESS CA 06/17/2018 MARKO TAVAREZ MD Ot I10 ESSENTIAL (PRIMARY) HYPERTENSION 06/17/2018 MARKO TAVAREZ MD Ot I25.1 0 ATHSCL HEART DISEASE OF [place] CORONARY 06/17/2018 MARKO TAVAREZ MD Ot I34.0 NONRHEUMATIC MITRAL (VALVE) INSUFFICIENC 06/17/2018 MARKO TAVAREZ MD Ot I65.2 9 OCCLUSION AND STENOSIS OF UNSPECIFIED CA 06/17/2018 JOHNNY CASTELAN MD Ot E11.9 TYPE 2 DIABETES MELLITUS WITHOUT COMPLIC 07/08/2018 MARKO TAVAREZ MD Ot E13.9 OTHER SPECIFIED DIABETES MELLITUS WITHOU 07/08/2018 MARKO TAVAREZ MD Ot E66.0 1 MORBID (SEVERE) OBESITY DUE TO EXCESS CA 07/08/2018 MARKO TAVAREZ MD Ot I10 ESSENTIAL (PRIMARY) HYPERTENSION 07/08/2018 MARKO TAVAREZ MD Ot I25.1 0 ATHSCL HEART DISEASE OF [place] CORONARY 07/08/2018 MARKO TAVAREZ MD Ot I34.0 NONRHEUMATIC MITRAL (VALVE) INSUFFICIENC 07/08/2018 MARKO TAVAREZ MD Ot I65.2 9 OCCLUSION AND STENOSIS OF UNSPECIFIED CA 07/20/2018 EFRAIN HARRINGTON MD Ot E78. 2 MIXED HYPERLIPIDEMIA 07/20/2018 EFRAIN HARRINGTON MD Ot I10 ESSENTIAL (PRIMARY) HYPERTENSION 07/20/2018 EFRAIN HARRINGTON MD Ot I25. 10 ATHSCL HEART DISEASE OF [place] CORONARY 08/16/2018 EFRAIN HARRINGTON MD Ot E78. 2 MIXED HYPERLIPIDEMIA 08/16/2018 EFRAIN HARRINGTON MD Ot I10 ESSENTIAL (PRIMARY) HYPERTENSION 08/16/2018 EFRAIN HARRINGTON MD Ot I25. 10 ATHSCL HEART DISEASE OF [place] CORONARY 04/24/2019 JAMES NOONAN Ot S62.324A DISP FX OF SHAFT OF FOURTH METACARPAL TRANG 04/24/2019 JAMES NOONAN Ot X58.XXXA EXPOSURE TO OTHER SPECIFIED FACTORS, INI 05/01/2019 JAMES NOONAN Ot I77.819 AORTIC ECTASIA, UNSPECIFIED SITE 05/01/2019 JAMES NOONAN Ot M41.86 OTHER FORMS OF SCOLIOSIS, LUMBAR REGION 05/01/2019 JAMES NOONAN Ot M43.16 SPONDYLOLISTHESIS, LUMBAR REGION 05/01/2019 JAMES NOONAN Ot M47.816 SPONDYLOSIS W/O MYELOPATHY OR RADICULOPA 05/12/2019 JAMES NOONAN Ot S62.324D DISP FX OF SHAFT OF 4TH MC BONE, R HAND, 05/29/2019 JAMES NOONAN Ot S62.324D DISP FX OF SHAFT OF 4TH MC BONE, R HAND, 06/13/2019 JAMES NOONAN Ot S62.324A DISP FX OF SHAFT OF FOURTH METACARPAL TRANG 06/13/2019 JAMES NOONAN Ot X58.XXXA EXPOSURE TO OTHER SPECIFIED FACTORS, INI 11/01/2019 JAMES NOONAN Ot M19.042 PRIMARY OSTEOARTHRITIS, LEFT HAND 11/01/2019 JAMES NOONAN Ot S62.324D DISP FX OF SHAFT OF 4TH MC BONE, R HAND, 11/01/2019 JAMES NOONAN J LEGAL ADVISOR Ot X58.XXXD EXPOSURE TO OTHER SPECIFIED FACTORS, SUB 11/01/2019 [place] JAMES MIRANDA Ot M19.042 PRIMARY OSTEOARTHRITIS, LEFT HAND 11/01/2019 [place] JAMES MIRANDA Ot S62.324D DISP FX OF SHAFT OF 4TH MC BONE, R HAND, 11/01/2019 JAMES NOONAN Gerson MIRANDA Ot X58.XXXD EXPOSURE TO OTHER SPECIFIED FACTORS, SUB Procedures There is no data. Results Test Result Range Complete urinalysis with reflex to cultu re - 06/30/17 11:15 Urine color determination YELLOW NRG Urine clarity determination CLEAR NR G Urine pH measurement by test strip 6.5 5-9 Specific gravity of urine by test strip 1.015 1.016-1.022 Urine protein assay by test strip, semi-quantitative 1+ NEGATIVE Urine glucose detection by automated test strip NE GATIVE NEGATIVE Erythrocytes detection in urine sediment by light micr oscopy NEGATIVE NEGATIVE Urine ketones detection by automated test strip NE GATIVE NEGATIVE Urine nitrite detection by test strip NEGATIVE NEGATIVE Urine total bilirubin detection by test strip NEGA TIVE NEGATIVE Urine urobilinogen measurement by automated test strip (mass/volume) NORMAL NORMAL Urine leukocyte esterase detection by dipstick 1+ NEGATIVE Automated urine sediment erythrocyte cou nt by microscopy (number/high power field) NONE NRG Automated urine sediment leukocyte count by microscopy (number/high power field) [HPF] NRG Bacteria detection in urine sediment by light microsco py TRACE NRG Squamous epithelial cells detection in u rine sediment by light microscopy 5-10 NRG Crystals detection in urine sediment by light microsco py NONE NRG Casts detection in urine sediment by light microscopy NONE NRG Mucus detection in urine sediment by light microscopy NEGATIVE NRG Complete urinalysis with reflex to culture NO NRG Automated blood complete blood count (he mogram) panel - 06/30/17 11:30 Blood leukocytes automated count (number/volume) 9.9 10*3/uL 4.3-11.0 Blood erythrocytes automated count (number/volume) 4.83 10*6/uL 4.35-5.85 Venous blood hemoglobin measurement (mass/volume) 13.8 g/dL 11.5-16.0 Blood hematocrit (volume fraction) 42 % 35-52 Automated erythrocyte mean corpuscular volume 86 [ foz_us] 80-99 Automated erythrocyte mean corpuscular h emoglobin (mass per erythrocyte) 29 pg 25-34 Automated erythrocyte mean corpuscular h emoglobin concentration measurement (mass/volume) 33 g/dL 32-36 Automated erythrocyte distribution width ratio 13. 9 % 10.0- 14.5 Automated blood platelet count (count/volume) 317 10*3/uL 130-400 Automated blood platelet mean volume measurement 9.8 [foz_us] 7.4-10.4 PT panel in platelet poor plasma by coag ulation assay - 06/30/17 11:30 Prothrombin time (PT) in platelet poor plasma by coagu lation assay 12.2 s 12.2-14.7 INR in platelet poor plasma or blood by coagulation as say 0.9 0.8-1.4 Activated partial thromboplastin time (a PTT) in platelet poor plasma bycoagulation assay - 06/30/17 11:30 Activated partial thromboplastin time (a PTT) in platelet poor plasma bycoagulation assay 29 s 24-35 Comprehensive metabolic panel - 06/30/17 11:30 Serum or plasma sodium measurement (moles/volume) 136 mmol/L 135-145 Serum or plasma potassium measurement (moles/volume) 4.4 mmol/L 3.6-5.0 Serum or plasma chloride measurement (moles/volume) 104 mmol/L 98-107 Carbon dioxide 21 mmol/L 21-32 Serum or plasma anion gap determination (moles/volume) 11 mmol/L 5-14 Serum or plasma urea nitrogen measurement (mass/volume ) 26 mg/dL 7-18 Serum or plasma creatinine measurement (mass/volume) 0.85 mg/dL 0.60-1.30 Serum or plasma urea nitrogen/creatinine mass ratio 31 NRG Serum or plasma creatinine measurement w ith calculation of estimated glomerular filtration rate > NRG Serum or plasma glucose measurement (mass/volume) 141 mg/dL 70-105 Serum or plasma calcium measurement (mass/volume) 9.5 mg/dL 8.5-10.1 Serum or plasma total bilirubin measurement (mass/volu me) 0.4 mg/dL 0.1-1.0 Serum or plasma alkaline phosphatase pradeep surement (enzymatic activity/volume) 88 U/L 40-136 Serum or plasma aspartate aminotransfera se measurement (enzymatic activity/volume) 16 U/L 5-34 Serum or plasma alanine aminotransferase measurement (enzymatic activity/volume) 15 U/L 0-55 Serum or plasma protein measurement (mass/volume) 7.6 g/dL 6.4-8.2 Serum or plasma albumin measurement (mass/volume) 4.2 g/dL 3.2-4.5 Lipid 1996 panel - 06/30/17 11:30 Serum or plasma triglyceride measurement (mass/volume) 104 mg/dL <150 Serum or plasma cholesterol measurement (mass/volume) 227 mg/dL < 200 Serum or plasma cholesterol in HDL measurement (mass/v olume) 61 mg/dL 40-60 Cholesterol in LDL [mass/volume] in serum or plasma by direct assay 151 mg/dL 1-129 Serum or plasma cholesterol in VLDL measurement (mass/ volume) 21 mg/dL 5-40 Methicillin resistant Staphylococcus aur eus (MRSA) screening culture - 06/30/17 11:31 Methicillin resistant Staphylococcus aureus (MRSA) scr eening culture NEG NRG Capillary blood glucose measurement by g lucometer (mass/volume) - 09/29/17 05:56 Capillary blood glucose measurement by glucometer (mas s/volume) 115 mg/dL 70-110 Complete blood count (CBC) with automate d white blood cell (WBC) differential - 09/29/17 07:09 Blood leukocytes automated count (number/volume) 8.2 10*3/uL 4.3-11.0 Blood erythrocytes automated count (number/volume) 2.97 10*6/uL 4.35-5.85 Venous blood hemoglobin measurement (mass/volume) 8.4 g/dL 11.5-16.0 Blood hematocrit (volume fraction) 27 % 35-52 Automated erythrocyte mean corpuscular volume 90 [ foz_us] 80-99 Automated erythrocyte mean corpuscular h emoglobin (mass per erythrocyte) 28 pg 25-34 Automated erythrocyte mean corpuscular h emoglobin concentration measurement (mass/volume) 32 g/dL 32-36 Automated erythrocyte distribution width ratio 14. 8 % 10.0- 14.5 Automated blood platelet count (count/volume) 472 10*3/uL 130-400 Automated blood platelet mean volume measurement 8.9 [foz_us] 7.4-10.4 Automated blood neutrophils/100 leukocytes 59 % 42-75 Automated blood lymphocytes/100 leukocytes 22 % 12-44 Blood monocytes/100 leukocytes 12 % 0-12 Automated blood eosinophils/100 leukocytes 7 % 0-10 Automated blood basophils/100 leukocytes 0 % 0-10 Blood neutrophils automated count (number/volume) 4.9 10*3 1.8-7.8 Blood lymphocytes automated count (number/volume) 1.8 10*3 1.0-4.0 Blood monocytes automated count (number/volume) 1. 0 10*3 0.0-1.0 Automated eosinophil count 0.6 10*3/uL 0 .0-0.3 Automated blood basophil count (count/volume) 0.0 10*3/uL 0.0-0.1 Serum or plasma renal function panel (Na , K, Cl, CO2, BUN, Cr, glucose,Ca, phos, alb) - 09/29/17 07:09 Serum or plasma sodium measurement (moles/volume) 137 mmol/L 135-145 Serum or plasma potassium measurement (moles/volume) 3.9 mmol/L 3.6-5.0 Serum or plasma chloride measurement (moles/volume) 104 mmol/L 98-107 Carbon dioxide 23 mmol/L 21-32 Serum or plasma anion gap determination (moles/volume) 10 mmol/L 5-14 Serum or plasma urea nitrogen measurement (mass/volume ) 11 mg/dL 7-18 Serum or plasma creatinine measurement (mass/volume) 0.72 mg/dL 0.60-1.30 Serum or plasma urea nitrogen/creatinine mass ratio 15 NRG Serum or plasma creatinine measurement w ith calculation of estimated glomerular filtration rate > NRG Serum or plasma glucose measurement (mass/volume) 129 mg/dL 70-105 Serum or plasma calcium measurement (mass/volume) 8.7 mg/dL 8.5-10.1 Serum or plasma albumin measurement (mass/volume) 3.1 g/dL 3.2-4.5 Serum or plasma phosphate measurement (mass/volume) 3.0 mg/dL 2.3-4.7 Hemoglobin A1c - 09/29/17 07:09 Blood hemoglobin A1C measurement (mass/volume) 6.6 % 4.0-5.6 MEAN BLOOD GLUCOSE 143 % <=126 Capillary blood glucose measurement by g lucometer (mass/volume) - 09/29/17 12:07 Capillary blood glucose measurement by glucometer (mas s/volume) 142 mg/dL 70-110 Capillary blood glucose measurement by g lucometer (mass/volume) - 09/29/17 16:45 Capillary blood glucose measurement by glucometer (mas s/volume) 121 mg/dL 70-110 Capillary blood glucose measurement by g lucometer (mass/volume) - 09/29/17 20:33 Capillary blood glucose measurement by glucometer (mas s/volume) 158 mg/dL 70-110 Capillary blood glucose measurement by g lucometer (mass/volume) - 09/30/17 05:45 Capillary blood glucose measurement by glucometer (mas s/volume) 126 mg/dL 70-110 Capillary blood glucose measurement by g lucometer (mass/volume) - 09/30/17 08:02 Capillary blood glucose measurement by glucometer (mas s/volume) 150 mg/dL 70-110 Capillary blood glucose measurement by g lucometer (mass/volume) - 09/30/17 11:10 Capillary blood glucose measurement by glucometer (mas s/volume) 123 mg/dL 70-110 Capillary blood glucose measurement by g lucometer (mass/volume) - 09/30/17 16:34 Capillary blood glucose measurement by glucometer (mas s/volume) 128 mg/dL 70-110 Capillary blood glucose measurement by g lucometer (mass/volume) - 09/30/17 20:36 Capillary blood glucose measurement by glucometer (mas s/volume) 143 mg/dL 70-110 Capillary blood glucose measurement by g lucometer (mass/volume) - 10/01/17 05:39 Capillary blood glucose measurement by glucometer (mas s/volume) 145 mg/dL 70-110 Capillary blood glucose measurement by g lucometer (mass/volume) - 10/01/17 11:13 Capillary blood glucose measurement by glucometer (mas s/volume) 126 mg/dL 70-110 Capillary blood glucose measurement by g lucometer (mass/volume) - 10/01/17 17:01 Capillary blood glucose measurement by glucometer (mas s/volume) 148 mg/dL 70-110 Capillary blood glucose measurement by g lucometer (mass/volume) - 10/01/17 20:19 Capillary blood glucose measurement by glucometer (mas s/volume) 137 mg/dL 70-110 Capillary blood glucose measurement by g lucometer (mass/volume) - 10/02/17 05:53 Capillary blood glucose measurement by glucometer (mas s/volume) 137 mg/dL 70-110 Capillary blood glucose measurement by g lucometer (mass/volume) - 10/02/17 11:23 Capillary blood glucose measurement by glucometer (mas s/volume) 126 mg/dL 70-110 Capillary blood glucose measurement by g lucometer (mass/volume) - 10/02/17 16:21 Capillary blood glucose measurement by glucometer (mas s/volume) 142 mg/dL 70-110 Capillary blood glucose measurement by g lucometer (mass/volume) - 10/02/17 21:02 Capillary blood glucose measurement by glucometer (mas s/volume) 169 mg/dL 70-110 Capillary blood glucose measurement by g lucometer (mass/volume) - 10/03/17 06:19 Capillary blood glucose measurement by glucometer (mas s/volume) 120 mg/dL 70-110 Capillary blood glucose measurement by g lucometer (mass/volume) - 10/03/17 11:25 Capillary blood glucose measurement by glucometer (mas s/volume) 105 mg/dL 70-110 Capillary blood glucose measurement by g lucometer (mass/volume) - 10/03/17 15:57 Capillary blood glucose measurement by glucometer (mas s/volume) 132 mg/dL 70-110 Capillary blood glucose measurement by g lucometer (mass/volume) - 10/03/17 20:31 Capillary blood glucose measurement by glucometer (mas s/volume) 173 mg/dL 70-110 Capillary blood glucose measurement by g lucometer (mass/volume) - 10/04/17 06:13 Capillary blood glucose measurement by glucometer (mas s/volume) 131 mg/dL 70-110 Capillary blood glucose measurement by g lucometer (mass/volume) - 10/04/17 11:37 Capillary blood glucose measurement by glucometer (mas s/volume) 121 mg/dL 70-110 Capillary blood glucose measurement by g lucometer (mass/volume) - 10/04/17 16:50 Capillary blood glucose measurement by glucometer (mas s/volume) 102 mg/dL 70-110 Capillary blood glucose measurement by g lucometer (mass/volume) - 10/04/17 20:55 Capillary blood glucose measurement by glucometer (mas s/volume) 135 mg/dL 70-110 Capillary blood glucose measurement by g lucometer (mass/volume) - 10/05/17 06:13 Capillary blood glucose measurement by glucometer (mas s/volume) 130 mg/dL 70-110 Complete blood count (CBC) with automate d white blood cell (WBC) differential - 10/05/17 07:49 Blood leukocytes automated count (number/volume) 6.4 10*3/uL 4.3-11.0 Blood erythrocytes automated count (number/volume) 3.16 10*6/uL 4.35-5.85 Venous blood hemoglobin measurement (mass/volume) 9.0 g/dL 11.5-16.0 Blood hematocrit (volume fraction) 29 % 35-52 Automated erythrocyte mean corpuscular volume 91 [ foz_us] 80-99 Automated erythrocyte mean corpuscular h emoglobin (mass per erythrocyte) 28 pg 25-34 Automated erythrocyte mean corpuscular h emoglobin concentration measurement (mass/volume) 31 g/dL 32-36 Automated erythrocyte distribution width ratio 15. 4 % 10.0- 14.5 Automated blood platelet count (count/volume) 441 10*3/uL 130-400 Automated blood platelet mean volume measurement 8.5 [foz_us] 7.4-10.4 Automated blood neutrophils/100 leukocytes 58 % 42-75 Automated blood lymphocytes/100 leukocytes 21 % 12-44 Blood monocytes/100 leukocytes 10 % 0-12 Automated blood eosinophils/100 leukocytes 11 % 0-10 Automated blood basophils/100 leukocytes 1 % 0-10 Blood neutrophils automated count (number/volume) 3.7 10*3 1.8-7.8 Blood lymphocytes automated count (number/volume) 1.4 10*3 1.0-4.0 Blood monocytes automated count (number/volume) 0. 6 10*3 0.0-1.0 Automated eosinophil count 0.7 10*3/uL 0 .0-0.3 Automated blood basophil count (count/volume) 0.0 10*3/uL 0.0-0.1 Capillary blood glucose measurement by g lucometer (mass/volume) - 10/05/17 11:13 Capillary blood glucose measurement by glucometer (mas s/volume) 115 mg/dL 70-110 Capillary blood glucose measurement by g lucometer (mass/volume) - 10/05/17 16:01 Capillary blood glucose measurement by glucometer (mas s/volume) 96 mg/dL 70-110 Stool occult blood screen - 10/05/17 18: 30 Stool gastrointestinal hemoglobin detection NEGATI VE NEGATIVE Capillary blood glucose measurement by g lucometer (mass/volume) - 10/05/17 20:03 Capillary blood glucose measurement by glucometer (mas s/volume) 146 mg/dL 70-110 Capillary blood glucose measurement by g lucometer (mass/volume) - 10/06/17 04:33 Capillary blood glucose measurement by glucometer (mas s/volume) 125 mg/dL 70-110 Capillary blood glucose measurement by g lucometer (mass/volume) - 10/06/17 11:52 Capillary blood glucose measurement by glucometer (mas s/volume) 125 mg/dL 70-110 Capillary blood glucose measurement by g lucometer (mass/volume) - 10/06/17 17:01 Capillary blood glucose measurement by glucometer (mas s/volume) 118 mg/dL 70-110 Capillary blood glucose measurement by g lucometer (mass/volume) - 10/06/17 19:29 Capillary blood glucose measurement by glucometer (mas s/volume) 175 mg/dL 70-110 Capillary blood glucose measurement by g lucometer (mass/volume) - 10/07/17 04:25 Capillary blood glucose measurement by glucometer (mas s/volume) 123 mg/dL 70-110 Capillary blood glucose measurement by g lucometer (mass/volume) - 10/07/17 11:14 Capillary blood glucose measurement by glucometer (mas s/volume) 115 mg/dL 70-110 Capillary blood glucose measurement by g lucometer (mass/volume) - 10/07/17 16:54 Capillary blood glucose measurement by glucometer (mas s/volume) 105 mg/dL 70-110 Capillary blood glucose measurement by g lucometer (mass/volume) - 10/07/17 19:51 Capillary blood glucose measurement by glucometer (mas s/volume) 145 mg/dL 70-110 Capillary blood glucose measurement by g lucometer (mass/volume) - 10/08/17 04:18 Capillary blood glucose measurement by glucometer (mas s/volume) 124 mg/dL 70-110 Comprehensive metabolic panel - 07/19/18 10:53 Serum or plasma sodium measurement (moles/volume) 143 mmol/L 135-145 Serum or plasma potassium measurement (moles/volume) 4.6 mmol/L 3.6-5.0 Serum or plasma chloride measurement (moles/volume) 105 mmol/L 98-107 Carbon dioxide 20 mmol/L 21-32 Serum or plasma anion gap determination (moles/volume) 18 mmol/L 5-14 Serum or plasma urea nitrogen measurement (mass/volume ) 22 mg/dL 7-18 Serum or plasma creatinine measurement (mass/volume) 0.88 mg/dL 0.60-1.30 Serum or plasma urea nitrogen/creatinine mass ratio 25 NRG Serum or plasma creatinine measurement w ith calculation of estimated glomerular filtration rate > NRG Serum or plasma glucose measurement (mass/volume) 143 mg/dL 70-105 Serum or plasma calcium measurement (mass/volume) 9.8 mg/dL 8.5-10.1 Serum or plasma total bilirubin measurement (mass/volu me) 0.5 mg/dL 0.1-1.0 Serum or plasma alkaline phosphatase pradeep surement (enzymatic activity/volume) 99 U/L 40-136 Serum or plasma aspartate aminotransfera se measurement (enzymatic activity/volume) 14 U/L 5-34 Serum or plasma alanine aminotransferase measurement (enzymatic activity/volume) 11 U/L 0-55 Serum or plasma protein measurement (mass/volume) 7.4 g/dL 6.4-8.2 Serum or plasma albumin measurement (mass/volume) 4.3 g/dL 3.2-4.5 CALCIUM CORRECTED 9.6 mg/dL 8.5-10.1 Lipid 1996 panel - 07/19/18 10:53 Serum or plasma triglyceride measurement (mass/volume) 73 mg/dL <150 Serum or plasma cholesterol measurement (mass/volume) 156 mg/dL < 200 Serum or plasma cholesterol in HDL measurement (mass/v olume) 58 mg/dL 40-60 Cholesterol in LDL [mass/volume] in serum or plasma by direct assay 81 mg/dL 1-129 Serum or plasma cholesterol in VLDL measurement (mass/ volume) 15 mg/dL 5-40 Complete blood count (CBC) with automate d white blood cell (WBC) differential - 11/17/19 03:03 Blood leukocytes automated count (number/volume) 6.9 10*3/uL 4.3-11.0 Blood erythrocytes automated count (number/volume) 4.10 10*6/uL 4.35-5.85 Venous blood hemoglobin measurement (mass/volume) 12.0 g/dL 11.5-16.0 Blood hematocrit (volume fraction) 37 % 35-52 Automated erythrocyte mean corpuscular volume 91 [ foz_us] 80-99 Automated erythrocyte mean corpuscular h emoglobin (mass per erythrocyte) 29 pg 25-34 Automated erythrocyte mean corpuscular h emoglobin concentration measurement (mass/volume) 32 g/dL 32-36 Automated erythrocyte distribution width ratio 13. 7 % 10.0- 14.5 Automated blood platelet count (count/volume) 256 10*3/uL 130-400 Automated blood platelet mean volume measurement 9.7 [foz_us] 7.4-10.4 Automated blood neutrophils/100 leukocytes 64 % 42-75 Automated blood lymphocytes/100 leukocytes 16 % 12-44 Blood monocytes/100 leukocytes 13 % 0-12 Automated blood eosinophils/100 leukocytes 6 % 0-10 Automated blood basophils/100 leukocytes 0 % 0-10 Blood neutrophils automated count (number/volume) 4.5 10*3 1.8-7.8 Blood lymphocytes automated count (number/volume) 1.1 10*3 1.0-4.0 Blood monocytes automated count (number/volume) 0. 9 10*3 0.0-1.0 Automated eosinophil count 0.4 10*3/uL 0 .0-0.3 Automated blood basophil count (count/volume) 0.0 10*3/uL 0.0-0.1 Blood lactic acid measurement (moles/vol ume) - 11/17/19 03:03 Blood lactic acid measurement (moles/volume) 2.28 mmol/L 0.50-2.00 Comprehensive metabolic panel - 11/17/19 10:15 Serum or plasma sodium measurement (moles/volume) 139 mmol/L 135-145 Serum or plasma potassium measurement (moles/volume) 4.4 mmol/L 3.6-5.0 Serum or plasma chloride measurement (moles/volume) 103 mmol/L 98-107 Carbon dioxide 23 mmol/L 21-32 Serum or plasma anion gap determination (moles/volume) 13 mmol/L 5-14 Serum or plasma urea nitrogen measurement (mass/volume ) 20 mg/dL 7-18 Serum or plasma creatinine measurement (mass/volume) 0.82 mg/dL 0.60-1.30 Serum or plasma urea nitrogen/creatinine mass ratio 24 NRG Serum or plasma creatinine measurement w ith calculation of estimated glomerular filtration rate > NRG Serum or plasma glucose measurement (mass/volume) 157 mg/dL 70-105 Serum or plasma calcium measurement (mass/volume) 9.6 mg/dL 8.5-10.1 Serum or plasma total bilirubin measurement (mass/volu me) 0.6 mg/dL 0.1-1.0 Serum or plasma alkaline phosphatase pradeep surement (enzymatic activity/volume) 98 U/L 40-136 Serum or plasma aspartate aminotransfera se measurement (enzymatic activity/volume) 17 U/L 5-34 Serum or plasma alanine aminotransferase measurement (enzymatic activity/volume) 13 U/L 0-55 Serum or plasma protein measurement (mass/volume) 6.9 g/dL 6.4-8.2 Serum or plasma albumin measurement (mass/volume) 4.2 g/dL 3.2-4.5 CALCIUM CORRECTED 9.4 mg/dL 8.5-10.1 Complete blood count (CBC) with automate d white blood cell (WBC) differential - 11/17/19 16:50 Blood leukocytes automated count (number/volume) 6.7 10*3/uL 4.3-11.0 Blood erythrocytes automated count (number/volume) 4.24 10*6/uL 4.35-5.85 Venous blood hemoglobin measurement (mass/volume) 12.2 g/dL 11.5-16.0 Blood hematocrit (volume fraction) 38 % 35-52 Automated erythrocyte mean corpuscular volume 90 [ foz_us] 80-99 Automated erythrocyte mean corpuscular h emoglobin (mass per erythrocyte) 29 pg 25-34 Automated erythrocyte mean corpuscular h emoglobin concentration measurement (mass/volume) 32 g/dL 32-36 Automated erythrocyte distribution width ratio 13. 8 % 10.0- 14.5 Automated blood platelet count (count/volume) 256 10*3/uL 130-400 Automated blood platelet mean volume measurement 9.7 [foz_us] 7.4-10.4 Automated blood neutrophils/100 leukocytes 84 % 42-75 Automated blood lymphocytes/100 leukocytes 11 % 12-44 Blood monocytes/100 leukocytes 4 % 0-12 Automated blood eosinophils/100 leukocytes 1 % 0-10 Automated blood basophils/100 leukocytes 0 % 0-10 Blood neutrophils automated count (number/volume) 5.6 10*3 1.8-7.8 Blood lymphocytes automated count (number/volume) 0.7 10*3 1.0-4.0 Blood monocytes automated count (number/volume) 0. 3 10*3 0.0-1.0 Automated eosinophil count 0.1 10*3/uL 0 .0-0.3 Automated blood basophil count (count/volume) 0.0 10*3/uL 0.0-0.1 Comprehensive metabolic panel - 11/17/19 16:50 Serum or plasma sodium measurement (moles/volume) 137 mmol/L 135-145 Serum or plasma potassium measurement (moles/volume) 4.5 mmol/L 3.6-5.0 Serum or plasma chloride measurement (moles/volume) 101 mmol/L 98-107 Carbon dioxide 21 mmol/L 21-32 Serum or plasma anion gap determination (moles/volume) 15 mmol/L 5-14 Serum or plasma urea nitrogen measurement (mass/volume ) 21 mg/dL 7-18 Serum or plasma creatinine measurement (mass/volume) 0.78 mg/dL 0.60-1.30 Serum or plasma urea nitrogen/creatinine mass ratio 27 NRG Serum or plasma creatinine measurement w ith calculation of estimated glomerular filtration rate > NRG Serum or plasma glucose measurement (mass/volume) 193 mg/dL 70-105 Serum or plasma calcium measurement (mass/volume) 10.0 mg/dL 8.5-10.1 Serum or plasma total bilirubin measurement (mass/volu me) 0.4 mg/dL 0.1-1.0 Serum or plasma alkaline phosphatase pradeep surement (enzymatic activity/volume) 103 U/L 40-136 Serum or plasma aspartate aminotransfera se measurement (enzymatic activity/volume) 19 U/L 5-34 Serum or plasma alanine aminotransferase measurement (enzymatic activity/volume) 15 U/L 0-55 Serum or plasma protein measurement (mass/volume) 7.5 g/dL 6.4-8.2 Serum or plasma albumin measurement (mass/volume) 4.4 g/dL 3.2-4.5 CALCIUM CORRECTED 9.7 mg/dL 8.5-10.1 TROPONIN I FS - 11/17/19 16:50 TROPONIN I FS < 0.30 <0.30 Encounters ACCT No. Visit Date/Time Discharge Status Pt. Type Provider Facility Loc./Unit Complaint [id number] 11/17/2019 16:22:00 020 17:53:00 DIS Emergency ROVENSTINE JC SERNA [facility] ER FS OXYGEN LEVELS L OW [id number] 10/30/2019 14:15:00 23:59:59 CLS Outpatient JORGITO NOONANSALEEM MIRANDA [facility] RAD FS S62.324D [id number] 05/09/2019 08:57:00 23:59:59 CLS Outpatient JAMES NOONAN RUBEN [facility] RAD FS S62.324A [id number] 04/20/2019 13:37:00 23:59:59 CLS Outpatient JAMES NOONAN RUBEN [facility] RAD FS S62.324A [id number] 03/21/2019 13:31:00 23:59:59 CLS Outpatient JORGITO NOONANSALEEM MIRANDA [facility] RAD FS M54.5 [id number] 07/19/2018 10:44:00 019 23:59:59 CLS Outpatient EFRAIN HARRINGTON MD [facility] LAB FS I25.10 I10 E78.2 [id number] 06/16/2018 11:59:00 23:59:59 CLS Outpatient ANNELISE ZAVALA, JOHNNY Rutledge [facility] LAB E11.9 [id number] 06/16/2018 11:50:00 23:59:59 CLS Outpatient MARKO TAVAREZ MD [facility] LAB I65.29 [id number] 05/11/2018 07:37:00 019 23:59:59 CLS Outpatient EFRAIN HARRINGTON MD [facility] CARD CAD [id number] 05/09/2018 14:03:00 019 23:59:59 CLS Outpatient EFRAIN HARRINGTON MD [facility] CARD CAD [id number] 03/07/2018 11:00:00 018 23:59:59 CLS Preadmit PAO ROJAS MD [facility] CR STATUS POST ACB [id number] 02/21/2018 10:32:00 00:01:00 DIS Outpatient PAO ROJAS MD [facility] CR STATUS POST ACB [id number] 09/28/2017 18:59:00 13:20:00 DIS Inpatient TONY GAN MD [facility] IRF DISUSE MYOPATHY [id number] 06/30/2017 09:14:00 17:15:00 DIS Outpatient EFRAIN HARRINGTON MD [facility] CATH LEFT HEART CATH [id number] 06/28/2017 07:11:00 23:59:59 CLS Outpatient EFRAIN HARRINGTON MD [facility] CARD CAD [id number] 06/25/2017 11:43:00 23:59:59 CLS Outpatient EFRAIN HARRINGTON MD [facility] CARD I25.10 [id number] 08/13/2015 08:14:00 016 23:59:59 CLS Outpatient WILFRID WILSON APRN [facility] RAD BRONCHITIS,ASTH MA [id number] 06/14/2015 10:45:00 23:59:59 CLS Outpatient WILFRID WILSON APRN [facility] RAD PNEUMONIA SYMPTOMS,BRONCHITIS,ASTHMA [id number] 03/12/2015 19:49:00 06:15:00 DIS Outpatient WILFRID WILSON APRN [facility] SLEEP SNORING,HTN, MO OD DISORDER [id number] 02/18/2015 11:21:00 23:59:59 CLS Outpatient WILFRID WILSON APRN [facility] RAD PNEUMONIA,ASTHM A,DYSPNEA [id number] 02/18/2015 09:57:00 23:59:59 CLS Outpatient ANNELISE ZAVALA, JOHNNY Rutledge [facility] RAD SCREENING [id number] 02/08/2015 10:41:00 015 23:59:59 CLS Outpatient WILFRID WILSON APRN [facility] RAD OBSTRUCTIVE SLE EP APNA,MORBID OBESITY,BRONCHITIS,A [id number] 01/26/2015 20:49:00 06:50:00 DIS Outpatient KAUR KOCH DO [facility] SLEEP SNORING,CHOKING [id number] 01/23/2015 08:02:00 015 23:59:59 CLS Outpatient KAUR KOCH DO [facility] RT BRONCHITIS ASTHMA [id number] 02/15/2014 13:23:00 014 23:59:59 CLS Outpatient ANNELISE ZAVALA, JOHNNY Rutledge [facility] RAD SCREENING [id number] 11/17/2019 09:49:[address] Outpatient JAZMIN GARCIA APRN [facility] LAB FS COPD WITH EXACERBATION [id number] 10/07/2011 13:01:00 Document Registration [id number] 10/06/2011 11:13:00 Document Registration [id number] 08/11/2010 10:26:00 Document Registration
== END 2019-11-17 17:53 | disposition home or self-care (01) ==
LOC: EDUNIT# 16:21 → ER FS 16:22
DX: J44.1 Chronic obstructive pulmonary disease with (acute) exacerbation (principal); I25.10 Atherosclerotic heart disease of native coronary artery without angina pectoris; E78.00 Pure hypercholesterolemia, unspecified; I10 Essential (primary) hypertension; M06.9 Rheumatoid arthritis, unspecified; G89.29 Other chronic pain; M54.9 Dorsalgia, unspecified; M79.7 Fibromyalgia; Z79.1 Long term (current) use of non-steroidal anti-inflammatories (NSAID); Z80.0 Family history of malignant neoplasm of digestive organs; Z88.0 Allergy status to penicillin; Z79.82 Long term (current) use of aspirin; Z79.02 Long term (current) use of antithrombotics/antiplatelets; Z79.51 Long term (current) use of inhaled steroids; Z79.84 Long term (current) use of oral hypoglycemic drugs; Z87.891 Personal history of nicotine dependence; Z80.3 Family history of malignant neoplasm of breast; Z80.52 Family history of malignant neoplasm of bladder
CPT/HCPCS: 36415; 80053; 84484; 85025; 93005

== ENCOUNTER → 2019-11-17 | Outpatient (CLI) | payer MEDICARE, OTHER ==
[~2019-11-17] MED LIST changes: +IPRA4AER IH; +PRD50T PO
--- NOTE | 2019-11-17 10:09 | Diagnostic Imaging Report ---
INDICATION: COPD WITH EXACERBATION COMPARISON: 06/30/2017 FINDINGS: Frontal and lateral views of the chest demonstrate normal heart size and pulmonary vascularity. The lungs are clear. There are no signs of infiltrate, pleural effusions or pneumothoraces. The visualized osseous structures show no acute abnormalities. Sternotomy wires are noted. IMPRESSION: 1. No acute process. No signs of infiltrates, effusions or pneumothoraces. Dictated by: Dictated on workstation # [id number]
[2019-11-17 10:27] LABS: BASOPHILS % (AUTO) 0 % (0-10); EOSINOPHILS # (AUTO) 0.4 10^3/uL (0.0-0.3); EOSINOPHILS % (AUTO) 6 % (0-10); HEMATOCRIT 37 % (35-52); LYMPHOCYTES # (AUTO) 1.1 X 10^3 (1.0-4.0); LYMPHOCYTES % (AUTO) 16 % (12-44); MEAN CORPUSCULAR HEMOGLOBIN 29 PG (25-34); MEAN CORPUSCULAR HGB CONC 32 G/DL (32-36); MEAN CORPUSCULAR VOLUME 91 FL (80-99); MEAN PLATELET VOLUME 9.7 FL (7.4-10.4); MONOCYTES # (AUTO) 0.9 X 10^3 (0.0-1.0); MONOCYTES % (AUTO) 13 % (0-12); NEUTROPHILS # (AUTO) 4.5 X 10^3 (1.8-7.8); NEUTROPHILS % (AUTO) 64 % (42-75); PLATELET COUNT 256 10^3/uL (130-400); RED CELL DISTRIBUTION WIDTH 13.7 % (10.0-14.5); WHITE BLOOD COUNT 6.9 10^3/uL (4.3-11.0)
[2019-11-17 10:50] LABS: BUN/CREATININE RATIO 24; CARBON DIOXIDE 23 MMOL/L (21-32); CHLORIDE 103 MMOL/L (98-107); CREATININE SERUM 0.82 MG/DL (0.60-1.30); GFR ESTIMATED > 60; GLUCOSE 157 MG/DL (70-105); POTASSIUM 4.4 MMOL/L (3.6-5.0); SODIUM 139 MMOL/L (135-145)
[2019-11-17 10:51] LABS: ALANINE AMINOTRANSFERASE 13 U/L (0-55); ALBUMIN 4.2 GM/DL (3.2-4.5); ALKALINE PHOSPHATASE 98 U/L (40-136); BILIRUBIN,TOTAL 0.6 MG/DL (0.1-1.0); CALCIUM 9.6 MG/DL (8.5-10.1); TOTAL PROTEIN 6.9 GM/DL (6.4-8.2)
== END ==
LOC: LAB FS 09:49
PROVIDERS: ATTEND Nurse Practitioner Family
DX: J44.1 Chronic obstructive pulmonary disease with (acute) exacerbation (principal)
CPT/HCPCS: 36415; 71046; 80053; 83605; 85025

== ENCOUNTER → 2019-12-22 | Outpatient (CLI) | payer MEDICARE, OTHER ==
[~2019-12-22] MED LIST changes: +IPRA4AER IH; +PRD50T PO
== END ==
LOC: CARD 10:00
PROVIDERS: ATTEND Physician Assistant
DX: I08.2 Rheumatic disorders of both aortic and tricuspid valves (principal); I65.29 Occlusion and stenosis of unspecified carotid artery; I25.10 Atherosclerotic heart disease of native coronary artery without angina pectoris; E11.9 Type 2 diabetes mellitus without complications; G47.33 Obstructive sleep apnea (adult) (pediatric)
CPT/HCPCS: 93306

== ENCOUNTER → 2020-01-03 | Outpatient (CLI) | payer MEDICARE, OTHER ==
[~2020-01-03] VITALS: Ht 172 cm; Wt 140.0 kg
[~2020-01-03] MED LIST changes: +CATHETER FLUSH 10 ML SYR IV PRN; +REGADENOSON 0.4 MG/5 ML SYR (LEXISCAN) IV ONE
[2020-01-03 12:00] VITALS: BP 168/80
--- NOTE | 2020-01-03 14:27 | Cardiology Stress Test Report ---
Stress Test Report Date of Procedure/Referring: Date of Procedure: Jan 03, 2020 PCP An Manzano Admitting Physician Cyrus Corado MD Indications: Peripheral arterial disease Baseline Heart Rate: 81 Baseline Blood Pressure: Blood Pressure Systolic: 168 Blood Pressure Diastolic: 80 Baseline Vitals Vital Signs Date Time Temp Pulse Resp B/P (MAP) Pulse Ox O2 Delivery O2 Flow Rate FiO2 01/03/20 12:00 83 168/80 (109) 98 Baseline EKG: Baseline EKG: normal sinus rhythm Summary After explaining the procedure to the patient, she signed a consent and then brought to the stress nuclear laboratory. Patient received 0.4 mg Lexiscan for stress test, ECG, heart rate and blood pressure were monitored continuously. Resting and stress dose of radio tracer were injected, imaging was acquired and reviewed in short axis, horizontal long axis and vertical long axis views. TID: 1.14 SSS: 14 SDS: 7 EF: 42 1. Patient tolerated Lexiscan well 2. Breast attenuation with decreased uptake involving the basal to mid anterolateral and inferolateral wall, mild decrease uptake at the base of the anterior septum with moderate reversibility, could be secondary to breast attenuation 3. Prominent left ventricle, mild diffuse hypokinesia, EF 42 percent EFRAIN HARRINGTON MD Jan 03, 2020 14:27
== END ==
LOC: CARD 11:45
PROVIDERS: ATTEND Physician Assistant
DX: I65.29 Occlusion and stenosis of unspecified carotid artery (principal); I25.10 Atherosclerotic heart disease of native coronary artery without angina pectoris; G47.33 Obstructive sleep apnea (adult) (pediatric); E11.9 Type 2 diabetes mellitus without complications; I73.9 Peripheral vascular disease, unspecified
CPT/HCPCS: 78452; 93017; A9502

== ENCOUNTER 2020-01-10 10:00 | Day surgery (SDC) | payer MEDICARE, OTHER ==
[~2020-01-10] VITALS: Ht 172.7 cm; Wt 137.0 kg
[2020-01-10] VITALS (10 sets, daily range): BP systolic 113–165; BP diastolic 46–76
[2020-01-10 08:47] LABS: HEMOGLOBIN 12.7 G/DL (11.5-16.0); WHITE BLOOD COUNT 7.5 10^3/uL (4.3-11.0)
[2020-01-10 08:52] LABS: BILIRUBIN,URINE NEGATIVE (NEGATIVE); CLARITY,URINE CLEAR; COLOR,URINE YELLOW; GLUCOSE, URINE (UA) NEGATIVE (NEGATIVE); KETONES,URINE NEGATIVE (NEGATIVE); LEUKOCYTE ESTERASE ,URINE 2+ (NEGATIVE); NITRITE,URINE NEGATIVE (NEGATIVE); PROTEIN,URINE TRACE (NEGATIVE)
[2020-01-10 09:12] LABS: BACTERIA,URINE FEW /HPF
[2020-01-10 09:14] LABS: ALBUMIN 4.2 GM/DL (3.2-4.5); BILIRUBIN,TOTAL 0.4 MG/DL (0.1-1.0); CALCIUM 9.5 MG/DL (8.5-10.1); CREATININE SERUM 0.95 MG/DL (0.60-1.30); INR 0.9 (0.8-1.4); POTASSIUM 4.1 MMOL/L (3.6-5.0); PROTHROMBIN TIME PATIENT 12.7 SEC (12.2-14.7); RBC,URINE 0-2 /HPF; TOTAL PROTEIN 7.2 GM/DL (6.4-8.2)
--- NOTE | 2020-01-10 09:39 | NUR ---
SPOKE WITH THE PT, WENT THRU THE EXT MED HISTORY AND CALLED [facility] TO COMPLETE THE MED REC PT GETS SOME MEDICATIONS FROM [facility] AND SOME THRU [facility] 12-14-2019 HCTZ 25MG #90/90DS- THIS IS FROM MAIL ORDER METFORMIN 500MG FILLED THRU [facility] HOWEVER THEY COULD NOT FIND A SPECIFIC DATE BUT THEY DO SHOW THE ORDER IS CURRENT ATENOLOL 25MG WAS LAST FILLED 08-07-2019 #90/90DS- I DID DOCUMENT THE PAST DUE FILL ON THE MED REC OTC MEDS: TYLENOL ASPIRIN 81MG
[~2020-01-10 10:00] MED LIST changes: +ACET-2267 PO; +ALBU2.5V4 NEB; +ASPI-1238 PO; -ASPI-983 PO; +ATOR20TA66 PO; -CATHETER FLUSH 10 ML SYR IV PRN; +HEParin (CATH LAB) 2,000 ML IV ONE; +HYDR25TA4 PO; +LIDOCAINE 1% INJ 20 ML 20 ML VIAL ONE; +LOSA100T57 PO; +MIDAZOLAM 5 MG/5 ML (VERSED) VIAL ONE; +NS IV 1000 ML 1,000 ML IV SCH; +NS IV 1000 ML 1,000 ML ONE; -REGADENOSON 0.4 MG/5 ML SYR (LEXISCAN) IV ONE; +fentaNYL INJECTION 100 MCG/2 ML AMP ONE
[2020-01-10] MEDS ORDERED: NS IV 1000 ML 1,000 ML IV SCH (10:17)
--- NOTE | 2020-01-10 10:17 | Cardiac Procedure Note-CS/ASA ---
Pre-Procedure Note Pre-Op Procedure Note H&P Reviewed The H&P was reviewed, patient examined and no changes noted. Date H&P Reviewed: Jan 10, 2020 Time H&P Reviewed: 10:16 Conscious Sedation Pre-Proced Time 10:17 ASA Score 3 For ASA 3 and 4: Consider anesthesia and medical clearance. Also, for patients with a history of failed moderate sedation consider anesthesia. Airway Lungs Heart ASA score ASA 1: a normal healthy patient ASA 2: a patient with a mild systemic disease (mid diabetes, controlled hypertension, obesity x ASA 3: a patient with a severe systemic disease that limits activity (angina, COPD, prior Myocardial infarction) ASA 4: a patient with an incapacitating disease that is a constant threat to life (CHF, renal failure) ASA 5: a moribund patient not expected to survive 24 hrs. (ruptured aneurysm) ASA 6: a declared brain- patient whose organs are being harvested. For emergent operations, add the letter E after the classification Mallampati Classification Grade 3 Sedation Plan Analgesia, Amnesia, Plan communicated to team members, Discussed options with patient/fam, Discussed risks with patient/fam The patient is an appropriate candidate to undergo the planned procedure, sedation, and anesthesia. The patient immediately re-assessed prior to indication. EFRAIN HARRINGTON MD Jan 10, 2020 10:17
--- NOTE | 2020-01-10 10:18 | Discharge Inst-Post CATH ---
Discharge Inst-CATH/EP Problems Reviewed?: Yes Post Cardiac Cath/EP D/C Inst Follow Up/Plan Appointment with Dr. HARRINGTON's office in 4 weeks <b>CARDIAC CATH/EP PROCEDURE DISCHARGE INSTRUCTIONS</b> ACTIVITY * Go Home directly and rest. * Limit activity of the leg (or wrist if it was used) for 7 days including aerobics, swimming, jogging, bicycling, etc. * Restrict stair-climbing for 7 days if possible, if not, climb up with your non-cath leg, then bring together on the same step. * Avoid lifting, pushing, pulling or excessive movement of the affected extremity for 7 days. * Customary sexual activity may be resumed after 2 days-use caution not to use a position that strains or causes pain to the affected extremity. * No driving for 24 hours. * NO SMOKING. * Avoid straining for bowel movements for 7 days. * Gentle walking on level ground is allowed. * Returning to work will depend on the type of procedure and the results. Your doctor will discuss this with you. CALL YOUR DOCTOR FOR ANY OF THE FOLLOWING: *If bleeding from the puncture site occurs- Apply gentle pressure to site with clean cloth and call your doctor or EMS. * If a knot or lump forms under the skin, increases in size, or causes pain. * If bruising appears to be worsening or moving further down your leg instead of disappearing. * Temperature above 101 F. CARE OF YOUR GROIN INCISION; * Bruising or purple discoloration of the skin near the puncture site is common. * You may shower only, no bathtub bathing for 5 days. Be careful to avoid slipping as your leg may feel stiff. * If a closure device was used on your femoral artery, please see the attached guide regarding care of the device and your leg. * Leave dressing on FOR 24 hours. CARE OF YOUR WRIST INCISION; * Bruising or purple discoloration of the skin near the puncture site is common. * You may shower. * DO NOT submerge wrist. * Leave dressing on FOR 24 hours. EFRAIN HARRINGTON MD Jan 10, 2020 10:18
--- NOTE | 2020-01-10 10:22 | Cardiac Cath Report ---
Cardiac Cath Report Physician (s)/Housekeeper (s) Physician EFRAIN HARRINGTON MD Pre-Procedure Diagnosis Pre-Procedure Diagnosis: Coronary artery disease Post-Procedure Note Procedure Start Date: Jan 10, 2020 Name of Procedure: Left heart catheterization Vein graft angiogram SILVA angiogram Findings/Procedure Note PROCEDURE NOTE: 74-year-old lady with history of coronary artery disease, CABG 2, had an abnormal stress test with anterior wall ischemia scheduled for cardiac catheterization possible PTCA After explaining the procedure to the patient, all pros and cons were explained, all questions were answered. The patient signed the consent and then she was placed on the cardiac catheterization laboratory. Groin was prepped SL fashion local anesthesia was used. Sheath placed in the right femoral artery. Deniz right and left catheter were used to access the coronary system.Vein Graft evaluated. SILVA evaluated. Pigtail was used to access the left ventricular cavity. Left ventriculogram was not done, pressure was measured At the end of the procedure the sheath was removed. Closure device was used FINDINGS: Hemodynamics LV 122/13, end-diastolic pressure of 13 Aorta 127/56 mean of 86 ANATOMY: Left Main is moderate to severe stenosis Left Anterior Descending is occluded at the midportion, SILVA to LAD is patent with good flow distally, small vessel disease distally Left Circumflex is totally occluded at the ostium, vein graft to the obtuse marginal branch is patent filling the circumflex system Right Coronory Artery is dominant artery with [id number] disease nonobstructive disease SILVA to LAD is patent with small vessel disease at the distal LAD Vein Graft to the obtuse marginal branch is patent with excellent flow distally filling the circumflex system LV Gram was not done, pressure was measured CONCLUSION: 1. Severe [place] coronary artery disease in the LAD and circumflex artery, corrected with patent SILVA to LAD and small vessel disease at the distal LAD and patent vein graft to the obtuse marginal branch with excellent flow distally 2. Mild to moderate right coronary artery disease nonobstructive disease 3. Normal left ventricular end-diastolic pressure DISCUSSION AND RECOMMENDATION: Abnormal stress test is probably due to extracardiac attenuation and small vessel disease, medical therapy is recommended no intervention is warranted Anesthesia Type: Conscious Sedation Estimated blood loss (mL): 15 ml Contrast Amount: 60 ml Total Radiation Dose: 419 mGy Post-Procedure Diagnosis Post-operative diagnosis: Chest pain Coronary artery disease Hypertension Hyperlipidemia EFRAIN HARRINGTON MD Jan 10, 2020 10:22
[2020-01-10] MEDS ORDERED: PATIENT MAY USE OWN MEDS, ALL PO SCH (10:30)
== END 2020-01-10 14:30 | disposition home or self-care (01) ==
LOC: CATH 10:00 → SDC 10:41 → CATH 14:30
PROVIDERS: ATTEND Internal Medicine Cardiovascular Disease
DX: I25.10 Atherosclerotic heart disease of native coronary artery without angina pectoris (principal); E78.5 Hyperlipidemia, unspecified; I11.9 Hypertensive heart disease without heart failure; E11.9 Type 2 diabetes mellitus without complications; G47.33 Obstructive sleep apnea (adult) (pediatric); I08.1 Rheumatic disorders of both mitral and tricuspid valves; E66.9 Obesity, unspecified; J45.909 Unspecified asthma, uncomplicated; I65.29 Occlusion and stenosis of unspecified carotid artery; M19.91 Primary osteoarthritis, unspecified site; R82.90 Unspecified abnormal findings in urine; Z79.84 Long term (current) use of oral hypoglycemic drugs; Z79.82 Long term (current) use of aspirin; Z95.1 Presence of aortocoronary bypass graft; Z79.899 Other long term (current) drug therapy; Z82.49 Family history of ischemic heart disease and other diseases of the circulatory system; Z99.89 Dependence on other enabling machines and devices; Z87.01 Personal history of pneumonia (recurrent); Z68.42 Body mass index [BMI] 45.0-49.9, adult; Z11.2 Encounter for screening for other bacterial diseases
CPT/HCPCS: 71045; 80053; 80061; 81000; 85027; 85610; 85730; 87081; 87088; 93459; C1760; C1894; 36415

== ENCOUNTER 2020-07-30 14:08 | Emergency (ER) | payer MEDICARE, OTHER ==
[~2020-07-30] VITALS: Ht 170 cm; Wt 122.0 kg
[~2020-07-30 14:08] MED LIST changes: -AMIO200T4 PO; +AMIO200T6 PO; -HEParin (CATH LAB) 2,000 ML IV ONE; -LIDOCAINE 1% INJ 20 ML 20 ML VIAL ONE; -MIDAZOLAM 5 MG/5 ML (VERSED) VIAL ONE; -NS IV 1000 ML 1,000 ML IV SCH; -NS IV 1000 ML 1,000 ML ONE; -PANT40TA3 PO; +PANT40TA52 PO; -fentaNYL INJECTION 100 MCG/2 ML AMP ONE
--- NOTE | 2020-07-30 14:46 | ED General ---
General Chief Complaint: Trauma-Non Activation Stated Complaint: FALL; RT ELBOW INJ/RAHUL HIP PAIN History of Present Illness Date Seen by Provider: Jul 30, 2020 Time Seen by Provider: 14:30 Initial Comments 75-year-old female presents from primary care doctor's office with concern over confusion. She states she fell last night when she got up to use the restroom injuring her right elbow. Her daughter is concerned that she seems to be somewhat confused and her PCP said she did not know the day or the year which is very abnormal for her as she is normally highly functioning individual. She is without complaint of recent illness, fever chills, chest pain or shortness of air. She denies any pain other than some mild pain of her right upper extremity. She denies any head injury or neck pain. Allergies and Home Medications Allergies Coded Allergies: Penicillins (Verified Allergy, Unknown, 09/24/06) Home Medications Acetaminophen 500 Mg Tablet, 1,000 MG PO Q6H PRN for PAIN-MILD (1-4), (Reported) Albuterol Sulfate 1 Puff Puff, 2 PUFF IH Q6H PRN for SHORTNESS OF BREATH, (Reported) Albuterol Sulfate 2.5 Mg/3 Ml Vial.neb, 3 ML NEB Q6H PRN for SHORTNESS OF BREATH, (Reported) Amitriptyline HCl 100 Mg Tablet, 100 MG PO HS, (Reported) Aspirin 81 Mg Tablet.dr, 81 MG PO HS, (Reported) Atenolol 25 Mg Tablet, 25 MG PO HS, (Reported) LAST FILLED 08-07-2019 #90 Atorvastatin Calcium 20 Mg Tablet, 20 MG PO DAILY, (Reported) Celecoxib 200 Mg Capsule, 200 MG PO DAILY, (Reported) Ciprofloxacin HCl 500 Mg Tablet, 500 MG PO BID Prescribed by: JC MARIN on 07/30/20 1535 Hydrochlorothiazide 25 Mg Tablet, 25 MG PO DAILY, (Reported) Losartan Potassium 100 Mg Tablet, 100 MG PO DAILY, (Reported) Metformin HCl 500 Mg Tablet, 500 MG PO BID, (Reported) Zolpidem Tartrate 12.5 Mg Tab.mphase, 12.5 MG PO HS PRN for SLEEP, (Reported) Patient Home Medication List Home Medication List Reviewed: Yes Review of Systems Review of Systems Constitutional: No fever, No malaise, No weakness Respiratory: No cough, No short of breath Cardiovascular: No chest pain, No edema, No palpitations Gastrointestinal: No abdominal pain, No nausea, No vomiting Musculoskeletal: No back pain; joint pain (R elbow) Skin: No change in color, No rash Psychiatric/Neurological: Denies Depressed, Denies Emotional Problems, Denies Headache, Denies Numbness, Denies Paresthesia, Denies Tingling, Denies Tremors, Denies Weakness Past [place]-Njdkya Hx Past Med/Social Hx: Reviewed Nursing Past Med/Soc Hx Patient Social History Alcohol Use: Denies Use 2nd Hand Smoke Exposure: No Recent Hopitalizations: No Immunizations Up To Date Date of Pneumonia Vaccine: Jan 01, 2015 Date of Influenza Vaccine: Jan 23, 2019 Seasonal Allergies Seasonal Allergies: No Past Medical History CABG, Gallbladder, Hysterectomy, Orthopedic Respiratory: Yes Sleep Apnea, COPD Currently Using CPAP: Yes Currently Using BIPAP: No Cardiac: Yes Coronary Artery Disease, High Cholesterol, Hypertension Neurological: No Genitourinary: No Gastrointestinal: No Musculoskeletal: No Arthritis, Fibromyalgia, Rheumatoid Arthritis, Chronic Back Pain Endocrine: Yes HEENT: No Cancer: No Psychosocial: No Integumentary: No Blood Disorders: No Family Medical History Colon cancer G8 SISTER (leaking bowel, from choking on piece of food & never regained conscuiosness) Fibrocystic disease of breast 19 MOTHER (breast ca) Kidney disease G8 BROTHER (bladder ca) Myocardial infarction 19 FATHER Neoplasm Cancer Physical Exam Vital Signs Vital Signs - First Documented 07/30/20 15:01 Temp 37.8 Pulse 98 Resp 18 B/P (MAP) 136/116 (123) Pulse Ox 94 O2 Delivery Room Air Capillary Refill : Height, Weight, BMI Height: 5'8.00" Weight: 310lbs. 0.0oz. [id number]; 45.93 BMI Method: General Appearance: No Apparent Distress, WD/WN Eyes: Bilateral Eye Normal Inspection, Bilateral Eye PERRL, Bilateral Eye EOMI HEENT: PERRL/EOMI, Normal ENT Inspection Neck: Full Range of Motion, Non Tender, Supple Respiratory: Chest Non Tender, Lungs Clear, Normal Breath Sounds, No Accessory Muscle Use, No Respiratory Distress Cardiovascular: Regular Rate, Rhythm, No Edema, No JVD Gastrointestinal: Normal Bowel Sounds, Non Tender, Soft Back: Normal Inspection, No CVA Tenderness, No Vertebral Tenderness Extremity: Normal Capillary Refill, Normal Inspection, Normal Range of Motion, Non Tender, No Calf Tenderness, Other (ecchymosis, edema R elbow without significant TTP. Full painless ROM) Neurologic/Psychiatric: Alert, No Motor/Sensory Deficits, Normal Mood/Affect, Other (confusion. answers most questions. doesn't know the year) Focused Exam Lactate Level 07/30/20 14:54: Lactic Acid Level 1.26 Lactic Acid Level Laboratory Tests Test 07/30/20 14:54 Lactic Acid Level 1.26 MMOL/L (0.50-2.00) Progress/Results/Core Measures Suspected Sepsis SIRS Temperature: Pulse: Respiratory Rate: Laboratory Tests 07/30/20 14:54: White Blood Count 11.0 Blood Pressure / Mean: 07/30/20 14:54: Lactic Acid Level 1.26 Laboratory Tests 07/30/20 14:54: Creatinine 0.95, Platelet Count 202, Total Bilirubin 0.6 Results/Orders Lab Results Laboratory Tests Test 07/30/20 14:54 07/30/20 14:59 Range/Units White Blood Count 11.0 4.3-11.0 10^3/uL Red Blood Count 4.24 L 4.35-5.85 10^6/uL Hemoglobin 12.1 11.5-16.0 G/DL Hematocrit 37 35-52 % Mean Corpuscular Volume 87 80-99 FL Mean Corpuscular Hemoglobin 29 25-34 PG Mean Corpuscular Hemoglobin Concent 33 32-36 G/DL Red Cell Distribution Width 13.2 10.0-14.5 % Platelet Count 202 130-400 10^3/uL Mean Platelet Volume 10.8 H 7.4-10.4 FL Immature Granulocyte % (Auto) 0 % Neutrophils (%) (Auto) 78 H 42-75 % Lymphocytes (%) (Auto) 11 L 12-44 % Monocytes (%) (Auto) 10 0-12 % Eosinophils (%) (Auto) 1 0-10 % Basophils (%) (Auto) 0 0-10 % Neutrophils # (Auto) 8.6 H 1.8-7.8 X 10^3 Lymphocytes # (Auto) 1.2 1.0-4.0 X 10^3 Monocytes # (Auto) 1.1 H 0.0-1.0 X 10^3 Eosinophils # (Auto) 0.1 0.0-0.3 10^3/uL Basophils # (Auto) 0.0 0.0-0.1 10^3/uL Immature Granulocyte # (Auto) 0.0 0.0-0.1 10^3/uL Sodium Level 132 L 135-145 MMOL/L Potassium Level 3.7 3.6-5.0 MMOL/L Chloride Level 94 L 98-107 MMOL/L Carbon Dioxide Level 26 21-32 MMOL/L Anion Gap 12 5-14 MMOL/L Blood Urea Nitrogen 21 H 7-18 MG/DL Creatinine 0.95 0.60-1.30 MG/DL Estimat Glomerular Filtration Rate 58 BUN/Creatinine Ratio 22 Glucose Level 179 H 70-105 MG/DL Lactic Acid Level 1.26 0.50-2.00 MMOL/L Calcium Level 9.3 8.5-10.1 MG/DL Corrected Calcium 9.5 8.5-10.1 MG/DL Total Bilirubin 0.6 0.1-1.0 MG/DL Aspartate Amino Transf (AST/SGOT) 24 5-34 U/L Alanine Aminotransferase (ALT/SGPT) 17 0-55 U/L Alkaline Phosphatase 107 40-136 U/L Troponin I < 0.30 <0.30 NG/ML Total Protein 7.2 6.4-8.2 GM/DL Albumin 3.8 3.2-4.5 GM/DL Urine Color YELLOW Urine Clarity CLOUDY H Urine pH 7.0 5-9 Urine Specific [place] 1.015 L 1.016-1.022 Urine Protein 1+ H NEGATIVE Urine Glucose (UA) NEGATIVE NEGATIVE Urine Ketones NEGATIVE NEGATIVE Urine Nitrite POSITIVE H NEGATIVE Urine Bilirubin NEGATIVE NEGATIVE Urine Urobilinogen 0.2 < = 1.0 MG/DL Urine Leukocyte Esterase 2+ H NEGATIVE Urine RBC (Auto) TRACE H NEGATIVE Urine RBC 2-5 H /HPF Urine WBC >100 H /HPF Urine Squamous Epithelial Cells 2-5 /HPF Urine Crystals NONE /LPF Urine Bacteria LARGE H /HPF Urine Casts NONE /LPF Urine Mucus NEGATIVE /LPF Urine Culture Indicated YES My Orders Orders - NICOLAVENSTINEJC DO Ed Iv/Invasive Line Start (07/30/20 14:39) Cbc With Automated Diff (07/30/20 14:39) Comprehensive Metabolic Panel (07/30/20 14:39) Urinalysis (07/30/20 14:39) Troponin I Fs (07/30/20 14:39) Ct Head Wo (07/30/20 14:39) Lactic Acid Analyzer (07/30/20 14:39) Urine Culture (07/30/20 14:59) Ciprofloxacin Iv 400mg/200ml (Cipro Iv S (07/30/20 15:30) Ns Iv 1000 Ml (Sodium Chloride 0.9%) (07/30/20 15:30) Ciprofloxacin Tablet (Cipro Tablet) (07/30/20 15:33) Vital Signs/I&O 07/30/20 07/30/20 15:01 15:42 Temp 37.8 36.2 Pulse 98 96 Resp 18 18 B/P (MAP) 136/116 (123) 105/84 Pulse Ox 94 98 O2 Delivery Room Air Room Air Capillary Refill : Progress Note : Progress Note Spoke to patient's daughter about sending her home with antibiotics only if she would be able to be monitored by family. Daughter agreed that she would be able to be there for a couple days to make sure she is improving. Called their PCP, Dr Corado to explain our findings as well as UTI and normal CT scan. He agreed with outpatient treatment he would call to arrange follow-up in 2 days to make sure she is doing okay. Diagnostic Imaging Diagonstic Imaging: CT Plain Films/CT/US/NM/MRI: head Comments COMPARISON: None. FINDINGS: There is moderate image degradation secondary to motion artifact. The ventricles and cortical sulci are diffusely prominent, compatible with age-related volume loss. There are confluent areas of abnormal, low attenuation in the periventricular white matter. This is consistent with small vessel ischemic changes; age-indeterminate. There is no prior study available for comparison. There is no midline shift or mass-effect. No acute intra-axial hemorrhage is seen. There are no abnormal areas of increased or decreased density to suggest acute hemorrhage or edema. No extra-axial masses or collections are present. The bony calvarium is intact. The visualized paranasal sinuses are unremarkable. The mastoid air cells are clear. IMPRESSION: 1. No acute intracranial abnormality. No CT evidence of mass, acute infarct or intracranial hemorrhage. 2. Small vessel ischemic changes in the periventricular and subcortical white matter; likely chronic. Dictated on workstation # [id number] Dict: 07/30/20 1509 Trans: 07/30/20 1512 [facility] [id number] Interpreted by: ROBB LEVY MD Electronically signed by: Departure Impression Primary Impression: UTI (urinary tract infection) Qualified Codes: N39.0 - Urinary tract infection, site not specified Additional Impression: Confusion Disposition: 01 HOME, SELF-CARE Condition: Stable Departure-Patient Inst. Decision time for Depature: 15:36 Referrals: JOHNNY CORADO MD (PCP/Family) Primary Care Physician Patient Instructions: Urinary Tract Infection, Adult (DC) Add. Discharge Instructions: follow up with Dr Corado in 2 to 3 days. Follow up in the ER if any problems or concerns of getting worsening symptoms All discharge instructions reviewed with patient and/or family. Voiced understanding. Scripts Ciprofloxacin HCl (Ciprofloxacin HCl) 500 Mg Tablet 500 MG PO BID, #14 TAB Prov: JC MARIN DO 07/30/20 JC MARIN DO Jul 30, 2020 14:46
[2020-07-30 15:13] LABS: BASOPHILS % (AUTO) 0 % (0-10); EOSINOPHILS % (AUTO) 1 % (0-10); HEMATOCRIT 37 % (35-52); HEMOGLOBIN 12.1 G/DL (11.5-16.0); LYMPHOCYTES % (AUTO) 11 % (12-44); MEAN CORPUSCULAR HEMOGLOBIN 29 PG (25-34); MEAN CORPUSCULAR HGB CONC 33 G/DL (32-36); MEAN CORPUSCULAR VOLUME 87 FL (80-99); MEAN PLATELET VOLUME 10.8 FL (7.4-10.4); MONOCYTES % (AUTO) 10 % (0-12); NEUTROPHILS % (AUTO) 78 % (42-75); PLATELET COUNT 202 10^3/uL (130-400)
--- NOTE | 2020-07-30 15:13 | Diagnostic Imaging Report ---
INDICATION: Fall. Trauma to the head. TECHNIQUE: Routine non contrast-enhanced axial images were obtained from the skull base to the vertex. Auto Exposure Controls were utilized during the CT exam to meet ALARA standards for radiation dose reduction COMPARISON: None. FINDINGS: There is moderate image degradation secondary to motion artifact. The ventricles and cortical sulci are diffusely prominent, compatible with age-related volume loss. There are confluent areas of abnormal, low attenuation in the periventricular white matter. This is consistent with small vessel ischemic changes; age-indeterminate. There is no prior study available for comparison. There is no midline shift or mass-effect. No acute intra-axial hemorrhage is seen. There are no abnormal areas of increased or decreased density to suggest acute hemorrhage or edema. No extra-axial masses or collections are present. The bony calvarium is intact. The visualized paranasal sinuses are unremarkable. The mastoid air cells are clear. IMPRESSION: 1. No acute intracranial abnormality. No CT evidence of mass, acute infarct or intracranial hemorrhage. 2. Small vessel ischemic changes in the periventricular and subcortical white matter; likely chronic. Dictated by: Dictated on workstation # [id number]
[2020-07-30 15:14] LABS: EOSINOPHILS # (AUTO) 0.1 10^3/uL (0.0-0.3); LYMPHOCYTES # (AUTO) 1.2 X 10^3 (1.0-4.0); MONOCYTES # (AUTO) 1.1 X 10^3 (0.0-1.0); NEUTROPHILS # (AUTO) 8.6 X 10^3 (1.8-7.8)
[2020-07-30 15:18] LABS: BACTERIA,URINE LARGE /HPF; BILIRUBIN,URINE NEGATIVE (NEGATIVE); CLARITY,URINE CLOUDY; COLOR,URINE YELLOW; GLUCOSE, URINE (UA) NEGATIVE (NEGATIVE); KETONES,URINE NEGATIVE (NEGATIVE); LEUKOCYTE ESTERASE ,URINE 2+ (NEGATIVE); NITRITE,URINE POSITIVE (NEGATIVE); PROTEIN,URINE 1+ (NEGATIVE); WBC,URINE >100 /HPF
[2020-07-30 15:26] LABS: ALANINE AMINOTRANSFERASE 17 U/L (0-55); ALKALINE PHOSPHATASE 107 U/L (40-136); BILIRUBIN,TOTAL 0.6 MG/DL (0.1-1.0); BUN/CREATININE RATIO 22; CALCIUM 9.3 MG/DL (8.5-10.1); CARBON DIOXIDE 26 MMOL/L (21-32); CHLORIDE 94 MMOL/L (98-107); CREATININE SERUM 0.95 MG/DL (0.60-1.30); GFR ESTIMATED 58; GLUCOSE 179 MG/DL (70-105); POTASSIUM 3.7 MMOL/L (3.6-5.0); SODIUM 132 MMOL/L (135-145)
[2020-07-30 15:27] LABS: ALBUMIN 3.8 GM/DL (3.2-4.5); TOTAL PROTEIN 7.2 GM/DL (6.4-8.2)
[2020-07-30] MEDS ORDERED: CIPROFLOXACIN IV 400MG/200ML 200 ML IV ONE (15:30)
[2020-07-30] MEDS ORDERED: NS IV 1000 ML 1,000 ML IV SCH (15:30)
[2020-07-30] MEDS ORDERED: CIPROFLOXACIN 500 MG (CIPRO) TABLET PO STA (15:33)
[2020-07-30] MEDS ORDERED: CIPR500T5 PO (15:35)
[2020-07-30 15:42] VITALS: BP 105/84
[2020-07-31] MEDS ORDERED: ATEN50TA PO (12:42)
[2020-07-31] MEDS ORDERED: CIPR-225 PO (12:48)
[2020-08-01] MEDS ORDERED: CEFD300C3 PO (15:43)
== END 2020-07-30 15:46 | disposition home or self-care (01) ==
LOC: EDUNIT# 14:08 → ER FS 14:11
DX: S50.01XA Contusion of right elbow, initial encounter (principal); N39.0 Urinary tract infection, site not specified; R41.0 Disorientation, unspecified; I10 Essential (primary) hypertension; I25.10 Atherosclerotic heart disease of native coronary artery without angina pectoris; E78.00 Pure hypercholesterolemia, unspecified; M06.9 Rheumatoid arthritis, unspecified; M79.7 Fibromyalgia; G47.30 Sleep apnea, unspecified; J44.9 Chronic obstructive pulmonary disease, unspecified; Z79.82 Long term (current) use of aspirin; Z79.84 Long term (current) use of oral hypoglycemic drugs; Z88.0 Allergy status to penicillin; Z80.0 Family history of malignant neoplasm of digestive organs; Z80.3 Family history of malignant neoplasm of breast; W19.XXXA Unspecified fall, initial encounter
CPT/HCPCS: 36415; 70450; 80053; 81000; 83605; 84484; 85025; 87088

== ENCOUNTER 2020-07-30 17:05 | Inpatient (IN) | payer MEDICARE, OTHER ==
[~2020-07-30] VITALS: Ht 172 cm; Wt 136.3 kg
[~2020-07-30 17:05] MED LIST changes: +CIPR500T5 PO
--- NOTE | 2020-07-30 17:40 | ED General ---
General Chief Complaint: - Urinary Stated Complaint: FALL,AMS,UTI SYMPTOMS Nursing Triage Note: PT WAS HERE WITHIN THE HOUR AND WAS DISCHARGED. WHEN SHE GOT HOME THE DUAGHTER DECIDED SHE WANTED HER ADMITTED AND THEY CALLED EMS DUE TO INCREASED CONFUSION. THE PT IS CONFUSED AT THIS TIME. Nursing Sepsis Screen: No Definite Risk Source of Information: Patient History of Present Illness Date Seen by Provider: Jul 30, 2020 Time Seen by Provider: 16:45 Initial Comments Patient returned to the ER shortly after being discharged home with the care of her daughter. Evidently the daughter decided she could not take care of her and called 911. See previous note same day, by myself for details. Patient with no new complaint. Presents happy but somewhat confused and disoriented with normal vital signs. Allergies and Home Medications Allergies Coded Allergies: Penicillins (Verified Allergy, Unknown, 09/24/06) Home Medications Acetaminophen 500 Mg Tablet, 1,000 MG PO Q6H PRN for PAIN-MILD (1-4), (Reported) Albuterol Sulfate 1 Puff Puff, 2 PUFF IH Q6H PRN for SHORTNESS OF BREATH, (Reported) Albuterol Sulfate 2.5 Mg/3 Ml Vial.neb, 3 ML NEB Q6H PRN for SHORTNESS OF BREATH, (Reported) Amitriptyline HCl 100 Mg Tablet, 100 MG PO HS, (Reported) Aspirin 81 Mg Tablet.dr, 81 MG PO HS, (Reported) Atenolol 25 Mg Tablet, 25 MG PO HS, (Reported) LAST FILLED 08-07-2019 #90 Atorvastatin Calcium 20 Mg Tablet, 20 MG PO DAILY, (Reported) Celecoxib 200 Mg Capsule, 200 MG PO DAILY, (Reported) Ciprofloxacin HCl 500 Mg Tablet, 500 MG PO BID Prescribed by: JC MARIN on 07/30/20 1535 Hydrochlorothiazide 25 Mg Tablet, 25 MG PO DAILY, (Reported) Losartan Potassium 100 Mg Tablet, 100 MG PO DAILY, (Reported) Metformin HCl 500 Mg Tablet, 500 MG PO BID, (Reported) Zolpidem Tartrate 12.5 Mg Tab.mphase, 12.5 MG PO HS PRN for SLEEP, (Reported) Patient Home Medication List Home Medication List Reviewed: Yes Review of Systems Review of Systems Constitutional: No chills, No fever, No malaise, No weakness Respiratory: No cough, No short of breath Cardiovascular: No chest pain, No edema, No palpitations Gastrointestinal: No abdominal pain, No constipation, No diarrhea, No nausea, No vomiting Genitourinary: No dysuria, No frequency, No hematuria Skin: No change in color, No rash Past Fzxntuj-Fwftbv-Hcdokf Hx Past Med/Social Hx: Reviewed Nursing Past Med/Soc Hx Patient Social History Alcohol Use: Denies Use 2nd Hand Smoke Exposure: No Recent Infectious Disease Expo: No Recent Hopitalizations: No Immunizations Up To Date Date of Pneumonia Vaccine: Jan 01, 2015 Date of Influenza Vaccine: Jan 23, 2019 Seasonal Allergies Seasonal Allergies: No Past Medical History CABG, Gallbladder, Hysterectomy, Orthopedic Respiratory: Yes Sleep Apnea, COPD Currently Using CPAP: Yes Currently Using BIPAP: No Cardiac: Yes Coronary Artery Disease, High Cholesterol, Hypertension Neurological: No Genitourinary: No Gastrointestinal: No Musculoskeletal: No Arthritis, Fibromyalgia, Rheumatoid Arthritis, Chronic Back Pain Endocrine: Yes HEENT: No Cancer: No Psychosocial: No Integumentary: No Blood Disorders: No Family Medical History Colon cancer G8 SISTER (leaking bowel, from choking on piece of food & never regained conscuiosness) Fibrocystic disease of breast 19 MOTHER (breast ca) Kidney disease G8 BROTHER (bladder ca) Myocardial infarction 19 FATHER Neoplasm Cancer Physical Exam Vital Signs Vital Signs - First Documented 07/30/20 17:11 Temp 36.2 Pulse 82 Resp 18 B/P (MAP) 138/98 (111) Pulse Ox 98 O2 Delivery Room Air Capillary Refill : Less Than 3 Seconds Height, Weight, BMI Height: 5'8.00" Weight: 310lbs. 0.0oz. 140.295497cq; 42.00 BMI Method: General Appearance: No Apparent Distress, WD/WN Eyes: Bilateral Eye Normal Inspection, Bilateral Eye PERRL, Bilateral Eye EOMI Respiratory: Chest Non Tender, Lungs Clear, Normal Breath Sounds Cardiovascular: Regular Rate, Rhythm, No Edema, No Gallop Gastrointestinal: Non Tender, Soft Back: Normal Inspection, No CVA Tenderness Extremity: Normal Capillary Refill, Normal Inspection, Non Tender Neurologic/Psychiatric: Alert, Oriented x3, No Motor/Sensory Deficits Skin: Normal Color, Warm/Dry Progress/Results/Core Measures Suspected Sepsis Recent Fever Within 48 Hours: No Infection Criteria Present: None New/Unexplained Altered Menta: No Sepsis Screen: No Definite Risk SIRS Temperature: Pulse: 82 Respiratory Rate: 16 Blood Pressure 138 /98 Mean: 111 Results/Orders Vital Signs/I&O 07/30/20 07/30/20 17:11 17:26 Temp 36.2 36.2 Pulse 82 82 Resp 18 16 B/P (MAP) 138/98 (111) 138/98 Pulse Ox 98 98 O2 Delivery Room Air Room Air Capillary Refill : Less Than 3 Seconds Blood Pressure Mean: 111 Departure Communication (Admissions) Time/Spoke to Admitting Phy: 17:[address] Wheatley about patient's second visit to the ER today shortly after her initial visit with planned outpatient therapy with p.o. antibiotics for UTI with some confusion. This was in agreement with her PCP as well as patient's daughter who was present for this discussion and decision making, however shortly after they arrived home the daughter called 911 to have her taken to [facility] for admission. EMS appropriately brought her back to this ER for evaluation. Determined to be in the same condition without any acute change from previous dismissal. Did not repeat labs, started on IV to begin IV Cipro. Planned short admission for UTI with confusion. Impression Primary Impression: UTI (urinary tract infection) Qualified Codes: N39.0 - Urinary tract infection, site not specified Additional Impression: Confusion Disposition: 30 STILL A PATIENT Condition: Stable Admissions Decision to Admit Reason: Admit from ER (General) Decision to Admit/Date: Jul 30, 2020 Time/Decision to Admit Time: 16:45 Departure-Patient Inst. Referrals: JOHNNY CASTELAN MD (PCP/Family) Primary Care Physician JC MARIN DO Jul 30, 2020 17:40
[2020-07-30 20:00] VITALS: BP 120/58
[2020-07-30] MEDS ORDERED: CATHETER FLUSH 10 ML SYR IV PRN (20:00)
[2020-07-30] MEDS: NS IV 1000 ML 1,000 ML IV SCH (20:21)
[2020-07-30] MEDS: CIPROFLOXACIN IV 400MG/200ML 200 ML IV SCH (20:27)
[2020-07-31] VITALS (7 sets, daily range): BP systolic 119–166; BP diastolic 50–77
[2020-07-31] MEDS: NS IV 1000 ML 1,000 ML IV SCH ×4 (03:40→20:04)
[2020-07-31 06:00] LABS: BASOPHILS % (AUTO) 0 % (0-10); EOSINOPHILS % (AUTO) 0 % (0-10); HEMATOCRIT 37 % (35-52); HEMOGLOBIN 11.7 g/dL (11.5-16.0); LYMPHOCYTES % (AUTO) 11 % (12-44); MEAN CORPUSCULAR HEMOGLOBIN 28 pg (25-34); MEAN CORPUSCULAR HGB CONC 32 g/dL (32-36); MEAN CORPUSCULAR VOLUME 88 fL (80-99); MEAN PLATELET VOLUME 10.1 fL (9.0-12.2); MONOCYTES # (AUTO) 1.2 10^3/uL (0.0-1.0); MONOCYTES % (AUTO) 14 % (0-12); NEUTROPHILS # (AUTO) 6.6 10^3/uL (1.8-7.8); NEUTROPHILS % (AUTO) 75 % (42-75); PLATELET COUNT 215 10^3/uL (130-400); WHITE BLOOD COUNT 8.8 10^3/uL (4.3-11.0)
[2020-07-31 06:21] LABS: ALBUMIN 3.6 GM/DL (3.2-4.5); BILIRUBIN,TOTAL 0.7 MG/DL (0.1-1.0); CALCIUM 9.1 MG/DL (8.5-10.1); CREATININE SERUM 0.95 MG/DL (0.60-1.30); POTASSIUM 3.1 MMOL/L (3.6-5.0); TOTAL PROTEIN 6.9 GM/DL (6.4-8.2)
[2020-07-31] MEDS ORDERED: KCL 20 MEQ TAB (K-DUR) PO ONE (07:45)
[2020-07-31] MEDS: CIPROFLOXACIN IV 400MG/200ML 200 ML IV SCH ×2 (08:05→19:57)
--- NOTE | 2020-07-31 10:02 | History & Physical ---
HPI History of Present Illness: Pt reports that on Wednesday night she got up to go to the bathroom and she fell. The next day, her daughter took her to see her primary doctor and he noted that she was not acting like herself, she couldn't figure out where she was or what was going on, so he sent her to the ER. She thinks that she fell by stubbing her toe on the edge of a dresser. She hit her elbow when she fell, but denies hitting her head. She did have trouble getting back up after she fell. The ER did a work-up and sent her home, and she states when she got home, her daughter could not get her out of the car, eventually she was able to, but it took a long time to even get near her door, so they took her back to the ER. She states this morning she is more with it and feels like she can answer questions well. She also notes yesterday there were periods where she was more like herself, but intermittently she was confused as well. She denies any numbness or weakness. Date seen by provider: Jul 31, 2020 Time Seen by Provider: 10:02 Attending Physician Dinorah Wheatley MD PCP Cyrus Corado MD Consult Date of Admission Jul 30, 2020 at 19:15 Home Medications Home Medications Reviewed patient Home Medication Reconciliation performed by pharmacy medication reconciliations biometric fingerprinting technician and/or nursing. Patients Allergies have been reviewed. Allergies Coded Allergies: Penicillins (Verified Allergy, Unknown, 09/24/06) [id number]-Mfqhnn Hx Patient Social History Smoking Status: Never a Smoker 2nd Hand Smoke Exposure: No Recent Hopitalizations: No Alcohol Use?: No Have you traveled recently?: No Immunizations Up To Date Date of Pneumonia Vaccine: Jan 01, 2015 Date of Influenza Vaccine: Jan 23, 2019 Past Medical History PMHx: Sleep apnea on CPAP Rheumatoid arthritis Coronary artery disease s/p CABG Hypertension Diabetes mellitus type 2 Hyperlipidemia SurgHx: Coronary artery bypass grafting Left knee replacement Hysterectomy Appendectomy Cholecystectomy Family Medical History Significant Family History: Cancer Family History: Colon cancer G8 SISTER (leaking bowel, from choking on piece of food & never regained conscuiosness) Fibrocystic disease of breast 19 MOTHER (breast ca) Kidney disease G8 BROTHER (bladder ca) Myocardial infarction 19 FATHER Neoplasm Review of Systems ([facility]) Constitutional: No fever EENTM: nose congestion (chronic) Respiratory: cough (chronic) Cardiovascular: No chest pain Gastrointestinal: No abdominal pain, No constipation, No diarrhea, No vomiting Genitourinary: No dysuria Musculoskeletal: joint pain (chronic); No muscle weakness Psychiatric/Neurological: Denies Numbness, Denies Paresthesia, Denies Weakness Reviewed Test Results Reviewed Test Results Lab Laboratory Tests Test 07/31/20 05:41 Range/Units White Blood Count 8.8 4.3-11.0 10^3/uL Red Blood Count 4.16 3.80-5.11 10^6/uL Hemoglobin 11.7 11.5-16.0 g/dL Hematocrit 37 35-52 % Mean Corpuscular Volume 88 80-99 fL Mean Corpuscular Hemoglobin 28 25-34 pg Mean Corpuscular Hemoglobin Concent 32 32-36 g/dL Red Cell Distribution Width 13.1 10.0-14.5 % Platelet Count 215 130-400 10^3/uL Mean Platelet Volume 10.1 9.0-12.2 fL Immature Granulocyte % (Auto) 0 % Neutrophils (%) (Auto) 75 42-75 % Lymphocytes (%) (Auto) 11 L 12-44 % Monocytes (%) (Auto) 14 H 0-12 % Eosinophils (%) (Auto) 0 0-10 % Basophils (%) (Auto) 0 0-10 % Neutrophils # (Auto) 6.6 1.8-7.8 10^3/uL Lymphocytes # (Auto) 1.0 1.0-4.0 10^3/uL Monocytes # (Auto) 1.2 H 0.0-1.0 10^3/uL Eosinophils # (Auto) 0.0 0.0-0.3 10^3/uL Basophils # (Auto) 0.0 0.0-0.1 10^3/uL Immature Granulocyte # (Auto) 0.0 0.0-0.1 10^3/uL Sodium Level 136 135-145 MMOL/L Potassium Level 3.1 L 3.6-5.0 MMOL/L Chloride Level 100 98-107 MMOL/L Carbon Dioxide Level 24 21-32 MMOL/L Anion Gap 12 5-14 MMOL/L Blood Urea Nitrogen 14 7-18 MG/DL Creatinine 0.95 0.60-1.30 MG/DL Estimat Glomerular Filtration Rate 58 BUN/Creatinine Ratio 15 Glucose Level 174 H 70-105 MG/DL Calcium Level 9.1 8.5-10.1 MG/DL Corrected Calcium 9.4 8.5-10.1 MG/DL Total Bilirubin 0.7 0.1-1.0 MG/DL Aspartate Amino Transf (AST/SGOT) 23 5-34 U/L Alanine Aminotransferase (ALT/SGPT) 20 0-55 U/L Alkaline Phosphatase 87 40-136 U/L Total Protein 6.9 6.4-8.2 GM/DL Albumin 3.6 3.2-4.5 GM/DL Radiology CT head 07/30: IMPRESSION: 1. No acute intracranial abnormality. No CT evidence of mass, acute infarct or intracranial hemorrhage. 2. Small vessel ischemic changes in the periventricular and subcortical white matter; likely chronic. Physical Exam-([facility]) Physical Exam Vital Signs VS - Last 72 Hours, by Label 07/30/20 07/30/20 07/30/20 07/30/20 17:11 17:26 19:45 20:00 Temp 36.2 36.2 37.0 Pulse 82 82 107 Resp 18 16 22 B/P (MAP) 138/98 (111) 138/98 120/58 (78) Pulse Ox 98 98 94 94 O2 Delivery Room Air Room Air Room Air Room Air O2 Flow Rate 2.00 07/31/20 07/31/20 07/31/20 07/31/20 00:09 04:30 07:50 08:00 Temp 37.9 37.4 37.0 Pulse 99 100 98 Resp 22 22 18 B/P (MAP) 164/67 (99) 119/77 (91) 162/68 (99) Pulse Ox 94 96 97 O2 Delivery Nasal Cannula Nasal Cannula Nasal Cannula Room Air O2 Flow Rate 2.00 2.00 2.00 Capillary Refill : Less Than 3 Seconds General Appearance: no apparent distress Respiratory: lungs clear, normal breath sounds Cardiovascular: regular rate, rhythm, no murmur Gastrointestinal: normal bowel sounds, non tender, soft Neurologic/Psychiatric: mixer blender II-XII nml as tested, alert, normal mood/affect, oriented x 3; No abnormal cerebellar tests, No facial droop Skin: normal color, warm/dry Assessment/Plan Assessment/Plan Admission Status: Inpatient Order (span 2 midnights) Reason for Inpatient Admission: Urinary tract infection with severe confusion and underlying comorbidities at high risk for decompensation (1) Confusion Status: Acute Assessment & Plan: Suspect secondary to UTI, improved today. (2) UTI (urinary tract infection) Status: Acute Assessment & Plan: Started on cipro from ER. Culture pending from ER visit on 07/30, lactic acid normal. Qualifiers: Qualified Codes: N39.0 - Urinary tract infection, site not specified (3) Hypertension Status: Chronic Qualifiers: Qualified Codes: I10 - Essential (primary) hypertension (4) Diabetes mellitus, type 2 Status: Chronic Qualifiers: Qualified Codes: E11.69 - Type 2 diabetes mellitus with other specified complication (5) Hyperlipidemia Status: Chronic (6) Sleep apnea Status: Chronic Qualifiers: Qualified Codes: G47.33 - Obstructive sleep apnea (adult) (pediatric) (7) Coronary artery disease Status: Chronic Qualifiers: Qualified Codes: I25.810 - Atherosclerosis of coronary artery bypass graft(s) without angina pectoris (8) Obesity Status: Chronic Qualifiers: (9) DVT prophylaxis Status: Acute Assessment & Plan: Enoxaparin DINORAH WHEATLEY MD Jul 31, 2020 10:02
[2020-07-31] MEDS ORDERED: ATEN50TA PO (12:42)
[2020-07-31] MEDS ORDERED: CIPR-225 PO (12:48)
[2020-07-31] MEDS ORDERED: ENOXAPARIN 40 MG/0.4 ML (LOVENOX) SYR SQ SCH (13:15)
[2020-07-31] MEDS ORDERED: ACETAMINOPHEN 500 MG TAB (TYLENOL) PO PRN (13:15)
[2020-07-31] MEDS: ENOXAPARIN 40 MG/0.4 ML (LOVENOX) SYR SC SCH (15:25)
[2020-07-31] MEDS: metFORMIN 500 MG (GLUCOPHAGE) TAB PO SCH (17:54)
[2020-07-31] MEDS ORDERED: SIMETHICONE 80 MG (MYLICON) CHEW ONE (18:52)
[2020-07-31] MEDS ORDERED: SIMETHICONE 80 MG (MYLICON) CHEW PO PRN ×2 (19:00→19:15)
[2020-07-31] MEDS ORDERED: ASPIRIN E.C. 81 MG (ECOTRIN) TAB PO SCH (21:00)
[2020-07-31] MEDS ORDERED: NON-FORMULARY MEDICATION 1 EA EA (Amitriptyline HCl 100 MG) PO SCH (21:00)
[2020-07-31] MEDS ORDERED: AMITRIPTYLINE 50 MG (ELAVIL) TAB PO SCH (21:00)
[2020-07-31] MEDS ORDERED: ATENOLOL 50 MG (TENORMIN) TAB PO SCH (21:00)
[2020-07-31] MEDS ORDERED: ONDANSETRON 4 MG/2 ML (SDV) Z0FRAN ONE (21:17)
[2020-07-31] MEDS ORDERED: ONDANSETRON 4 MG/2 ML (SDV) Z0FRAN IVP PRN (21:30)
[2020-08-01 04:00] VITALS: BP 136/75
[2020-08-01] MEDS: NS IV 1000 ML 1,000 ML IV SCH ×2 (05:27→13:05)
[2020-08-01 06:16] LABS: BUN/CREATININE RATIO 15; CALCIUM 8.6 MG/DL (8.5-10.1); CARBON DIOXIDE 24 MMOL/L (21-32); CHLORIDE 104 MMOL/L (98-107); CREATININE SERUM 0.85 MG/DL (0.60-1.30); GFR ESTIMATED > 60; GLUCOSE 155 MG/DL (70-105); POTASSIUM 3.9 MMOL/L (3.6-5.0); SODIUM 139 MMOL/L (135-145)
[2020-08-01] MEDS: CIPROFLOXACIN IV 400MG/200ML 200 ML IV SCH (07:53)
[2020-08-01] MEDS: ENOXAPARIN 40 MG/0.4 ML (LOVENOX) SYR SC SCH (07:53)
[2020-08-01] MEDS: metFORMIN 500 MG (GLUCOPHAGE) TAB PO SCH (07:53)
[2020-08-01 08:00] VITALS: BP 132/60
[2020-08-01] MEDS ORDERED: HYDROCHLOROTHIAZIDE 25 MG (HCTZ) TAB PO SCH (09:00)
[2020-08-01] MEDS ORDERED: LOSARTAN 100 MG (COZAAR) TABLET PO SCH (09:00)
[2020-08-01] MEDS ORDERED: NON-FORMULARY MEDICATION 1 EA EA (Celecoxib 200 MG) PO SCH (09:00)
[2020-08-01] MEDS ORDERED: CELECOXIB 100 MG (CeleBREX) CAP PO SCH (09:00)
[2020-08-01 11:46] VITALS: BP 113/56
--- NOTE | 2020-08-01 12:28 | Progress Note ---
Subjective Subjective/Events-last exam Mental status remains good, but she had a lot of trouble with nausea and vomiting yesterday. This morning thought she would vomit after eating, but just felt poorly. Objective Exam Last Set of Vital Signs Vital Signs Date Time Temp Pulse Resp B/P (MAP) Pulse Ox O2 Delivery O2 Flow Rate FiO2 08/01/20 11:46 36.5 68 22 113/56 (75) 95 Room Air 07/31/20 19:35 2.00 Capillary Refill : Less Than 3 Seconds I&O Intake and Output 08/01/20 00:00 Intake Total 3520 ml Output Total 2150 ml Balance 1370 ml Intake Oral 2320 ml IV Total 1200 ml Output Urine Total 2050 ml Emesis 100 ml # Voids 2 # Bowel Movements 1 General: Alert, No Acute Distress Lungs: Clear to Auscultation, Normal Air Movement Heart: Regular Rate, No Murmurs Abdomen: Normal Bowel Sounds, Soft Extremities: No Edema Neuro: Normal Speech Psych/Mental Status: Mental Status NL Results/Procedures Lab Laboratory Tests 07/31/20 16:03: Glucometer 139H 08/01/20 05:29: Sodium Level 139, Potassium Level 3.9, Chloride Level 104, Carbon Dioxide Level 24, Anion Gap 11, Blood Urea Nitrogen 13, Creatinine 0.85, Estimat Glomerular Filtration Rate > 60, BUN/Creatinine Ratio 15, Glucose Level 155H, Calcium Level 8.[address] head 07/30: IMPRESSION: 1. No acute intracranial abnormality. No CT evidence of mass, acute infarct or intracranial hemorrhage. 2. Small vessel ischemic changes in the periventricular and subcortical white matter; likely chronic. Assessment/Plan Assessment/Plan (1) Confusion Status: Resolved Assessment & Plan: Suspect secondary to UTI, improved today. (2) UTI (urinary tract infection) Status: Acute Assessment & Plan: Started on cipro from ER. Culture pending from ER visit on 07/30, lactic acid normal. Culture still pending, will change to cefdinir given nausea/vomiting. Qualifiers: Qualified Codes: N39.0 - Urinary tract infection, site not specified (3) Hypertension Status: Chronic Qualifiers: Qualified Codes: I10 - Essential (primary) hypertension (4) Diabetes mellitus, type 2 Status: Chronic Qualifiers: Qualified Codes: E11.69 - Type 2 diabetes mellitus with other specified complication (5) Hyperlipidemia Status: Chronic (6) Sleep apnea Status: Chronic Qualifiers: Qualified Codes: G47.33 - Obstructive sleep apnea (adult) (pediatric) (7) Coronary artery disease Status: Chronic Qualifiers: Qualified Codes: I25.810 - Atherosclerosis of coronary artery bypass graft(s) without angina pectoris (8) Obesity Status: Chronic Qualifiers: (9) DVT prophylaxis Status: Acute Assessment & Plan: Enoxaparin DINORAH MCGRATH MD Aug 01, 2020 12:28
--- NOTE | 2020-08-01 14:32 | Discharge Summary ---
Discharge [facility] Discharge Medications New, Converted or Re-Newed RX: Other (cipro already prescribed by ER provider) Continued Medications: Acetaminophen (Tylenol Extra Strength) 500 Mg Tablet 1000 MG PO Q6H PRN for PAIN-MILD (1-4), TAB Albuterol Sulfate (Albuterol Sulfate) 2.5 Mg/3 Ml Vial.neb 3 ML NEB Q6H PRN for SHORTNESS OF BREATH, EACH Amitriptyline HCl (Amitriptyline HCl) 100 Mg Tablet 100 MG PO HS, TAB Aspirin (Aspirin EC) 81 Mg Tablet.dr 81 MG PO HS, TAB Atenolol (Atenolol) 50 Mg Tablet 50 MG PO HS, TAB Atorvastatin Calcium (Atorvastatin Calcium) 20 Mg Tablet 20 MG PO DAILY, TAB Celecoxib (Celecoxib) 200 Mg Capsule 200 MG PO DAILY, CAP Ciprofloxacin HCl (Cipro) 500 Mg Tablet 500 MG PO BID, TAB THIS IS READY AT [facility] BUT WAS NOT STARTED FILLED 07-30-2020 #14/7 DAY SUPPLY Hydrochlorothiazide (Hydrochlorothiazide) 25 Mg Tablet 25 MG PO DAILY, TAB Losartan Potassium (Losartan Potassium) 100 Mg Tablet 100 MG PO DAILY, TAB Metformin HCl (Metformin HCl) 500 Mg Tablet 500 MG PO BID, TAB Zolpidem Tartrate (Zolpidem Tartrate ER) 12.5 Mg Tab.mphase 12.5 MG PO HS PRN for SLEEP, MG Patient Instructions Goal/Follow Up Appt: Follow up with Dr. Corado on 08/06 at 1:30 pm. Return to The Hospital For: Confusion, fever, inability to keep down medications Activity & Diet Discharge Diet: ADA Diet Activity as Tolerated: Yes DINORAH MCGRATH MD Aug 01, 2020 14:32
[2020-08-01] MEDS ORDERED: CEFD300C3 PO (15:43)
--- NOTE | 2020-08-01 15:44 | Discharge Summary ---
Discharge Summary Hospital Course Problems/Diagnosis: (1) Confusion Status: Resolved Resolution Date/Time: 08/01/20 @ 12:28 Assessment & Plan: Suspect secondary to UTI, improved today. (2) UTI (urinary tract infection) Status: Acute Assessment & Plan: Started on cipro from ER. Culture pending from ER visit on 07/30, lactic acid normal. Culture still pending, will change to cefdinir given nausea/vomiting. Qualifiers: Qualified Codes: N39.0 - Urinary tract infection, site not specified (3) Hypertension Status: Chronic Qualifiers: Qualified Codes: I10 - Essential (primary) hypertension (4) Diabetes mellitus, type 2 Status: Chronic Qualifiers: Qualified Codes: E11.69 - Type 2 diabetes mellitus with other specified complication (5) Hyperlipidemia Status: Chronic (6) Sleep apnea Status: Chronic Qualifiers: Qualified Codes: G47.33 - Obstructive sleep apnea (adult) (pediatric) (7) Coronary artery disease Status: Chronic Qualifiers: Qualified Codes: I25.810 - Atherosclerosis of coronary artery bypass graft(s) without angina pectoris (8) Obesity Status: Chronic Qualifiers: Hospital Course Date of Admission: Jul 30, 2020 at 19:15 Admission Diagnosis : Family Physician/Provider: Cyrus Corado MD Date of Discharge: 08/01/20 Discharge Diagnosis: See problem list Hospital Course: See problem list Labs and Pending Lab Test: Laboratory Tests 07/31/20 16:03: Glucometer 139H 08/01/20 05:29: Sodium Level 139, Potassium Level 3.9, Chloride Level 104, Carbon Dioxide Level 24, Anion Gap 11, Blood Urea Nitrogen 13, Creatinine 0.85, Estimat Glomerular Filtration Rate > 60, BUN/Creatinine Ratio 15, Glucose Level 155H, Calcium Level 8.6 Home Meds Active Cefdinir 300 Mg Capsule 300 Mg PO BID Reported Atenolol 50 Mg Tablet 50 Mg PO HS Metformin HCl 500 Mg Tablet 500 Mg PO BID Hydrochlorothiazide 25 Mg Tablet 25 Mg PO DAILY Tylenol Extra Strength (Acetaminophen) 500 Mg Tablet 1,000 Mg PO Q6H PRN Atorvastatin Calcium 20 Mg Tablet 20 Mg PO DAILY Albuterol Sulfate 2.5 Mg/3 Ml Vial.neb 3 Ml NEB Q6H PRN Losartan Potassium 100 Mg Tablet 100 Mg PO DAILY Aspirin EC (Aspirin) 81 Mg Tablet.dr 81 Mg PO HS Celecoxib 200 Mg Capsule 200 Mg PO DAILY Amitriptyline HCl 100 Mg Tablet 100 Mg PO HS Zolpidem Tartrate ER (Zolpidem Tartrate) 12.5 Mg Tab.mphase 12.5 Mg PO HS PRN Assessment/Pt DC Instructions Follow up with Dr. Corado on 08/06 at 1:30 pm. Discharge Diet: ADA Diet Activity as Tolerated: Yes Discharge Physical Examination Allergies: Coded Allergies: Penicillins (Verified Allergy, Unknown, 09/24/06) DINORAH MCGRATH MD Aug 01, 2020 15:44
[2020-08-01 15:48] VITALS: BP 113/56
[2020-08-01] MEDS ORDERED: CEFDINIR 300 MG (OMNICEF) CAP PO SCH (21:00)
--- NOTE | 2020-08-01 22:11 | Physician Query Clarification ---
"Physician Query-General Query to Physician: The medical record reflects the following clinical scenario: History/Risk factors: UTI, DM Clinical Findings: CALLED EMS DUE TO INCREASED CONFUSION. Confusion/Suspect secondary to UTI,, improved today, Treatment: Neuro monitoring, IV ABX Question: What condition best reflects the above clinical scenario? Please document response in the Progress notes or Discharge Summary. 1. Metabolic encephalopathy present on admission 2. Confusion (as currently documented) 3. Other, with explanation of clinical findings 4. Clinically undetermined, no explanation for clinical findings Please remember a lack of response to the above will prompt a phone page by CDI/coding staff. In responding to this query, please exercise your independent professional judgment. The purpose of this communication is to more accurately reflect the complexity of your patients condition. The fact that a question is asked does not imply that any particular answer is desired or expected. Thank you for timely response to this clarification. Doris Schmid, MSN, RN RN Specialist-Clinical Doc Improvement CD -Health Info Mgmt Operations [address] [facility] t: [phone] | f: [phone] If you are unable to reach me at my extension, I may be working from home. Please contact me at [phone] PHYSICIAN RESPONSE: Based on the clinical findings in the record, please respond to the query above on this document as an addendum. Physician Response: Physician Response 1- metabolic encephalopathy secondary to UTI, present on admission If you have questions please contact: Sawdust Drier: Ext: Thank you for your time and cooperation. Clinical Screen Machine Operator/Sawdust Drier This is a permanent part of the medical record DORIS SCHMID Aug 01, 2020 22:11 DINORAH MCGRATH MD Aug 02, 2020 15:39"
== END 2020-08-01 15:52 | disposition home or self-care (01) | DRG 689 ==
LOC: EDUNIT# 17:05 → ER FS 17:06 → 4TH 19:15
PROVIDERS: ADMIT Family Medicine; ATTEND Family Medicine
DX: N39.0 Urinary tract infection, site not specified (principal); G93.41 Metabolic encephalopathy; Z68.42 Body mass index [BMI] 45.0-49.9, adult; E66.9 Obesity, unspecified; E11.9 Type 2 diabetes mellitus without complications; I10 Essential (primary) hypertension; E78.00 Pure hypercholesterolemia, unspecified; E78.5 Hyperlipidemia, unspecified; I25.10 Atherosclerotic heart disease of native coronary artery without angina pectoris; G47.30 Sleep apnea, unspecified; J44.9 Chronic obstructive pulmonary disease, unspecified; M19.91 Primary osteoarthritis, unspecified site; M79.7 Fibromyalgia; M06.9 Rheumatoid arthritis, unspecified; M54.9 Dorsalgia, unspecified; Z95.1 Presence of aortocoronary bypass graft; Z79.2 Long term (current) use of antibiotics; Z79.84 Long term (current) use of oral hypoglycemic drugs; Z79.82 Long term (current) use of aspirin; Z88.0 Allergy status to penicillin; Z82.49 Family history of ischemic heart disease and other diseases of the circulatory system
CPT/HCPCS: 36415; 80048; 80053; 82962; 85025

== ENCOUNTER → 2021-10-01 | Outpatient (CLI) | payer MEDICARE ==
[~2021-10-01] MED LIST changes: -AMIO200T6 PO; +AMIO200T65 PO; +ATEN50TA PO; +CEFD300C3 PO; +CIPR-225 PO
--- NOTE | 2021-10-01 10:31 | Diagnostic Imaging Report ---
INDICATION: Left shoulder pain. Time of Exam: 10:20 AM Multiple views of the left shoulder demonstrate normal glenohumeral and acromioclavicular alignment. There are degenerative changes of the glenohumeral joint with joint space narrowing and sclerosis. There are prominent osteophytes at the humeral head neck junction. No fracture or dislocation is seen. IMPRESSION: Glenohumeral joint degenerative change. No acute bony abnormality is detected. Dictated by: Dictated on workstation # [id number]
== END ==
LOC: RAD FS 10:07
PROVIDERS: ATTEND Nurse Practitioner
DX: M19.012 Primary osteoarthritis, left shoulder (principal)
CPT/HCPCS: 73030

== ENCOUNTER 2021-10-22 10:31 | Outpatient (CLI) | payer MEDICARE ==
[~2021-10-22] VITALS: Ht 172 cm; Wt 125.0 kg
[2021-10-22] MEDS ORDERED: HYDR25TA4 PO (12:30)
== END 2021-10-22 12:36 | disposition home or self-care (01) ==
LOC: PREOP 10:31
PROVIDERS: ATTEND Podiatrist Foot & Ankle Surgery
DX: Z01.818 Encounter for other preprocedural examination (principal)

== ENCOUNTER → 2021-10-29 | Outpatient (CLI) | payer MEDICARE ==
[~2021-10-29] MED LIST changes: +ACHD5005 PO; +CLIN150C2 PO
== END | disposition home or self-care (01) ==
LOC: PREOP 05:33
PROVIDERS: ATTEND Podiatrist Foot & Ankle Surgery
DX: Z01.818 Encounter for other preprocedural examination (principal)

== ENCOUNTER 2021-10-31 07:18 | Day surgery (SDC) | payer MEDICARE ==
[~2021-10-31] VITALS: Ht 172 cm; Wt 125.0 kg
[2021-10-31] VITALS (11 sets, daily range): BP systolic 95–168; BP diastolic 37–90
[~2021-10-31 07:18] MED LIST changes: -ACHD5005 PO; -CLIN150C2 PO
[2021-10-31] MEDS ORDERED: CLINDAMYCIN 600 MG/50 ML IVPB 50 ML IV ONE (07:30)
[2021-10-31] MEDS ORDERED: LACTATED RINGERS 1,000 ML IV PRN (07:30)
[2021-10-31] MEDS: LACTATED RINGERS 1,000 ML IV PRN ×2 (08:02→10:04)
[2021-10-31] MEDS ORDERED: BUPIVACAINE 0.5% 30 ML (SENSORCAINE) VIAL ONE (08:08)
[2021-10-31] MEDS ORDERED: PROPOFOL INJECTION 50 ML IV ONE (08:34)
[2021-10-31] MEDS ORDERED: MIDAZOLAM 2 MG/2 ML (VERSED) VIAL ONE (08:34)
[2021-10-31] MEDS ORDERED: LIDOCAINE 1% INJ 20 ML VIAL ONE (08:34)
--- NOTE | 2021-10-31 09:02 | Progress Note-Pre Operative ---
Pre-Operative Progress Note H&P Reviewed The H&P was reviewed, patient examined and no changes noted. Date Seen by Provider: Oct 31, 2021 Time Seen by Provider: : Date H&P Reviewed: Oct 31, 2021 Time H&P Reviewed: 09:02 Pre-Operative Diagnosis: Fracture, right 5th metatarsal ALEXANDER EATON DPM Oct 31, 2021 09:02
[2021-10-31] MEDS ORDERED: ESMOLOL 100 MG/10 ML (BREVIBLOC) VIAL ONE (09:12)
[2021-10-31] MEDS ORDERED: ONDANSETRON 4 MG/2 ML (SDV) Z0FRAN ONE (09:27)
[2021-10-31] MEDS ORDERED: fentaNYL INJ 100 MCG/2 ML AMP ONE (09:28)
[2021-10-31] MEDS ORDERED: SEVOFLURANE (ULTANE) 15 ML INHAL SOLN ONE (10:19)
--- NOTE | 2021-10-31 10:33 | Progress Note-Post Operative ---
Post-Operative Progess Note Surgeon (s)/Field Cane Scale Clerk (s) Surgeon ALEXANDER EATON DPM Field Cane Scale Clerk: none Pre-Operative Diagnosis Fracture, right 5th metatarsal Post-Operative Diagnosis Same Procedure & Operative Findings Date of Procedure 10/31/21 Procedure Performed/Findings ORIF right 5th metatarsal Anesthesia Type General Estimated Blood Loss Estimated blood loss (mL): Minimal Specimens/Packing Specimens Removed none ALEXANDER EATON DPM Oct 31, 2021 10:33
[2021-10-31] MEDS ORDERED: ACHD5005 PO (10:35)
[2021-10-31] MEDS ORDERED: CLIN150C2 PO (10:35)
[2021-10-31] MEDS ORDERED: ONDANSETRON 4 MG/2 ML (SDV) Z0FRAN IVP PRN (10:45)
[2021-10-31] MEDS ORDERED: morphine INJ 10 MG/ML 1ML (SYR OR VIAL) IVP ONE (10:45)
[2021-10-31] MEDS ORDERED: LACTATED RINGERS 1,000 ML IV SCH (10:45)
[2021-10-31] MEDS ORDERED: HYDROcodone/APAP 5 MG/325 MG (LORTAB) TAB PO PRN (10:45)
--- NOTE | 2021-10-31 12:04 | Physical Therapy Ortho Eval ---
PT Orthopedic Evaluation Type of Surgery Prior Level of Function Current Living Status: Alone Locomotion (Upon Admit): Independent Established Durable Medical Eq: Front Wheeled Walker, Straight Cane Subjective Entry Into Home: Stairs With Railing Steps Into Home: 3 Steps Accessories: Railing Present Motor Control Motor Control: Motor Control WNL ROM ROM: WFL, except focal deficit Strength Strength: Gen Weak,No Focal Deficit Transfer SCALE: Activities may be completed with or without assistive devices. 6-Icutbxxlqi-vflfmze completes the activity by him/herself with no assistance from a helper. 5-Set-up or Clean-up Assistance-helper sets up or cleans up; patient completes activity. [place] assists only prior to or following the activity. 4-Supervision or Touching Assistance-helper provides verbal cues and/or touching/steadying and/or contact guard assistance as patient completes activity. Assistance may be provided throughout the activity or intermittently. 3-Partial/Moderate Assistance-helper does LESS THAN HALF the effort. [place] lifts, holds or supports trunk or limbs, but provides less than half the effort. 2-Substantial/Maximal Assistance-helper does MORE THAN HALF the effort. [place] lifts or holds trunk or limbs and provides more than half the effort. 5-[place]-mwpsbl does ALL the effort. Patient does none of the effort to complete the activity. Or, the assistance of 2 or more helpers is required for the patient to complete the activity. If activity was not attempted, code reason: 7-Patient Refused. 9-Not Applicable-not attempted and the patient did not perform the activity before the current illness, exacerbation or injury. 10-Not Attempted due to Environmental Limitations-(lack of equipment, weather restraints, etc.). 88-Not Attempted due to Medical Conditions or Safety Concerns. Transfers (B, C, W/C) (QC): 4 Gait Gait Assistive Device: FWW Patient ascends/descends 1 step x 3 with CGA and FWW Right Lower Extremity: Right Weight Bearing Status RLE: Non Weight Bearing Left Lower Extremity: Left Weight Bearing Status LLE: Full Weight Bearing Other Weight Bearing Inst.: heel contact on right for balance and transfers is okay Gait (QC): 4 Distance (QC): 1=up to 49 ft Distance: 25 Gait Level of Assist: 4 Treatment Rendered Treatment: Gait Train, Step Train Assessment/Goals Goal Time Frame: 1 Visit Safe Ambulation: Yes Plan Treatment Plan: Discharge Time Time In: 1140 Time Out: 1155 Total Billed Treatment Time: 15 Billed Treatment Time Visit, HOWARD RAMIREZ PT Oct 31, 2021 12:03
--- NOTE | 2021-10-31 13:07 | Diagnostic Imaging Report ---
INDICATION: Postop 5th metatarsal. Time of Exam: 10:39 AM 2 views right foot were obtained. There are 3 screws transfixing the 5th metatarsal. Alignment is anatomic. Remaining metatarsals are intact. Phalanges are unremarkable. There is a large plantar calcaneal spur. IMPRESSION: Postoperative changes 5th metatarsal. Dictated by: Dictated on workstation # [id number]
--- NOTE | 2021-10-31 14:33 | Anesthesia-General Post-Op ---
General Patient Condition Mental Status/LOC: Same as Preop Cardiovascular: Satisfactory Nausea/Vomiting: Absent Respiratory: Satisfactory Pain: Controlled Complications: Absent Post Op Complications Complications None Follow Up Care/Instructions Patient Instructions None needed. Anesthesia/Patient Condition Patient Condition Patient is doing well, no complaints, stable vital signs, no apparent adverse anesthesia problems. No complications reported per nursing. TOMAS CRUZ CRNA Oct 31, 2021 14:32
--- NOTE | 2021-10-31 21:22 | OPERATIVE REPORT ---
DATE OF SERVICE: 10/31/2021 SURGEON: Tammi Eaton DPM. PREOPERATIVE DIAGNOSIS: Fractured right fifth metatarsal. POSTOPERATIVE DIAGNOSIS: Fractured right fifth metatarsal. PROCEDURE: Open reduction and internal fixation, right fifth metatarsal. WOUND CLASS: Clean. ANESTHESIA: General. HEMOSTASIS: Pneumatic ankle tourniquet at 250 mmHg. INDICATIONS: This 76-year-old female presents complaining of a fracture of the right fifth metatarsal, which is unstable. Conservative therapy was met with unsatisfactory results. The patient has an unstable fracture and with elevation, she will likely have transfer lesions or other complications associated with the other lesser metatarsals should there be a significant elevation to the fifth ray. For this reason, the patient has opted to have open reduction and internal fixation performed and after risks and complications were discussed at length, no guarantees were extended and she is willing to proceed. DESCRIPTION OF PROCEDURE: The patient was brought back to the operating table, placed in secure supine position. Appropriate timeout was performed. The right foot was then anesthetized utilizing 20 mL of 1:1 mixture of 1% Xylocaine, 0.5% Marcaine injected in an ankle block. When the tibial nerve was injected into the tarsal tunnel, great care was taken to not to penetrate any blood vessels. The right lower extremity had a tourniquet placed over the ankle over several layers of padding. The right foot was prepped and draped in normal sterile manner. The right foot was then elevated, allowed to exsanguinate after which the tourniquet was inflated to 250 mmHg. Attention was then directed to the dorsal lateral aspect of the right foot. Unfortunately, the patient continued to move throughout this procedure. It was felt it was in the best interest of the patient to do general anesthetics to reduce motion, while doing surgery. A 5 cm longitudinal linear incision was created to the dorsal lateral aspect of the right fifth metatarsal. The incision was deepened in the same plane with great care to identify and retract all vital neurovascular structures. The incision was deepened down to the periosteum after a longitudinal periosteum was performed to the dorsal aspect of the fifth metatarsal. The oblique fracture was identified with medial deviation and dorsal deviation to the capital fragment. Once the fracture was reduced and clamped in place, it was then decided that screw fixation would be in the patient's best interest. Due to the soft nature of the bone smaller screws were utilized as opposed to larger ones for lack of stress risers and comminution. The 2-0 screws were utilized from a dorsal to plantar approach of the proximal screw utilizing standard technique for a [place] screw was performed. The proximal screw was 12 mm of length. The middle screw was 11 mm of length and the distal screw was 12 mm of length. The reduction and internal fixation was confirmed by intraoperative C-arm. The wound was flushed with copious amounts of normal saline throughout the procedure. Closure was then performed in layers. Deep closure was performed with 3-0 Vicryl, superficial with 4-0 Vicryl, skin closure with 4-0 Prolene in a horizontal mattress type stitch. Postoperative injection consisted of 10 mL of 0.5% Marcaine injected in a local infusion to the surgical site. Postoperative dressing consisted of Betadine soaked Adaptic, sterile 4 x 4, sterile Kerlix all secured with soft roll, posterior splint and two Slade wraps. The patient is to be nonweightbearing on the right lower extremity with heel contact for transfers and balance only. We will see her back in the office in 11 days period of time or sooner if necessary. She is to resume her aspirin as soon as possible. Job ID: [id number] DocumentID: [id number] Dictated Date: 10/31/2021 10:43:35 Manager Control Date: 10/31/2021 21:20:49 Dictated By: TAMMI EATON DPM
== END 2021-10-31 12:24 | disposition home or self-care (01) ==
LOC: SDC 07:18
PROVIDERS: ATTEND Podiatrist Foot & Ankle Surgery
DX: S92.354A Nondisplaced fracture of fifth metatarsal bone, right foot, initial encounter for closed fracture (principal)
CPT/HCPCS: 73620; 82947; 87081

== ENCOUNTER → 2022-01-13 | Outpatient (CLI) | payer MEDICARE ==
[~2022-01-13] MED LIST changes: +ACHD5005 PO; +CLIN150C2 PO
== END ==
LOC: CARDFS 12:57
PROVIDERS: ATTEND Internal Medicine Cardiovascular Disease
DX: I35.0 Nonrheumatic aortic (valve) stenosis (principal); I11.9 Hypertensive heart disease without heart failure; I25.10 Atherosclerotic heart disease of native coronary artery without angina pectoris
CPT/HCPCS: 93306

== ENCOUNTER 2022-05-21 08:42 | Emergency (ER) | payer MEDICARE ==
[~2022-05-21] VITALS: Ht 172 cm; Wt 123.0 kg
[2022-05-21 09:04] VITALS: BP 122/64
--- NOTE | 2022-05-21 09:04 | ED Fall/Injury ---
General Chief Complaint: Lower Extremity Stated Complaint: LT ANKLE PAIN Source: patient, family, EMS Exam Limitations: no limitations History of Present Illness Date Seen by Provider: May 21, 2022 Time Seen by Provider: 08:50 Initial Comments 77-year-old female with past medical history of diabetes, hypertension, hyperlipidemia, CAD coming in via EMS from home after she tripped stubbing her toe and falling. This occurred roughly 3 hours prior to arrival. She is mostly having left ankle pain, very mild left knee pain, and some lower back discomfort more so on the left lower back. She hit her upper lip which has been swollen, denies really hitting her head, passing out, remembers all events, no nausea or vomiting. Denies any upper back or neck pain. Does not take any blood thinners. Has been ambulatory. Otherwise denying any other acute complaints. Allergies and Home Medications Allergies Coded Allergies: Penicillins (Verified Allergy, Unknown, 09/24/06) Patient Home Medication List Home Medication List Reviewed: Yes Amitriptyline HCl (Amitriptyline HCl) 100 Mg Tablet, 100 MG PO HS, (Reported) Entered as Reported by: TONY UMAÑA on 06/30/17 1200 Aspirin (Aspirin EC) 81 Mg Tablet.dr, 81 MG PO HS, (Reported) Entered as Reported by: VERO BABIN on 01/10/20 0905 Atenolol (Atenolol) 50 Mg Tablet, 50 MG PO HS, (Reported) Entered as Reported by: VERO BABIN on 07/31/20 1242 Atorvastatin Calcium (Atorvastatin Calcium) 20 Mg Tablet, 20 MG PO DAILY, (Reported) Entered as Reported by: VERO BABIN on 01/10/20 0905 Celecoxib (Celecoxib) 200 Mg Capsule, 200 MG PO DAILY, (Reported) Entered as Reported by: JOVANNY AZEVEDO on 09/29/17 1030 Clindamycin HCl (Cleocin HCl) 150 Mg Capsule, 1 CAP PO QID Prescribed by: ALEXANDER EATON on 10/31/21 1035 Hydrochlorothiazide (Hydrochlorothiazide) 25 Mg Tablet, 25 MG PO DAILY, (Reported) Entered as Reported by: VERO BABIN on 01/10/20 0906 Hydrochlorothiazide (Hydrochlorothiazide) 25 Mg Tablet, 25 MG PO DAILY, (Reported) Entered as Reported by: LUPIS BARFIELD on 10/22/21 1230 Hydrocodone/Acetaminophen (Hydrocodone-Acetamin 5-325 mg) 5 Mg-325 Mg Tablet, 1 TAB PO Q4H PRN for PAIN-MODERATE (5-7) Prescribed by: ALEXANDER EATON on 10/31/21 1037 Losartan Potassium (Losartan Potassium) 100 Mg Tablet, 100 MG PO DAILY, (Reported) Entered as Reported by: VERO BABIN on 01/10/20 0905 Metformin HCl (Metformin HCl) 500 Mg Tablet, 500 MG PO BID, (Reported) Entered as Reported by: VERO BABIN on 01/10/20 0915 Zolpidem Tartrate (Zolpidem Tartrate ER) 12.5 Mg Tab.mphase, 12.5 MG PO HS PRN for SLEEP, (Reported) Entered as Reported by: TONY UMAÑA on 06/30/17 1200 Review of Systems Review of Systems Constitutional: No fever Eyes: No Symptoms Reported Ears, Nose, Mouth, Throat: see HPI Respiratory: no symptoms reported Cardiovascular: no symptoms reported Gastrointestinal: no symptoms reported Genitourinary: no symptoms reported Musculoskeletal: see HPI Skin: no symptoms reported Psychiatric/Neurological: No Symptoms Reported Past Lagpxyl-Leiojy-Qhpsxi Hx Patient Social History Smoking Status: Never a Smoker Smokeless Tobacco Frequency: Never a User Use of E-Cig and/or Vaping dev: No Use of E-Cig and/or Vaping Singh: Never a User Substance use?: No Alcohol Use?: No Pt feels they are or have been: No Immunizations Up To Date First/Initial COVID19 Vaccinat: 07-18-20 Second COVID19 Vaccination Denis: 07-18-20 Third COVID19 Vaccination Date: 07-18-20 Seasonal Allergies Seasonal Allergies: No Past Medical History Surgeries: Yes (LEFT KNEE, CARPAL TUNNEL RIGHT HAND) CABG, Gallbladder, Hysterectomy, Orthopedic Respiratory: Yes Sleep Apnea, COPD Currently Using CPAP: Yes Currently Using BIPAP: No Cardiac: Yes Coronary Artery Disease, High Cholesterol, Hypertension Neurological: No Genitourinary: No Gastrointestinal: No Musculoskeletal: Yes (RIGHT FOOT BROKEN BONE) Arthritis, Fibromyalgia, Rheumatoid Arthritis, Chronic Back Pain Endocrine: Yes HEENT: No Cancer: No Psychosocial: No Integumentary: No Blood Disorders: No Family Medical History Colon cancer G8 SISTER (leaking bowel, from choking on piece of food & never regained conscuiosness) Fibrocystic disease of breast 19 MOTHER (breast ca) Kidney disease G8 BROTHER (bladder ca) Myocardial infarction 19 FATHER Neoplasm Cancer Physical Exam Vital Signs Vital Signs - First Documented 05/21/22 09:04 Temp 36.3 Pulse 79 Resp 20 B/P (MAP) 122/64 (83) Pulse Ox 100 O2 Delivery Room Air Capillary Refill : Height, Weight, BMI Height: 5'8.00" Weight: 310lbs. 0.0oz. [id number]; 42.25 BMI Method: General Appearance: WD/WN, no apparent distress HEENT: PERRL/EOMI, pharynx normal, other (Upper lip swelling without any bleeding, teeth normal, no facial pain otherwise) Neck: non-tender, full range of motion, supple, normal inspection Cardiovascular: regular rate, rhythm, no edema, no murmur Respiratory: chest non-tender, lungs clear, normal breath sounds, no respiratory distress, no accessory muscle use Gastrointestinal: normal bowel sounds, non tender, soft; No distended, No guarding, No rebound Back: normal inspection, no CVA tenderness, no vertebral tenderness, other (Paravertebral tenderness on the left lower back) Extremities: normal range of motion, no pedal edema, no calf tenderness, normal capillary refill, other (Significant adiposity making exam difficult, but accounting for that no significant tenderness in her hips, knees, right ankle, feet, there is tenderness on the left lateral ankle with perhaps slight amount of swelling compared to the right) Neurologic/Psychiatric: no motor/sensory deficits, alert, normal mood/affect, oriented x 3 Skin: normal color, warm/dry Lymphatic: no adenopathy [place] Coma Score Best Eye Response: (4) Open Spontaneously Best Verbal Response: (5) Oriented Best Motor Response: (6) Obeys Commands Progress/Results/Core Measures Results/Orders My Orders Orders - MILENA JIANG MD Ct Head/Cervical Spine Wo (05/21/22 08:59) Ankle 3 View Left (05/21/22 08:59) Ct Lumbar Spine Wo (05/21/22 08:59) Acetaminophen Tablet (Tylenol Tablet) (05/21/22 09:00) Medications Given in ED Current Medications Medications Dose Ordered Sig/Breann Route Start Time Stop Time Status Last Admin Dose Admin Acetaminophen 1,000 mg ONCE ONCE PO 05/21/22 09:00 05/21/22 09:01 DC 05/21/22 09:22 1,000 MG Vital Signs/I&O 05/21/22 09:04 Temp 36.3 Pulse 79 Resp 20 B/P (MAP) 122/64 (83) Pulse Ox 100 O2 Delivery Room Air Progress Progress Note : Progress Note 77-year-old female presenting after she tripped and fell. ABCs were intact, GCS 15, vital stable on presentation. Other than swollen upper lip and some mild tenderness in her left lateral ankle, no significant findings on exam. CT head and cervical spine ordered because of her age and were negative for acute findings although she does have some chronic findings in her cervical spine. She has no pain in her neck at this time. X-ray of the left ankle negative for acute findings including fracture or dislocation on my interpretation. She was given Tylenol for pain control. CT lumbar spine also negative for acute abnormalities. I believe she is otherwise stable for discharge with outpatient follow-up. She was sent home with strict return precautions. Diagnostic Imaging Diagonstic Imaging: Xray (left ankle), CT (head, C and L spine) Comments [facility], [place] NAME: MARIA M MEJIA [facility] REC#: [id number] PT STATUS: REG ER : 1945 PHYSICIAN: MILENA JIANG MD ADMIT DATE: 05/21/22/ER FS Signed Date of Exam:05/21/22 ANKLE 3 VIEW LEFT Indication: Left ankle injury 3 views of the left ankle show no fracture, dislocation or other acute abnormalities. IMPRESSION: Negative left ankle Dictated by: Dictated on workstation # [id number] Dict: 05/21/22925 Trans: 05/21/22925 [facility] [id number] Interpreted by: ALFREDO ZAPATA MD Electronically signed by: ALFREDO ZAPATA MD 05/21/22925 NAME: MARIA M MEJIA [facility] REC#: [id number] PT STATUS: REG ER : 1945 PHYSICIAN: MILENA JIANG MD ADMIT DATE: 05/21/22/ER FS Draft Date of Exam:05/21/22 CT HEAD/CERVICAL SPINE WO PROCEDURE: CT head and CT cervical spine without contrast. TECHNIQUE: Multiple contiguous axial images were obtained through the brain and cervical spine without the use of intravenous contrast. Sagittal and coronal reformations through the cervical spine were then performed. Auto Exposure Controls were utilized during the CT exam to meet ALARA standards for radiation dose reduction. INDICATION: Fall. COMPARISON: Correlation is made to the CT of 07/30/2020. FINDINGS: CT HEAD: The ventricles and sulci are within normal limits. No sulcal effacement or midline shift is identified. No acute intra-axial or extra-axial hemorrhage is detected. Cisterns are patent. The visualized paranasal sinuses are clear. IMPRESSION: No acute intracranial process is detected. CT CERVICAL SPINE: There is anterolisthesis of C4 on C5 by 3 to 4 mm. Severe degenerative facet disease is noted at this level. There is severe multilevel degenerative disc disease with variable disc space narrowing and marginal spurring. Prevertebral tissues are within normal limits. No definite fractures are identified. Odontoid appears to be intact. IMPRESSION: Severe cervical spondylosis as well as C4 on C5 listhesis. No acute bony abnormality is detected. Dictated on workstation # [id number] Dict: 05/21/2230 Trans: 05/21/22 0944 [id number] Interpreted by: ORTEGA CHIANG MD Electronically signed by: NAME: MARIA M MEJIA [facility] REC#: [id number] PT STATUS: REG ER : 1945 PHYSICIAN: MILENA JIANG MD ADMIT DATE: 05/21/22/ER FS Draft Date of Exam:05/21/22 CT LUMBAR SPINE WO PROCEDURE: CT lumbar spine without contrast. TECHNIQUE: Multiple contiguous axial images were obtained through the lumbar spine without the use of intravenous contrast. Sagittal and coronal reformations were then performed. Auto Exposure Controls were utilized during the CT exam to meet ALARA standards for radiation dose reduction. INDICATION: Fall and back pain. FINDINGS: There is significant right convexity lumbar scoliotic curvature. Severe multilevel degenerative disc disease is also noted. Vertebral body heights are maintained. No acute fracture is identified. Paraspinous tissues are unremarkable. There is diverticulosis of the sigmoid colon. IMPRESSION: Severe lumbar spondylosis and scoliosis. No acute bony abnormality is detected. Dictated on workstation # [id number] Dict: 05/21/2244 Trans: 05/21/2248 [id number] Interpreted by: ORTEGA CHIANG MD Electronically signed by: Departure Impression Primary Impression: Fall Qualified Codes: W19.XXXA - Unspecified fall, initial encounter Additional Impressions: Left ankle sprain Qualified Codes: S93.492A - Sprain of other ligament of left ankle, initial encounter Swollen upper lip Disposition: HOME, SELF-CARE Condition: Stable Departure-Patient Inst. Decision time for Depature: 10:10 Referrals: JOHNNY CASTELAN MD (PCP/Family) Primary Care Physician JAMES ORONA Patient Instructions: Ankle Sprain ED Add. Discharge Instructions: Fortunately nothing is broken or more serious. You do have an ankle sprain. I recommend Tylenol every 6-8 hours as needed for pain. You can also ice the area. Please follow-up with Gokul Orona [facility] in [facility] who is the market development specialist if things are not improving. You do have some chronic findings in your neck with the bones which could cause discomfort, and you can seek a specialist if you begin developing issues. MILENA JIANG MD May 21, 2022 09:04
[2022-05-21] MEDS: ACETAMINOPHEN 500 MG TAB (TYLENOL) PO ONE (09:22)
--- NOTE | 2022-05-21 09:27 | Diagnostic Imaging Report ---
Indication: Left ankle injury 3 views of the left ankle show no fracture, dislocation or other acute abnormalities. IMPRESSION: Negative left ankle Dictated by: Dictated on workstation # [id number]
--- NOTE | 2022-05-21 09:45 | Diagnostic Imaging Report ---
PROCEDURE: CT head and CT cervical spine without contrast. TECHNIQUE: Multiple contiguous axial images were obtained through the brain and cervical spine without the use of intravenous contrast. Sagittal and coronal reformations through the cervical spine were then performed. Auto Exposure Controls were utilized during the CT exam to meet ALARA standards for radiation dose reduction. INDICATION: Fall. COMPARISON: Correlation is made to the CT of 07/30/2020. FINDINGS: CT HEAD: The ventricles and sulci are within normal limits. No sulcal effacement or midline shift is identified. No acute intra-axial or extra-axial hemorrhage is detected. Cisterns are patent. The visualized paranasal sinuses are clear. IMPRESSION: No acute intracranial process is detected. CT CERVICAL SPINE: There is anterolisthesis of C4 on C5 by 3 to 4 mm. Severe degenerative facet disease is noted at this level. There is severe multilevel degenerative disc disease with variable disc space narrowing and marginal spurring. Prevertebral tissues are within normal limits. No definite fractures are identified. Odontoid appears to be intact. IMPRESSION: Severe cervical spondylosis as well as C4 on C5 listhesis. No acute bony abnormality is detected. Dictated by: Dictated on workstation # [id number]
--- NOTE | 2022-05-21 09:48 | Diagnostic Imaging Report ---
PROCEDURE: CT lumbar spine without contrast. TECHNIQUE: Multiple contiguous axial images were obtained through the lumbar spine without the use of intravenous contrast. Sagittal and coronal reformations were then performed. Auto Exposure Controls were utilized during the CT exam to meet ALARA standards for radiation dose reduction. INDICATION: Fall and back pain. FINDINGS: There is significant right convexity lumbar scoliotic curvature. Severe multilevel degenerative disc disease is also noted. Vertebral body heights are maintained. No acute fracture is identified. Paraspinous tissues are unremarkable. There is diverticulosis of the sigmoid colon. IMPRESSION: Severe lumbar spondylosis and scoliosis. No acute bony abnormality is detected. Dictated by: Dictated on workstation # [id number]
== END 2022-05-21 09:55 | disposition home or self-care (01) ==
LOC: EDUNIT# 08:42 → ER FS 08:52
DX: S93.402A Sprain of unspecified ligament of left ankle, initial encounter (principal); R22.0 Localized swelling, mass and lump, head; M54.50 Low back pain, unspecified; G47.30 Sleep apnea, unspecified; Z28.310 Unvaccinated for COVID-19; Z99.89 Dependence on other enabling machines and devices; W01.198A Fall on same level from slipping, tripping and stumbling with subsequent striking against other object, initial encounter; Y92.000 Kitchen of unspecified non-institutional (private) residence as the place of occurrence of the external cause
CPT/HCPCS: 70450; 72125; 72131; 73610

== ENCOUNTER 2022-09-21 19:31 | Emergency (ER) | payer MEDICARE ==
[~2022-09-21] VITALS: Ht 172.7 cm; Wt 124.2 kg
[2022-09-21 19:32] VITALS: BP_SYST 195
--- NOTE | 2022-09-21 19:57 | ED Fall/Injury ---
General Chief Complaint: Skin/Wound Problems Stated Complaint: R HAND LAC,LIP LAC Nursing Triage Note: Patient states that she was carrying groceries in when she tripped on the stair to her home and fell. Patient has a skin tear to the right hand by her first knuckle. Patient did hit her lip, minimal swelling is noted. Patient denies being knocked out and doesn't complain of pain other than her skin tear. Source: patient History of Present Illness Date Seen by Provider: September 21, 2022 Time Seen by Provider: 19:32 Initial Comments 77-year-old female presenting with complaints of fall on her stairs at home. She was trying to carry groceries in and had lost her balance. When she fell she did hit her upper lip and had a skin tear to her right hand. She denies losing consciousness or having any other injuries. She states her last tetanus was approximately 2 years ago. She had no numbness or tingling in her hands. She had fallen just prior to coming to the emergency department. Occurred: just prior to arrival Severity: mild Injuries/Pain Location: head (Left upper lip contusion), upper extremity (Skin tear and bruising to the right hand between the thumb and index finger) Context: lost balance Loss of Consciousness: no loss of consciousness Modifying Factors: Worse With Movement Associated Symptoms (Fall): No Abdominal Pain, No Chest Pain, No Confusion, No Dizziness, No Headache, No Lightheadedness, No Muscle Spasms, No Nausea/Vomiti ng, No Neck Pain, No Ringing in Ears, No Seizures, No Shortness of Air, No Slurred Speech, No Trouble Walking, No Vision Changes Allergies and Home Medications Allergies Coded Allergies: Penicillins (Verified Allergy, Unknown, 09/24/06) Patient Home Medication List Home Medication List Reviewed: Yes Amitriptyline HCl (Amitriptyline HCl) 100 Mg Tablet, 100 MG PO HS, (Reported) Entered as Reported by: TONY UMAÑA on 06/30/17 1200 Aspirin (Aspirin EC) 81 Mg Tablet.dr, 81 MG PO HS, (Reported) Entered as Reported by: VERO BABIN on 01/10/20 0905 Atenolol (Atenolol) 50 Mg Tablet, 50 MG PO HS, (Reported) Entered as Reported by: VERO BABIN on 07/31/20 1242 Atorvastatin Calcium (Atorvastatin Calcium) 20 Mg Tablet, 20 MG PO DAILY, (Reported) Entered as Reported by: VERO BABIN on 01/10/20 0905 Celecoxib (Celecoxib) 200 Mg Capsule, 200 MG PO DAILY, (Reported) Entered as Reported by: JOVANNY AZEVEDO on 09/29/17 1030 Clindamycin HCl (Cleocin HCl) 150 Mg Capsule, 1 CAP PO QID Prescribed by: ALEXANDER EATON on 10/31/21 1035 Hydrochlorothiazide (Hydrochlorothiazide) 25 Mg Tablet, 25 MG PO DAILY, (Reported) Entered as Reported by: VERO BABIN on 01/10/20 0906 Hydrochlorothiazide (Hydrochlorothiazide) 25 Mg Tablet, 25 MG PO DAILY, (Reported) Entered as Reported by: LUPIS BARIFELD on 10/22/21 1230 Hydrocodone/Acetaminophen (Hydrocodone-Acetamin 5-325 mg) 5 Mg-325 Mg Tablet, 1 TAB PO Q4H PRN for PAIN-MODERATE (5-7) Prescribed by: ALEXANDER EATON on 10/31/21 1037 Losartan Potassium (Losartan Potassium) 100 Mg Tablet, 100 MG PO DAILY, (Reported) Entered as Reported by: VERO BABIN on 01/10/20 0905 Metformin HCl (Metformin HCl) 500 Mg Tablet, 500 MG PO BID, (Reported) Entered as Reported by: VERO BABIN on 01/10/20 0915 Zolpidem Tartrate (Zolpidem Tartrate ER) 12.5 Mg Tab.mphase, 12.5 MG PO HS PRN for SLEEP, (Reported) Entered as Reported by: TONY UMAÑA on 06/30/17 1200 Review of Systems Review of Systems Constitutional: No chills, No dizziness, No fever Eyes: No Symptoms Reported Ears, Nose, Mouth, Throat: see HPI Respiratory: no symptoms reported Cardiovascular: no symptoms reported Gastrointestinal: no symptoms reported Genitourinary: no symptoms reported Musculoskeletal: see HPI Skin: see HPI Psychiatric/Neurological: See HPI Past Difuohc-Wbcccv-Ihnkcd Hx Patient Social History Tobacco Use?: No Substance use?: No Alcohol Use?: No Pt feels they are or have been: No Immunizations Up To Date First/Initial COVID19 Vaccinat: 07-18-20 Second COVID19 Vaccination Denis: 07-18-20 Third COVID19 Vaccination Date: 07-18-20 COVID19 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: [employer] Seasonal Allergies Seasonal Allergies: No Past Medical History Surgeries: Yes (LEFT KNEE, CARPAL TUNNEL RIGHT HAND) CABG, Gallbladder, Hysterectomy, Orthopedic Respiratory: Yes Sleep Apnea, COPD Currently Using CPAP: Yes Currently Using BIPAP: No Cardiac: Yes Coronary Artery Disease, High Cholesterol, Hypertension Neurological: No Genitourinary: No Gastrointestinal: No Musculoskeletal: Yes (RIGHT FOOT BROKEN BONE) Arthritis, Fibromyalgia, Rheumatoid Arthritis, Chronic Back Pain Endocrine: Yes HEENT: No Cancer: No Psychosocial: No Integumentary: No Blood Disorders: No Family Medical History Colon cancer G8 SISTER (leaking bowel, from choking on piece of food & never regained conscuiosness) Fibrocystic disease of breast 19 MOTHER (breast ca) Kidney disease G8 BROTHER (bladder ca) Myocardial infarction 19 FATHER Neoplasm Cancer Physical Exam Vital Signs Vital Signs - First Documented 09/21/22 19:32 Temp 37.0 Pulse 109 Resp 20 B/P (MAP) 195/ Pulse Ox 95 O2 Delivery Room Air Capillary Refill : Less Than 3 Seconds Height, Weight, BMI Height: 5'8.00" Weight: 310lbs. 0.0oz. 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, no motor/sensory deficits, alert, oriented x 3 Skin: warm/dry, ecchymosis (Bruising to the left hand around the skin tear and on the back of the hand) Alberto Coma Score Best Eye Response: (4) Open Spontaneously Best Verbal Response: (5) Oriented Best Motor Response: (6) Obeys Commands Alberto Total: 15 Procedures/Interventions Wound Location: Upper Extremities (Right upper hand between the thumb and index finger) Wound Length (cm): 1.8 Wound's Depth, Shape: superficial (Skin tear), contused tissue Wound Explored: clean Other Closure Supply: Steri Strip 05/06", Mastisol Progress Wound was cleaned with chlorhexidine scrub soap and sterile water. Bleeding was controlled with pressure. The flap measured approximately 1.8 cm x 1.4 cm. Mastisol was applied around the wound edges and using quarter inch Steri-Strips to the wound edges were approximated in place. Patient tolerated procedure well without any immediate complication. The larger dressing was applied over the top of this to help with oozing and bleeding tonight. Advised that she would not have to cover the wound unless it might get dirty after tonight. Keep the wound clean with soap and water but do not apply antibiotic ointment or lotions as it would make the Steri-Strips come off early. She could trim the edges of the Steri-Strips as they peel back. Check back with the primary care clinic for continued concerns. Ice 15 to 20 minutes every few hours as needed for pain and bruising. Progress/Results/Core Measures Results/Orders Vital Signs/I&O 09/21/22 19:32 Temp 37.0 Pulse 109 Resp 20 B/P (MAP) 195/ Pulse Ox 95 O2 Delivery Room Air Progress Progress Note : Progress Note As patient was not complaining of any pain or injury other than the left upper lip contusion and the skin tear to the right hand these areas were mainly addressed. The skin tear was cleaned with chlorhexidine scrub soap and sterile water. The wound edges were approximated using quarter inch Steri-Strips x3 and Mastisol was applied to the skin prior to Steri-Strips to help with adhesiveness. On follow-up and return precautions. Advised to keep the area clean with soap and water. Do not soak it and do not apply antibiotic ointment or lotions. Watch for signs of infection such as redness streaking up the hand, fever, purulent drainage. May apply ice 15 to 20 minutes every few hours as needed for pain and bruising. Take acetaminophen 650 mg every 4-6 hours as needed for pain. Try to apply ice to the upper lip as well. Departure Impression Primary Impression: Skin tear of right hand without complication Qualified Codes: S61.411A - Laceration without foreign body of right hand, initial encounter Additional Impressions: Contusion of lip, initial encounter Fall (on) (from) other stairs and steps, initial encounter Disposition: 01 HOME, SELF-CARE Condition: Stable Departure-Patient Inst. Decision time for Depature: 19:55 Referrals: JOHNNY CASTELAN MD (PCP/Family) Primary Care Physician Patient Instructions: Abrasions ED, Preventing Falls ED, SKIN AVULSION, Wound Care ED Add. Discharge Instructions: Keep the wound clean with soap and water. Avoid applying antibiotic ointment or lotions as it would make the tape come off early. May apply ice for 10 to 15 minutes every few hours as needed for pain and bruising. If seeing signs of infection such as redness streaking up your hand, pus draining from the wound, fever over 101 Fahrenheit he should be seen again for antibiotics. Check back with the primary care provider as needed for continued concerns. The surgical tape should be peeling off on its own over the next 7 to 10 days. You could use some cuticle scissors to trim the edges if it is peeling up. All discharge instructions reviewed with patient and/or family. Voiced understanding. ROB MEYERS MD September 21, 2022 19:57
== END 2022-09-21 20:00 | disposition home or self-care (01) ==
LOC: EDUNIT# 19:31 → ER FS 19:32
DX: S61.411A Laceration without foreign body of right hand, initial encounter (principal); S00.531A Contusion of lip, initial encounter; G47.30 Sleep apnea, unspecified; Z99.89 Dependence on other enabling machines and devices; W10.8XXA Fall (on) (from) other stairs and steps, initial encounter; W22.8XXA Striking against or struck by other objects, initial encounter; Y92.008 Other place in unspecified non-institutional (private) residence as the place of occurrence of the external cause

== ENCOUNTER 2023-02-19 11:17 | Emergency (ER) | payer MEDICARE ==
[~2023-02-19] VITALS: Ht 172 cm; Wt 118.0 kg
[~2023-02-19 11:17] MED LIST changes: -CELE-63 PO; +CELE-91 PO; -CELE100C84 PO; +CELE100C85 PO; -LOSA100T57 PO; +LOSA100T58 PO
[2023-02-19 11:20] VITALS: BP 155/67
[2023-02-19] MEDS ORDERED: ACETAMINOPHEN 325 MG TABLET PO STA (11:35)
--- NOTE | 2023-02-19 11:40 | ED Fall/Injury ---
General Chief Complaint: Lower Extremity Stated Complaint: FALL; KNEE/BACK PAIN Nursing Triage Note: PT REPORTS SHE FELL ON HER KNEES THIS AM WHILE GETTING OUT OF BED. C/O BILATERAL KNEE PAIN AND LOW BACK PAIN. Source: patient History of Present Illness Date Seen by Provider: Feb 19, 2023 Time Seen by Provider: 11:17 Initial Comments 78-year-old female presenting with complaints of bilateral knee pain and low back pain since she had fallen on her knees at 8 AM. She states that she was returning from the bathroom and trying to get back in bed when she fell to her knees. She is unsure if she slipped or tripped on something. She denies hitting her head or losing consciousness. She was having pain in both knees and low back that prevented her from walking and getting up. EMS arrived and did a lift assist and she was still complaining of pain so they transported her here to the emergency department. She states that her pain is doing better now that she is arrived. She had a bowel movement as soon as she arrived in the emergency department. She denies any pain or burning with urination. She denied having any headache or numbness or weakness in her arms or legs. She has not taken anything for pain. Occurred: this morning Severity: moderate Injuries/Pain Location: back (Low back), lower extremity (Bilateral knees) Context: slipped Loss of Consciousness: no loss of consciousness Modifying Factors: Worse With Movement Associated Symptoms (Fall): No Abdominal Pain, No Chest Pain, No Confusion, No Dizziness, No Headache, No Lightheadedness, No Muscle Spasms, No N ausea/Vomiting, No Neck Pain, No Ringing in Ears, No Seizures, No Shortness of Air, No Slurred Speech; Trouble Walking (Due to pain in her knees); No Vision Changes Allergies and Home Medications Allergies Coded Allergies: Penicillins (Verified Allergy, Unknown, 09/24/06) Patient Home Medication List Home Medication List Reviewed: Yes Amitriptyline HCl (Amitriptyline HCl) 100 Mg Tablet, 100 MG PO HS, (Reported) Entered as Reported by: TONY UMAÑA on 06/30/17 1200 Aspirin (Aspirin EC) 81 Mg Tablet.dr, 81 MG PO HS, (Reported) Entered as Reported by: VERO BABIN on 01/10/20 0905 Atenolol (Atenolol) 50 Mg Tablet, 50 MG PO HS, (Reported) Entered as Reported by: VERO BABIN on 07/31/20 1242 Atorvastatin Calcium (Atorvastatin Calcium) 20 Mg Tablet, 20 MG PO DAILY, (Reported) Entered as Reported by: VERO BABIN on 01/10/20 0905 Celecoxib (Celecoxib) 200 Mg Capsule, 200 MG PO DAILY, (Reported) Entered as Reported by: JOVANNY AZEVEDO on 09/29/17 1030 Clindamycin HCl (Cleocin HCl) 150 Mg Capsule, 1 CAP PO QID Prescribed by: ALEXANDER EATON on 10/31/21 1035 Hydrochlorothiazide (Hydrochlorothiazide) 25 Mg Tablet, 25 MG PO DAILY, (Reported) Entered as Reported by: VERO BABIN on 01/10/20 0906 Hydrochlorothiazide (Hydrochlorothiazide) 25 Mg Tablet, 25 MG PO DAILY, (Reported) Entered as Reported by: LUPIS BARFIELD on 10/22/21 1230 Hydrocodone/Acetaminophen (Hydrocodone-Acetamin 5-325 mg) 5 Mg-325 Mg Tablet, 1 TAB PO Q4H PRN for PAIN-MODERATE (5-7) Prescribed by: ALEXANDER EATON on 10/31/21 1037 Losartan Potassium (Losartan Potassium) 100 Mg Tablet, 100 MG PO DAILY, (Reported) Entered as Reported by: VERO BABIN on 01/10/20 0905 Metformin HCl (Metformin HCl) 500 Mg Tablet, 500 MG PO BID, (Reported) Entered as Reported by: VERO BABIN on 01/10/20 0915 Zolpidem Tartrate (Zolpidem Tartrate ER) 12.5 Mg Tab.mphase, 12.5 MG PO HS PRN for SLEEP, (Reported) Entered as Reported by: TONY UMAÑA on 06/30/17 1200 Review of Systems Review of Systems Constitutional: No chills, No diaphoresis, No dizziness, No fever Eyes: No Symptoms Reported Ears, Nose, Mouth, Throat: no symptoms reported Respiratory: no symptoms reported Cardiovascular: no symptoms reported Gastrointestinal: no symptoms reported Genitourinary: no symptoms reported Musculoskeletal: see HPI Skin: No change in color Past Pkfgiok-Lducxh-Yteizl Hx Patient Social History Tobacco Use?: No Use of E-Cig and/or Vaping dev: No Substance use?: No Alcohol Use?: No Pt feels they are or have been: No Immunizations Up To Date First/Initial COVID19 Vaccinat: 07-18-20 Second COVID19 Vaccination Denis: 07-18-20 Third COVID19 Vaccination Date: 07-18-20 Seasonal Allergies Seasonal Allergies: No Past Medical History Surgeries: Yes (LEFT KNEE, CARPAL TUNNEL RIGHT HAND) CABG, Gallbladder, Hysterectomy, Orthopedic Respiratory: Yes Sleep Apnea, COPD Currently Using CPAP: Yes Currently Using BIPAP: No Cardiac: Yes Coronary Artery Disease, High Cholesterol, Hypertension Neurological: No Genitourinary: No Gastrointestinal: No Musculoskeletal: Yes (RIGHT FOOT BROKEN BONE) Arthritis, Fibromyalgia, Rheumatoid Arthritis, Chronic Back Pain Endocrine: Yes HEENT: No Cancer: No Psychosocial: No Integumentary: No Blood Disorders: No Family Medical History Colon cancer G8 SISTER (leaking bowel, from choking on piece of food & never regained conscuiosness) Fibrocystic disease of breast 19 MOTHER (breast ca) Kidney disease G8 BROTHER (bladder ca) Myocardial infarction 19 FATHER Neoplasm Cancer Physical Exam Vital Signs Vital Signs - First Documented 02/19/23 11:20 Temp 36.1 Pulse 100 Resp 18 B/P (MAP) 155/67 (96) Pulse Ox 98 O2 Delivery Room Air Capillary Refill : Less Than 3 Seconds Height, Weight, BMI Height: 5'8.00" Weight: 310lbs. 0.0oz. 140.350316ir; 39.00 BMI Method: General Appearance: WD/WN, no apparent distress, obese HEENT: PERRL/EOMI Cardiovascular: normal peripheral pulses, regular rate, rhythm Respiratory: chest non-tender, lungs clear, normal breath sounds Gastrointestinal: normal bowel sounds, non tender, soft, no pulsatile mass Back: no CVA tenderness, no vertebral tenderness, muscle spasm (Paraspinal muscle tenderness and pain in the lumbar spine) Extremities: normal range of motion, normal capillary refill, other (Tender to palpation along the anterior aspect of bilateral knees. No ecchymosis or abrasions) Neurologic/Psychiatric: alert, oriented x 3 Skin: normal color, warm/dry Alberto Coma Score Best Eye Response: (4) Open Spontaneously Best Verbal Response: (5) Oriented Best Motor Response: (6) Obeys Commands [place] Total: 15 Progress/Results/Core Measures Results/Orders My Orders Orders - ROB MEYERS MD Acetaminophen Tablet (Acetaminophen Ta (10/20/23 11:35) Ice: Apply To Affected Area (02/19/23 11:36) Knee 3 View Bilateral (02/19/23 11:36) Ct Lumbar Spine Wo (02/19/23 11:36) Vital Signs/I&O 02/19/23 11:20 Temp 36.1 Pulse 100 Resp 18 B/P (MAP) 155/67 (96) Pulse Ox 98 O2 Delivery Room Air Blood Pressure Mean: 96 Progress Progress Note #1: Progress Note Differential diagnosis includes bilateral knee contusion, lumbar back strain, lumbar compression fracture, total knee arthroplasty hardware failure, femur fracture, tibia fracture, fibula fracture. Obtain x-rays of the bilateral knees and a CT scan of the lumbar spine looking for acute fractures or bony abnormality. Try to obtain a urinalysis if she is able to go while here to look for any signs of infection. She states that she is not having any burning, pain, frequency. Progress Note #2: Time: 12:22 Progress Note My personal review and interpretation I did not appreciate any acute fractures on either knee. The hardware from the knee arthroplasty appeared to be intact and did not see any failure or periprosthetic fracture. I did not appreciate any acute compression fracture of the lumbar spine but she did have degenerative changes and curvature of the lumbar spine. Waiting radiology reading. Radiologist saw degenerative changes but no acute fractures. Counseled patient and family on plan and test results. Advised to continue to use ice and elevation to help with pain after a few days they could alternate with heat. Given information about reducing fall risk. Counseled to check back with the clinic. Continue with acetaminophen and may try an anti-inflammatory to help with pain and inflammation as well. Diagnostic Imaging Diagonstic Imaging: Xray Plain Films/CT/US/NM/MRI: knee Comments [facility]. [place], [place] NAME: ROBERTOMARIA M Barbra [facility] REC#: [id number] PT STATUS: REG ER : 1945 PHYSICIAN: ROB MEYERS MD ADMIT DATE: 02/19/23/ER FS Draft Date of Exam:02/19/23 KNEE 3 VIEW BILATERAL EXAMINATION: Bilateral knee radiographs. EXAM DATE: 02/19/2023 12:33 PM COMPARISON: None available. HISTORY: Bilateral knee pain. TECHNIQUE: 3 views of both knees. FINDINGS: There is no acute fracture, dislocation, or destructive osseous process. Surgical changes from left knee arthroplasty. Hardware is in good positioning without evidence of prosthetic loosening or acute cortical fracture. There is moderate medial compartment joint space narrowing within the right knee with prominent osteophytes along the lateral and medial compartment. No significant joint effusion. The soft tissues are normal. IMPRESSION: 1. Degenerative changes of the right knee with moderate medial compartment joint space narrowing. 2. Surgical changes from total left knee arthroplasty. 3. No acute osseous abnormality. Dictated on workstation # [id number] Dict: 02/19/23 1243 Trans: 02/19/231246 ACB [id number] Interpreted by: LEREOY ZAPATA DO Electronically signed by: Reviewed: Reviewed by Me Diagonstic Imaging: CT Plain Films/CT/US/NM/MRI: other (lumbar spine) Comments NAME: MARIA M MEJIA [facility] REC#: [id number] PT STATUS: REG ER : 1945 PHYSICIAN: ROB MEYERS MD ADMIT DATE: 02/19/23/ER FS Draft Date of Exam:02/19/23 CT LUMBAR SPINE WO EXAMINATION: CT lumbar spine without contrast. TECHNIQUE: Multiple contiguous axial images were obtained through the lumbar spine without the use of intravenous contrast. Sagittal and coronal reformations were then performed. All CT scans use one or more of the following dose optimizing techniques: automated exposure control, MA and/or KvP adjustment based on patient size and exam type or iterative reconstruction. HISTORY: Back pain after fall. COMPARISON: 05/21/2022 FINDINGS: There is dextrocurvature of the lumbar spine. Vertebral body heights are normal and no fracture is seen. There is multilevel facet hypertrophy. There is multilevel disc height loss. Multilevel lumbar spondylosis. Limited views of the abdomen and pelvis show no soft tissue abnormality. There are vascular calcifications of the aorta without aneurysm. IMPRESSION: 1. Multilevel degenerative changes of lumbar spine without acute osseous abnormality. Dictated on workstation # [id number] Dict: 02/19/23 1239 Trans: 02/19/231242 CVB [id number] Interpreted by: LEEROY ZAPATA DO Electronically signed by: Reviewed: Reviewed by Me Departure Impression Primary Impression: Contusion of left knee, initial encounter Additional Impressions: Contusion of right knee, initial encounter Fall at home Qualified Codes: W19.XXXA - Unspecified fall, initial encounter; Y92.009 - Unspecified place in unspecified non-institutional (private) residence as the place of occurrence of the external cause Acute myofascial strain of lumbar region Qualified Codes: S39.012A - Strain of muscle, fascia and tendon of lower back, initial encounter Disposition: HOME, SELF-CARE Condition: Stable Departure-Patient Inst. Decision time for Depature: 12:51 Referrals: JOHNNY CASTELAN MD (PCP/Family) Primary Care Physician Patient Instructions: Preventing Falls ED, Minor Contusion ED, Low Back Pain ED, Using Cold for Pain Add. Discharge Instructions: May apply ice 15 to 20 minutes every few hours as needed for pain and inflammation. Try to take your time as you are changing positions and walking through the house. Follow-up with clinic for continued concerns. If she continues to have low back pain and knee pain you may need physical therapy to help recover from your fall. All discharge instructions reviewed with patient and/or family. Voiced understanding. ROB MEYERS MD Feb 19, 2023 11:40
--- NOTE | 2023-02-19 12:44 | Diagnostic Imaging Report ---
EXAMINATION: CT lumbar spine without contrast. TECHNIQUE: Multiple contiguous axial images were obtained through the lumbar spine without the use of intravenous contrast. Sagittal and coronal reformations were then performed. All CT scans use one or more of the following dose optimizing techniques: automated exposure control, MA and/or KvP adjustment based on patient size and exam type or iterative reconstruction. HISTORY: Back pain after fall. COMPARISON: 05/21/2022 FINDINGS: There is dextrocurvature of the lumbar spine. Vertebral body heights are normal and no fracture is seen. There is multilevel facet hypertrophy. There is multilevel disc height loss. Multilevel lumbar spondylosis. Limited views of the abdomen and pelvis show no soft tissue abnormality. There are vascular calcifications of the aorta without aneurysm. IMPRESSION: 1. Multilevel degenerative changes of lumbar spine without acute osseous abnormality. Dictated by: Dictated on workstation # [id number]
--- NOTE | 2023-02-19 12:48 | Diagnostic Imaging Report ---
EXAMINATION: Bilateral knee radiographs. EXAM DATE: 02/19/2023 12:33 PM COMPARISON: None available. HISTORY: Bilateral knee pain. TECHNIQUE: 3 views of both knees. FINDINGS: There is no acute fracture, dislocation, or destructive osseous process. Surgical changes from left knee arthroplasty. Hardware is in good positioning without evidence of prosthetic loosening or acute cortical fracture. There is moderate medial compartment joint space narrowing within the right knee with prominent osteophytes along the lateral and medial compartment. No significant joint effusion. The soft tissues are normal. IMPRESSION: 1. Degenerative changes of the right knee with moderate medial compartment joint space narrowing. 2. Surgical changes from total left knee arthroplasty. 3. No acute osseous abnormality. Dictated by: Dictated on workstation # [id number]
== END 2023-02-19 12:55 | disposition home or self-care (01) ==
LOC: EDUNIT# 11:17 → ER FS 11:18
DX: S39.012A Strain of muscle, fascia and tendon of lower back, initial encounter (principal); S80.02XA Contusion of left knee, initial encounter; S80.01XA Contusion of right knee, initial encounter; G47.30 Sleep apnea, unspecified; E66.9 Obesity, unspecified; Z68.39 Body mass index [BMI] 39.0-39.9, adult; Z99.89 Dependence on other enabling machines and devices; W18.30XA Fall on same level, unspecified, initial encounter; Y92.009 Unspecified place in unspecified non-institutional (private) residence as the place of occurrence of the external cause
CPT/HCPCS: 72131; 99283